=== PATIENT | female | born 1975 | race African-American/Black ===

== ENCOUNTER 2020-11-04 18:43 | Emergency (ER) | payer OTHER, MEDICAID, SELFPAY ==
--- NOTE | 2020-11-04 | XR_ITS ---
EXAMINATION: XR CHEST CLINICAL INFORMATION: Cough. Asthma. COMPARISON: Chest CT 12/15/2016 and chest x-ray 12/14/2016 TECHNIQUE: Frontal view of the chest was obtained. FINDINGS: Cardiac silhouette is normal in size. The lungs are well aerated. There is no lobar consolidation. No pleural effusion or pneumothorax. XR/XR chest 1V IMPRESSION: No acute pulmonary pathology.
[2020-11-04 18:48] VITALS: BP 173/102; PULSE 84; RESP 18; TEMP 36.6; O2SAT 100; BMI 35.3
[2020-11-04 19:17] VITALS: BP 168/89; PULSE 85; RESP 18; TEMP 36.9; O2SAT 100; BMI 40.2
--- NOTE | 2020-11-04 19:24 | ED.GENADULT ---
HPI - General Adult General Chief complaint: General Medical Stated complaint: Asthma Source: patient Mode of arrival: ambulatory Limitations: no limitations History of Present Illness HPI narrative: 45-year-old female with past medical history of asthma presents with wheezing, cough, and malaise. She was seen by her primary care physician via telemedicine yesterday and given azithromycin and prednisone. She presents because her symptoms have not improved with 1 dose of azithromycin and 1 dose of prednisone. She does report a cough, wheezing, but does not describe any chest pain, palpitations, abdominal pain, abdominal distention, dysuria, hematuria, nausea, vomiting, diarrhea, and fevers or chills. Onset (ago): week(s) Related Data Previous Rx's Medication Instructions Recorded fluoxetine 20 mg capsule 20 mg PO QAM #30 cap 08/25/20 topiramate 25 mg tablet 25 mg PO BEDTIME #120 tab 09/20/20 azithromycin 250 mg tablet See Rx Instructions PO .COMPLEX #6 10/08/20 tab prednisone 10 mg tablets in a dose See Rx Instructions PO PER PKG DIR 10/08/20 pack 8 Days #20 tab benzonatate [Tessalon Perles] 100 mg PO TID PRN #30 cap 11/05/20 Allergies Allergy/AdvReac Type Severity Reaction Status Date / Time No Known Allergies Allergy Unverified 07/08/20 15:42 [No Known Allergies*] Review of Systems Review of Systems: Constitutional: No Fever, No Chills ENT/Mouth: No Hoarseness, No sore throat, No Rhinorrhea Eyes: No Redness, No Discharge, No Vision Changes Cardiovascular: No Chest Pain, no SOB, no Dyspnea on Exertion, No Edema Respiratory: positive Cough, No Sputum, positive Wheezing, Gastrointestinal: No Nausea, No Vomiting, No Diarrhea, No abdominal Pain Genitourinary: No Dysuria, No Hematuria Musculoskeletal: No joint pain, No Myalgias Skin: No rash Neuro: No Weakness, No Numbness, No Headache Psych: No anxiety, depression Heme/Lymph: No Bruising, No Bleeding Endocrine: No Polyuria, No Polydipsia Yes all other systems are reviewed and are negative [facility] Past Medical History Attestation statement: The following information was validated with the patient. Medical History Asthma Social History Social History Advance Directives: No Advance Directives Information Provided: Yes Physical Exam Vital Signs: Vital Signs: Last Vital Signs Temp 98.5 F 11/04/20 19:17 Pulse 85 11/04/20 19:17 Resp 18 11/04/20 19:17 BP 168/89 H 11/04/20 19:17 Pulse Ox 100 11/04/20 19:17 Body Mass Index 40.2 Appearance: Alert. Oriented X3. Mild distress. Eyes: Pupils equal, round and reactive to light. ENT: Pharynx normal. Neck: Normal inspection. Neck supple. CVS: Normal heart rate and rhythm. Pulses normal. Respiratory: No respiratory distress. Breath sounds expiratory wheezing to right upper lobe. Abdomen: Soft and nontender. Skin: Skin warm and dry. Normal skin color. Normal skin turgor. Extremities: No lower extremity edema. Neuro: No motor deficit. No sensory deficit. Course Course Course Narrative: 45-year-old female with past medical history of asthma presents with cough and wheezing that has not improved with 1 dose of azithromycin and prednisone that were prescribed to her by her primary care physician via telemedicine yesterday. Lung sounds have minimal wheezing to the right upper lobe, she has been using her albuterol inhaler and nebulizers at home. Oxygen saturations 100% on room air respiration rate is 18. At this time we will test her for COVID-19 and chest x-ray Chest x-ray is negative. Patient does not want wait, we will call with her results. Patient verbalized understanding of and agrees to plan of care to discharge home. Results at 12:00 a.m.. Patient called and updated that she is COVID positive. Medical Decision Making Differential Diagnosis Differential Diagnosis: Asthma exacerbation, upper respiratory infection, COVID-19, pneumonia Medical Records Medical records reviewed: Yes I reviewed the patient's medical records. Lab Data Lab results reviewed: Yes I reviewed the patient's lab results. Labs: Lab Results 11/04/20 Range/Units 19:51 Coronavirus (PCR) POSITIVE A (Negative) Influenza Type A (PCR) NEGATIVE (Negative) Influenza Type B (PCR) NEGATIVE (Negative) RSV RNA Qual (PCR) NEGATIVE (Negative) Imaging Data Chest x-ray: Attestation: I personally reviewed and interpreted this imaging study as follows: Radiologist's impression: EXAMINATION: XR CHEST CLINICAL INFORMATION: Cough. Asthma. COMPARISON: Chest CT 12/15/2016 and chest x-ray 12/14/2016 TECHNIQUE: Frontal view of the chest was obtained. FINDINGS: Cardiac silhouette is normal in size. The lungs are well aerated. There is no lobar consolidation. No pleural effusion or pneumothorax. XR/XR chest 1V IMPRESSION: No acute pulmonary pathology. Discharge Plan Discharge Clinical Impression: COVID-19, Acute viral syndrome Patient Disposition: Home, Self-Care Instructions: Viral Syndrome (ED), COVID-19 (Coronavirus Disease 2019) (ED) Additional Instructions: You were evaluated for upper respiratory symptoms. Please continue to take medications that were prescribed to you by her pulmonary physician. Complete the azithromycin and prednisone as scheduled. We prescribed Tessalon Perles to help control her cough. Your COVID-19 test is pending. You were evaluated for symptoms consistent with COVID-19 and or COVID-19 positive exposure. Please maintain social isolation per State and Federal guidelines. Is your responsibility to maintain these guidelines. Your test results are pending. We will call you with the results. You must treat yourself as if you are positive until your test results come back. Thank you for choosing this emergency department for evaluation. Please follow-up with primary care physician as needed. Return to the emergency department for any new, concerning, or worsening symptoms. Prescriptions: New benzonatate [Tessalon Perles] 100 mg capsule 100 mg PO TID PRN (Reason: cough) Qty: 30 RF: 0 No Action fluoxetine 20 mg capsule 20 mg PO QAM Qty: 30 RF: 0 topiramate 25 mg tablet 25 mg PO BEDTIME Qty: 120 RF: 0 prednisone 10 mg tablets,dose pack See Rx Instructions PO PER PKG DIR 8 Days Qty: 20 RF: 0 azithromycin 250 mg tablet See Rx Instructions PO .COMPLEX Qty: 6 RF: 0 Interventions: ED Discharge Assessment Last Done: 11/04/20 20:40 Discharge Date/Time: 11/04/20 20:40
[2020-11-04] MEDS: Benzonatate 100 MG CAPSULE 200 MG PO (20:06)
[2020-11-04 20:39] LABS: Influenza A PCR NEGATIVE (Negative); Influenza B PCR NEGATIVE (Negative); Resp Syncy Virus RNA Qual PCR NEGATIVE (Negative); SARS COV2 PCR INHOUSE POSITIVE (Negative)
== END 2020-11-04 20:40 | disposition home or self-care (01) ==
PROVIDERS: Nurse Practitioner Family; Emergency Provider Internal Medicine; PCP Internal Medicine
DX: U07.1 COVID-19 (principal); J45.909 Unspecified asthma, uncomplicated
CPT/HCPCS: 0241U; 36415; 71045; 99283

== ENCOUNTER 2021-01-14 13:00 | Outpatient (REF) | payer OTHER, MEDICAID, SELFPAY ==
[2021-01-14 14:07] LABS: MANUAL DIFF FLAG NO
[2021-01-14 14:20] LABS: Basophils Absolute Auto 0.1 X10*3/uL (0.0-0.2); Basophils Percent Auto 0.7 % (0-2); Eosinophils Absolute Auto 0.6 X10*3/uL (0.0-0.4); Eosinophils Percent Auto 5.3 % (0-4); Hematocrit 45.1 % (37-47); Hemoglobin 14.9 g/dl (12.0-16.0); Imm Gran Abs Auto 0.09 X10*3/uL (0.00-0.03); Imm Gran Pct Auto 0.8 % (0.0-0.4); Lymphocytes Absolute Auto 2.7 X10*3/uL (1.2-4.9); Lymphocytes Percent Auto 23.5 % (20-40); Mean Corpuscular Hemoglobin 29.3 pg (27.0-33.0); Mean Corpuscular Volume 88.8 fL (80-98); Mean Platelet Volume 10.4 fL (9.4-12.3); Monocytes Absolute Auto 0.7 X10*3/uL (0.1-1.2); Monocytes Percent Auto 5.9 % (2-11); Neutrophils Absolute Auto 7.4 X10*3/uL (2.0-8.3); Neutrophils Percent Auto 63.8 % (45-73); Platelet Count 386 X10*3/uL (160-400); Red Blood Count 5.08 X10*6/uL (4.20-5.50); Red Cell Distribution Width 12.8 % (11.0-16.0); White Blood Count 11.6 X10*3/uL (4.8-10.8)
== END 2021-01-14 13:01 | disposition home or self-care (01) ==
LOC: HO.LAB 13:00
PROVIDERS: PCP Internal Medicine; Visit Provider Internal Medicine Pulmonary Disease
DX: J45.50 Severe persistent asthma, uncomplicated (principal); R06.00 Dyspnea, unspecified; R91.8 Other nonspecific abnormal finding of lung field; Z91.09 Other allergy status, other than to drugs and biological substances; Z79.899 Other long term (current) drug therapy
CPT/HCPCS: 36415; 82785; 85025; 86003

== ENCOUNTER 2021-01-14 16:18 | Outpatient (REF) | payer OTHER, MEDICAID, SELFPAY ==
--- NOTE | 2021-01-14 17:43 | PFT_ITS ---
INDICATION: Dyspnea. SPIROMETRY: The FEV1 to FVC 76% with an FEV1 of 1.31 L, which is 47% predicted, and an FVC of 1.72 L, which is 51% predicted. The patient did have a significant response to bronchodilators noted. The [id number] significantly decreased down to 41% and a maximum voluntary ventilation 78% predicted. LUNG VOLUMES: Total lung capacity 65% predicted with an expiratory reserve volume of 22% predicted. DIFFUSION CAPACITY: DLCO 84% predicted. INTERPRETATION: No definitive obstructive ventilatory defect, although her flows are decreased and she has significant airways disease suspicious for significant asthma. In addition to that, she does have a response to bronchodilators. The maximum voluntary ventilation is slightly decreased secondary to likely deconditioning. Lung volumes also demonstrate a mild to moderate restrictive ventilatory defect suggestive of restrictive lung disease, which could be due to underlying parenchymal lung conditions or neuromuscular conditions, although an elevated BMI is also in differential. Her expiratory reserve volume is significantly decreased, which could be seen within her body habitus. The patient has a normal diffusion capacity. If asthma is in the differential, methacholine challenge may be helpful in assessing for hyper-reactive airways, otherwise clinical correlation warranted. Beck Renner MD MR/MODL / [id number]
== END 2021-01-14 16:19 | disposition home or self-care (01) ==
LOC: HO.RESP 16:18
PROVIDERS: PCP Internal Medicine; Visit Provider Internal Medicine Pulmonary Disease
DX: J45.50 Severe persistent asthma, uncomplicated (principal)
CPT/HCPCS: 94060; 94727; 94729

== ENCOUNTER → 2021-01-19 13:12 | Outpatient (BNVA) | payer OTHER, MEDICAID, SELFPAY | PROVIDERS: PCP Internal Medicine; Visit Provider Physician Assistant ==

== ENCOUNTER → 2021-01-20 08:14 | Outpatient (BNVA) | payer OTHER, MEDICAID, SELFPAY | PROVIDERS: PCP Internal Medicine; Visit Provider Surgery ==

== ENCOUNTER 2021-01-24 10:52 | Outpatient (REF) | payer MEDICAID, SELFPAY | END 2021-01-24 10:53 | disposition home or self-care (01) | LOC: HO.RESP 10:52 | PROVIDERS: PCP Internal Medicine; Visit Provider Internal Medicine Pulmonary Disease | DX: Z13.89 Encounter for screening for other disorder (principal) ==

== ENCOUNTER → 2021-01-25 13:07 | Outpatient (BNVA) | payer MEDICAID, SELFPAY | PROVIDERS: PCP Internal Medicine; Visit Provider Internal Medicine Pulmonary Disease | DX: J45.50 Severe persistent asthma, uncomplicated (principal); Z91.09 Other allergy status, other than to drugs and biological substances | CPT/HCPCS: 99212 ==

== ENCOUNTER 2021-01-27 09:48 | Outpatient (REF) | payer OTHER, SELFPAY ==
[2021-01-28 10:06] LABS: BV Int Neg Control Negative (Negative); BV Int Pos Control Positive (Positive)
[2021-01-28 10:19] LABS: CT PCR NOT DETECTED (Not Detect.); NG PCR NOT DETECTED (Not Detect.)
[2021-01-31 18:51] LABS: HPV mRNA E6/E7 rflx Not Detected (Not Detected)
== END 2021-01-27 09:49 | disposition home or self-care (01) ==
LOC: HO.LAB 09:48
PROVIDERS: PCP Internal Medicine; Visit Provider Advanced Practice Midwife
DX: Z01.411 Encounter for gynecological examination (general) (routine) with abnormal findings (principal); Z11.51 Encounter for screening for human papillomavirus (HPV); B37.2 Candidiasis of skin and nail; E66.9 Obesity, unspecified; Z87.42 Personal history of other diseases of the female genital tract
CPT/HCPCS: 87480; 87491; 87510; 87591; 87624; 87660; 88142

== ENCOUNTER 2021-02-15 09:28 | Outpatient (REF) | payer OTHER, SELFPAY ==
--- NOTE | ~2021-02-15 | CT_ITS ---
EXAMINATION: CT CHEST WITHOUT CONTRAST CLINICAL INFORMATION: Other nonspecific abnormal finding of lung weber COMPARISON: Previous chest x-ray October [address] November 2018 TECHNIQUE: Multidetector volumetric CT imaging of the chest was done. Axial MIP volume rendering provided. Sagittal and coronal reformatted images were obtained. This CT examination was performed using dose optimization techniques as appropriate, variously including the following: *Automated exposure control *Adjustment of mA and/or kV according to patient size (this includes techniques or standardized protocols for targeted exams where dose is matched to indication/reason for exam; i.e. extremities or head) *Use of iterative reconstruction technique DLP: 161 mGy-cm FINDINGS: LUNGS: There is subsegmental atelectasis seen in the medial segment of the right middle lobe and inferior segment of the lingula that appears unchanged. There is subsegmental atelectasis left lower lobe adjacent to the diaphragmatic pleural surface that is new. There may be mild left lower lobe bronchial wall thickening. There is a 3 mm calcified left lower lobe nodule axial image 44 series 3 that is stable. No endobronchial or endotracheal lesion is seen. MEDIASTINUM: There may be a small hiatal hernia. The mediastinum is otherwise normal. PLEURA: There is no pleural effusion. No pleural mass or thickening. AXILLA: There is a 0.9 x 1.4 cm lesion in the left medial breast. This does not appear appreciably changed in size from November 2016. This has a new small calcification or clip. No other breast mass is seen. There are no enlarged axillary lymph nodes. UPPER ABDOMEN: Unremarkable. OSSEOUS STRUCTURES: Unremarkable. CT/CT chest wo con IMPRESSION: Stable subsegmental atelectasis in the right middle lobe and lingula. New subsegmental atelectasis at the left lower lobe and mild left lower lobe bronchial wall thickening. Stable small calcified left lower lobe nodule.
== END 2021-02-15 09:29 | disposition home or self-care (01) ==
LOC: HO.CT 09:28
PROVIDERS: PCP Internal Medicine; Visit Provider Internal Medicine Pulmonary Disease
DX: R91.8 Other nonspecific abnormal finding of lung field (principal)
CPT/HCPCS: 71250

== ENCOUNTER 2021-02-16 09:11 | Outpatient (REF) | payer OTHER, SELFPAY | END 2021-02-16 09:12 | disposition home or self-care (01) | LOC: HO.MDS 09:11 | PROVIDERS: PCP Internal Medicine; Visit Provider Internal Medicine Pulmonary Disease | DX: J45.50 Severe persistent asthma, uncomplicated (principal) | CPT/HCPCS: 96372; J0517 ==

== ENCOUNTER 2021-02-24 11:36 | Outpatient (REF) | payer OTHER, SELFPAY ==
--- NOTE | ~2021-02-24 | MM_ITS ---
EXAMINATION: MM SCREENING DIGITAL BREAST TOMOSYNTHESIS, BILATERAL CLINICAL INFORMATION: Screening. Asymptomatic. Benign left ultrasound guided biopsy 12/22/2016 (fibroadenoma). The lifetime risk of breast cancer based on the Tyrer-Cuzick Model is 15%. COMPARISON: Mammography: 10/16/2019, 07/10/2018, 06/18/2017, 12/22/2016, 12/19/2016 TECHNIQUE: Digital breast tomosynthesis is performed in both the craniocaudal and mediolateral oblique views along with computer-aided detection (CAD). Synthesized 2D images are generated from the tomosynthesis. FINDINGS: There are scattered areas of fibroglandular density (ACR BI-RADS breast composition Category b). There are no significant masses, abnormal calcifications, or other abnormalities. There is stable oval mass with central biopsy clip marker posterior 12:00 left breast corresponding to the known fibroadenoma. The axilla and skin contours are unremarkable. No significant changes. MM/MM tomosynthesis screening BI IMPRESSION: No mammographic evidence of malignancy. ASSESSMENT: BI-RADS 2: Benign RECOMMENDATION: Routine annual mammography screening. This patient's information was entered into a reminder system with a target due date for their next mammogram.
== END 2021-02-24 11:37 | disposition home or self-care (01) ==
LOC: HO.MAMMO 11:36
PROVIDERS: PCP Internal Medicine; Visit Provider Internal Medicine
DX: Z12.31 Encounter for screening mammogram for malignant neoplasm of breast (principal)
CPT/HCPCS: 77063; 77067

== ENCOUNTER 2021-03-16 09:05 | Outpatient (REF) | payer OTHER, SELFPAY | END 2021-03-16 09:06 | disposition home or self-care (01) | LOC: HO.MDS 09:05 | PROVIDERS: PCP Internal Medicine; Visit Provider Internal Medicine Pulmonary Disease | DX: J45.50 Severe persistent asthma, uncomplicated (principal) | CPT/HCPCS: 96372; J0517 ==

== ENCOUNTER 2021-04-19 12:33 | Outpatient (REF) | payer OTHER, SELFPAY | END 2021-04-19 12:34 | disposition home or self-care (01) | LOC: HO.MDS 12:33 | PROVIDERS: PCP Internal Medicine; Visit Provider Internal Medicine Pulmonary Disease | DX: J45.50 Severe persistent asthma, uncomplicated (principal) | CPT/HCPCS: 96372; J0517 ==

== ENCOUNTER → 2021-04-28 13:14 | Outpatient (BNVA) | payer OTHER, SELFPAY | PROVIDERS: PCP Internal Medicine; Visit Provider Internal Medicine Pulmonary Disease | DX: J45.50 Severe persistent asthma, uncomplicated (principal); Z91.09 Other allergy status, other than to drugs and biological substances | CPT/HCPCS: 99212 ==

== ENCOUNTER 2021-06-17 11:51 | Outpatient (REF) | payer OTHER, SELFPAY | END 2021-06-17 11:52 | disposition home or self-care (01) | LOC: HO.MDS 11:51 | PROVIDERS: PCP Internal Medicine; Visit Provider Internal Medicine Pulmonary Disease | DX: J45.50 Severe persistent asthma, uncomplicated (principal) | CPT/HCPCS: 96372; J0517 ==

== ENCOUNTER → 2021-08-03 11:35 | Outpatient (BNVA) | payer OTHER, SELFPAY | PROVIDERS: PCP Internal Medicine; Visit Provider Internal Medicine Pulmonary Disease | DX: J45.50 Severe persistent asthma, uncomplicated (principal); G47.33 Obstructive sleep apnea (adult) (pediatric); E78.00 Pure hypercholesterolemia, unspecified; I10 Essential (primary) hypertension; E66.9 Obesity, unspecified; Z68.36 Body mass index [BMI] 36.0-36.9, adult; Z91.09 Other allergy status, other than to drugs and biological substances; Z88.1 Allergy status to other antibiotic agents | CPT/HCPCS: 99212 ==

== ENCOUNTER 2021-08-09 13:51 | Outpatient (REF) | payer OTHER, SELFPAY ==
--- NOTE | ~2021-08-09 | US_ITS ---
EXAMINATION: ULTRASOUND PELVIS COMPLETE CLINICAL INFORMATION: Metrorrhagia. COMPARISON: Ultrasound pelvis 02/20/2018 TECHNIQUE: Transabdominal and transvaginal imaging of the pelvis is performed. FINDINGS: The uterus is anteverted measuring 10.1 cm in length, 5.0 cm in AP and 6.0 cm in transverse dimension. There is a hypoechoic lesion in the upper anterior body of uterus measuring 0.7 x 0.8 x 1.0 cm. There are multiple anechoic cysts seen in the cervix. The right ovary measures 3.5 x 2.3 x 2.3 cm and volume 10.0 mL. The ovary appears unremarkable. Previously right ovary measures 3.9 x 1.9 x 2.1 cm and volume 8.2 mL. The left ovary measures 2.9 x 3.1 x 3.0 cm and volume 14.0 mL. There is a hypoechoic complex cyst with septation measuring 2.4 x 2.0 x 2.1 cm. There is free fluid seen adjacent to the left ovary. There is thickened endometrium with heterogeneous appearance. There are small nabothian cysts seen. There is minimal fluid in the left adnexa adjacent to the left ovary. US/US pelvic complete IMPRESSION: 1. Multiple anechoic nabothian cysts in cervix. 2. Small hypoechoic lesion in the anterior fundus likely a small fibroid measuring 1.0 cm. 3. Complex cyst left ovary. 4. Minimal fluid left adnexa adjacent to the ovary.
--- NOTE | ~2021-08-09 | US_ITS ---
EXAMINATION: ULTRASOUND PELVIS COMPLETE CLINICAL INFORMATION: Metrorrhagia. COMPARISON: Ultrasound pelvis 02/20/2018 TECHNIQUE: Transabdominal and transvaginal imaging of the pelvis is performed. FINDINGS: The uterus is anteverted measuring 10.1 cm in length, 5.0 cm in AP and 6.0 cm in transverse dimension. There is a hypoechoic lesion in the upper anterior body of uterus measuring 0.7 x 0.8 x 1.0 cm. There are multiple anechoic cysts seen in the cervix. The right ovary measures 3.5 x 2.3 x 2.3 cm and volume 10.0 mL. The ovary appears unremarkable. Previously right ovary measures 3.9 x 1.9 x 2.1 cm and volume 8.2 mL. The left ovary measures 2.9 x 3.1 x 3.0 cm and volume 14.0 mL. There is a hypoechoic complex cyst with septation measuring 2.4 x 2.0 x 2.1 cm. There is free fluid seen adjacent to the left ovary. There is thickened endometrium with heterogeneous appearance. There are small nabothian cysts seen. There is minimal fluid in the left adnexa adjacent to the left ovary. US/US transvaginal IMPRESSION: 1. Multiple anechoic nabothian cysts in cervix. 2. Small hypoechoic lesion in the anterior fundus likely a small fibroid measuring 1.0 cm. 3. Complex cyst left ovary. 4. Minimal fluid left adnexa adjacent to the ovary.
== END 2021-08-09 13:52 | disposition home or self-care (01) ==
LOC: HO.US 13:51
PROVIDERS: Visit Provider Advanced Practice Midwife
DX: E66.9 Obesity, unspecified (principal); Z87.42 Personal history of other diseases of the female genital tract
CPT/HCPCS: 76830; 76856

== ENCOUNTER 2021-08-10 10:47 | Outpatient (REF) | payer OTHER, SELFPAY ==
[2021-08-11 05:11] LABS: CT PCR NOT DETECTED (Not Detect.); NG PCR NOT DETECTED (Not Detect.)
[2021-08-11 09:06] LABS: BV Int Neg Control Negative (Negative); BV Int Pos Control Positive (Positive)
[2021-08-13 01:36] LABS: HPV mRNA E6/E7 rflx Not Detected (Not Detected)
== END 2021-08-10 10:48 | disposition home or self-care (01) ==
LOC: HO.LAB 10:47
PROVIDERS: PCP Internal Medicine; Visit Provider Advanced Practice Midwife
DX: Z01.419 Encounter for gynecological examination (general) (routine) without abnormal findings (principal); Z11.3 Encounter for screening for infections with a predominantly sexual mode of transmission; Z11.51 Encounter for screening for human papillomavirus (HPV); Z20.2 Contact with and (suspected) exposure to infections with a predominantly sexual mode of transmission; N90.89 Other specified noninflammatory disorders of vulva and perineum
CPT/HCPCS: 87255; 87480; 87491; 87510; 87591; 87624; 87660; 88142; 99212

== ENCOUNTER 2021-08-22 08:39 | Outpatient (REF) | payer OTHER, SELFPAY | END 2021-08-22 08:40 | disposition home or self-care (01) | LOC: HO.MDS 08:39 | PROVIDERS: PCP Internal Medicine; Visit Provider Internal Medicine Pulmonary Disease | DX: J45.50 Severe persistent asthma, uncomplicated (principal) | CPT/HCPCS: 96372; J2357 ==

== ENCOUNTER → 2021-08-24 09:34 | Outpatient (REF) | payer OTHER, SELFPAY | LOC: HO.SL 09:34 | PROVIDERS: PCP Internal Medicine; Visit Provider Internal Medicine Pulmonary Disease | DX: G47.33 Obstructive sleep apnea (adult) (pediatric) (principal) | CPT/HCPCS: 95806 ==

== ENCOUNTER → 2021-08-31 08:46 | Outpatient (BNVA) | payer OTHER, SELFPAY | PROVIDERS: Visit Provider Advanced Practice Midwife ==

== ENCOUNTER 2021-09-05 08:21 | Outpatient (REF) | payer OTHER, SELFPAY | END 2021-09-05 08:22 | disposition home or self-care (01) | LOC: HO.MDS 08:21 | PROVIDERS: PCP Internal Medicine; Visit Provider Internal Medicine Pulmonary Disease | DX: J45.50 Severe persistent asthma, uncomplicated (principal) | CPT/HCPCS: 96372; J2357 ==

== ENCOUNTER → 2021-09-13 10:13 | Outpatient (BNVA) | payer OTHER, SELFPAY | PROVIDERS: PCP Internal Medicine; Visit Provider Internal Medicine Pulmonary Disease | DX: J45.50 Severe persistent asthma, uncomplicated (principal); Z91.09 Other allergy status, other than to drugs and biological substances | CPT/HCPCS: 99212 ==

== ENCOUNTER 2021-09-26 09:17 | Outpatient (REF) | payer OTHER, SELFPAY | END 2021-09-26 09:18 | disposition home or self-care (01) | LOC: HO.MDS 09:17 | PROVIDERS: Visit Provider Internal Medicine Pulmonary Disease | DX: J45.50 Severe persistent asthma, uncomplicated (principal) | CPT/HCPCS: 96372; J2182 ==

== ENCOUNTER 2021-10-24 09:13 | Outpatient (REF) | payer OTHER, SELFPAY | END 2021-10-24 09:14 | disposition home or self-care (01) | LOC: HO.MDS 09:13 | PROVIDERS: Visit Provider Internal Medicine Pulmonary Disease | DX: J45.50 Severe persistent asthma, uncomplicated (principal) | CPT/HCPCS: 96372; J2182 ==

== ENCOUNTER 2021-11-21 08:54 | Outpatient (REF) | payer OTHER, SELFPAY | END 2021-11-21 08:55 | disposition home or self-care (01) | LOC: HO.MDS 08:54 | PROVIDERS: Visit Provider Internal Medicine Pulmonary Disease | DX: J45.50 Severe persistent asthma, uncomplicated (principal) | CPT/HCPCS: 96372 ==

== ENCOUNTER 2021-11-30 07:51 | Outpatient (REF) | payer OTHER, SELFPAY ==
[2021-11-30 08:16] LABS: MANUAL DIFF FLAG NO
[2021-11-30 09:02] LABS: Basophils Absolute Auto 0.1 X10*3/uL (0.0-0.2); Basophils Percent Auto 0.9 % (0-2); Eosinophils Absolute Auto 0.1 X10*3/uL (0.0-0.4); Eosinophils Percent Auto 0.7 % (0-4); Hematocrit 43.7 % (37.0-47.0); Hemoglobin 14.3 g/dl (12.0-16.0); Imm Gran Abs Auto 0.02 X10*3/uL (0.00-0.03); Imm Gran Pct Auto 0.3 % (0.0-0.4); Lymphocytes Absolute Auto 2.2 X10*3/uL (1.2-4.9); Lymphocytes Percent Auto 31.6 % (20-40); Mean Corpuscular HGB Conc 32.7 g/dl (31.0-35.0); Mean Corpuscular Hemoglobin 28.3 pg (27.0-33.0); Mean Corpuscular Volume 86.5 fL (80.0-98.0); Mean Platelet Volume 11.2 fL (9.4-12.3); Monocytes Absolute Auto 0.5 X10*3/uL (0.1-1.2); Monocytes Percent Auto 6.9 % (2-11); Neutrophils Absolute Auto 4.1 x10*3/uL (2.0-8.3); Neutrophils Percent Auto 59.6 % (45-73); Platelet Count 291 X10*3/uL (160-400); Red Blood Count 5.05 X10*6/uL (4.20-5.50); White Blood Count 6.9 X10*3/uL (4.8-10.8)
[2021-11-30 09:03] LABS: Appearance Urine HAZY; Color Urine YELLOW; Glucose Urine UA NEG (NEG); Leukocyte Esterase Urine NEG (NEG); Nitrite Urine NEG (NEG); Specific Gravity - Urine 1.025 (1.005-1.025); Urine Blood NEG (NEG); Urine Ketones NEG (NEG); Urine Protein NEG (NEG-TRACE)
[2021-11-30 12:57] LABS: TSH reflex Free T4 1.35 uIU/mL (0.32-4.0); Vitamin D 25-OH Total 22.7 ng/mL (>30)
[2021-11-30 13:19] LABS: Alanine Aminotransferase 15 U/L (0-31); Albumin Level 4.2 g/dL (3.5-5.0); Alkaline Phosphatase 68 U/L (39-117); Anion Gap 11 (12-20); Aspartate Amino Transferase 15 U/L (5-31); Bilirubin Total 0.6 mg/dL (0.0-1.0); Carbon Dioxide 24 mmol/L (22-29); Chloride 109 mmol/L (96-108); Cholesterol 178 mg/dL; Estimated Glomerular Filt Rate > 60; Glucose Fasting 100 mg/dL (60-99); HDL Cholesterol 41 mg/dL; LDL Cholesterol Calculated 111 mg/dl; Potassium 4.7 mmol/L (3.3-5.1); Sodium 139 mmol/L (135-145); Total Protein 6.8 g/dL (6.5-8.0); Triglycerides 133 mg/dL
[2021-11-30 15:30] LABS: Blood Urea Nitrogen 10 mg/dL (9-16); Calcium 9.6 mg/dL (8.4-10.2)
== END 2021-11-30 07:52 | disposition home or self-care (01) ==
LOC: HO.LAB 07:51
PROVIDERS: PCP Internal Medicine; Visit Provider Internal Medicine
DX: I10 Essential (primary) hypertension (principal); E78.00 Pure hypercholesterolemia, unspecified; E55.9 Vitamin D deficiency, unspecified
CPT/HCPCS: 36415; 80053; 80061; 81003; 82306; 84443; 85025

== ENCOUNTER 2021-12-19 09:09 | Outpatient (REF) | payer OTHER, SELFPAY | END 2021-12-19 09:10 | disposition home or self-care (01) | LOC: HO.MDS 09:09 | PROVIDERS: Visit Provider Internal Medicine Pulmonary Disease | DX: J45.50 Severe persistent asthma, uncomplicated (principal) | CPT/HCPCS: 96372; J2182 ==

== ENCOUNTER 2021-12-28 10:55 | Outpatient (REF) | payer OTHER, SELFPAY ==
--- NOTE | ~2021-12-28 | US_ITS ---
EXAMINATION: US PELVIS CLINICAL INFORMATION: Follow-up ovarian cyst COMPARISON: Pelvic ultrasound 08/09/2021 TECHNIQUE: Ultrasound of the pelvis is performed using both transabdominal and transvaginal transducers along with Doppler. Transvaginal imaging is performed due to inadequate visualization transabdominally. FINDINGS: Uterus: The uterus is anteverted and measures 10.2 x 5.1 x 5.5 cm. The double wall endometrial thickness is 22 mm. There are nabothian cysts within the cervix. The uterus is smooth in contour and has normal myometrial echogenicity. Again demonstrated is a small hypoechoic lesion in the upper anterior body of the uterus measuring 0.9 x 0.8 x 0.6 cm, likely warehouse representative of a small fibroid Adnexa: Both ovaries are visualized. There is normal color flow to the adnexa. There is no ovarian torsion. There is no pelvic ascites or fluid collection. Right ovary measures 3.4 x 2.4 x 2.6 cm. 11.1 Left ovary measures 3.6 x 3.2 x 3.5 cm. 21.1. Again demonstrated is a complex cyst of the left ovary with internal septations measuring approximately 1.9 x 1.8 x 1.7 cm (previously 2.5 x 2.1 x 2.1 cm). There is also a simple appearing cyst that measures 1.9 x 1.6 x 1.5 cm. US/US pelvic and transvaginal IMPRESSION: Redemonstration of complex cyst of the left ovary, which is slightly decreased in size as compared to the prior study. Additional simple cyst of the left ovary. Small fibroid in the anterior upper body of the uterus measuring up to 0.9 cm. Nabothian cysts are again demonstrated within the cervix.
== END 2021-12-28 10:56 | disposition home or self-care (01) ==
LOC: HO.US 10:55
PROVIDERS: Visit Provider Advanced Practice Midwife
DX: N83.292 Other ovarian cyst, left side (principal)
CPT/HCPCS: 76830; 76856

== ENCOUNTER 2022-01-04 10:00 | Emergency (ER) | payer OTHER, SELFPAY ==
--- NOTE | 2022-01-04 | ECG_ITS ---
Test Reason : hypertension/cp Blood Pressure : / mmHG Vent. Rate : 079 BPM Atrial Rate : 079 BPM P-R Int : 158 ms QRS Dur : 076 ms QT Int : 380 ms P-R-T Axes : 046 014 020 degrees QTc Int : 435 ms Normal sinus rhythm Normal ECG When compared with ECG of 18-APR-2016 09:56, No significant change was found Referred By: Generic ED Physician Electronically Signed By:DELMY CURRY
--- NOTE | ~2022-01-04 | CT_ITS ---
EXAMINATION: CT HEAD WITHOUT CONTRAST CLINICAL INFORMATION: Headaches. COMPARISON: None TECHNIQUE: Contiguous axial imaging was performed from the skull base to vertex without intravenous administration of contrast. This CT examination was performed using dose optimization techniques as appropriate, variously including the following: *Automated exposure control *Adjustment of mA and/or kV according to patient size (this includes techniques or standardized protocols for targeted exams where dose is matched to indication/reason for exam; i.e. extremities or head) *Use of iterative reconstruction technique DLP: 748 mGy-cm FINDINGS: There is no evidence of acute intracranial hemorrhage or territorial infarction. No abnormal mass effect or midline shift is seen. Ruiz to white matter differentiation is well preserved. No extra-axial fluid collections are identified. The ventricles are normal in size. There is no abnormal attenuation within the brain parenchyma. The osseous structures and soft tissues are normal. There is air-fluid level in the right maxillary sinus and mild mucoperiosteal thickening right posterior ethmoid sinus.. Rest of the paranasal sinuses are well-aerated. The mastoid sinuses are clear. CT/CT head/brain wo con IMPRESSION: No acute intracranial process seen. Acute right maxillary and chronic right posterior ethmoids sinus inflammatory changes
--- NOTE | ~2022-01-04 | XR_ITS ---
EXAMINATION: XR CHEST CLINICAL INFORMATION: Chest pain COMPARISON: November 04, 2020 TECHNIQUE: AP portable view of the chest was obtained. FINDINGS: No significant abnormality is noted involving the heart, lungs, mediastinum, bony thorax or soft tissues. XR/XR chest 1V IMPRESSION: No acute disease.
[2022-01-04 10:01] VITALS: BP 162/88; PULSE 86; RESP 18; TEMP 36.4; O2SAT 100; BMI 34.7
[2022-01-04 10:16] VITALS: BP 136/86; PULSE 72; RESP 16; O2SAT 98
--- NOTE | 2022-01-04 10:32 | ED_ITS ---
HPI - Chest Pain General Chief Complaint: Chest Pain Stated Complaint: HBP Time Seen by Provider: 01/04/22 10:25 Source: patient Mode of arrival: ambulatory Limitations: no limitations History of Present Illness HPI narrative: high BP with headaches x 3 days taking meds - BP up to 160s at home. states she is compliant with her BP medications complaint: other (HTN) Onset (ago): day(s) (3) Timing of current episode: constant Prior episodes: Yes Onset: during rest Pain location: other (head ) Pain radiation: none Severity: moderate Quality: aching and dull Relieving factors: nothing Exacerbating factors: nothing Context: other (hx of migraines but this feels different) Treatment prior to arrival: none Related Data Home Medications Medication Instructions Recorded Confirmed fluticasone propionate 50 1 spray INTRANASAL DAILY 11/29/20 11/17/21 mcg/actuation nasal spray,suspension loratadine 10 mg tablet (Allergy 10 mg PO DAILY 11/29/20 11/17/21 Relief (loratadine)) nebulizers #1 ea 11/29/20 11/17/21 pantoprazole 40 mg tablet,delayed 40 mg PO BID 01/19/21 11/17/21 release famotidine 20 mg tablet 20 mg PO BID 01/20/21 11/17/21 Previous Rx's Medication Instructions Recorded tiotropium bromide 2.5 2 puff INHALATION DAILY #4 ml 04/05/21 mcg/actuation mist for inhalation (Spiriva Respimat) lorazepam 0.5 mg tablet See Rx Instructions PO .COMPLEX 07/07/21 PRN #4 tab montelukast 10 mg tablet 10 mg PO BEDTIME 30 Days #30 tab 08/03/21 mepolizumab 100 mg/mL subcutaneous 100 mg SUBCUT Q4W 28 Days #1 ml 09/14/21 syringe clotrimazole 1 % topical cream See Rx Instructions TOPICAL BID 09/29/21 #45 g albuterol sulfate 90 mcg/actuation 2 puff INHALATION Q6H PRN 30 Days 11/17/21 aerosol inhaler (ProAir HFA) #18 g amlodipine 5 mg tablet 5 mg PO DAILY 90 Days #90 tab 11/17/21 azelastine 137 mcg (0.1 %) nasal 2 spray INTRANASAL BID #30 ml 11/22/21 spray aerosol fluticasone furoate 200 1 inh INHALATION DAILY #60 ea 11/22/21 mcg-vilanterol 25 mcg/dose inhalation powder (Breo Ellipta) furosemide 20 mg tablet 20 mg PO QAM PRN 30 Days #30 tab 11/22/21 ibuprofen 800 mg tablet 800 mg PO TID PRN 30 Days #90 tab 11/25/21 pravastatin 20 mg tablet 20 mg PO DAILY 30 Days #30 tab 11/28/21 ipratropium 0.5 mg-albuterol 3 mg 3 ml INHALATION Q6H PRN #180 ml 12/06/21 (2.5 mg base)/3 mL nebulization soln topiramate 25 mg tablet 25 mg PO BEDTIME 30 Days #30 tab 12/26/21 amoxicillin 875 mg-potassium 1 tab PO BID #14 tab 01/04/22 clavulanate 125 mg tablet Allergies Allergy/AdvReac Type Severity Reaction Status Date / Time doxycycline Allergy Severe Anaphylaxis Verified 11/17/21 22:38 Review of Systems Review of Systems: Constitutional : No Fever, No Chills, No Fatigue ENT/Mouth : No sore throat, No Rhinorrhea Eyes: No Eye Pain, No Swelling, No Redness Cardiovascular : No Chest Pain, No SOB, No Dyspnea on Exertion Respiratory : No Cough, No Sputum Gastrointestinal : No Nausea, No Vomiting, No Diarrhea, No abdominal Pain Genitourinary : No Dysuria, No Urinary Frequency, No Hematuria, Musculoskeletal : No joint pain, No Myalgias, No Joint Swelling Skin : No Skin Lesions, No rash Neuro : No Weakness, No Numbness, No Dizziness, positive Headache Psych : No Anxiety/Panic, No Depression Heme/Lymph: No Bruising, No Bleeding,No Lymphadenopathy Endocrine : No Polyuria, No Polydipsia All other systems reviewed and are negative [facility] Past Medical History Attestation statement: The following information was validated with the patient. Medical History Allergic rhinitis Anxiety Asthma Benign essential hypertension Cough variant asthma Depression DJD (degenerative joint disease) GERD (gastroesophageal reflux disease) Hiatal hernia Insomnia Migraines Obesity (BMI 30-39.9) Pure hypercholesterolemia Surgical History History of breast biopsy History of tubal ligation Family History Family History Father Hypertension CVD (cardiovascular disease) Stroke Epilepsia Mother Hypertension Diabetes mellitus CVD (cardiovascular disease) Brother Epilepsia Depressed Anxiety Sister Epilepsia Depressed Anxiety Daughter No problems noted. Son No problems noted. Social History Social History Housing: House Alcohol intake: never Patient Tobacco Use Status: Never used Tobacco Second Hand Smoke Exposure: Yes Use of substances other than those prescribed or required for medical reasons: No Advance Directives: No Advance Directives Information Provided: No Patient : No service: No Current occupational status: employed Physical Exam Vital Signs: Vital Signs: Last Vital Signs Temp 98.2 F 01/04/22 11:43 Pulse 74 01/04/22 11:43 Resp 16 01/04/22 11:43 BP 129/78 01/04/22 11:43 Pulse Ox 100 01/04/22 11:43 BMI result Body Mass Index 34.7 Appearance: Alert. Oriented X3. No acute distress. watching TV not toxic Eyes: Pupils equal, round and reactive to light. ENT: Pharynx normal. R TM clear effusion, L TM no signs of infection but chronic perforation Neck: Normal inspection. Neck supple. no meningeal signs CVS: Normal heart rate and rhythm. Pulses normal. Respiratory: No respiratory distress. Breath sounds normal. Abdomen: Soft and nontender. Skin: Skin warm and dry. Normal skin color. Normal skin turgor. Extremities: No lower extremity edema. No calf ttp Neuro: Oriented X 3. No motor deficit. No sensory deficit. Course Course Course Narrative: trop flat, EKG nonischemic, CT scan sinusitis MDM - Chest Pain MDM Narrative Medical decision making narrative: 46 yo female with hx of HTN, headaches, chronic L ear perforation notes she has had a headache x 3 days and felt tingling in both her hands at one point tingling has resolved and her headache is better, she checked her BP at home and at times it has been 160s. She is compliant with her amlodipine. No new illnesses or injuries. At this time will obtian basic labs, monitor her BP and obtain CT head for mass. Has R sided clear effusion but no erythema noted to suggest infection. Lab Data Result diagrams: 01/04/22 10:40 03/16/22 10:40 Labs: Lab Results 01/04/22 01/04/22 01/04/22 Range/Units 10:40 10:40 10:40 WBC 6.3 (4.8-10.8) X10*3/uL RBC 5.08 (4.20-5.50) X10*6/uL Hgb 14.5 (12.0-16.0) g/dl Hct 44.4 (37.0-47.0) % MCV 87.4 (80.0-98.0) fL MCH 28.5 (27.0-33.0) pg MCHC 32.7 (31.0-35.0) g/dl RDW 12.9 (11.0-16.0) % Plt Count 303 (160-400) X10*3/uL MPV 11.1 (9.4-12.3) fL Immature Gran % (Auto) 0.5 H (0.0-0.4) % Neut % (Auto) 56.0 (45-73) % Lymph % (Auto) 35.1 (20-40) % Ralls % (Auto) 7.1 (2-11) % Eos % (Auto) 0.5 (0-4) % Baso % (Auto) 0.8 (0-2) % Lymph # (Auto) 2.2 (1.2-4.9) X10*3/uL Ralls # (Auto) 0.5 (0.1-1.2) X10*3/uL Eos # (Auto) 0.0 (0.0-0.4) X10*3/uL Baso # (Auto) 0.1 (0.0-0.2) X10*3/uL Abs Immat Gran (auto) 0.03 (0.00-0.03) X10*3/uL Absolute Neuts (auto) 3.5 (2.0-8.3) x10*3/uL Absolute Nucleated RBC 0.000 (0.0-0.012) X10*3/uL Nucleated RBC % (auto) 0.0 (0.0-0.2) /100WBC Sodium 141 (135-145) mmol/L Potassium 4.2 (3.3-5.1) mmol/L Chloride 110 H (96-108) mmol/L Carbon Dioxide 25 (22-29) mmol/L Anion Gap 10 L (12-20) BUN 9 (9-16) mg/dL Creatinine 0.75 (0.5-1.4) mg/dL Estim Creat Clear Calc 97.5 Estimated GFR > 60 Random Glucose 81 (60-115) mg/dL Calcium 9.7 (8.4-10.2) mg/dL Magnesium 2.3 (1.6-2.6) mg/dL Total Bilirubin 0.3 (0.0-1.0) mg/dL Direct Bilirubin < 0.2 (0.0-0.5) mg/dL AST 16 (5-31) U/L ALT 16 (0-31) U/L Alkaline Phosphatase 69 (39-117) U/L Troponin I High Sens < 3.5 (<3.5-17.0) ng/L Total Protein 6.9 (6.5-8.0) g/dL Albumin 4.2 (3.5-5.0) g/dL Discharge Plan Discharge Clinical Impression: Sinusitis Qualifiers: Sinusitis location: ethmoidal Chronicity: acute Recurrence: recurrent Qualified Code(s): J01.21 - Acute recurrent ethmoidal sinusitis Patient Disposition: Home, Self-Care Instructions: Sinusitis (ED) Additional Instructions: return to ED for any worsening symptoms or concerns Prescriptions: New amoxicillin-pot clavulanate 875-125 mg tablet 1 tab PO BID Qty: 14 0RF No Action tiotropium bromide [Spiriva Respimat] 2.5 mcg/actuation mist 2 puff inhalation DAILY Qty: 4 11RF lorazepam 0.5 mg tablet See Rx Instructions PO .COMPLEX PRN (Reason: anxiety) Qty: 4 0RF Rx Instructions: Take 1 tablet 20 to 30 minutes before boarding plane; may take a second dose after 15 minutes IF NEEDED PO PRN mepolizumab 100 mg/mL syringe 100 mg subcut Q4W 28 Days Qty: 1 12RF clotrimazole 1 % cream See Rx Instructions topical BID Qty: 45 2RF Rx Instructions: topical 2 times a day; albuterol sulfate [ProAir HFA] 90 mcg/actuation HFA aerosol inhaler 2 puff inhalation Q6H PRN (Reason: shortness of breath or wheezing) 30 Days Qty: 18 5RF azelastine 137 mcg (0.1 %) aerosol,spray 2 spray intranasal BID Qty: 30 6RF furosemide 20 mg tablet 20 mg PO QAM PRN (Reason: swelling) 30 Days Qty: 30 1RF Breo Ellipta 200-25 mcg/dose blister with device 1 inh inhalation DAILY Qty: 60 1RF ibuprofen 800 mg tablet 800 mg PO TID PRN (Reason: pain) 30 Days Qty: 90 1RF Rx Instructions: Take with food pravastatin 20 mg tablet 20 mg PO DAILY 30 Days Qty: 30 3RF ipratropium-albuterol 0.5 mg-3 mg(2.5 mg base)/3 mL solution for nebulization 3 ml inhalation Q6H PRN (Reason: for wheezing) Qty: 180 0RF topiramate 25 mg tablet 25 mg PO BEDTIME 30 Days Qty: 30 3RF (DME) nebulizers Misc See Rx Instructions .ROUTE .MEDSUPPLY Qty: 1 0RF Rx Instructions: As directed fluticasone propionate 50 mcg/actuation spray,suspension 1 spray intranasal DAILY 0RF Rx Instructions: administer into each nostril loratadine [Allergy Relief (loratadine)] 10 mg tablet 10 mg PO DAILY 0RF amlodipine 5 mg tablet 5 mg PO DAILY 90 Days Qty: 90 3RF famotidine 20 mg tablet 20 mg PO BID 0RF pantoprazole 40 mg tablet,delayed release (DR/EC) 40 mg PO BID 0RF montelukast 10 mg tablet 10 mg PO BEDTIME 30 Days Qty: 30 6RF Referrals: Jeremy Castro MD [Primary Care Provider] - 5 days Stand Alone Forms: Work/School Release
[2022-01-04 10:48] LABS: MANUAL DIFF FLAG NO
[2022-01-04 10:51] LABS: Basophils Absolute Auto 0.1 X10*3/uL (0.0-0.2); Basophils Percent Auto 0.8 % (0-2); Eosinophils Percent Auto 0.5 % (0-4); Hematocrit 44.4 % (37.0-47.0); Hemoglobin 14.5 g/dl (12.0-16.0); Imm Gran Abs Auto 0.03 X10*3/uL (0.00-0.03); Imm Gran Pct Auto 0.5 % (0.0-0.4); Lymphocytes Absolute Auto 2.2 X10*3/uL (1.2-4.9); Lymphocytes Percent Auto 35.1 % (20-40); Mean Corpuscular HGB Conc 32.7 g/dl (31.0-35.0); Mean Corpuscular Hemoglobin 28.5 pg (27.0-33.0); Mean Corpuscular Volume 87.4 fL (80.0-98.0); Mean Platelet Volume 11.1 fL (9.4-12.3); Monocytes Absolute Auto 0.5 X10*3/uL (0.1-1.2); Monocytes Percent Auto 7.1 % (2-11); Neutrophils Absolute Auto 3.5 x10*3/uL (2.0-8.3); Platelet Count 303 X10*3/uL (160-400); Red Blood Count 5.08 X10*6/uL (4.20-5.50); Red Cell Distribution Width 12.9 % (11.0-16.0); White Blood Count 6.3 X10*3/uL (4.8-10.8)
[2022-01-04 11:07] LABS: Alanine Aminotransferase 16 U/L (0-31); Albumin Level 4.2 g/dL (3.5-5.0); Alkaline Phosphatase 69 U/L (39-117); Anion Gap 10 (12-20); Aspartate Amino Transferase 16 U/L (5-31); Bilirubin Direct < 0.2 mg/dL (0.0-0.5); Bilirubin Total 0.3 mg/dL (0.0-1.0); Blood Urea Nitrogen 9 mg/dL (9-16); Calcium 9.7 mg/dL (8.4-10.2); Carbon Dioxide 25 mmol/L (22-29); Chloride 110 mmol/L (96-108); Creatinine Clr Calc Pharmacy 97.5; Estimated Glomerular Filt Rate > 60; Glucose Random 81 mg/dL (60-115); Magnesium 2.3 mg/dL (1.6-2.6); Potassium 4.2 mmol/L (3.3-5.1); Sodium 141 mmol/L (135-145); Total Protein 6.9 g/dL (6.5-8.0)
[2022-01-04 11:14] LABS: Troponin-I High Sensitivity < 3.5 ng/L (<3.5-17.0)
[2022-01-04 11:43] VITALS: BP 129/78; PULSE 74; RESP 16; TEMP 36.8; O2SAT 100
--- NOTE | 2022-01-04 11:48 | PC.NURSE ---
pt a&ox3, vss, pt denies chest pain/sob/dizziness. reports 8/10 headache at the top of her head and twitching/pressure in her right eye when her head hurts. CT results pending, will continue to monitor.
== END 2022-01-04 12:36 | disposition home or self-care (01) ==
PROVIDERS: Emergency Provider Emergency Medicine; PCP Internal Medicine
DX: J01.21 Acute recurrent ethmoidal sinusitis (principal); R07.89 Other chest pain; R51.9 Headache, unspecified; Z79.899 Other long term (current) drug therapy
CPT/HCPCS: 36415; 70450; 71045; 80048; 80076; 83735; 84484; 85025; 93005; 99284; 99285

== ENCOUNTER 2022-01-16 08:52 | Outpatient (REF) | payer OTHER, SELFPAY | END 2022-01-16 08:53 | disposition home or self-care (01) | LOC: HO.MDS 08:52 | PROVIDERS: Visit Provider Internal Medicine Pulmonary Disease | DX: J45.50 Severe persistent asthma, uncomplicated (principal) | CPT/HCPCS: 96372; J2182 ==

== ENCOUNTER → 2022-01-18 09:52 | Outpatient (BNVA) | payer OTHER, SELFPAY | PROVIDERS: PCP Internal Medicine; Visit Provider Internal Medicine Pulmonary Disease | DX: J45.50 Severe persistent asthma, uncomplicated (principal); K21.9 Gastro-esophageal reflux disease without esophagitis; Z91.09 Other allergy status, other than to drugs and biological substances | CPT/HCPCS: 99212 ==

== ENCOUNTER → 2022-01-23 09:38 | Outpatient (BNVA) | payer OTHER, SELFPAY | PROVIDERS: Visit Provider Advanced Practice Midwife | DX: N83.299 Other ovarian cyst, unspecified side (principal); Z79.899 Other long term (current) drug therapy | CPT/HCPCS: Q3014 ==

== ENCOUNTER 2022-02-13 08:24 | Outpatient (REF) | payer OTHER, SELFPAY | END 2022-02-13 08:25 | disposition home or self-care (01) | LOC: HO.MDS 08:24 | PROVIDERS: Visit Provider Internal Medicine Pulmonary Disease | DX: J45.50 Severe persistent asthma, uncomplicated (principal) | CPT/HCPCS: 96372; J2182 ==

== ENCOUNTER 2022-03-01 08:32 | Outpatient (REF) | payer OTHER, SELFPAY ==
[2022-03-01 09:34] LABS: MANUAL DIFF FLAG NO
[2022-03-01 10:35] LABS: Basophils Absolute Auto 0.1 X10*3/uL (0.0-0.2); Basophils Percent Auto 0.8 % (0-2); Eosinophils Percent Auto 0.4 % (0-4); Hematocrit 43.6 % (37.0-47.0); Hemoglobin 14.4 g/dl (12.0-16.0); Imm Gran Abs Auto 0.03 X10*3/uL (0.00-0.03); Imm Gran Pct Auto 0.4 % (0.0-0.4); Lymphocytes Absolute Auto 2.3 X10*3/uL (1.2-4.9); Lymphocytes Percent Auto 30.1 % (20-40); Mean Corpuscular Hemoglobin 28.2 pg (27.0-33.0); Mean Corpuscular Volume 85.3 fL (80.0-98.0); Mean Platelet Volume 11.2 fL (9.4-12.3); Monocytes Absolute Auto 0.5 X10*3/uL (0.1-1.2); Monocytes Percent Auto 6.6 % (2-11); Neutrophils Absolute Auto 4.7 x10*3/uL (2.0-8.3); Neutrophils Percent Auto 61.7 % (45-73); Platelet Count 317 X10*3/uL (160-400); Red Blood Count 5.11 X10*6/uL (4.20-5.50); Red Cell Distribution Width 12.8 % (11.0-16.0); White Blood Count 7.7 X10*3/uL (4.8-10.8)
[2022-03-01 11:13] LABS: Alanine Aminotransferase 12 U/L (0-31); Albumin Level 4.2 g/dL (3.5-5.0); Alkaline Phosphatase 72 U/L (39-117); Anion Gap 13 (12-20); Aspartate Amino Transferase 15 U/L (5-31); Bilirubin Total 0.2 mg/dL (0.0-1.0); Blood Urea Nitrogen 11 mg/dL (9-16); C Reactive Protein 0.82 mg/dL (< or = 0.50); Calcium 9.7 mg/dL (8.4-10.2); Carbon Dioxide 25 mmol/L (22-29); Chloride 106 mmol/L (96-108); Estimated Glomerular Filt Rate > 60; Glucose Random 104 mg/dL (60-115); Sodium 140 mmol/L (135-145); Total Protein 6.9 g/dL (6.5-8.0)
[2022-03-01 11:16] LABS: Erythrocyte Sedimentation Rate 6 MM/HR (0-20)
[2022-03-01 11:23] LABS: Rheumatoid Factor < 15.0 IU/mL (<15.0)
[2022-03-01 11:33] LABS: HCG Quantitative < 2 mIU/mL; TSH reflex Free T4 1.12 uIU/mL (0.32-4.0)
[2022-03-01 14:03] LABS: CT PCR NOT DETECTED (Not Detect.); NG PCR NOT DETECTED (Not Detect.)
[2022-03-03 06:36] LABS: CA 125 New Method 22 U/mL (<35); CA-125 22 U/mL (<35)
[2022-03-03 15:01] LABS: Anti Nuclear Antibody Screen NEGATIVE (NEGATIVE)
== END 2022-03-01 08:33 | disposition home or self-care (01) ==
LOC: HO.LAB 08:32
PROVIDERS: PCP Internal Medicine; Visit Provider Obstetrics & Gynecology
DX: Z11.3 Encounter for screening for infections with a predominantly sexual mode of transmission (principal); M25.50 Pain in unspecified joint; R07.89 Other chest pain; I10 Essential (primary) hypertension; M79.7 Fibromyalgia; N83.299 Other ovarian cyst, unspecified side; D21.9 Benign neoplasm of connective and other soft tissue, unspecified; N93.9 Abnormal uterine and vaginal bleeding, unspecified
CPT/HCPCS: 36415; 80053; 81025; 84443; 84702; 85025; 85652; 86038; 86039; 86140; 86304; 86431; 87491; 87591; 99212

== ENCOUNTER 2022-03-07 08:43 | Outpatient (REF) | payer OTHER, SELFPAY ==
--- NOTE | ~2022-03-07 | XR_ITS ---
EXAMINATION: BILATERAL KNEE X-RAY CLINICAL INFORMATION: Pain COMPARISON: Previous right knee x-ray August 2017 TECHNIQUE: 3 views of each knee FINDINGS: Bone alignment is normal. No fracture or dislocation is seen. Joint spaces are normal. There is no joint effusion. XR/XR knee LT 3V IMPRESSION: Unremarkable exam.
--- NOTE | ~2022-03-07 | XR_ITS ---
EXAMINATION: BILATERAL KNEE X-RAY CLINICAL INFORMATION: Pain COMPARISON: Previous right knee x-ray August 2017 TECHNIQUE: 3 views of each knee FINDINGS: Bone alignment is normal. No fracture or dislocation is seen. Joint spaces are normal. There is no joint effusion. XR/XR knee RT 3V IMPRESSION: Unremarkable exam.
--- NOTE | ~2022-03-07 | XR_ITS ---
EXAMINATION: BILATERAL HAND X-RAY CLINICAL INFORMATION: Pain COMPARISON: None TECHNIQUE: 3 views each hand FINDINGS: Bone alignment is normal. No fracture or dislocation is seen. There is ulnar minus variance on the left. Joint spaces are normal. Soft tissues are normal. XR/XR hand RT min 3V IMPRESSION: Ulnar minus variance on the left. Otherwise unremarkable exam.
--- NOTE | ~2022-03-07 | MM_ITS ---
EXAMINATION: MM SCREENING DIGITAL BREAST TOMOSYNTHESIS, BILATERAL CLINICAL INFORMATION: Screening. Asymptomatic. 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 The lifetime risk of breast cancer based on the Tyrer-Cuzick Model is 17%. COMPARISON: Mammography: 02/24/2021, 10/16/2019, 07/10/2018 TECHNIQUE: Digital breast tomosynthesis is performed in both the craniocaudal and mediolateral oblique views along with computer-aided detection (CAD). Synthesized 2D images are generated from the tomosynthesis. FINDINGS: There are scattered areas of fibroglandular density (ACR BI-RADS breast composition Category b). Breast tissue composition borders on heterogeneously dense. Parenchymal pattern is similar to prior studies and there is no interval mass or architectural abnormality or abnormal calcifications. There is a stable nodule with overlying biopsy clip marker again noted central mid 12:00 left breast corresponding to the known fibroadenoma. The axilla and skin contours are unremarkable. No significant changes. MM/MM tomosynthesis screening BI IMPRESSION: No mammographic evidence of malignancy. ASSESSMENT: BI-RADS 2: Benign RECOMMENDATION: Routine annual mammography screening. This patient's information was entered into a reminder system with a target due date for their next mammogram.
--- NOTE | ~2022-03-07 | XR_ITS ---
EXAMINATION: BILATERAL HAND X-RAY CLINICAL INFORMATION: Pain COMPARISON: None TECHNIQUE: 3 views each hand FINDINGS: Bone alignment is normal. No fracture or dislocation is seen. There is ulnar minus variance on the left. Joint spaces are normal. Soft tissues are normal. XR/XR hand LT min 3V IMPRESSION: Ulnar minus variance on the left. Otherwise unremarkable exam.
[2022-03-07 11:20] LABS: Alanine Aminotransferase 20 U/L (0-31); Albumin Level 4.2 g/dL (3.5-5.0); Alkaline Phosphatase 71 U/L (39-117); Anion Gap 9 (12-20); Aspartate Amino Transferase 18 U/L (5-31); Bilirubin Total 0.4 mg/dL (0.0-1.0); Blood Urea Nitrogen 9 mg/dL (9-16); Calcium 9.4 mg/dL (8.4-10.2); Carbon Dioxide 25 mmol/L (22-29); Chloride 110 mmol/L (96-108); Cholesterol 180 mg/dL; Estimated Glomerular Filt Rate > 60; Glucose Fasting 104 mg/dL (60-99); HDL Cholesterol 52 mg/dL; LDL Cholesterol Calculated 112 mg/dl; Potassium 4.8 mmol/L (3.3-5.1); Sodium 139 mmol/L (135-145); Total Protein 6.9 g/dL (6.5-8.0); Triglycerides 80 mg/dL
[2022-03-07 11:34] LABS: TSH reflex Free T4 0.94 uIU/mL (0.32-4.0)
== END 2022-03-07 08:44 | disposition home or self-care (01) ==
LOC: HO.LAB 08:43
PROVIDERS: PCP Internal Medicine; Visit Provider Internal Medicine
DX: Z12.31 Encounter for screening mammogram for malignant neoplasm of breast (principal); E78.00 Pure hypercholesterolemia, unspecified; R07.89 Other chest pain; M25.561 Pain in right knee; M25.562 Pain in left knee; M79.641 Pain in right hand; M79.642 Pain in left hand
CPT/HCPCS: 36415; 73130; 73562; 77063; 77067; 80053; 80061; 84443

== ENCOUNTER 2022-03-13 08:06 | Outpatient (REF) | payer OTHER, SELFPAY ==
--- NOTE | ~2022-03-13 | MR_ITS ---
EXAMINATION: MRI PELVIS WITH AND WITHOUT CONTRAST CLINICAL INFORMATION: N83.299 - Other ovarian cyst, unspecified side. The patient reports pelvic pain for 2 years and history of prior tubal ligation COMPARISON: Ultrasound 12/28/2021 TECHNIQUE: Multiple routine MRI sequences through the pelvis were obtained on a high-field 1.5 Myriam MRI before and after the uneventful administration of 8.5 mL of Gadavist gadolinium-based IV contrast. FINDINGS: UTERUS: Anteverted, retroflexed uterus has a normal configuration and measures 8.4 x 4.7 x 5.7 cm ([id number] x anterior-posterior x transverse). Normal endometrial thickness, 0.6 cm. Junctional zone is normal in signal and thickness. 1 cm T2 dark structure in the anterior uterine body may represent a small intramural leiomyoma. CERVIX: Incidentally noted nabothian cysts are present. The cervical stroma is otherwise normal in appearance. VAGINA: Normal; no mass seen. RIGHT OVARY: Normal-appearing right ovary measures 2.9 x 1.7 x 3.6 cm with several small physiologic follicular cysts, a benign physiologic finding in a reproductive age female patient for which no imaging follow-up is recommended. No suspicious or concerning right adnexal mass. LEFT OVARY: Normal-appearing left ovary measures 2.3 x 2.5 x 2.5 cm also with physiologic follicular cysts, benign physiologic findings in a reproductive age female patient for which no imaging follow-up is recommended. No suspicious or concerning adnexal mass. KIDNEYS: Two normally positioned kidneys are seen. No hydronephrosis. BLADDER: Urinary bladder normal. PELVIC FREE FLUID: No free fluid or ascites. LYMPH NODES: No pathologically enlarged lymph nodes. OSSEOUS STRUCTURES: No acute or suspicious osseous abnormalities. MR/MR pelvis wo/w con IMPRESSION: There are normal appearing physiologic follicular cysts within the ovaries bilaterally, normal benign expected physiologic findings in a reproductive age female patient for which no further imaging follow-up is recommended.
== END 2022-03-13 08:07 | disposition home or self-care (01) ==
LOC: HO.MRI 08:06
PROVIDERS: Visit Provider Obstetrics & Gynecology
DX: N83.299 Other ovarian cyst, unspecified side (principal)
CPT/HCPCS: 72197; A9585

== ENCOUNTER 2022-03-13 09:06 | Outpatient (REF) | payer OTHER, SELFPAY | END 2022-03-13 09:07 | disposition home or self-care (01) | LOC: HO.MDS 09:06 | PROVIDERS: Visit Provider Internal Medicine Pulmonary Disease | DX: J45.50 Severe persistent asthma, uncomplicated (principal) | CPT/HCPCS: 96372; J2182 ==

== ENCOUNTER → 2022-03-29 10:27 | Outpatient (BNVA) | payer OTHER, SELFPAY | PROVIDERS: PCP Internal Medicine; Visit Provider Obstetrics & Gynecology | DX: N83.299 Other ovarian cyst, unspecified side (principal) | CPT/HCPCS: 99212 ==

== ENCOUNTER 2022-04-10 09:15 | Outpatient (REF) | payer OTHER, SELFPAY ==
[2022-04-10 10:39] LABS: Hematocrit 44.8 % (37.0-47.0); Hemoglobin 14.8 g/dl (12.0-16.0); Mean Corpuscular Hemoglobin 28.6 pg (27.0-33.0); Mean Corpuscular Volume 86.5 fL (80.0-98.0); Mean Platelet Volume 11.5 fL (9.4-12.3); Platelet Count 329 X10*3/uL (160-400); Red Blood Count 5.18 X10*6/uL (4.20-5.50); Red Cell Distribution Width 13.2 % (11.0-16.0); White Blood Count 8.9 X10*3/uL (4.8-10.8)
[2022-04-10 11:09] LABS: Lipase 27 U/L (8-78)
[2022-04-10 11:43] LABS: Folate 14.4 ng/mL (> or = 4.0); Vitamin B12 553 pg/mL (200-900)
[2022-04-16 15:52] LABS: Vitamin D 25-OH, D2 <4 ng/mL; Vitamin D 25-OH, D3 35 ng/mL; Vitamin D 25-OH, Total 35 ng/mL (30-100)
== END 2022-04-10 09:16 | disposition home or self-care (01) ==
LOC: HO.LAB 09:15
PROVIDERS: Obstetrics & Gynecology; PCP Internal Medicine; Visit Provider Nurse Practitioner Family
DX: R10.9 Unspecified abdominal pain (principal); R19.7 Diarrhea, unspecified; E55.9 Vitamin D deficiency, unspecified; N93.9 Abnormal uterine and vaginal bleeding, unspecified; K21.9 Gastro-esophageal reflux disease without esophagitis
CPT/HCPCS: 36415; 82306; 82607; 82746; 83690; 85027; 99202

== ENCOUNTER 2022-04-25 | Outpatient (REF) | payer OTHER, SELFPAY ==
[2022-04-26 10:57] LABS: H Pylori Breath Test Positive (Negative)
== END 2022-04-25 00:01 | disposition home or self-care (01) ==
LOC: HO.LNP
PROVIDERS: Visit Provider Nurse Practitioner Family
DX: Z11.2 Encounter for screening for other bacterial diseases (principal)
CPT/HCPCS: 36415; 83013

== ENCOUNTER 2022-05-12 08:50 | Outpatient (REF) | payer OTHER, SELFPAY | END 2022-05-12 08:51 | disposition home or self-care (01) | LOC: HO.MDS 08:50 | PROVIDERS: Visit Provider Internal Medicine Pulmonary Disease | DX: J45.50 Severe persistent asthma, uncomplicated (principal) | CPT/HCPCS: 96372 ==

== ENCOUNTER → 2022-05-22 08:48 | Outpatient (BNVA) | payer OTHER, SELFPAY | PROVIDERS: PCP Internal Medicine; Visit Provider Nurse Practitioner Family | DX: K21.9 Gastro-esophageal reflux disease without esophagitis (principal); K58.2 Mixed irritable bowel syndrome | CPT/HCPCS: 99212 ==

== ENCOUNTER 2022-05-22 09:45 | Outpatient (REF) | payer OTHER, SELFPAY | END 2022-05-22 09:46 | disposition home or self-care (01) | LOC: HO.LAB 09:45 | PROVIDERS: PCP Internal Medicine; Visit Provider Nurse Practitioner Family | DX: Z13.89 Encounter for screening for other disorder (principal) ==

== ENCOUNTER 2022-05-30 08:56 | Outpatient (REF) | payer OTHER, SELFPAY ==
[2022-06-05 18:32] LABS: Pancreatic Elastase-1 >500 mcg/g
== END 2022-05-30 08:57 | disposition home or self-care (01) ==
LOC: HO.LAB 08:56
PROVIDERS: Nurse Practitioner Family; PCP Internal Medicine; Visit Provider Obstetrics & Gynecology
DX: N93.9 Abnormal uterine and vaginal bleeding, unspecified (principal); R10.9 Unspecified abdominal pain; K21.9 Gastro-esophageal reflux disease without esophagitis
CPT/HCPCS: 58100; 82656; 87338; 88305

== ENCOUNTER 2022-06-09 08:33 | Outpatient (REF) | payer OTHER, SELFPAY | END 2022-06-09 08:34 | disposition home or self-care (01) | LOC: HO.MDS 08:33 | PROVIDERS: Visit Provider Internal Medicine Pulmonary Disease | DX: J45.50 Severe persistent asthma, uncomplicated (principal) | CPT/HCPCS: 96372; J2182 ==

== ENCOUNTER → 2022-06-21 11:42 | Outpatient (BNVA) | payer OTHER, SELFPAY | PROVIDERS: PCP Internal Medicine; Visit Provider Obstetrics & Gynecology | DX: N93.9 Abnormal uterine and vaginal bleeding, unspecified (principal); N83.292 Other ovarian cyst, left side; Z98.51 Tubal ligation status; Z77.22 Contact with and (suspected) exposure to environmental tobacco smoke (acute) (chronic) | CPT/HCPCS: 99212 ==

== ENCOUNTER 2022-07-05 09:13 | Outpatient (REF) | payer OTHER, SELFPAY ==
[2022-07-05 16:49] LABS: CT PCR NOT DETECTED (Not Detect.); NG PCR NOT DETECTED (Not Detect.)
== END 2022-07-05 09:14 | disposition home or self-care (01) ==
LOC: HO.LNP 09:13
PROVIDERS: PCP Internal Medicine; Visit Provider Obstetrics & Gynecology
DX: N93.9 Abnormal uterine and vaginal bleeding, unspecified (principal); Z30.430 Encounter for insertion of intrauterine contraceptive device; Z11.3 Encounter for screening for infections with a predominantly sexual mode of transmission
CPT/HCPCS: 58300; 81025; 87480; 87491; 87510; 87591; 87660; J7298

== ENCOUNTER 2022-07-07 08:28 | Outpatient (REF) | payer OTHER, SELFPAY | END 2022-07-07 08:29 | disposition home or self-care (01) | LOC: HO.MDS 08:28 | PROVIDERS: Visit Provider Internal Medicine Pulmonary Disease | DX: J45.50 Severe persistent asthma, uncomplicated (principal) | CPT/HCPCS: 96372; J2182 ==

== ENCOUNTER 2022-07-17 15:44 | Outpatient (REF) | payer OTHER, SELFPAY ==
[2022-07-18 06:05] LABS: CT PCR NOT DETECTED (Not Detect.); NG PCR NOT DETECTED (Not Detect.)
== END 2022-07-17 15:45 | disposition home or self-care (01) ==
LOC: HO.LNP 15:44
PROVIDERS: Visit Provider Obstetrics & Gynecology
DX: Z11.3 Encounter for screening for infections with a predominantly sexual mode of transmission (principal); R10.2 Pelvic and perineal pain; M71.9 Bursopathy, unspecified
CPT/HCPCS: 87491; 87591; 99212

== ENCOUNTER 2022-07-24 10:32 | Outpatient (REF) | payer OTHER, SELFPAY ==
--- NOTE | ~2022-07-24 | US_ITS ---
EXAMINATION: US PELVIS CLINICAL INFORMATION: Inflammatory disease of uterus. COMPARISON: None TECHNIQUE: Ultrasound of the pelvis is performed using both transabdominal and transvaginal transducers along with Doppler. FINDINGS: Uterus: The uterus is anteverted, anteflexed and measures 10.2 x 4.7 x 6.4 cm. The double wall endometrial thickness is 5 mm. The uterus is smooth in contour and has normal myometrial echogenicity. No visible fibroid seen at this time. Fibroids were seen on the previous study. There is an IUD in correct position within the endometrial canal skin to the right side and appears upside down with on the lower uterine segment. The exam is slightly limited as patient transvaginal ultrasound. Adnexa: Both ovaries are visualized. There is normal color flow to the adnexa. There is no ovarian torsion. There is no pelvic ascites or fluid collection. Right ovary measures 2.6 x 2.1 x 2.6 cm. There is a small anechoic corpus luteal cyst measuring 1.7 x 1.6 x 1.5 cm. Previously it measured 2.1 x 1.7 x 3.6 cm Left ovary measures 3.3 x 2.4 x 2.7 cm. There is anechoic dominant follicle measuring 1.8 x 1.9 x 2.0 cm. US/US pelvic and transvaginal IMPRESSION: Corpus luteal cyst right ovary measuring 1.7 cm. Simple dominant follicle cyst left ovary measuring 2.0 cm. There is no free fluid in the cul-de-sac.
== END 2022-07-24 10:33 | disposition home or self-care (01) ==
LOC: HO.US 10:32
PROVIDERS: Visit Provider Obstetrics & Gynecology
DX: N71.9 Inflammatory disease of uterus, unspecified (principal); K21.9 Gastro-esophageal reflux disease without esophagitis; K58.1 Irritable bowel syndrome with constipation; A04.8 Other specified bacterial intestinal infections; Z12.11 Encounter for screening for malignant neoplasm of colon
CPT/HCPCS: 76830; 76856; 99212

== ENCOUNTER → 2022-07-25 09:54 | Outpatient (BNVA) | payer OTHER, SELFPAY | PROVIDERS: PCP Internal Medicine; Visit Provider Internal Medicine Pulmonary Disease | DX: J45.50 Severe persistent asthma, uncomplicated (principal); Z91.09 Other allergy status, other than to drugs and biological substances; Z79.899 Other long term (current) drug therapy | CPT/HCPCS: 99212 ==

== ENCOUNTER → 2022-07-27 11:32 | Outpatient (BNVA) | payer OTHER, SELFPAY | PROVIDERS: PCP Internal Medicine; Visit Provider Obstetrics & Gynecology | DX: Z30.432 Encounter for removal of intrauterine contraceptive device (principal); N93.9 Abnormal uterine and vaginal bleeding, unspecified; Z32.02 Encounter for pregnancy test, result negative | CPT/HCPCS: 58301; 81025; 99212 ==

== ENCOUNTER 2022-09-11 09:22 | Outpatient (REF) | payer OTHER, SELFPAY | END 2022-09-11 09:23 | disposition home or self-care (01) | LOC: HO.MDS 09:22 | PROVIDERS: Visit Provider Internal Medicine Pulmonary Disease | DX: J45.50 Severe persistent asthma, uncomplicated (principal) | CPT/HCPCS: 96372; J2182 ==

== ENCOUNTER 2022-09-26 07:40 | Day surgery (SDC) | payer OTHER, SELFPAY ==
[2022-09-21 11:03] VITALS: BMI 34.9
--- NOTE | 2022-09-25 12:53 | HO.ANESPROP2 ---
Documented by User: Kelsy German NP 09/25/22 12:55 HPI - Anesthesia Eval Consult details Narrative: 46yo F for Upper Endoscopy and Colonoscopy PMFSH Active Problems Active Problems: All Active Problems (Updated 09/21/22 @ 11:04 by Luciana White RN) COVID-19 (Acute) Asthma (Acute) Severe persistent allergic asthma (Acute) Environmental allergies (Acute) Dyspnea on exertion (Acute) Pulmonary nodules (Acute) Obesity (Acute) BMI 36.0-36.9,adult (Acute) History of irregular menstrual bleeding (Acute) Well woman exam with routine gynecological exam (Acute) Yeast infection of the skin (Acute) Cervical cancer screening (Acute) DAWSON (obstructive sleep apnea) (Acute) Vulvar lesion (Acute) Ovarian cyst, complex (Acute) Eyelid twitch (Acute) Chest discomfort (Acute) Arthralgia (Acute) Myoma (Acute) Abnormal uterine bleeding (AUB) (Acute) Encounter for IUD insertion (Acute) Pelvic cramping (Acute) Endometritis (Acute) Encounter for IUD removal (Acute) Obesity (BMI 30-39.9) (Acute) Depression (Acute) Anxiety (Acute) Insomnia (Acute) Allergic rhinitis (Acute) Pure hypercholesterolemia (Acute) Benign essential hypertension (Acute) DJD (degenerative joint disease) (Acute) Migraines (Acute) Hiatal hernia (Acute) GERD (gastroesophageal reflux disease) (Acute) Cough variant asthma (Acute) Past Medical History Medical History Allergic rhinitis Anxiety Asthma Benign essential hypertension Cough variant asthma Depression DJD (degenerative joint disease) GERD (gastroesophageal reflux disease) H/O sleep study Hiatal hernia History of COVID-19 Insomnia Migraines Obesity (BMI 30-39.9) Pure hypercholesterolemia Family History Family History Father Hypertension CVD (cardiovascular disease) Stroke Epilepsia Mother Hypertension Diabetes mellitus CVD (cardiovascular disease) Brother Epilepsia Depressed Anxiety Sister Epilepsia Depressed Anxiety Daughter No problems noted. Son No problems noted. Surgical History Surgical History History of breast biopsy History of tubal ligation Social History Social History Housing: House Alcohol intake: never Patient Tobacco Use Status: Never used Tobacco Second Hand Smoke Exposure: Yes Advance Directives Date on File: 12/19/16 service: No Current occupational status: employed Cognitive needs: No Hearing needs: No Vision needs: No Meds Allergies Allergy/AdvReac Type Severity Reaction Status Date / Time doxycycline Allergy Severe Anaphylaxis Verified 09/26/22 08:14 Home Medications Medication Instructions Recorded Confirmed Last Taken Type fluticasone propionate 50 1 spray intranasal DAILY 11/29/20 09/21/22 Unknown History mcg/actuation nasal spray,suspension loratadine 10 mg tablet (Allergy 10 mg PO DAILY 11/29/20 02/24/22 Unknown History Relief (loratadine)) nebulizers #1 ea 11/29/20 02/24/22 Unknown History amlodipine 5 mg tablet 5 mg PO BEDTIME 02/24/22 09/21/22 Unknown History tiotropium bromide 2.5 2 puff inhalation QAM 09/26/22 09/26/22 09/26/22 07:15 History mcg/actuation mist for inhalation (Spiriva Respimat) Exam Exam Date and Time: September 25, 2022 1253 Height,Weight and Vital Signs: Height 5 ft 2 in Weight 86.636 kg Assessment and Plan Assessment Anesthesia Assessment: Chart Reviewed Documented by User: Rayomn Mahoney MD 09/26/22 19:47 [facility] Past Medical History Medical History Allergic rhinitis Anxiety Asthma Benign essential hypertension Cough variant asthma Depression DJD (degenerative joint disease) GERD (gastroesophageal reflux disease) H/O sleep study Hiatal hernia History of COVID-19 Insomnia Migraines Obesity (BMI 30-39.9) Pure hypercholesterolemia Functional capacity: independent ambulation Family History Family History Father Hypertension CVD (cardiovascular disease) Stroke Epilepsia Mother Hypertension Diabetes mellitus CVD (cardiovascular disease) Brother Epilepsia Depressed Anxiety Sister Epilepsia Depressed Anxiety Daughter No problems noted. Son No problems noted. Family history of problems with anesthesia: Yes (Ponv in mother ) Surgical History Surgical History History of breast biopsy History of tubal ligation History of Problems with Anesthesia: No Social History Social History Housing: House Alcohol intake: never Patient Tobacco Use Status: Never used Tobacco Second Hand Smoke Exposure: Yes Advance Directives Date on File: 12/19/16 service: No Current occupational status: employed Cognitive needs: No Hearing needs: No Vision needs: No Meds Allergies Allergy/AdvReac Type Severity Reaction Status Date / Time doxycycline Allergy Severe Anaphylaxis Verified 09/26/22 08:14 Home Medications Medication Instructions Recorded Confirmed Last Taken Type fluticasone propionate 50 1 spray intranasal DAILY 11/29/20 09/21/22 Unknown History mcg/actuation nasal spray,suspension loratadine 10 mg tablet (Allergy 10 mg PO DAILY 11/29/20 02/24/22 Unknown History Relief (loratadine)) nebulizers #1 ea 11/29/20 02/24/22 Unknown History amlodipine 5 mg tablet 5 mg PO BEDTIME 02/24/22 09/21/22 Unknown History tiotropium bromide 2.5 2 puff inhalation QAM 09/26/22 09/26/22 09/26/22 07:15 History mcg/actuation mist for inhalation (Spiriva Respimat) Exam Airway Mallampati Class: III TM Dist: >3cm Neck ROM: Full Loose/Missing/Broken Teeth: Yes Heart: S1,S2 Lungs: b/l breath sounds Assessment and Plan Assessment Anesthesia Assessment: Anesthesia Plan Discussed Final Anesthetic Review Family History of Problems with Anesthesia: Yes (Ponv in mother ) History of Problems with Anesthesia: No NPO: Yes ASA Class: III Final Preanesthetic Review: Meds/Allgs Chart Reviewed, Consent Obtained/Reviewed and Anes Risks/Benef Reviewed Patient Risk: Intermediate Procedure Risk: Intermediate Anesthetic Plan Anesthetic Plan: MAC: Disposition: Standard PACU
[2022-09-26 08:24] VITALS: BP 136/85; PULSE 85; RESP 16; TEMP 36.4; O2SAT 98
[2022-09-26] MEDS: Lactated Ringers 1,000 ML 100 ML IVCONT (08:33)
--- NOTE | 2022-09-26 09:06 | MHC.SHP ---
Pre-Procedural Eval Section A Date of Service: 09/26/22 Section B Chief Complaint: epigastric pain,reflux Details of Present Illness: screening colonoscopy Relevant Family History (Specify if Yes): No Relevant Social History: None Present Medications: see Short Stay Collaborative assessment Medical History: Significant History (Allergic rhinitis Anxiety Asthma Benign essential hypertension Cough variant asthma Depression DJD (degenerative joint disease) GERD (gastroesophageal reflux disease) H/O sleep study Hiatal hernia History of COVID-19 Insomnia Migraines Obesity (BMI 30-39.9) Pure hypercholesterolemia) History of Previous Operations: Relevant previous surgery/procedure and date(s) (History of breast biopsy History of tubal ligation) Allergies: Allergies Allergy/AdvReac Type Severity Reaction Status Date / Time doxycycline Allergy Severe Anaphylaxis Verified 09/26/22 08:14 Review of Systems Sugical H&P ROS: Negative: Constitution, Cardiovascular, Respiratory, Neurological, Psychiatric, Hem-Onc, Allergic/Immunologic, Gastrointestinal, Genitourinary, Musculoskeletal, Integumentary, Endocrine and Eyes/Ears/Nose/Throat Exam Surgical H&P Exam: Normal: HEENT, Normal: Heart, Normal: Lungs, Normal: Extremities, Normal: Abdomen, Normal: Skin and Normal: Neurological Plan Diagnosis/Plan: Unchanged I have reviewed the history and physical and performed a pertinent physical examination on my patient. No changes have occurred unless specified.
--- NOTE | 2022-09-26 09:08 | W.PM.OPN ---
Operative Note Operative Note Date of Service: 09/26/22 Narrative: Operative Information Procedure Description: EGD, Colonoscopy Indication: reflux, epigastric pain, screening colonoscopy Anesthesia: MAC FLEXIBLE TRANSORAL UPPER GASTROINTESTINAL ENDOSCOPY AND COLONOSCOPY PROCEDURE NOTE UPPER ENDOSCOPY Consent: Indications for the procedure and potential complications of bleeding, perforation, reaction to medications and missed diagnosis were discussed with the patient and informed consent was obtained. Instrument: Olympus GIF H 190 J mid size upper endoscope Monitoring: Vital signs and clinical assessment, continuous EKG monitoring, Pulse oximetry, Carbon Dioxide monitoring and blood pressure monitoring were done throughout the procedure. Procedure: The patient was placed in the left lateral decubitis position and pre-procedure medications were administered and a bite block was placed. The endoscope was inserted into the mouth and advanced under direct vision to the third part of duodenum. A careful inspection was made as the upper endoscope was withdrawn including a retroflexed examination of the proximal stomach; Findings and interventions are described below. Findings: Larynx:normal Esophagus: GE junction at 35 cm, diaphragm hiatus at 35 cm, bogginess and erythema at GEJ qwith small erosion seen consistent with LA grade A esophagitis, bx taken from GEJ and distal esophagus Stomach: PAtchy erythematous mucosa. Biopsies were obtained. Grade 2 flap valve on retroflexed examination of the cardia. bx also sent for h pylori C/S Duodenum: Normal bulb and descending duodenum, bx taken Intervention: Biopsies as noted above COLONOSCOPY Instrument: Olympus variable stiffness pediatric scope 190L Colonoscopy Monitoring: Vital signs and clinical assessment, continuous EKG monitoring, Pulse oximetry, Carbon Dioxide monitoring and blood pressure monitoring were done throughout the procedure. Colon withdrawal time was 11 minutes. Procedure: The patient was placed in the left lateral decubitis position and pre-procedure medications were administered. After a digital rectal examination of the ano-rectum, the video colonoscope was inserted into the rectum and advanced through the colon to the cecum/TI. The colonoscope was slowly withdrawn in a retrograde panoramic fashion and the colon mucosa was carefully examined including a retroflexed view of the rectum. Findings and interventions are described below. Procedure Difficulty:easy Findings: Terminal Ileum- unable to intubate due to food debris Cecum:normal Ascending Colon: normal Transverse Colon -normal Descending Colon:normal Sigmoid Colon: normal Rectum: Retroflexion with small internal hemorrhoids, grade I, 6-8 mm sessile polyp, adenomatous appearing, removed with cold forceps Anorectum - normal Colon preparation: [place] Bowel Preparation Scale Right colon; 1-2 Transverse colon: 2 Left colon; 1-2 (0 = Unprepared colon segment with mucosa not seen due to solid stool that cannot be cleared. 1 = Portion of mucosa of the colon segment seen, but other areas of the colon segment not well seen due to staining, residual stool and/or opaque liquid. 2 = Minor amount of residual staining, small fragments of stool and/or opaque liquid, but mucosa of colon segment seen well. 3 = Entire mucosa of colon segment seen well with no residual staining, small fragments of stool or opaque liquid) Impression and Post Procedure Diagnosis: Endoscopy Findings: gastritis esophagitis Colonoscopy Findings: polyp internal hemorrhoids Plan: Await Pathology results including h pylori culture Repeat Colonoscopy in 1-2 years or earlier if clinically indicated with attention to prep next year High fiber diet leaflet avoid straining at stool, epsom salts and sitz bath, anusol supps or cream Above findings were reviewed with the patient and relevant handouts were provided if indicated.
[2022-09-26 10:10] VITALS: BP 107/64; PULSE 101; RESP 16; TEMP 37.6
[2022-09-26 10:25] VITALS: BP 116/78; PULSE 90; RESP 16; O2SAT 98
[2022-09-26 10:40] VITALS: BP 122/74; PULSE 88; RESP 18; TEMP 36.7; O2SAT 99
== END 2022-09-26 11:35 | disposition home or self-care (01) ==
PROVIDERS: PCP Internal Medicine; Visit Provider Internal Medicine Gastroenterology
PROC: (CPT 45380; principal; 2022-09-26 09:20)
DX: Z12.11 Encounter for screening for malignant neoplasm of colon (principal); D12.8 Benign neoplasm of rectum; K64.0 First degree hemorrhoids; K21.00 Gastro-esophageal reflux disease with esophagitis, without bleeding; K29.70 Gastritis, unspecified, without bleeding; B96.81 Helicobacter pylori [H. pylori] as the cause of diseases classified elsewhere; K58.1 Irritable bowel syndrome with constipation; I10 Essential (primary) hypertension; J45.50 Severe persistent asthma, uncomplicated; Z79.899 Other long term (current) drug therapy; Z88.1 Allergy status to other antibiotic agents
CPT/HCPCS: 45380; 43239; 36415; 87081; 88305; 88342

== ENCOUNTER 2022-10-24 07:38 | Outpatient (REF) | payer OTHER, SELFPAY | END 2022-10-24 07:39 | disposition home or self-care (01) | LOC: HO.MDS 07:38 | PROVIDERS: Visit Provider Internal Medicine Pulmonary Disease | DX: J45.50 Severe persistent asthma, uncomplicated (principal) | CPT/HCPCS: 96372; J2182 ==

== ENCOUNTER → 2022-10-26 09:32 | Outpatient (BNVA) | payer OTHER, SELFPAY | PROVIDERS: PCP Internal Medicine; Visit Provider Internal Medicine Pulmonary Disease | DX: J45.50 Severe persistent asthma, uncomplicated (principal); Z91.09 Other allergy status, other than to drugs and biological substances; Z79.899 Other long term (current) drug therapy | CPT/HCPCS: 99212 ==

== ENCOUNTER → 2022-11-06 08:53 | Outpatient (BNVA) | payer OTHER, SELFPAY | PROVIDERS: PCP Internal Medicine; Visit Provider Internal Medicine Pulmonary Disease | DX: J45.50 Severe persistent asthma, uncomplicated (principal) | CPT/HCPCS: 99211 ==

== ENCOUNTER → 2022-11-28 10:00 | Outpatient (BNVA) | payer OTHER, SELFPAY | PROVIDERS: PCP Internal Medicine; Visit Provider Obstetrics & Gynecology | DX: N93.9 Abnormal uterine and vaginal bleeding, unspecified (principal) | CPT/HCPCS: 99212 ==

== ENCOUNTER → 2022-11-29 08:36 | Outpatient (BNVA) | payer OTHER, SELFPAY | PROVIDERS: PCP Internal Medicine; Visit Provider Nurse Practitioner Family | DX: K21.9 Gastro-esophageal reflux disease without esophagitis (principal); K58.9 Irritable bowel syndrome, unspecified; A04.8 Other specified bacterial intestinal infections | CPT/HCPCS: 99212 ==

== ENCOUNTER → 2023-01-03 08:33 | Outpatient (BNVA) | payer OTHER, SELFPAY | PROVIDERS: PCP Internal Medicine; Visit Provider Nurse Practitioner Family | DX: K21.9 Gastro-esophageal reflux disease without esophagitis (principal); A04.8 Other specified bacterial intestinal infections; L30.9 Dermatitis, unspecified | CPT/HCPCS: 99212 ==

== ENCOUNTER 2023-01-17 08:28 | Outpatient (REF) | payer OTHER, SELFPAY ==
[2023-01-18 15:00] LABS: H Pylori Breath Test Positive (Negative)
== END 2023-01-17 08:29 | disposition home or self-care (01) ==
LOC: HO.LNP 08:28
PROVIDERS: PCP Internal Medicine; Visit Provider Nurse Practitioner Family
DX: Z11.2 Encounter for screening for other bacterial diseases (principal)
CPT/HCPCS: 83013; 99211

== ENCOUNTER → 2023-02-07 08:09 | Outpatient (BNVA) | payer OTHER, SELFPAY | PROVIDERS: PCP Internal Medicine; Visit Provider Nurse Practitioner Family | DX: A04.8 Other specified bacterial intestinal infections (principal); K21.9 Gastro-esophageal reflux disease without esophagitis | CPT/HCPCS: 99212 ==

== ENCOUNTER → 2023-03-08 12:55 | Outpatient (BNVA) | payer OTHER, SELFPAY | PROVIDERS: PCP Internal Medicine; Visit Provider Obstetrics & Gynecology ==

== ENCOUNTER 2023-03-10 09:33 | Outpatient (REF) | payer OTHER, SELFPAY ==
--- NOTE | ~2023-03-10 | MM_ITS ---
EXAMINATION: MM SCREENING DIGITAL BREAST TOMOSYNTHESIS, BILATERAL CLINICAL INFORMATION: Screening. Asymptomatic. Benign left breast biopsy 2017, fibroadenoma. The lifetime risk of breast cancer based on the Tyrer-Cuzick Model is 15%. COMPARISON: Mammography: 03/07/2022, 02/24/2021, 10/16/2019 TECHNIQUE: Digital breast tomosynthesis is performed in both the craniocaudal and mediolateral oblique views along with computer-aided detection (CAD). Synthesized 2D images are generated from the tomosynthesis. FINDINGS: There are scattered areas of fibroglandular density (ACR BI-RADS breast composition Category b). Breast tissue composition borders on heterogeneously dense. Oval mass with overlying biopsy clip marker is again noted, consistent with biopsy proven fibroadenoma. No developing density. No architectural abnormality. There are no significant masses, abnormal calcifications, or other abnormalities. The axilla and skin contours are unremarkable. MM/MM tomosynthesis screening BI IMPRESSION: No mammographic evidence of malignancy. ASSESSMENT: BI-RADS 2: Benign RECOMMENDATION: Routine annual mammography screening. This patient's information was entered into a reminder system with a target due date for their next mammogram.
== END 2023-03-10 09:34 | disposition home or self-care (01) ==
LOC: HO.MAMMO 09:33
PROVIDERS: Visit Provider Internal Medicine
DX: Z12.31 Encounter for screening mammogram for malignant neoplasm of breast (principal)
CPT/HCPCS: 77063; 77067

== ENCOUNTER 2023-03-13 12:49 | Outpatient (REF) | payer OTHER, SELFPAY | END 2023-03-13 12:50 | disposition home or self-care (01) | LOC: HO.LNP 12:49 | PROVIDERS: PCP Internal Medicine; Visit Provider Obstetrics & Gynecology | DX: N93.9 Abnormal uterine and vaginal bleeding, unspecified (principal); N89.8 Other specified noninflammatory disorders of vagina | CPT/HCPCS: 58100; 81025; 88300; 88305; 99212 ==

== ENCOUNTER → 2023-03-30 11:46 | Outpatient (BNVA) | payer OTHER, SELFPAY | PROVIDERS: PCP Internal Medicine; Visit Provider Nurse Practitioner Family | DX: N93.9 Abnormal uterine and vaginal bleeding, unspecified (principal) | CPT/HCPCS: 51798; 99202 ==

== ENCOUNTER → 2023-04-03 08:43 | Outpatient (BNVA) | payer OTHER, SELFPAY | PROVIDERS: PCP Internal Medicine; Visit Provider Nurse Practitioner Family | DX: K21.9 Gastro-esophageal reflux disease without esophagitis (principal); K61.1 Rectal abscess | CPT/HCPCS: 99212 ==

== ENCOUNTER 2023-04-06 | Outpatient (REF) | payer OTHER, SELFPAY ==
[2023-04-07 12:38] LABS: H Pylori Breath Test Positive (Negative)
== END 2023-04-06 00:01 ==
LOC: CF
PROVIDERS: PCP Internal Medicine; Visit Provider Nurse Practitioner Family
DX: Z11.2 Encounter for screening for other bacterial diseases (principal); N39.3 Stress incontinence (female) (male)
CPT/HCPCS: 36415; 83013; 99211

== ENCOUNTER → 2023-04-11 09:11 | Outpatient (BNVA) | payer OTHER, SELFPAY | PROVIDERS: PCP Internal Medicine; Visit Provider Surgery | DX: K62.89 Other specified diseases of anus and rectum (principal) | CPT/HCPCS: 99202 ==

== ENCOUNTER → 2023-04-17 11:11 | Outpatient (BNVA) | payer OTHER, SELFPAY | PROVIDERS: PCP Internal Medicine; Visit Provider Obstetrics & Gynecology ==

== ENCOUNTER 2023-04-20 10:08 | Outpatient (REF) | payer OTHER, SELFPAY ==
--- NOTE | ~2023-04-20 | US_ITS ---
EXAMINATION: US RETROPERITONEAL COMPLETE (RENAL) CLINICAL INFORMATION: Stress incontinence in female. COMPARISON: MRI pelvis 03/13/2022. Ultrasound abdomen 12/19/2011 and 04/30/2009. CT abdomen and pelvis 06/29/2008. TECHNIQUE: Real-time imaging of the kidneys and bladder. Limited visualization due to bowel gas and body habitus. FINDINGS: RIGHT KIDNEY: 10.7 x 5.3 x 4.2 cm (SAG x AP x TRV). No hydronephrosis. No renal calculi. Renal cortical thickness is normal. LEFT KIDNEY: 11.8 x 6.4 x 4.6 cm (SAG x AP x TRV). No hydronephrosis. No renal calculi. Renal cortical thickness is normal. BLADDER: Partially distended. Borderline thickening of the bladder wall could be related to underdistention. Bilateral ureteral jets are demonstrated. Prevoid bladder volume is 217 mL. Postvoid bladder volume is 9.2 mL. US/US retroperitoneal comp IMPRESSION: 1. No hydronephrosis. No renal calculus. 2. Borderline thickening of the bladder wall could be related to underdistention.
== END 2023-04-20 10:09 | disposition home or self-care (01) ==
LOC: HO.US 10:08
PROVIDERS: PCP Internal Medicine; Visit Provider Nurse Practitioner Family
DX: N39.3 Stress incontinence (female) (male) (principal)
CPT/HCPCS: 76770

== ENCOUNTER → 2023-04-25 14:54 | Outpatient (BNVA) | payer OTHER, SELFPAY | PROVIDERS: PCP Internal Medicine; Visit Provider Obstetrics & Gynecology | DX: Z01.818 Encounter for other preprocedural examination (principal); N93.9 Abnormal uterine and vaginal bleeding, unspecified; T83.32XA Displacement of intrauterine contraceptive device, initial encounter; Z98.51 Tubal ligation status | CPT/HCPCS: 99212 ==

== ENCOUNTER 2023-05-04 08:56 | Outpatient (AMB) | payer OTHER, SELFPAY ==
--- NOTE | 2023-05-04 08:57 | A.OFFVIS_ITS ---
Intake Vital Signs 05/04/23 08:59 Height 5 ft 2 in Weight 197 lb 5.019 oz BMI 36.1 BP 118/64 Blood Pressure Location Rt brachial Position Sitting Pulse 87 Pulse Source Pulse Oximeter Pulse Oximetry (%) 98 Oxygen Delivery Method Room Air Intake Visit Reasons: asthma Intake Note: Pt last seen on 11/06/22 for Dupixent Teaching. Pt reports doing well with using the dupixent. Allergies doxycycline Allergy (Severe, Verified 05/04/23 09:03) Anaphylaxis HPI asthma HPI Details 47-year-old lady, nonsmoker, with underlying history of asthma since childhood, followed for moderate to severe persistent allergic asthma. At the last office visit she was switched to Dupixent with significant improvement in his symptom control. She has rarely using her albuterol MDI. She continues on her Breo and Spiriva. She denies recent exacerbations. [facility] Medical History Allergic rhinitis Anxiety Asthma Benign essential hypertension Cough variant asthma Depression DJD (degenerative joint disease) GERD (gastroesophageal reflux disease) H/O sleep study Helicobacter pylori (H. pylori) Hiatal hernia History of COVID-19 Insomnia Migraines Obesity (BMI 30-39.9) Perianal cyst Pure hypercholesterolemia Surgical History History of breast biopsy History of esophagogastroduodenoscopy (EGD) History of tubal ligation Hx of colonoscopy Family History Father Hypertension CVD (cardiovascular disease) Stroke Epilepsia Mother Hypertension Diabetes mellitus CVD (cardiovascular disease) Brother Epilepsia Depressed Anxiety Sister Epilepsia Depressed Anxiety Daughter No problems noted. Son No problems noted. Social History Housing: House Alcohol intake: never Patient Tobacco Use Status: Never used Tobacco e-Cigarette/Vaping Use: Never Used Second Hand Smoke Exposure: Yes Advance Directives Date on File: 12/19/16 service: No Current occupational status: employed Cognitive needs: No Hearing needs: No Vision needs: No Female Reproductive History Menstrual Age of Menarche: 11 Review of Systems Const Denies daytime sleepiness, Denies excessive sweating, Denies fatigue, Denies fev er(s), Denies lethargy, Denies malaise, Denies night sweats, Denies snoring and Denies weight loss Eyes Denies blurry vision and Denies itchy eyes ENT Denies nasal congestion, Denies post nasal drip, Denies sinus pain, Denies sinus pressure and Denies other ( Thrush) Card Denies chest pain, Denies pedal edema, Denies dyspnea, Denies orthopnea and Denies paroxysmal nocturnal dyspnea Resp Denies cough, Denies hemoptysis, Denies excessive phlegm production, Denies dyspnea, Denies snoring and Denies wheezing GI Denies abdominal pain and Denies heartburn Musc Denies myalgias, Denies arthralgias and Denies joint swelling Skin/Breast Denies rash Neuro Denies memory loss and Denies seizure-like activity Psych Denies abnormal sleep pattern, Denies anxiety and Denies memory loss Endo Denies excessive sweating, Denies fatigue and Denies heat intolerance Drew/Lymph Denies easy bruising Aller/Immun Denies itchy eyes, Denies seasonal rhinorrhea and Denies wheezing Physical Exam Vital Signs: Last Vital Signs Pulse 87 05/04/23 08:59 BP 118/64 05/04/23 08:59 Pulse Ox 98 05/04/23 08:59 Oxygen Delivery Method Room Air 05/04/23 08:59 BMI result Body Mass Index 36.1 Const General: no acute distress and alert Nutritional Appearance: obese Orientation/consciousness: Other orientation findings ( oriented) HEENT Head: Yes atraumatic Eyes General: appearance normal, both eyes and all related structures Sclerae: sclerae normal EOM: EOMs intact bilaterally Neck Neck: Yes supple Lymphatic: no lymphadenopathy noted Resp Effort & Inspection: normal respiratory effort and no use of accessory muscles Auscultation: clear to auscultation bilaterally Cardio Rate: regular rate Rhythm: regular rhythm Heart sounds: no gallops, no murmurs and no rubs Skin General skin exam: other ( warm) Extrem General: No clubbing, No cyanosis and No edema Assessment & Plan Assessment & Plan (1) Severe persistent allergic asthma: Code(s): J45.50 - Severe persistent asthma, uncomplicated Plan: Well controlled on Dupixent, Breo, Spiriva, and albuterol MDI. Continue current regimen. (2) Environmental allergies: Code(s): Z91.09 - Other allergy status, other than to drugs and biological substances Plan: Excellent control on Dupixent. Continue current regimen. Coding Level of Care Code Est Pt Level 4 (88309) Diagnoses Severe persistent allergic asthma J45.50 Environmental allergies Z91.09
[2023-05-04 08:59] VITALS: BP 118/64; PULSE 87; O2SAT 98; BMI 36.1
== END 2023-05-04 09:15 | disposition home or self-care (01) ==
PROVIDERS: PCP Internal Medicine; Visit Provider Internal Medicine Pulmonary Disease
DX: J45.50 Severe persistent asthma, uncomplicated (principal); Z91.09 Other allergy status, other than to drugs and biological substances
CPT/HCPCS: 99214

== ENCOUNTER → 2023-05-04 08:56 | Outpatient (BNVA) | payer OTHER, SELFPAY | PROVIDERS: PCP Internal Medicine; Visit Provider Internal Medicine Pulmonary Disease | DX: J45.50 Severe persistent asthma, uncomplicated (principal); Z91.09 Other allergy status, other than to drugs and biological substances | CPT/HCPCS: 99212 ==

== ENCOUNTER 2023-05-08 07:06 | Emergency (ER) | payer OTHER, SELFPAY ==
--- NOTE | ~2023-05-08 | XR_ITS ---
EXAMINATION: XR HIP, LEFT CLINICAL INFORMATION: Left hip pain COMPARISON: 09/03/2017 TECHNIQUE: Two views of the left hip. Frontal view of the pelvis. FINDINGS: No fracture or dislocation. The hips are well aligned. Joint spaces are maintained. The sacroiliac joints and pubic symphysis are well aligned. Normal bowel gas pattern. XR/XR hip LT w PEL1V IMPRESSION: Normal appearance of the pelvis and left hip.
[2023-05-08 07:42] VITALS: BP 131/75; PULSE 85; RESP 18; TEMP 36.7; O2SAT 98; BMI 36.0
[2023-05-08] MEDS: Ketorolac Tromethamine 30 MG/ML VIAL IM (09:55)
[2023-05-08] MEDS: predniSONE 20 MG TABLET 60 MG PO (09:55)
[2023-05-08 10:06] LABS: Appearance Urine Clear; Color Urine Yellow; Glucose Urine UA Negative (Negative); Leukocyte Esterase Urine Negative (Negative); Nitrite Urine Negative (Negative); PH 5.5 (5.0-9.0); Urine Blood Negative (Negative); Urine Ketones Negative (Negative); Urine Protein Negative (Neg-Trace)
[2023-05-08 10:37] LABS: UPreg QC Valid YES; Urine Pregnancy NEGATIVE (NEGATIVE)
--- NOTE | 2023-05-08 10:59 | ED_ITS ---
HPI - General Adult General Chief complaint: Extremity Problem Stated complaint: hip fracture? Time Seen by Provider: 05/08/23 09:26 Source: patient Mode of arrival: ambulatory Limitations: no limitations History of Present Illness HPI narrative: 47 yold female presents to the ED HTN, DJD, Cholesterol, asthma presents to the ED for left hip pain for the past three days that is worse on movement. patient states hipr pain radiating down left leg. patient denies any fever, chills, nausea, vomitting, leg swelling, thigh pain, calf pain, redness, fever, chills, rash, recent trauma, chest pain, shortness of breath, coldness/hotness of extremity, recent long travel, recent surgery, or history of DVT . patient arnie es any urinary/bowel incontinence. Patient states no recent trauma. Related Data Home Medications Medication Instructions Recorded Confirmed fluticasone propionate 50 1 spray intranasal DAILY 11/29/20 04/11/23 mcg/actuation nasal spray,suspension nebulizers #1 ea 11/29/20 04/11/23 dupilumab 300 mg/2 mL subcutaneous mg subcut 04/11/23 04/11/23 pen injector ([employer]) Previous Rx's Medication Instructions Recorded docusate sodium 100 mg capsule 100 mg PO BEDTIME #90 caps 04/10/22 clotrimazole 1 % topical cream 1 appl topical BID #45 grams 04/27/22 albuterol sulfate 90 mcg/actuation 2 puff inhalation Q6H PRN 07/11/22 aerosol inhaler (ProAir HFA) shortness of breath or wheezing 30 days #18 grams cetirizine 10 mg tablet 10 mg PO DAILY 30 days #30 tabs 07/25/22 azelastine 137 mcg (0.1 %) nasal 2 spray intranasal BID #30 mL 09/05/22 spray aerosol amlodipine 5 mg tablet 5 mg PO BEDTIME #90 tabs 10/07/22 dupilumab 300 mg/2 mL subcutaneous 300 mg (2 mL) subcut Q2W 28 days 10/31/22 syringe ([employer]) #4 mL Breo Ellipta 200 mcg-25 mcg/dose 1 inh inhalation DAILY #60 ea 11/02/22 powder for inhalation (fluticasone furoate-vilanterol) montelukast 10 mg tablet 10 mg PO BEDTIME #30 tabs 11/02/22 pantoprazole 40 mg tablet,delayed 40 mg PO DAILY 90 days #90 tabs 11/29/22 release famotidine 20 mg tablet (Pepcid) 20 mg PO BID #60 tabs 01/03/23 pravastatin 20 mg tablet 20 mg PO DAILY #90 tabs 02/05/23 ipratropium 0.5 mg-albuterol 3 mg 3 ml inhalation Q6H PRN for 02/06/23 (2.5 mg base)/3 mL nebulization wheezing #180 mL soln ibuprofen 800 mg tablet 800 mg PO TID PRN pain 30 days #90 02/25/23 tabs Spiriva Respimat 2.5 mcg/actuation 2 puff inhalation QAM #4 grams 02/26/23 solution for inhalation (tiotropium bromide) clotrimazole-betamethasone 1 1 appl topical BID 5 days #45 grams 03/13/23 %-0.05 % topical cream oxybutynin chloride 10 mg 10 mg PO DAILY 30 days #30 tabs 03/30/23 tablet,extended release 24 hr ketorolac 10 mg tablet 10 mg PO QID PRN pain 5 days #20 05/08/23 tabs prednisone 20 mg tablet 40 mg PO DAILY 5 days #10 tabs 05/08/23 Allergies Allergy/AdvReac Type Severity Reaction Status Date / Time doxycycline Allergy Severe Anaphylaxis Verified 05/04/23 09:03 Review of Systems Review of Systems: left hip pain Yes all other systems are reviewed and are negative PMFSH Past Medical History Medical History Allergic rhinitis Anxiety Asthma Benign essential hypertension Cough variant asthma Depression DJD (degenerative joint disease) GERD (gastroesophageal reflux disease) H/O sleep study Helicobacter pylori (H. pylori) Hiatal hernia History of COVID-19 Insomnia Migraines Obesity (BMI 30-39.9) Perianal cyst Pure hypercholesterolemia Surgical History History of breast biopsy History of esophagogastroduodenoscopy (EGD) History of tubal ligation Hx of colonoscopy Family History Family History Father Hypertension CVD (cardiovascular disease) Stroke Epilepsia Mother Hypertension Diabetes mellitus CVD (cardiovascular disease) Brother Epilepsia Depressed Anxiety Sister Epilepsia Depressed Anxiety Daughter No problems noted. Son No problems noted. Social History Social History Housing: House Alcohol intake: never Patient Tobacco Use Status: Never used Tobacco e-Cigarette/Vaping Use: Never Used Second Hand Smoke Exposure: Yes Advance Directives Date on File: 12/19/16 service: No Current occupational status: employed Cognitive needs: No Hearing needs: No Vision needs: No Physical Exam ED Vital Signs: Vital Signs - 24 hr 05/08/23 07:42 Temperature 98.1 F Pulse Rate 85 Respiratory Rate 18 Blood Pressure 131/75 Pulse Oximetry 98 Oxygen Delivery Method Room Air BMI result Body Mass Index 36.0 Const General: cooperative, healthy appearing, comfortable, no acute distress, well developed, alert, awake and Physically active Orientation/consciousness: oriented to person, oriented to place, oriented to time and patient oriented x3 HENMT Head: Yes normal to inspection, Yes No palpable skull fracture present, Yes normocephalic, Yes atraumatic and No abrasion Ears: hearing grossly normal bilaterally, external ears normal, TM's normal bilaterally, TM normal on the right, TM normal on the left, EAC's normal, mastoids normal and no periauricular adenopathy Eyes General: appearance normal, both eyes and all related structures Neck Neck: Yes normal visual inspection, Yes full ROM, Yes no lymphadenopathy, Yes no meningeal signs, Yes trachea midline, Yes supple, No anterior neck swelling and No tender Chest Chest palpation & inspection: normal inspection of the chest and normal palpation of entire chest wall Resp Effort & Inspection: normal respiratory effort and able to speak in complete sentences Auscultation: clear to auscultation bilaterally Cardio Jugular venous distension: no JVD Heart sounds: S1 normal heart sound present and S2 normal heart sound present GI Inspection: Yes normal to inspection and No abdominal wall ecchymosis Palpation (GI): Soft to palpation, not firm, nontender, no guarding and not rigid General: No CVA tenderness and Yes no CVA tenderness Back/Spine/Pelvis Back: no CVA tenderness, No CVA tenderness and No back tenderness Skin General skin exam: no rashes or lesions noted and elasticity normal Neuro General: oriented to person, oriented to place, oriented to time, patient oriented x3, gait normal, tone normal, moves all extremities, Normal light touch and pain sensation, no meningeal signs, no focal motor deficits, CN's II-XI intact bilaterally and normal sensation to monofilament Extrem General: Yes normal to inspection and Yes full ROM Upper/lower leg/hip images: 1. Positive for tenderness on palpation. Negative for crepitus, ecchymosis, deformity, erythema, or palpable cord. Femoral pulse intact. Rest of lower extremity normal. Negative for any erythema, crepitus, swelling, calf pain, bluish black discoloration, redness, hotness, coolness, calf pain, or deformity. Motor/ neuro/vascular exam intact. Psych Appearance: grossly normal, well kempt and not disheveled Medications Administered Discontinued Medications Generic Name Dose Route Start Last Admin Trade Name Freq PRN Reason Stop Dose Admin Ketorolac Tromethamine 30 mg 05/08/23 09:42 05/08/23 09:55 Ketorolac Tromethamine 30 Mg/Ml Vial IM 05/08/23 09:43 30 mg ONCE ONE Administration Prednisone 60 mg 05/08/23 09:43 05/08/23 09:55 Prednisone 20 Mg Tablet PO 05/08/23 09:44 60 mg ONCE ONE Administration Medical Decision Making Medical Decision Making [facility] Narrative: 47-year-old female presents to the ED for left hip pain radiating down left leg without any swelling, redness, bluish black discoloration, crepitus, recent trauma, fever, chills, leg swelling, calf pain, thigh pain, palpable cord, chest pain, shortness of breath. Patient denies any recent long travel recent surgery. Patient denies any history of DVT or pulmonary embolus. Physical exam negative for signs of DVT, cellulitis, compartment syndrome, septic joint, fracture, or paralysis. Differential Diagnosis Differential Diagnoses: The differential diagnosis associated with the presentation includes ( DVT, cellulitis, compartment syndrome, septic joint, fracture, gangrene,necrotic fascitits) Admission/Observation Consideration of admission/observation: Escalation of care including admission/observation considered Lab Data [facility] Lab Attestation statement: I reviewed the patient's lab results. Labs: Lab Results 05/08/23 05/08/23 Range/Units 09:58 09:58 Urine Color Yellow Urine Appearance Clear Urine pH 5.5 (5.0-9.0) Ur Specific [place] 1.010 (1.005-1.025) Urine Protein Negative (Neg-Trace) mg/dL Urine Glucose (UA) Negative (Negative) mg/dL Urine Ketones Negative (Negative) mg/dL Urine Blood Negative (Negative) Urine Nitrite Negative (Negative) Ur Leukocyte Esterase Negative (Negative) Urine Test NEGATIVE (NEGATIVE) Independent Interpretation I performed an independent interpretation of an: Plain X-Ray Radiology Impression Discussion of test interpretation with radiology: I have reviewed the radiologist's reading. Radiologist Impression: [address] [address] XRay Report Signed Patient: Makayla Juarez MR#: [id number] : 1975 Acct:[id number] Age/Sex: 47 / F ADM Date: 05/08/23 Loc: HO.ED Attending Dr: Ordering Physician: Edilberto Camp Date of Service: 05/08/23 Procedure(s): XR hip LT w PEL1V Accession Number(s): [id number] cc: Edilberto Camp~ EXAMINATION: XR HIP, LEFT CLINICAL INFORMATION: Left hip pain COMPARISON: 09/03/2017 TECHNIQUE: Two views of the left hip. Frontal view of the pelvis. FINDINGS: No fracture or dislocation. The hips are well aligned. Joint spaces are maintained. The sacroiliac joints and pubic symphysis are well aligned. Normal bowel gas pattern. XR/XR hip LT w PEL1V IMPRESSION: Normal appearance of the pelvis and left hip. ? Dictated By: Richie Ohara MD Signed By: <Electronically signed by Richie Ohara MD in OV> 05/08/23 1031 Independent Historian Clinical information obtained from an independent historian. History obtained from or confirmed by: Other (Mother) External Record Review External record reviewed: Other (ED notes) Tests considered The following testing was considered but not selected: US Prescription Management I considered prescription management with: Pain Medication Discharge Plan Discharge Clinical Impression: Hip pain Patient Disposition: Home, Self-Care Instructions: Hip Pain (ED) Additional Instructions: please follow-up with your primary care provider. Urine came back normal negative for infection or . Hip x-ray came back negative for any fracture or dislocations. Return to ED immediately for worsening hip pain, thigh pain, leg swelling, calf pain, redness, blue/discoloration, chest pain, shortness of breath, fever, chills, or any other concerning symptoms. Do not take any other NSAIDs with ketorolac. Patient received 30gm IM the ED. Prescriptions: New prednisone 20 mg tablet 40 mg PO DAILY 5 Days Qty: 10 0RF ketorolac 10 mg tablet 10 mg PO QID PRN (Reason: pain) 5 Days Qty: 20 0RF No Action clotrimazole 1 % cream 1 appl topical BID Qty: 45 2RF albuterol sulfate [ProAir HFA] 90 mcg/actuation HFA aerosol inhaler 2 puff inhalation Q6H PRN (Reason: shortness of breath or wheezing) 30 Days Qty: 18 5RF azelastine 137 mcg (0.1 %) aerosol,spray 2 spray intranasal BID Qty: 30 6RF amlodipine 5 mg tablet 5 mg PO BEDTIME Qty: 90 2RF Dupixent Syringe 300 mg/2 mL syringe 300 mg subcut Q2W 28 Days Qty: 4 12RF Rx Instructions: Initial does 600mg once, then 300 mg subcutaneously every 2 weeks montelukast 10 mg tablet 10 mg PO BEDTIME Qty: 30 6RF Breo Ellipta 200-25 mcg/dose blister with device 1 inh inhalation DAILY Qty: 60 6RF pravastatin 20 mg tablet 20 mg PO DAILY Qty: 90 1RF ipratropium-albuterol 0.5 mg-3 mg(2.5 mg base)/3 mL solution for nebulization 3 ml inhalation Q6H PRN (Reason: for wheezing) Qty: 180 6RF ibuprofen 800 mg tablet 800 mg PO TID PRN (Reason: pain) 30 Days Qty: 90 1RF Rx Instructions: Take with food Spiriva Respimat 2.5 mcg/actuation mist 2 puff inhalation QAM Qty: 4 6RF (DME) nebulizers [facility] [place] Rx Instructions .ROUTE .MEDSUPPLY Qty: 1 Rx Instructions: As directed fluticasone propionate 50 mcg/actuation spray,suspension 1 spray intranasal DAILY Rx Instructions: administer into each nostril cetirizine 10 mg tablet 10 mg PO DAILY 30 Days Qty: 30 6RF Mirena 20 mcg/24 hours (7 yrs) 52 mg intrauterine device 1 device intrauterine ONCE Qty: 1 0RF pantoprazole 40 mg tablet,delayed release (DR/EC) 40 mg PO DAILY 90 Days Qty: 90 1RF famotidine [Pepcid] 20 mg tablet 20 mg PO BID Qty: 60 0RF docusate sodium 100 mg capsule 100 mg PO BEDTIME Qty: 90 3RF clotrimazole-betamethasone 1-0.05 % cream 1 appl topical BID 5 Days Qty: 45 0RF Dupixent Pen 300 mg/2 mL pen injector subcut oxybutynin chloride 10 mg tablet extended release 24hr 10 mg PO DAILY 30 Days Qty: 30 1RF Stand Alone Forms: Work/School Release Interventions: ED Discharge Assessment Last Done: 05/08/23 11:21 Discharge Date/Time: 05/08/23 11:23 Print Language: Setswana
== END 2023-05-08 11:23 | disposition home or self-care (01) ==
PROVIDERS: Physician Assistant; Emergency Provider Emergency Medicine; PCP Internal Medicine
DX: M25.552 Pain in left hip (principal); E78.00 Pure hypercholesterolemia, unspecified; Z79.899 Other long term (current) drug therapy
CPT/HCPCS: 73502; 81003; 81025; 96372; 99283; 99284; J1885

== ENCOUNTER 2023-05-15 09:54 | Outpatient (REF) | payer OTHER, SELFPAY ==
--- NOTE | ~2023-05-15 | XR_ITS ---
EXAMINATION: XR LUMBOSACRAL SPINE CLINICAL INFORMATION: Lower back pain. COMPARISON: 09/03/2017 TECHNIQUE: Three views of the lumbosacral spine. FINDINGS: No fracture or subluxation. Vertebral body height and alignment maintained. Disc spaces are maintained. The posterior elements are intact. The sacroiliac joints are symmetric. The visualized sacrum is intact. Normal bowel gas pattern. XR/XR lumbar spine 2-3V IMPRESSION: Unremarkable appearance of the lumbar spine.
== END 2023-05-15 09:55 | disposition home or self-care (01) ==
LOC: HO.XRAY 09:54
PROVIDERS: PCP Internal Medicine; Visit Provider Internal Medicine
DX: M54.50 Low back pain, unspecified (principal)
CPT/HCPCS: 72100

== ENCOUNTER 2023-05-31 14:49 | Outpatient (RCR) | payer OTHER, SELFPAY ==
--- NOTE | 2023-05-31 15:59 | MHC.PT.EP ---
[facility] [place] [facility] [place] [facility] [place] [facility] [address] [place] [address] [phone] F: [phone] F: [phone] F: [phone] F: [phone] Physical Therapy Plan of Care Date of Evaluation: Date of Surgery: Diagnosis: L low back pain, L hip pain Assessment: 47 y/o female referred to PT with left LBP and L hip pain. S/s consistent with lumbar dysfunction resulting in pain and difficulty with standing, walking, stairs, and sleeping secondary to decreased lumbar AROM, decreased hip AROM, decreased piriformis/hip flexor length, TTP, and impaired postural awareness. Recommend PT 2x/week for 4 weeks to address impairments, implement HEP, and optimize functional mobility. Frequency and Duration: The patient will be seen 2x/week for 4 weeks Short Term Goals: 2 weeks compliance with HEP Improve lumbar flexion to 100% with pain < 3/10 Snf Goals: 4 weeks I with HEP and self management Pt will be able to walk > 30 min with pain < 3/10 Pt will be able to descend stairs with pain < 3/10 Treatment Plan: Modalities to reduce pain, spasms and effusion. Manual therapy to restore motion and function. Therapeutic exercise to improve strength and flexibility. Neuromuscular re-education for posture and balance. Therapeutic activities to return to functional activities of daily living. Electronically signed by: Lyssa Newberry PT Please sign and return to therapist. Thank you for your referral.
--- NOTE | 2023-07-19 14:43 | MHC.PT.DC ---
[facility] [place] Office [place] Office [place] Office [address] Martinez Maurice [address] [phone] F: [phone] F: [phone] F: [phone] F: [phone] Physical Therapy Discharge Report Diagnosis: L low back pain, L hip pain Date of Surgery: Date of Evaluation: 05/31/23 Date of Discharge: 07/19/23 Treatments to Date: 1 Cancellations to Date: 5 No Shows to Date: 1 Discharge Status: Visit Non-compliance Discharge Summary: Pt called to cancel all appointments after initial evaluation d/t illness and has not f/u with further visits. Electronically signed by: Lyssa Newberry PT Please sign and return to therapist. Thank you for your referral.
== END 2023-07-19 14:43 | disposition home or self-care (01) ==
LOC: HO.PT 14:49
PROVIDERS: PCP Internal Medicine; Visit Provider Internal Medicine
DX: M25.552 Pain in left hip (principal); M54.50 Low back pain, unspecified
CPT/HCPCS: 97110; 97161

== ENCOUNTER 2023-07-04 07:48 | Outpatient (AMB) | payer OTHER, SELFPAY ==
--- NOTE | 2023-07-04 07:49 | MHC.OFFVIS ---
Intake Vital Signs 07/04/23 07:52 Height 5 ft 2 in Weight 198 lb 6.656 oz BMI 36.3 BP 122/76 Intake Visit Reasons: follow up Principal Ios Developer Required: No Information Interpreted: non-clinical & clinical Auricular Acupuncturist: Auricular Acupuncturist Present Accompanied by: Self / Same As Patient Allergies doxycycline Allergy (Severe, Verified 07/04/23 07:52) Anaphylaxis Is last menstrual period known: Yes Last menstrual period: 06/19/23 Post menopausal: No Patient : No Do you need a note to return to daycare/school/sports/work: Yes (for surgery on sunday) HPI HPI Comments History of Present Illness Details The patient is presenting for follow-up and to discuss Novasure Endometrial Ablation. The work up done for abnormal uterine bleeding over the last few included the followin/22 H&H= F 14.8/44.8 04/12 TSH, hCG, GC and chlamydia were negative. 04/13 Endometrial biopsy pathology showed no evidence of hyperplasia and/or malignancy. 08/11 Co testing was done was negative. 03/13 Mammogram was BI-RADS 2. 08/12 Pelvic ultrasound within normal except incorrect IUD position, since then IUD was taken out. The patient has had sterilization, she is not interested in future conception and understands that while Endometrial Ablation is not a method of contraception it will lower her chance of conception. [facility] Medical History Allergic rhinitis Anxiety Asthma Benign essential hypertension Cough variant asthma Depression DJD (degenerative joint disease) GERD (gastroesophageal reflux disease) H/O sleep study Helicobacter pylori (H. pylori) Hiatal hernia History of COVID-19 Insomnia Migraines Obesity (BMI 30-39.9) Perianal cyst Pure hypercholesterolemia Surgical History History of breast biopsy History of esophagogastroduodenoscopy (EGD) History of tubal ligation Hx of colonoscopy Family History Father Hypertension CVD (cardiovascular disease) Stroke Epilepsia Mother Hypertension Diabetes mellitus CVD (cardiovascular disease) Brother Epilepsia Depressed Anxiety Sister Epilepsia Depressed Anxiety Daughter No problems noted. Son No problems noted. Social History Housing: House Alcohol intake: never Patient Tobacco Use Status: Never used Tobacco e-Cigarette/Vaping Use: Never Used Second Hand Smoke Exposure: Yes Advance Directives Date on File: 12/19/16 service: No Current occupational status: employed Cognitive needs: No Hearing needs: No Vision needs: No Female Reproductive History Menstrual Age of Menarche: 11 Date of last menstrual period: 06/19/23 Total pregnancies: 2 Full term: 2 Review of Systems Card Reports as per HPI and Reports no additional complaints Resp Reports as per HPI and Reports no additional complaints GI Reports as per HPI and Reports no additional complaints Reports as per HPI Physical Exam Const General: cooperative, healthy appearing and comfortable Chest Chest palpation & inspection: normal inspection of the chest and normal palpation of entire chest wall Breast/axilla inspection: normal inspection of the breasts and normal inspection of the axillae Breast/axilla palpation: normal palpation of the breasts, normal palpation of the axillae and no axillary lymphadenopathy Resp Effort & Inspection: normal respiratory effort Auscultation: clear to auscultation bilaterally Percussion: percussion normal Cardio Palpation: normal PMI Rate: regular rate Rhythm: regular rhythm Heart sounds: no murmurs and no rubs Peripheral pulses: Peripheral pulses 2+ throughout GI Inspection: Yes normal to inspection Palpation (GI): Soft to palpation, nontender, no guarding, not rigid and No hepatosplenomegaly present Percussion: Yes normal to percussion Auscultation: normal bowel sounds Rectal Exam - Female: deferred Assessment & Plan Assessment & Plan (1) Abnormal uterine bleeding (AUB): Code(s): N93.9 - Abnormal uterine and vaginal bleeding, unspecified Plan: Discussed with the patient the results of the work up done and options of treatment including Lysteda, BCP's, Mirena IUD, endometrial ablation and hysterectomy. All pros, cons, risks and benefits if each option was discussed with the patient and the patient decided to go ahead with endometrial ablation. so a more detailed discussion about the procedure was conducted including mechanism of action, effectiveness control abnormal uterine bleeding and its potential failure rate in the coming 3-5 years, its risks (uterine perforation, infection, injury to bladder, bowel, displacement, inability to access the uterine cavity in the future for endometrial sampling to rule out endometrial pathology including dysplasia or malignancy and others) benefits ( hypomenorrhea, amenorrhea, ...) . The patient verbalized understanding and signed the consent. The patient was instructed to call day 1 of next cycle for scheduling Novasure endometrial ablation on day 1-10 of next cycle. In addition, the patient understands that although the endometrial ablation is not a method of control it will decrease markedly her chance of getting . The patient verbalized understanding and agreed with the plan. Coding Level of Care Code Est Pt Level 3 (88930) Diagnoses Abnormal uterine bleeding (AUB) N93.9
[2023-07-04 07:52] VITALS: BP 122/76; BMI 36.3
== END 2023-07-04 08:06 | disposition home or self-care (01) ==
PROVIDERS: PCP Internal Medicine; Visit Provider Obstetrics & Gynecology
DX: N93.9 Abnormal uterine and vaginal bleeding, unspecified (principal)
CPT/HCPCS: 99213

== ENCOUNTER → 2023-07-04 07:48 | Outpatient (BNVA) | payer OTHER, SELFPAY | PROVIDERS: PCP Internal Medicine; Visit Provider Obstetrics & Gynecology | DX: N93.9 Abnormal uterine and vaginal bleeding, unspecified (principal) | CPT/HCPCS: 99212 ==

== ENCOUNTER 2023-07-09 11:33 | Outpatient (AMB) | payer OTHER, SELFPAY ==
--- NOTE | 2023-07-09 11:52 | A.OFFVIS_ITS ---
Intake Intake Visit Reasons: follow up/US(set) Intake Note: Patient is present for follow up stress incontinence/ultrasound (imaging 04/20) Urology Medications: Oxybutynin Blood Thinner: none PVR: Commissioning Specialist Required: No Accompanied by: Self / Same As Patient Allergies doxycycline Allergy (Severe, Verified 07/09/23 12:46) Anaphylaxis Medication List - Last Reconciled 07/09/23 by KAVITA George- albuterol sulfate 90 mcg/actuation (ProAir HFA) 2 puffs inhalation Q6H PRN 30 days amlodipine 5 mg PO BEDTIME azelastine 2 sprays intranasal BID baclofen 20 mg PO TID PRN 30 days Breo Ellipta 200-25 mcg/dose (fluticasone furoate-vilanterol) 1 inh inhalation DAILY NS cetirizine 10 mg PO DAILY 30 days clotrimazole-betamethasone 1-0.05 % 1 appl topical BID 5 days docusate sodium 100 mg PO BEDTIME dupilumab (Dupixent) 300 mg subcut Q2W famotidine (Pepcid) 20 mg PO BID fluticasone propionate 50 mcg/actuation 1 spray intranasal DAILY ibuprofen 800 mg PO TID PRN 30 days ipratropium-albuterol 0.5 mg-3 mg(2.5 mg base)/3 mL 3 mL inhalation Q6H PRN ketorolac 10 mg PO QID PRN 5 days mirabegron ER (Myrbetriq) 25 mg PO DAILY 30 days montelukast 10 mg PO BEDTIME nebulizers As directed pantoprazole 40 mg PO DAILY 90 days pravastatin 20 mg PO DAILY Spiriva Respimat 2.5 mcg/actuation (tiotropium bromide) 2 puffs inhalation QAM NS tramadol 50 mg PO TID PRN 10 days HPI HPI Comments History of Present Illness Details Makayla is a pleasant 47-year-old female patient of Dr. Castro. She has a past medical history of DAWSON, asthma, endometriosis, obesity, depression, anxiety, hypercholesteremia, hypertension, migraines, degenerative joint disease, GERD, and insomnia. She presents to the office today for follow-up. Of note, patient was seen approximately 2 months ago as a new patient for stress incontinence at which time she was started on oxybutynin 10 mg daily and a retroperitoneal ultrasound was ordered for further assessment evaluation. These results were reviewed with the patient today. Bilateral kidneys with no calculi, lesions, and or hydronephrosis noted. The bladder is partially distended. Borderline thickening of bladder wall could be related to underdistention. Bilateral ureteral jets are demonstrated. Pre void bladder volume is approximately 215 mL. Postvoid bladder volume is approximately 10 mL. When asked she reports no significant improvement in urinary leakage with sneezing, laughing, coughing, and or exercising. She discusses having asthma and feeling when her asthma is not well controlled and she is coughing she experiences significant stress incontinence. In discussion with the patient today she reports to be doing and feeling well. She reports stress incontinence to have been present since approximately 2006. She reports previously following up with a urologist however is unsure the name and had underwent pelvic floor therapy that she feels was not helpful and reports this was many years ago when symptoms of stress incontinence had first started. She reports she continues with stress incontinence and feels symptoms are the same if not worsening. She has had two vaginal births with average size babies approximately 7 lb. each. She reports first labor was a long labor. She otherwise denies urinary urgency, urinary frequency, nocturia, hematuria, dysuria, foul smelling urine, changes to urinary stream, flank pain, fever, and or chills. In office urinalysis results reviewed with the patient today. PVR 74mL. She otherwise offers no issues or concerns at this time. [facility] Medical History Perianal cyst Helicobacter pylori (H. pylori) H/O sleep study History of COVID-19 Obesity (BMI 30-39.9) Depression Anxiety Insomnia Allergic rhinitis Pure hypercholesterolemia Benign essential hypertension DJD (degenerative joint disease) Migraines Hiatal hernia GERD (gastroesophageal reflux disease) Cough variant asthma Asthma Surgical History Hx of colonoscopy History of esophagogastroduodenoscopy (EGD) History of tubal ligation History of breast biopsy Family History Father Hypertension CVD (cardiovascular disease) Stroke Epilepsia Mother Hypertension Diabetes mellitus CVD (cardiovascular disease) Brother Epilepsia Depressed Anxiety Sister Epilepsia Depressed Anxiety Daughter No problems noted. Son No problems noted. Social History Housing: House Alcohol intake: never Patient Tobacco Use Status: Never used Tobacco e-Cigarette/Vaping Use: Never Used Second Hand Smoke Exposure: Yes Advance Directives Date on File: 12/19/16 service: No Current occupational status: employed Cognitive needs: No Hearing needs: No Vision needs: No Female Reproductive History Menstrual Age of Menarche: 11 Review of Systems Const All systems reviewed & are unremarkable except as noted in HPI and below Reports no additional complaints Eyes Reports no additional complaints ENT Reports no additional complaints Card Reports as per HPI Resp Reports as per HPI GI Reports as per HPI Reports as per HPI Musc Reports as per HPI Neuro Reports no additional complaints Psych Reports as per HPI Endo Reports no additional complaints Physical Exam Const General: cooperative, healthy appearing, comfortable, no acute distress, well developed, alert and awake Orientation/consciousness: patient oriented x3 Limitations: no limitations HEENT Head: Yes normal to inspection, Yes normocephalic and Yes atraumatic Ears: hearing grossly normal bilaterally Eyes General: appearance normal, both eyes and all related structures Neck Neck: Yes normal visual inspection and Yes trachea midline Chest Chest palpation & inspection: normal inspection of the chest Resp Effort & Inspection: normal respiratory effort and able to speak in complete sentences Cardio Rate: regular rate GI Inspection: Yes normal to inspection General: Yes no CVA tenderness Back/Spine/Pelvis Back: no CVA tenderness Skin General skin exam: no rashes or lesions noted Neuro General: patient oriented x3 Extrem General: Yes normal to inspection Psych Appearance: grossly normal and well kempt Mental Status: mental status grossly normal Speech and movement: Normal speech and movement present and Clear speech present Affect: normal affect Attitude: cooperative Thought process: Normal thought process present Thought content: Normal thought content present Insight: Good insight present (Psych) Judgement: Good judgement present (Psych) Office Procedures Post Void Residual Post Residual Void Post Void Residual (PVR): 74 [id number] Void Residual by ultrasound Results AMB Urinalysis, Automated UA Leukoctes 0 Nixon/uL Last Edit by Dawson Figueroa on 07/09/23 12:09 UA Nitrite Last Edit by Dawson Figueroa on 07/09/23 12:09 UA Urobilinogen 0.2 mg/dL Last Edit by Dawson Figueroa on 07/09/23 12:09 UA Protein 15 mg/dL Last Edit by Dawson Figueroa on 07/09/23 12:09 UA pH 5.5 Last Edit by Dawson Figueroa on 07/09/23 12:09 UA Blood 0 Sergo/uL Last Edit by Dawson Figueroa on 07/09/23 12:09 UA Specific [place] 1.025 Last Edit by Dawson Figueroa on 07/09/23 12:09 UA Ketone Last Edit by Dawson Figueroa on 07/09/23 12:09 UA Bilirubin 1 mg/dL Last Edit by Dawson Figueroa on 07/09/23 12:09 UA Glucose 0 mg/dL Last Edit by Dawson Figueroa on 07/09/23 12:09 Results Reviewed Results Reviewed: Laboratory Last Values Urine pH (Auto) 5.5 07/09/23 12:08 Specific [place] (Auto) 1.025 07/09/23 12:08 Urine Protein (Auto) 15 mg/dL 07/09/23 12:08 Glucose (UA)(Auto) 0 mg/dL 07/09/23 12:08 Urine Blood (Auto) 0 Sergo/uL 07/09/23 12:08 Urine Bilirubin (Auto) 1 mg/dL 07/09/23 12:08 Urine Urobilinogen (Auto) 0.2 mg/dL 07/09/23 12:08 Leukocyte Esterase (Auto) 0 Nixon/uL 07/09/23 12:08 Date of Service: 04/20/23 EXAMINATION: US RETROPERITONEAL COMPLETE (RENAL) CLINICAL INFORMATION: Stress incontinence in female. COMPARISON: MRI pelvis 03/13/2022. Ultrasound abdomen 12/19/2011 and 04/30/2009. CT abdomen and pelvis 06/29/2008. TECHNIQUE: Real-time imaging of the kidneys and bladder. Limited visualization due to bowel gas and body habitus. FINDINGS: RIGHT KIDNEY: 10.7 x 5.3 x 4.2 cm (SAG x AP x TRV). No hydronephrosis. No renal calculi. Renal cortical thickness is normal. LEFT KIDNEY: 11.8 x 6.4 x 4.6 cm (SAG x AP x TRV). No hydronephrosis. No renal calculi. Renal cortical thickness is normal. BLADDER: Partially distended. Borderline thickening of the bladder wall could be related to underdistention. Bilateral ureteral jets are demonstrated. Prevoid bladder volume is 217 mL. Postvoid bladder volume is 9.2 mL. IMPRESSION: 1. No hydronephrosis. No renal calculus. 2. Borderline thickening of the bladder wall could be related to underdistention. Assessment & Plan Assessment & Plan (1) Stress incontinence of urine: Code(s): N39.3 - Stress incontinence (female) (male) Plan In office urinalysis results reviewed with the patient today; as noted above. PVR 74 mL. Recent retroperitoneal ultrasound results reviewed with the patient today; as noted above. Discussed at length stress incontinence and pelvic floor therapy; however, patient has previously trialed pelvic floor therapy with no benefit and does not wish to retry. Stop oxybutynin Start Myrbetriq 25 mg daily as discussed and prescribed. Discussed possible near future in office cystoscopy verses urodynamics for further assessment evaluation Discussed at length potential causes for stress incontinence Discussed avoiding lifting, losing excess weight, limiting caffeine and or alcohol. Follow-up in 6 weeks with PVR; or sooner with any issues, concerns, and or questions. Orders: Orders AMB Urinalysis Automated Today Z13.9 - Encounter for screening, unspecified AMB Post Void Residual by ultrasound Today N39.3 - Stress incontinence (female) (male) Medications: New mirabegron ER (Myrbetriq) 25 mg PO DAILY 30 days 30 tabs 1RF N30.10 - Interstitial cystitis (chronic) without hematuria, N32.81 - Overactive bladder, R35.1 - Nocturia, R39.15 - Urgency of urination Discontinued oxybutynin chloride ER Discontinued Reason: Doctor's Order 10 mg PO DAILY 30 days 30 tabs 1RF N32.81 - Overactive bladder Patient Instructions: The patient had an opportunity to ask questions regarding the treatment plan. All questions were answered. Physical exam, labs, and imaging were discussed and reviewed in detail. As well as risks, benefits, and discussion of treatment choices. No major barriers to understanding were identified. The patient expressed understanding and agreement with the above treatment plan. The patient was made aware they should contact our office by phone for worsening of their current condition, the appearance of new symptoms, or with any questions or concerns. Compliance is encouraged with any medications and follow up testing that is ordered. It is a privilege to be allowed the opportunity to participate in? your urological care.? Again, if you have any questions or concerns If you have any questions or concerns please do not hesitate to contact me. The office is [phone]. This note is constructed using voice recognition software. While every effort has been made to ensure accuracy creative assistant errors may have been included. Yours sincerely, KAVITA George-JETT Coding Level of Care Code Est Pt Level 4 (90205) Diagnoses Stress incontinence of urine N39.3 CPT Codes Post Residual Void - PVR CPT Code: 05184-Xpbq Void Residual by ultrasound ([id number])
== END 2023-07-09 12:40 | disposition home or self-care (01) ==
PROVIDERS: PCP Internal Medicine; Visit Provider Nurse Practitioner Family
DX: Z13.9 Encounter for screening, unspecified (principal); N39.3 Stress incontinence (female) (male)
CPT/HCPCS: 99214

== ENCOUNTER → 2023-07-09 11:33 | Outpatient (BNVA) | payer OTHER, SELFPAY | PROVIDERS: PCP Internal Medicine; Visit Provider Nurse Practitioner Family | DX: N39.3 Stress incontinence (female) (male) (principal) | CPT/HCPCS: 51798; 81003; 99212 ==

== ENCOUNTER 2023-07-13 10:33 | Day surgery (SDC) | payer OTHER, SELFPAY ==
[2023-07-11 08:11] VITALS: BMI 36.0
--- NOTE | 2023-07-12 08:57 | P.CONAN_ITS ---
Documented by User: Kelsy German NP 07/12/23 08:57 HPI - Anesthesia Eval Consult details Narrative: 47yo F for Uterine Ablation w/Prieto PMFSH Active Problems Active Problems: All Active Problems (Updated 05/14/23 @ 11:51 by Jeremy Castro MD) Left low back pain (Acute) Left hip pain (Acute) Perianal cyst (Acute) Stress incontinence of urine (Acute) Tinnitus (Acute) Ear congestion (Acute) Helicobacter pylori (H. pylori) (Acute) COVID-19 (Acute) Asthma (Acute) Severe persistent allergic asthma (Acute) Environmental allergies (Acute) Dyspnea on exertion (Acute) Pulmonary nodules (Acute) Obesity (Acute) BMI 36.0-36.9,adult (Acute) History of irregular menstrual bleeding (Acute) Well woman exam with routine gynecological exam (Acute) Yeast infection of the skin (Acute) Cervical cancer screening (Acute) DAWSON (obstructive sleep apnea) (Acute) Vulvar lesion (Acute) Ovarian cyst, complex (Acute) Eyelid twitch (Acute) Chest discomfort (Acute) Arthralgia (Acute) Myoma (Acute) Abnormal uterine bleeding (AUB) (Acute) Encounter for IUD insertion (Acute) Pelvic cramping (Acute) Endometritis (Acute) Encounter for IUD removal (Acute) Obesity (BMI 30-39.9) (Acute) Depression (Acute) Anxiety (Acute) Insomnia (Acute) Allergic rhinitis (Acute) Pure hypercholesterolemia (Acute) Benign essential hypertension (Acute) DJD (degenerative joint disease) (Acute) Migraines (Acute) Hiatal hernia (Acute) GERD (gastroesophageal reflux disease) (Acute) Cough variant asthma (Acute) Past Medical History Medical History Perianal cyst Helicobacter pylori (H. pylori) H/O sleep study History of COVID-19 Obesity (BMI 30-39.9) Depression Anxiety Insomnia Allergic rhinitis Pure hypercholesterolemia Benign essential hypertension DJD (degenerative joint disease) Migraines Hiatal hernia GERD (gastroesophageal reflux disease) Cough variant asthma Asthma Family History Family History Father Hypertension CVD (cardiovascular disease) Stroke Epilepsia Mother Hypertension Diabetes mellitus CVD (cardiovascular disease) Brother Epilepsia Depressed Anxiety Sister Epilepsia Depressed Anxiety Daughter No problems noted. Son No problems noted. Family history of problems with anesthesia: Yes Surgical History Surgical History Hx of colonoscopy History of esophagogastroduodenoscopy (EGD) History of tubal ligation History of breast biopsy History of Problems with Anesthesia: No Social History Social History Housing: House Alcohol intake: never Patient Tobacco Use Status: Never used Tobacco e-Cigarette/Vaping Use: Never Used Second Hand Smoke Exposure: Yes Use of substances other than those prescribed or required for medical reasons: No Are you DNR?: No Advance Directives: No Advance Directives Information Provided: Yes Advance Directives Date on File: 12/19/16 service: No Current occupational status: employed Cognitive needs: No Hearing needs: No Vision needs: No Meds Allergies Allergy/AdvReac Type Severity Reaction Status Date / Time doxycycline Allergy Severe Anaphylaxis Verified 07/13/23 10:56 Home Medications Medication Instructions Recorded Confirmed Last Taken Type fluticasone propionate 50 1 spray intranasal DAILY 11/29/20 07/13/23 Unknown History mcg/actuation nasal spray,suspension nebulizers #1 ea 11/29/20 04/11/23 Unknown History dupilumab 300 mg/2 mL subcutaneous 300 mg subcut Q2W 04/11/23 07/13/23 Unknown History pen injector (Dupixent) Exam Exam Date and Time: July 12, 2023 0857 Height,Weight and Vital Signs: Height 5 ft 2 in Weight 89.358 kg Assessment and Plan Assessment Anesthesia Assessment: Chart Reviewed Final Anesthetic Review Family History of Problems with Anesthesia: Yes History of Problems with Anesthesia: No Documented by User: Linda De Oliveira MD 07/13/23 12:18 PMFSH Past Medical History Medical History Perianal cyst Helicobacter pylori (H. pylori) H/O sleep study History of COVID-19 Obesity (BMI 30-39.9) Depression Anxiety Insomnia Allergic rhinitis Pure hypercholesterolemia Benign essential hypertension DJD (degenerative joint disease) Migraines Hiatal hernia GERD (gastroesophageal reflux disease) Cough variant asthma Asthma Family History Family History Father Hypertension CVD (cardiovascular disease) Stroke Epilepsia Mother Hypertension Diabetes mellitus CVD (cardiovascular disease) Brother Epilepsia Depressed Anxiety Sister Epilepsia Depressed Anxiety Daughter No problems noted. Son No problems noted. Surgical History Surgical History Hx of colonoscopy History of esophagogastroduodenoscopy (EGD) History of tubal ligation History of breast biopsy Social History Social History Housing: House Alcohol intake: never Patient Tobacco Use Status: Never used Tobacco e-Cigarette/Vaping Use: Never Used Second Hand Smoke Exposure: Yes Use of substances other than those prescribed or required for medical reasons: No Are you DNR?: No Advance Directives: No Advance Directives Information Provided: Yes Advance Directives Date on File: 12/19/16 service: No Current occupational status: employed Cognitive needs: No Hearing needs: No Vision needs: No Meds Allergies Allergy/AdvReac Type Severity Reaction Status Date / Time doxycycline Allergy Severe Anaphylaxis Verified 07/13/23 10:56 Home Medications Medication Instructions Recorded Confirmed Last Taken Type fluticasone propionate 50 1 spray intranasal DAILY 11/29/20 07/13/23 Unknown History mcg/actuation nasal spray,suspension nebulizers #1 ea 11/29/20 04/11/23 Unknown History dupilumab 300 mg/2 mL subcutaneous 300 mg subcut Q2W 04/11/23 07/13/23 Unknown History pen injector (Dupixent) Exam Airway Mallampati Class: II TM Dist: >3cm Neck ROM: Full Heart: rrr Lungs: cta Assessment and Plan Assessment Anesthesia Assessment: Anesthesia Plan Discussed Final Anesthetic Review NPO: Yes ASA Class: III Final Preanesthetic Review: No Changes in Pt Med Stat, Meds/Allgs Chart Re viewed, Consent Obtained/Reviewed and Anes Risks/Benef Reviewed Patient Risk: Intermediate Procedure Risk: Low Anesthetic Plan Anesthetic Plan: GA Disposition: Standard PACU
[2023-07-13] VITALS (7 sets, daily range): BP systolic 121–149; BP diastolic 87–95; PULSE 75–95; RESP 16–17; TEMP 36.7–36.8; O2SAT 98–100; BMI 35.3
[2023-07-13 11:03] LABS: UPreg QC Valid YES; Urine Pregnancy NEGATIVE (NEGATIVE)
[2023-07-13] MEDS: Lactated Ringers 1,000 ML 100 ML IVCONT (11:09)
--- NOTE | 2023-07-13 11:31 | MHC.SHP ---
Pre-Procedural Eval Section A Date of Service: 07/13/23 The patient is an INPATIENT: No Changes since office visit: No Cold of Flu in the past 2 weeks, No New Medical Problems, No Changes in Medication and No Patient answered all questions The History & Physical has been completed within 30 days and I have reviewed it.: Yes Section B Chief Complaint: Abnormal uterine and vaginal bleeding, unspecified Allergies: Allergies Allergy/AdvReac Type Severity Reaction Status Date / Time doxycycline Allergy Severe Anaphylaxis Verified 07/13/23 10:56 Plan Diagnosis/Plan: Unchanged I have reviewed the history and physical and performed a pertinent physical examination on my patient. No changes have occurred unless specified. Time Spent With Patient Time: Total time managing care of this patient today ____ minutes.
--- NOTE | 2023-07-13 13:34 | P.BOP_ITS ---
Brief Operative Note Date of Service: 07/13/23 Pre-op diagnosis: Abnormal uterine bleeding Post-op diagnosis: same Procedure: NovaSure Endometrial Ablation Surgeon: Waqar Saravia MD Anesthesia: GLMA Was an Clinical Rehabilitation Coordinator used for this Procedure?: No Estimated blood loss (mL): 0 Pathology: none sent Condition: stable Disposition: PACU
--- NOTE | 2023-07-13 13:34 | P.OP_ITS ---
Operative Note Operative Note Date of Service: 07/13/23 Narrative: Preop diagnosis: Abnormal uterine bleeding Post Op Diagnosis: Same Op: Novasure Endometrial Ablation Anesthesia: GLMA Electric Engine Mechanic: None QBL: Minimal Pathology: None Complications: None Procedure: The patient was put in the dorsal lithotomy position. She was prepped and draped in the usual sterile manner. Bimanual exam prior to prepping revealed a mobile, anteverted uterus. A speculum was placed in the vagina and the anterior lip of the cervix was grasped with a single toothed tenaculum and brought forward. Taking care not to enter deep into the uterus, a sound was passed inside to measure the length of the uterus and cervix. This length was found to be 8 cm. Next, Hegar dilator was inserted into the cervical os to measure the cervical length which was 3 cm. This yielded an endometrial cavity length of 6.5 cm. A series of Hegar dilators were then inserted sequentially into the cervical os up to a size of 5 mm. The Novasure device was then opened and tested; the fan deployed easily. The instrument was set to the correct cavity length and introduced into the uterine cavity. The fan was slowly deployed with gentle movements to ensure a snug fit within the cavity. The cavity width read 4.5 cm. The measurements were imported and a cavity check was done. The trumpet was then slid down to the cervix and the device was activated. The total burn time was 91 seconds. The fan was retracted and device removed. The fan was examined and revealed charred tissue. The tenaculum was removed and the cervix examined for hemostasis which was achieved using pressure. Finally the speculum was removed. The patient tolerated the procedure well and was brought to the recovery room in a stable condition. At the end of the procedure all sponges and instruments were counted and correct. The blood loss was minimal and there were no complications.
[2023-07-13] MEDS: oxyCODONE HCl Immed Release 5 MG TABLET PO (14:02)
== END 2023-07-13 14:45 | disposition home or self-care (01) ==
PROVIDERS: PCP Internal Medicine; Visit Provider Obstetrics & Gynecology
PROC: (CPT 58353; principal; 2023-07-13 12:30)
DX: N93.9 Abnormal uterine and vaginal bleeding, unspecified (principal); Z98.51 Tubal ligation status; I10 Essential (primary) hypertension; J45.909 Unspecified asthma, uncomplicated; J45.991 Cough variant asthma; G43.909 Migraine, unspecified, not intractable, without status migrainosus; L05.91 Pilonidal cyst without abscess; F32.A Depression, unspecified; E66.9 Obesity, unspecified; Z68.36 Body mass index [BMI] 36.0-36.9, adult; F41.1 Generalized anxiety disorder; Z79.51 Long term (current) use of inhaled steroids; Z79.899 Other long term (current) drug therapy; Z88.1 Allergy status to other antibiotic agents; Z86.16 Personal history of COVID-19
CPT/HCPCS: 58353; 81025; J1100; J1885; J2250; J2405; J3010

== ENCOUNTER → 2023-07-13 10:33 | Outpatient (BNV) | payer OTHER, SELFPAY | PROVIDERS: PCP Internal Medicine; Visit Provider Obstetrics & Gynecology | DX: N93.9 Abnormal uterine and vaginal bleeding, unspecified (principal) | CPT/HCPCS: 58563 ==

== ENCOUNTER 2023-07-26 08:59 | Outpatient (AMB) | payer OTHER, SELFPAY ==
[2023-07-26 09:12] VITALS: BP 124/86
--- NOTE | 2023-07-26 09:12 | MHC.OFFVIS ---
Intake Vital Signs 07/26/23 09:12 BP 124/86 Intake Visit Reasons: post op Allergies doxycycline Allergy (Severe, Verified 07/13/23 10:56) Anaphylaxis HPI HPI Comments History of Present Illness Details The patient is presenting post Novasure Endometrial Ablation. No complaints minimal vaginal bleeding no feverishness chills or abdominal pain. [facility] Medical History Perianal cyst Helicobacter pylori (H. pylori) H/O sleep study History of COVID-19 Obesity (BMI 30-39.9) Depression Anxiety Insomnia Allergic rhinitis Pure hypercholesterolemia Benign essential hypertension DJD (degenerative joint disease) Migraines Hiatal hernia GERD (gastroesophageal reflux disease) Cough variant asthma Asthma Surgical History Hx of colonoscopy History of esophagogastroduodenoscopy (EGD) History of tubal ligation History of breast biopsy Family History Father Hypertension CVD (cardiovascular disease) Stroke Epilepsia Mother Hypertension Diabetes mellitus CVD (cardiovascular disease) Brother Epilepsia Depressed Anxiety Sister Epilepsia Depressed Anxiety Daughter No problems noted. Son No problems noted. Social History Housing: House Alcohol intake: never Patient Tobacco Use Status: Never used Tobacco e-Cigarette/Vaping Use: Never Used Second Hand Smoke Exposure: Yes Advance Directives Date on File: 12/19/16 service: No Current occupational status: employed Cognitive needs: No Hearing needs: No Vision needs: No Female Reproductive History Menstrual Age of Menarche: 11 Review of Systems Const All systems reviewed & are unremarkable except as noted in HPI and below Reports as per HPI and Reports no additional complaints GI Reports no additional complaints Reports no additional complaints Physical Exam Vital Signs: Last Vital Signs BP 124/86 07/26/23 09:12 Assessment & Plan Assessment & Plan (1) Abnormal uterine bleeding (AUB): Comment: Status post NovaSure ablation Code(s): N93.9 - Abnormal uterine and vaginal bleeding, unspecified Plan: Discussed with the patient Novasure endometrial ablation intraoperative findings. In addition, discussed with the patient the expectations in the post operative period. Instruction given to patient to wait 2- 3 months and call if her menses are not satisfactory. Also discussed with the patient that although NovaSure endometrial ablation decreases the risk of , it is certainly not a method of control, patient had tubal ligation. All questions answered, the patient verbalized understanding and all questions answered . Coding Level of Care Code Est Pt Level 3 (57454) Diagnoses Abnormal uterine bleeding (AUB) N93.9
== END 2023-07-26 09:15 | disposition home or self-care (01) ==
PROVIDERS: PCP Internal Medicine; Visit Provider Obstetrics & Gynecology
DX: N93.9 Abnormal uterine and vaginal bleeding, unspecified (principal)
CPT/HCPCS: 99213

== ENCOUNTER → 2023-07-26 08:59 | Outpatient (BNVA) | payer OTHER, SELFPAY | PROVIDERS: PCP Internal Medicine; Visit Provider Obstetrics & Gynecology | DX: N93.9 Abnormal uterine and vaginal bleeding, unspecified (principal); Z98.890 Other specified postprocedural states | CPT/HCPCS: 99212 ==

== ENCOUNTER 2023-08-31 08:43 | Outpatient (REF) | payer OTHER, SELFPAY ==
--- NOTE | 2023-08-31 09:19 | PFT_ITS ---
Forced vital capacity 91%. FEV1 79%, FEV1/FVC ratio 71. UVQ30-62 44% and MVV 66%. Post bronchodilator therapy, there is a significant improvement in CLE37-80. Total lung capacity 81%. Residual volume 74%. Diffusion capacity 99%. CONCLUSION: There is evidence of a mild, small airway obstructive disorder which improves after bronchodilator therapy. This finding is suggestive of mild bronchial asthma. Clinical correlation is recommended. MD BOBY Veronica/MODL / [phone]
== END 2023-08-31 08:44 | disposition home or self-care (01) ==
LOC: HO.RESP 08:43
PROVIDERS: PCP Internal Medicine; Visit Provider Internal Medicine Pulmonary Disease
DX: J45.40 Moderate persistent asthma, uncomplicated (principal)
CPT/HCPCS: 94010; 94727; 94729

== ENCOUNTER → 2023-08-31 09:19 | Outpatient (BNV) | payer OTHER, SELFPAY | PROVIDERS: PCP Internal Medicine; Visit Provider Internal Medicine | DX: J45.40 Moderate persistent asthma, uncomplicated (principal) | CPT/HCPCS: 94060; 94727; 94729 ==

== ENCOUNTER 2023-09-20 08:58 | Outpatient (AMB) | payer OTHER, SELFPAY ==
[2023-09-20 09:02] VITALS: BP 118/76; PULSE 78; O2SAT 99; BMI 35.9
--- NOTE | 2023-09-20 09:02 | MHC.OFFVIS ---
Intake Vital Signs 09/20/23 09:02 Height 5 ft 2 in Weight 196 lb 3.382 oz BMI 35.9 BP 118/76 Blood Pressure Location Lt brachial Pulse 78 Pulse Source Doppler Pulse Oximetry (%) 99 Oxygen Delivery Method Room Air Intake Visit Reasons: Asthma Allergies doxycycline Allergy (Severe, Verified 09/20/23 09:05) Anaphylaxis HPI Asthma HPI Details 47-year-old lady, nonsmoker, with underlying history of asthma since childhood, followed for moderate to severe persistent allergic asthma. Patient continues on Breo, Spiriva, Dupixent, and albuterol MDI with excellent control of her symptoms. She denies any recent exacerbations. [facility] Medical History Perianal cyst Helicobacter pylori (H. pylori) H/O sleep study History of COVID-19 Obesity (BMI 30-39.9) Depression Anxiety Insomnia Allergic rhinitis Pure hypercholesterolemia Benign essential hypertension DJD (degenerative joint disease) Migraines Hiatal hernia GERD (gastroesophageal reflux disease) Cough variant asthma Asthma Surgical History Hx of colonoscopy History of esophagogastroduodenoscopy (EGD) History of tubal ligation History of breast biopsy Family History Father Hypertension CVD (cardiovascular disease) Stroke Epilepsia Mother Hypertension Diabetes mellitus CVD (cardiovascular disease) Brother Epilepsia Depressed Anxiety Sister Epilepsia Depressed Anxiety Daughter No problems noted. Son No problems noted. Social History Housing: House Alcohol intake: never Patient Tobacco Use Status: Never used Tobacco e-Cigarette/Vaping Use: Never Used Second Hand Smoke Exposure: Yes Advance Directives Date on File: 12/19/16 service: No Current occupational status: employed Cognitive needs: No Hearing needs: No Vision needs: No Female Reproductive History Menstrual Age of Menarche: 11 Review of Systems Const Denies daytime sleepiness, Denies excessive sweating, Denies fatigue, Denies fever(s), Denies lethargy, Denies malaise, Denies night sweats, Denies snoring and Denies weight loss Eyes Denies blurry vision and Denies itchy eyes ENT Denies nasal congestion, Denies post nasal drip, Denies sinus pain, Denies sinus pressure and Denies other ( Thrush) Card Denies chest pain, Denies pedal edema, Denies dyspnea, Denies orthopnea and Denies paroxysmal nocturnal dyspnea Resp Denies cough, Denies hemoptysis, Denies excessive phlegm production, Denies dyspnea, Denies snoring and Denies wheezing GI Denies abdominal pain and Denies heartburn Musc Denies myalgias, Denies arthralgias and Denies joint swelling Skin/Breast Denies rash Neuro Denies memory loss and Denies seizure-like activity Psych Denies abnormal sleep pattern, Denies anxiety and Denies memory loss Endo Denies excessive sweating, Denies fatigue and Denies heat intolerance Drew/Lymph Denies easy bruising Aller/Immun Denies itchy eyes, Denies seasonal rhinorrhea and Denies wheezing Physical Exam Vital Signs: Last Vital Signs Pulse 78 09/20/23 09:02 BP 118/76 09/20/23 09:02 Pulse Ox 99 09/20/23 09:02 Oxygen Delivery Method Room Air 09/20/23 09:02 BMI result Body Mass Index 35.9 Const General: no acute distress and alert Nutritional Appearance: not obese Orientation/consciousness: Other orientation findings ( oriented) HEENT Head: Yes atraumatic Eyes General: appearance normal, both eyes and all related structures Sclerae: sclerae normal EOM: EOMs intact bilaterally Neck Neck: Yes supple Lymphatic: no lymphadenopathy noted Resp Effort & Inspection: normal respiratory effort and no use of accessory muscles Auscultation: clear to auscultation bilaterally Cardio Rate: regular rate Rhythm: regular rhythm Heart sounds: no gallops, no murmurs and no rubs Skin General skin exam: other ( warm) Extrem General: No clubbing, No cyanosis and No edema Assessment & Plan Assessment & Plan (1) Asthma: Code(s): J45.909 - Unspecified asthma, uncomplicated Qualifiers: Asthma severity: moderate Asthma persistence: persistent Asthma complication type: uncomplicated Qualified Code(s): J45.40 - Moderate persistent asthma, uncomplicated Plan: Well controlled on Dupixent, Spiriva, Breo, duo nebs, and albuterol MDI. Continue current regimen. (2) Environmental allergies: Code(s): Z91.09 - Other allergy status, other than to drugs and biological substances Plan: Excellent control on Dupixent and as needed Flonase. Continue current regimen. Coding Level of Care Code Est Pt Level 4 (68282) Diagnoses Moderate persistent asthma without complication J45.40 Asthma severity: moderate Asthma persistence: persistent Asthma complication type: uncomplicated Environmental allergies Z91.09
== END 2023-09-20 09:25 | disposition home or self-care (01) ==
PROVIDERS: PCP Internal Medicine; Visit Provider Internal Medicine Pulmonary Disease
DX: J45.40 Moderate persistent asthma, uncomplicated (principal); Z91.09 Other allergy status, other than to drugs and biological substances
CPT/HCPCS: 99214

== ENCOUNTER → 2023-09-20 08:58 | Outpatient (BNVA) | payer OTHER, SELFPAY | PROVIDERS: PCP Internal Medicine; Visit Provider Internal Medicine Pulmonary Disease | DX: J45.40 Moderate persistent asthma, uncomplicated (principal); Z91.09 Other allergy status, other than to drugs and biological substances | CPT/HCPCS: 99212 ==

== ENCOUNTER 2023-12-28 13:27 | Outpatient (AMB) | payer OTHER, SELFPAY ==
--- NOTE | 2023-12-28 13:33 | MHC.PC.OV ---
Vital Signs 12/28/23 13:34 Height 5 ft 2 in Weight 198 lb 4 oz BMI 36.3 BP 120/62 Blood Pressure Location Lt brachial Position Sitting Pulse 84 Pulse Source Pulse Oximeter Pulse Oximetry (%) 99 Oxygen Delivery Method Room Air Intake Visit Reasons: PE (rescheduled) Intake Note: Patient is here today for a physical. Transition Program Manager Required: No Drum Tender: Not Required per policy Accompanied by: Self / Same As Patient Allergies doxycycline Allergy (Severe, Verified 12/28/23 13:54) Anaphylaxis Medication List - Last Reconciled 12/28/23 by Jeremy Castro MD albuterol sulfate 90 mcg/actuation (ProAir HFA) 2 puffs inhalation Q6H PRN 30 days amlodipine 5 mg PO BEDTIME azelastine 2 sprays intranasal BID baclofen 20 mg PO TID PRN 30 days Breo Ellipta 200-25 mcg/dose (fluticasone furoate-vilanterol) 1 inh inhalation DAILY NS cetirizine 10 mg PO DAILY clotrimazole-betamethasone 1-0.05 % 1 appl topical BID 5 days docusate sodium 100 mg PO BEDTIME dupilumab (Dupixent) 300 mg (2 mL) subcut Q2W famotidine (Pepcid) 20 mg PO BID fluticasone propionate 50 mcg/actuation 1 spray intranasal DAILY ibuprofen 800 mg PO TID PRN 30 days ipratropium-albuterol 0.5 mg-3 mg(2.5 mg base)/3 mL 3 mL inhalation Q6H PRN ketorolac 10 mg PO QID PRN 5 days montelukast 10 mg PO BEDTIME nebulizers As directed pantoprazole 40 mg PO DAILY 90 days pravastatin 20 mg PO DAILY Spiriva Respimat 2.5 mcg/actuation (tiotropium bromide) 2 puffs inhalation QAM NS tramadol 50 mg PO TID PRN 10 days Tobacco use date assessed: 12/28/23 Dental Screening Dental Screen Date: 12/28/23 Did you have a dental visit in the last 12 months?: No Did you have a dental problem in the last 6 months where you did not have access to dental care?: No Was dental information given to patient?: Patient has dentist HPI PE (rescheduled) HPI Details Patient comes in today for her annual physical examination States that she feels okay except for a cyst over her left upper back that she's had for a few weeks now States that the cyst is starting to bother her as she feels some pain when the cyst is pressed again her when she lies down Denies any headaches or dizziness Denies any chest pains, no SOB - states that her asthma has been well-controlled on Dupixent injections every 2 weeks No nausea/vomiting, no abdominal pain No change in bowel habits noted Denies any acute urinary symptoms Her last mammogram was done in February 2023 and she will be due for repeat in a couple of months Had her last pap smear done in 07/2021; it looks like she had another one done in 04/2023 but it was unsatisfactory and she was recommended to get a repeat pap in 3 months but she has not had it repeated yet She's since had endometrial Bx done a couple of times with Dr. Saravia She had her colonoscopy done (together with EGD) by Dr. Whipple back in 09/2022 and she was recommended to get a repeat colonoscopy in 1 to 2 years due to inadequate prep She has no follow up labs done recently [facility] Medical History Perianal cyst Helicobacter pylori (H. pylori) H/O sleep study History of COVID-19 Obesity (BMI 30-39.9) Depression Anxiety Insomnia Allergic rhinitis Pure hypercholesterolemia Benign essential hypertension DJD (degenerative joint disease) Migraines Hiatal hernia GERD (gastroesophageal reflux disease) Cough variant asthma Asthma Surgical History Hx of colonoscopy History of esophagogastroduodenoscopy (EGD) History of tubal ligation History of breast biopsy Family History Father Hypertension CVD (cardiovascular disease) Stroke Epilepsia Mother Hypertension Diabetes mellitus CVD (cardiovascular disease) Brother Epilepsia Depressed Anxiety Sister Epilepsia Depressed Anxiety Daughter No problems noted. Son No problems noted. Social History Housing: House Alcohol intake: never Patient Tobacco Use Status: Never used Tobacco e-Cigarette/Vaping Use: Never Used Second Hand Smoke Exposure: Yes Advance Directives Date on File: 12/19/16 service: No Current occupational status: employed Cognitive needs: No Hearing needs: No Vision needs: Yes (glasses) Female Reproductive History Menstrual Age of Menarche: 11 Questionnaire PHQ-9 Over the last 2 weeks, how often have you been bothered by any of the following problems? 1. Little interest or pleasure in doing things: not at all 2. Feeling down, depressed, or hopeless: not at all 3. Trouble falling or staying asleep, or sleeping too much: not at all 4. Feeling tired or having little energy: not at all 5. Poor appetite or overeating: not at all 6. Feeling bad about yourself - or that you are a failure or have let yourself or your family down: not at all 7. Trouble concentrating on things, such as reading the newspaper or watching television: not at all 8. Moving or speaking so slowly that other people could have noticed. Or the opposite - being so fidgety or restless that you have been moving around a lot more than usual: not at all 9. Thoughts that you would be better off or of hurting yourself in some way: not at all Total score: 0 Depression Screening Interpretation: Negative Depression Screening Done: Yes [id number] - PHQ-9 Billing: Yes Source: Developed by Drs. Carlos Redd, Em Loyola, Leonardo Phoenix and colleagues, with an educational vikash from [employer]. Thrive Questionnaire Date Thrive assessed: 12/28/23 I am a: Patient What is your living situation today?: I have a steady place to live Within the past 12 months, did the food you bought not last and you didn't have the money to get more?: Never true Within the past 12 months, did you worry whether your food would run out before you got money to buy more?: Never true Do you have trouble paying for medicines?: No Do you have trouble getting transportation to medical appointments?: No Do you have trouble paying your heating and electricity bill?: No Do you have trouble taking care of your child, family member or friend?: No Do you have trouble with day-to-day activities such as bathing, preparing meals, shopping, managing finances, etc.?: No Are you currently unemployed and looking for a job?: No Are you interested in more education?: No Currently or been in a relationship where the following occur: no concerns reported THRIVE Score: 0 AUDIT C Alcohol Use Questionnaire (AUDIT-C) 1. How often do you have a drink containing alcohol?: Never Total Score: 0 Score Reviewed/Action Taken: Yes QUOC-7 AMB Questionnaire QUOC-7 Date QUOC - 7 assessed: 12/28/23 Feeling nervous, anxious, or on edge: 3 = Nearly every day Not being able to stop or control worryin = More than half the days Worrying too much about different things: 2 = More than half the days Trouble relaxin = Nearly every day Being so restless that it is hard to sit still: 0 = Not at all Becoming easily annoyed or irritable: 3 = Nearly every day Feeling afraid as if something awful might happen: 1 = Several days Total QUOC-7 score (0-4 normal; 5-9 mild; 10-14 moderate; 15-21 severe): 14 Source: Developed by Drs. Carlos Redd, Em Loyola, Leonardo Phoenix and colleagues, with an educational vikash from [employer]. Review of Systems Const Denies chills, Denies fatigue, Denies fever(s), Denies headache(s) and Denies malaise Eyes Denies blurry vision, Denies change in vision, Denies irritation and Denies itchy eyes ENT Denies dysphagia, Denies dizziness, Denies otalgia, Denies headache(s), Denies nasal congestion, Denies neck pain, Denies odynophagia, Denies sinus pain and Denies sore throat Card Denies chest pain, Denies rapid heart rate, Denies irregular heart rhythm, Denies palpitations and Denies dyspnea Resp Denies chest congestion, Denies cough, Denies dyspnea and Denies wheezing GI Denies abdominal pain, Denies bloating, Denies constipation, Denies dysphagia, Denies heartburn, Denies diarrhea, Denies nausea, Denies odynophagia and Denies vomiting Denies hematuria, Denies urinary frequency, Denies dysuria, Denies urinary incontinence and Denies urinary urgency Musc Details: (+) pain over cyst on the left upper back when pressed against hard surface Denies back pain, Denies arthralgias, Denies joint swelling, Denies muscle weakness and Denies neck pain Skin/Breast Denies breast pain, Denies breast mass, Denies change in pigmentation, Denies lesions, Denies rash and Denies unusual bruising Neuro Denies dizziness, Denies headache(s) and Denies paresthesias Psych Denies anxiety and Denies depression Endo Denies fatigue and Denies palpitations Drew/Lymph Denies easy bruising Aller/Immun Denies itchy eyes and Denies wheezing Physical exam (Primary Care) Vital Signs: Last Vital Signs Pulse 84 12/28/23 13:34 BP 120/62 12/28/23 13:34 Pulse Ox 99 12/28/23 13:34 Oxygen Delivery Method Room Air 12/28/23 13:34 BMI result Body Mass Index 36.3 Tobacco/Smoking Status: Tobacco use Status Tobacco use date assessed 12/28/23 12/28/23 13:41 Patient Tobacco Use Status Never used Tobacco 12/28/23 13:41 e-Cigarette/Vaping Use Never Used 12/28/23 13:41 PHQ-9: PHQ-9 Score PHQ-9: Total score 0 12/28/23 13:55 Depression Screening Interpretation: Negative Thrive Assessment: Date of Thrive Assessment Date Thrive assessed 12/28/23 12/28/23 13:41 Currently or been in a relationship where the following occur: no concerns reported Const General: no acute distress, alert and awake Orientation/consciousness: patient oriented x3 HENMT Head: Yes normocephalic and Yes atraumatic Ears: external ears normal, TM's normal bilaterally and EAC's normal General nose exam: No nasal discharge present Face and sinus: Yes normal facial exam and Yes sinuses nontender Teeth and gingiva: dentition normal Throat: Yes posterior oropharynx normal and Yes tonsils normal (no TP congestion) Eyes Eyelids: Yes eyelids normal Conjunctivae: conjunctivae normal Pupils: Equal, round and reactive pupils present EOM: EOMs intact bilaterally Neck Neck: Yes no lymphadenopathy and Yes supple Thyroid: Thyroid normal Resp Auscultation: clear to auscultation bilaterally, no rales and no wheezes Cardio Rate: regular rate Rhythm: regular rhythm Heart sounds: no murmurs GI Palpation (GI): Soft to palpation, nontender and No hepatosplenomegaly present Auscultation: normal bowel sounds General: Yes no CVA tenderness Back/Spine/Pelvis Other: (+) small nodular lesion on the left upper back above the scapula - nodule is slightly tender on deep palpation Back: no CVA tenderness Thoracic/Lumbar Spine: thoracic and lumbar spine normal to inspection Skin Rashes: no rashes Neuro General: patient oriented x3, moves all extremities, no focal motor deficits and CN's II-XI intact bilaterally Cranial nerves: Yes Equal, round and reactive pupils present Cognition (Neuro): normal cognition Gait exam (Neuro): Normal gait present Extrem General: Yes no clubbing, cyanosis or edema Assessment and Plan Assessment & Plan (1) Annual physical exam: Code(s): Z00.00 - Encounter for general adult medical examination without abnormal findings Plan: Check labs She is up-to-date with her annual mammogram - due for repeat in a couple of months She is due for repeat pap smear - is advised to contact gynecology office to schedule a follow up appt HANSA She is also due for a repeat colonoscopy - was last done in 09/2022 and recommend repeat in 1 to 2 years (2) Nodule of skin of back: Code(s): R22.2 - Localized swelling, mass and lump, trunk Plan: Is likely a lipoma Will refer her to surgery for further evaluation and possible excision, if appropriate (3) Benign essential hypertension: Code(s): I10 - Essential (primary) hypertension Plan: Reinforced low-sodium diet - goal is systolic BP of 120 mm or less Continue Amlodipine 5 mg QD (4) Pure hypercholesterolemia: Code(s): E78.00 - Pure hypercholesterolemia, unspecified Plan: Will have her recheck her fasting lipids [facility] as it has been a while since she's had her lipids rechecked Reinforced low-cholesterol diet Continue Pravastatin 20 mg QD Will recheck her labs and fasting lipids in 4 months for follow up (5) Asthma: Code(s): J45.909 - Unspecified asthma, uncomplicated Qualifiers: Asthma severity: moderate Asthma persistence: persistent Asthma complication type: uncomplicated Qualified Code(s): J45.40 - Moderate persistent asthma, uncomplicated Plan: States that her asthma has been better controlled again since she was started on Dupixent injection 300 mg SQ every 2 weeks Did not do too well on Nucala injections last year Continue Breo Ellipta 200-25 mcg 1 inhalation QD, Spiriva Respimat 2.5 mcg 2 inhalations QD, Montelukast 10 mg QPM, Albuterol HFA 2 inhalations every 6 hours PRN; also uses Duoneb solution via her nebulizer every 6 hours as needed when she has access to her updraft device Follow up with pulmonary as scheduled (6) GERD (gastroesophageal reflux disease): Code(s): K21.9 - Gastro-esophageal reflux disease without esophagitis Qualifiers: Esophagitis presence: esophagitis presence not specified Qualified Code(s): K21.9 - Gastro-esophageal reflux disease without esophagitis Plan: Dietary restrictions reinforced Continue Pantoprazole 40 mg QD and Famotidine 20 mg BID PRN Follow up with GI as scheduled (7) Migraines: Code(s): G43.909 - Migraine, unspecified, not intractable, without status migrainosus Qualifiers: Migraine type: unspecified Status migrainosus presence: without status migrainosus Intractability: not intractable Qualified Code(s): G43.909 - Migraine, unspecified, not intractable, without status migrainosus Plan: States that her headaches have been better controlled lately Was on prophylactic Tx with Topiramate 25 mg Q HS before but it looks like she has stopped taking this a while ago (8) Allergic rhinitis: Code(s): J30.9 - Allergic rhinitis, unspecified Qualifiers: Allergic rhinitis trigger: unspecified Allergic rhinitis seasonality: unspecified Qualified Code(s): J30.9 - Allergic rhinitis, unspecified Plan: Continue Loratadine 10 mg QD PRN, Fluticasone 50 mcg nasal spray QD PRN and Montelukast 10 mg Q PM Is also on Dupixent injections, which helps a lot with both her allergies and asthma (9) Insomnia: Code(s): G47.00 - Insomnia, unspecified Qualifiers: Insomnia type: unspecified Qualified Code(s): G47.00 - Insomnia, unspecified Plan: Sleep hygiene reinforced States that her main problem is staying asleep; has no problem falling asleep Have offered to provide some Rx for patient in the past but she declined; still does not wish to take anything else to help her sleep at this time (10) Anxiety: Code(s): F41.9 - Anxiety disorder, unspecified Plan: Takes Lorazepam 0.5 mg PRN only (11) Depression: Code(s): F32.A - Depression, unspecified Qualifiers: Depression Type: major depressive disorder Major depression recurrence: recurrent Active/Remission status: currently active Major depression episode severity: unspecified Qualified Code(s): F33.9 - Major depressive disorder, recurrent, unspecified Plan: She was on Fluoxetine 20 mg Q AM in the past but seems to have aslo stopped taking this some time ago Follow up with psychiatry as scheduled (12) Obesity (BMI 30-39.9): Code(s): E66.9 - Obesity, unspecified Plan: Reinforced diet/exercise as tolerated/lose weight Plan Follow up in 4 months Orders: Orders Lipid Panel Today E78.00 - Pure hypercholesterolemia, unspecified, Z00.00 - Encounter for general adult medical examination without abnormal findings TSH reflex Free T4 Today E78.00 - Pure hypercholesterolemia, unspecified, Z00.00 - Encounter for general adult medical examination without abnormal findings UA CC w/rflx Micro + Cult Today R30.0 - Dysuria, Z00.00 - Encounter for general adult medical examination without abnormal findings Complete Blood Count Auto Diff Today D64.9 - Anemia, unspecified, Z00.00 - Encounter for general adult medical examination without abnormal findings Comprehensive Violet. Panel Fast Today E78.00 - Pure hypercholesterolemia, unspecified, Z00.00 - Encounter for general adult medical examination without abnormal findings Vitamin D 25-OH Total Today E55.9 - Vitamin D deficiency, unspecified, Z00.00 - Encounter for general adult medical examination without abnormal findings Comprehensive Violet. Panel Fast 4 Months E78.00 - Pure hypercholesterolemia, unspecified Lipid Panel 4 Months E78.00 - Pure hypercholesterolemia, unspecified Referrals General Surgery Referral R22.2 - Localized swelling, mass and lump, trunk Gastroenterology Referral Z12.11 - Encounter for screening for malignant neoplasm of colon Coding Level of Care Code Est Pt Prev Care 40-64y(27530) Diagnoses Annual physical exam Z00.00 Nodule of skin of back R22.2 Benign essential hypertension I10 Pure hypercholesterolemia E78.00 Moderate persistent asthma without complication J45.40 Asthma severity: moderate Asthma persistence: persistent Asthma complication type: uncomplicated Gastroesophageal reflux disease, unspecified whether esophagitis present K21.9 Esophagitis presence: esophagitis presence not specified Migraine without status migrainosus, not intractable, unspecified migraine type G43.909 Migraine type: unspecified Status migrainosus presence: without status migrainosus Intractability: not intractable Allergic rhinitis, unspecified seasonality, unspecified trigger J30.9 Allergic rhinitis trigger: unspecified Allergic rhinitis seasonality: unspecified Insomnia, unspecified type G47.00 Insomnia type: unspecified Anxiety F41.9 Episode of recurrent major depressive disorder, unspecified depression episode severity F33.9 Depression Type: major depressive disorder Major depression recurrence: recurrent Active/Remission status: currently active Major depression episode severity: unspecified Obesity (BMI 30-39.9) E66.9
[2023-12-28 13:34] VITALS: BP 120/62; PULSE 84; O2SAT 99; BMI 36.3
== END 2023-12-28 14:15 | disposition home or self-care (01) ==
PROVIDERS: PCP Internal Medicine; Visit Provider Internal Medicine
DX: Z00.00 Encounter for general adult medical examination without abnormal findings (principal); F33.9 Major depressive disorder, recurrent, unspecified; R22.2 Localized swelling, mass and lump, trunk; I10 Essential (primary) hypertension; E78.00 Pure hypercholesterolemia, unspecified; J45.40 Moderate persistent asthma, uncomplicated; K21.9 Gastro-esophageal reflux disease without esophagitis; G43.909 Migraine, unspecified, not intractable, without status migrainosus; E66.9 Obesity, unspecified; Z68.36 Body mass index [BMI] 36.0-36.9, adult; J30.9 Allergic rhinitis, unspecified; G47.00 Insomnia, unspecified
CPT/HCPCS: 99396

== ENCOUNTER 2023-12-31 13:55 | Outpatient (AMB) | payer OTHER, SELFPAY ==
[2023-12-31 14:00] VITALS: BP 134/82; PULSE 78; BMI 35.8
--- NOTE | 2023-12-31 14:00 | MHC.OFFVIS ---
Intake Vital Signs 12/31/23 14:00 Height 5 ft 2 in Weight 196 lb BMI 35.8 BP 134/82 Blood Pressure Location Rt brachial Position Sitting Pulse 78 Intake Visit Reasons: EIC~ Lt upper back Intake Note: Patient referred for cyst on Mid upper back. Became bothersome 1m ago. Patient c/o nerve pain that spreads to upper post neck. Surgical Dental Assistant Required: No Accompanied by: Self / Same As Patient Allergies doxycycline Allergy (Severe, Verified 12/31/23 14:02) Anaphylaxis HPI HPI Comments History of Present Illness Details Patient presents with left upper back deep soft tissue mass. It is increasing in size, becoming more symptomatic. She wishes to have it removed. She has no such lesions elsewhere. Chart was reviewed and patient evaluated. [facility] Medical History Perianal cyst Helicobacter pylori (H. pylori) H/O sleep study History of COVID-19 Obesity (BMI 30-39.9) Depression Anxiety Insomnia Allergic rhinitis Pure hypercholesterolemia Benign essential hypertension DJD (degenerative joint disease) Migraines Hiatal hernia GERD (gastroesophageal reflux disease) Cough variant asthma Asthma Surgical History Hx of colonoscopy History of esophagogastroduodenoscopy (EGD) History of tubal ligation History of breast biopsy Family History Father Hypertension CVD (cardiovascular disease) Stroke Epilepsia Mother Hypertension Diabetes mellitus CVD (cardiovascular disease) Brother Epilepsia Depressed Anxiety Sister Epilepsia Depressed Anxiety Daughter No problems noted. Son No problems noted. Social History Housing: House Alcohol intake: never Patient Tobacco Use Status: Never used Tobacco e-Cigarette/Vaping Use: Never Used Second Hand Smoke Exposure: Yes Advance Directives Date on File: 12/19/16 service: No Current occupational status: employed Cognitive needs: No Hearing needs: No Vision needs: Yes (glasses) Female Reproductive History Menstrual Age of Menarche: 11 Physical Exam Vital Signs: Last Vital Signs Pulse 78 12/31/23 14:00 BP 134/82 12/31/23 14:00 BMI result Body Mass Index 35.8 Chest Other: Chest breath sounds bilaterally, HS 1 in 2 GI Other: Abdomen soft, corpulent, benign Back/Spine/Pelvis Other: Left upper back demonstrates a proximally 4 x 3 cm soft tissue mass consistent with a deeply situated large lipoma or sebaceous cyst. Assessment & Plan Assessment & Plan (1) Mass of subcutaneous tissue of back: Code(s): R22.2 - Localized swelling, mass and lump, trunk Plan Risks, benefits, alternatives of excision of left upper back mass were reviewed with the patient and included but not limited to bleeding, infection, recurrence, numbness, pain, scarring, dehiscence, and seroma formation and the patient wishes to proceed. All questions answered. Arrangements were made for this. Coding Level of Care Code New Pt Level 5 (60802) Diagnoses Mass of subcutaneous tissue of back R22.2
== END 2023-12-31 14:09 | disposition home or self-care (01) ==
PROVIDERS: PCP Internal Medicine; Referring Provider Internal Medicine; Visit Provider Surgery
DX: R22.2 Localized swelling, mass and lump, trunk (principal)
CPT/HCPCS: 99204

== ENCOUNTER → 2023-12-31 13:55 | Outpatient (BNVA) | payer OTHER, SELFPAY | PROVIDERS: PCP Internal Medicine; Referring Provider Internal Medicine; Visit Provider Surgery | DX: R22.2 Localized swelling, mass and lump, trunk (principal) | CPT/HCPCS: 99202 ==

== ENCOUNTER 2024-02-01 07:56 | Day surgery (SDC) | payer OTHER, SELFPAY ==
[2024-01-29 14:35] VITALS: BMI 35.8
--- NOTE | 2024-01-31 11:49 | MHC.SHP ---
Pre-Procedural Eval Section A - 24 Hr Update-Section A only Date of Service: 01/31/24 The patient is an INPATIENT: No Changes since office visit: No Cold of Flu in the past 2 weeks, No New Medical Problems, No Changes in Medication and No Patient answered all questions Section B - Complete if H&P > 30 days Chief Complaint: Localized swelling, mass and lump, trunk Allergies: Allergies Allergy/AdvReac Type Severity Reaction Status Date / Time doxycycline Allergy Severe Anaphylaxis Verified 12/31/23 14:02 Plan I have reviewed the history and physical and performed a pertinent physical examination on my patient. No changes have occurred unless specified. Time Spent With Patient Time: Total time managing care of this patient today ____ minutes.
--- NOTE | 2024-01-31 11:53 | HO.ANESPROP2 ---
Documented by User: Kelsy German NP 01/31/24 11:54 HPI - Anesthesia Eval Consult details Narrative: 48yo F for Left Wide Local Excision Upper Back Mass PMFSH Active Problems Active Problems: All Active Problems Mass of subcutaneous tissue of back (Acute) Annual physical exam (Acute) Nodule of skin of back (Acute) Left low back pain (Acute) Left hip pain (Acute) Stress incontinence of urine (Acute) Tinnitus (Acute) Ear congestion (Acute) Encounter for IUD removal (Acute) Endometritis (Acute) Pelvic cramping (Acute) Encounter for IUD insertion (Acute) Abnormal uterine bleeding (AUB) (Acute) Myoma (Acute) Arthralgia (Acute) Chest discomfort (Acute) Eyelid twitch (Acute) Ovarian cyst, complex (Acute) Vulvar lesion (Acute) DAWSON (obstructive sleep apnea) (Acute) Cervical cancer screening (Acute) Yeast infection of the skin (Acute) Well woman exam with routine gynecological exam (Acute) History of irregular menstrual bleeding (Acute) BMI 36.0-36.9,adult (Acute) Obesity (Acute) Pulmonary nodules (Acute) Dyspnea on exertion (Acute) Environmental allergies (Acute) Severe persistent allergic asthma (Acute) Asthma (Acute) COVID-19 (Acute) Perianal cyst (Acute) Helicobacter pylori (H. pylori) (Acute) Obesity (BMI 30-39.9) (Acute) Depression (Acute) Anxiety (Acute) Insomnia (Acute) Allergic rhinitis (Acute) Pure hypercholesterolemia (Acute) Benign essential hypertension (Acute) DJD (degenerative joint disease) (Acute) Migraines (Acute) Hiatal hernia (Acute) GERD (gastroesophageal reflux disease) (Acute) Cough variant asthma (Acute) Past Medical History Medical History Arthritis Perianal cyst Helicobacter pylori (H. pylori) H/O sleep study History of COVID-19 Obesity (BMI 30-39.9) Depression Anxiety Insomnia Allergic rhinitis Pure hypercholesterolemia Benign essential hypertension DJD (degenerative joint disease) Migraines Hiatal hernia GERD (gastroesophageal reflux disease) Cough variant asthma Asthma Family History Family History Father Hypertension CVD (cardiovascular disease) Stroke Epilepsia Mother Hypertension Diabetes mellitus CVD (cardiovascular disease) Brother Epilepsia Depressed Anxiety Sister Epilepsia Depressed Anxiety Daughter No problems noted. Son No problems noted. Family history of problems with anesthesia: Yes Surgical History Surgical History History of endometrial ablation Hx of colonoscopy History of esophagogastroduodenoscopy (EGD) History of tubal ligation History of breast biopsy History of Problems with Anesthesia: No Social History Social History Housing: House Alcohol intake: never Patient Tobacco Use Status: Never used Tobacco e-Cigarette/Vaping Use: Never Used Second Hand Smoke Exposure: Yes Use of substances other than those prescribed or required for medical reasons: No Are you DNR?: No Advance Directives: No Advance Directives Information Provided: Yes Advance Directives Date on File: 12/19/16 service: No Current occupational status: employed Cognitive needs: No Hearing needs: No Vision needs: Yes (glasses) Meds Allergies Allergy/AdvReac Type Severity Reaction Status Date / Time doxycycline Allergy Severe Anaphylaxis Verified 02/01/24 08:30 Active Medications: Current Medications Cefazolin Sodium/Dextrose (Ancef) 2 gm in 50 mls @ 100 mls/hr IV PREOP ONE Stop: 01/31/24 12:16 Home Medications ?Medication ?Instructions ?Recorded ?Confirmed ?Last Taken ?Type nebulizers #1 ea 11/29/20 02/01/24 Unknown History pantoprazole 40 mg tablet,delayed 40 mg PO BEDTIME 02/01/24 02/01/24 Unknown History release pravastatin 20 mg tablet 20 mg PO BEDTIME 02/01/24 02/01/24 Unknown History Exam Height,Weight and Vital Signs: Height 5 ft 2 in Weight 88.904 kg Assessment and Plan Assessment Anesthesia Assessment: Chart Reviewed Final Anesthetic Review Family History of Problems with Anesthesia: Yes History of Problems with Anesthesia: No Documented by User: Karli Crockett MD 02/01/24 10:27 [facility] Past Medical History Medical History Arthritis Perianal cyst Helicobacter pylori (H. pylori) H/O sleep study History of COVID-19 Obesity (BMI 30-39.9) Depression Anxiety Insomnia Allergic rhinitis Pure hypercholesterolemia Benign essential hypertension DJD (degenerative joint disease) Migraines Hiatal hernia GERD (gastroesophageal reflux disease) Cough variant asthma Asthma Family History Family History Father Hypertension CVD (cardiovascular disease) Stroke Epilepsia Mother Hypertension Diabetes mellitus CVD (cardiovascular disease) Brother Epilepsia Depressed Anxiety Sister Epilepsia Depressed Anxiety Daughter No problems noted. Son No problems noted. Surgical History Surgical History History of endometrial ablation Hx of colonoscopy History of esophagogastroduodenoscopy (EGD) History of tubal ligation History of breast biopsy Social History Social History Housing: House Alcohol intake: never Patient Tobacco Use Status: Never used Tobacco e-Cigarette/Vaping Use: Never Used Second Hand Smoke Exposure: Yes Use of substances other than those prescribed or required for medical reasons: No Are you DNR?: No Advance Directives: No Advance Directives Information Provided: Yes Advance Directives Date on File: 12/19/16 service: No Current occupational status: employed Cognitive needs: No Hearing needs: No Vision needs: Yes (glasses) Meds Allergies Allergy/AdvReac Type Severity Reaction Status Date / Time doxycycline Allergy Severe Anaphylaxis Verified 02/01/24 08:30 Home Medications ?Medication ?Instructions ?Recorded ?Confirmed ?Last Taken ?Type nebulizers #1 ea 11/29/20 02/01/24 Unknown History pantoprazole 40 mg tablet,delayed 40 mg PO BEDTIME 02/01/24 02/01/24 Unknown History release pravastatin 20 mg tablet 20 mg PO BEDTIME 02/01/24 02/01/24 Unknown History Exam Airway Mallampati Class: II TM Dist: >3cm Neck ROM: Full Loose/Missing/Broken Teeth: No Heart: RRR Lungs: CTA Assessment and Plan Assessment Anesthesia Assessment: Anesthesia Plan Discussed Final Anesthetic Review NPO: Yes ASA Class: II Final Preanesthetic Review: Meds/Allgs Chart Reviewed, Consent Obtained/Reviewed and Anes Risks/Benef Reviewed Patient Risk: Low Procedure Risk: Low Anesthetic Plan Anesthetic Plan: MAC: Disposition: Standard PACU
[2024-02-01 08:26] VITALS: BMI 36.2
[2024-02-01 08:59] VITALS: BP 109/73; PULSE 88; RESP 16; TEMP 36.6; O2SAT 96
[2024-02-01] MEDS: Lactated Ringers 1,000 ML 100 ML IVCONT (09:20)
--- NOTE | 2024-02-01 11:08 | PC.NURSE ---
interviewed pt in doctor's room of waiting room. pt states has a vaginal piercing that can;t come out. has had a long time. aware of risk and may need to cut it off. anesthesia made aware and ok'd to leave it in. depends on other staff in room.
--- NOTE | 2024-02-01 11:46 | W.PM.OPN ---
Operative Note Operative Note Date of Service: 02/01/24 Narrative: Preoperative diagnosis: [] Symptomatic left upper back large sebaceous cyst Postop diagnosis: [] The same Procedure [] wide local excision left upper back sebaceous cyst Surgeon: [] Vinod Forging Dies Final Finisher: [] Pearl WILDER Type of Anesthesia: [] Indication for surgery: [] Final specimen measured approximately 5 x 3 cm consistent with a large sebaceous cyst. Findings: [] Patient brought to the operating room, placed on operative table supine position, after adequate level of MAC anesthesia was induced, patient was placed in the right lateral decubitus position. Left upper back area was prepped and draped in usual sterile fashion. Using a transverse by elliptical incision encompassing the mass in question with a viral dimensions as described above, this carried down through skin, subcutaneous tissue, and undermined using Bovie. Specimen sent to pathology. Wound was irrigated, secured hemostasis, and closed using interrupted inverted dermal 3-0 Vicryl sutures followed by Steri-Strips and sterile dressings. Wound was infiltrated 0.5% Marcaine/1% lidocaine at the beginning at the end of the case. Sponge, needle, and instrument counts were reported to be correct. Patient tolerated procedure well and emerged from anesthesia stable condition. EBL minimal
[2024-02-01 11:55] VITALS: BP 104/64; PULSE 80; RESP 16; TEMP 36.6; O2SAT 100
[2024-02-01 12:15] VITALS: BP 119/79; PULSE 87; RESP 18; TEMP 36.1; O2SAT 99
== END 2024-02-01 12:45 | disposition home or self-care (01) ==
PROVIDERS: PCP Internal Medicine; Visit Provider Surgery
PROC: (CPT 11406; principal; 2024-02-01 11:20)
DX: L72.3 Sebaceous cyst (principal); J45.991 Cough variant asthma; I10 Essential (primary) hypertension; E78.00 Pure hypercholesterolemia, unspecified; G43.909 Migraine, unspecified, not intractable, without status migrainosus; E66.9 Obesity, unspecified; Z68.35 Body mass index [BMI] 35.0-35.9, adult; Z79.899 Other long term (current) drug therapy; Z88.1 Allergy status to other antibiotic agents
CPT/HCPCS: 11406; 88304; J0690; J2250; J2704; J2795; J3010

== ENCOUNTER → 2024-02-01 07:56 | Outpatient (BNV) | payer OTHER, SELFPAY | PROVIDERS: PCP Internal Medicine; Visit Provider Surgery | DX: L72.3 Sebaceous cyst (principal) | CPT/HCPCS: 11406 ==

== ENCOUNTER 2024-02-12 09:15 | Outpatient (AMB) | payer OTHER, SELFPAY ==
--- NOTE | 2024-02-12 09:48 | A.OFFVIS_ITS ---
Vital Signs 02/12/24 09:49 Height 5 ft 2 in Weight 197 lb 15.602 oz BMI 36.2 BP 146/85 H Blood Pressure Location Lt brachial Position Sitting Pulse 90 Intake Visit Reasons: Recall colonoscopy Intake Note: Patient in office today in follow up for recall colonoscopy. CC: Patient states that she tested positive to H pylori in March last year and was never treated. She states she came into the office to ask and was told the message will be given to provider but never heard back. She c/o epigastric pain and states the pain horrible , she also c/o acid reflux and occasional nausea. Accompanied by: Self / Same As Patient Allergies doxycycline Allergy (Severe, Verified 02/12/24 11:12) Anaphylaxis HPI HPI Recall colonoscopy: Details: LAST VISIT: GERD (gastroesophageal reflux disease) Discussed with patient avoiding dietary triggers. Patient states that she is feeling better now. Will retest her for H pylori. Patient will return on Sunday for testing and will treat empirically if positive. She will continue to hold pantoprazole until tested. Rectal abscess Plan Perirectal abscess at 12:00 o'clock. Mild tenderness. Abscess feel deep, no fluctuation. Patient was encouraged to soak in warm water with Epsom salts. Referral to General surgery. I will see her in 3 months, sooner on as needed basis. Patient is agreeable to this plan and verbalizes understanding of instructions. She was given the opportunity to ask questions and all questions answered. ? Thank you for allowing me to participate in her care Orders Orders H Pylori Breath Test Today Referrals General Surgery Referral K61.1 - Rectal abscess TODAY'S VISIT Patient is here today for follow-up and to discuss going for colonoscopy. Patient should be sent also for upper endoscopy to further evaluate as well as send sample to see which antibiotics patient is resistant to. Treatment for H pylori failed on multiple times. This has been going on for last couple years. Patient reports to me that her tested negative. Patient states that also her daughter tested negative as well. Patient states that she is taking pantoprazole at night time and reports that throughout the day she has postprandial epigastric pain and dyspepsia. Patient denies any nausea or vomiting. Denies any dysphagia or odynophagia. Reports that she is moving her bowels well. States that she is not needing to use any thing to help her move her bowels. Denies melena, hematochezia, unintentional weight loss or ribbon like stools. Patient had suboptimal prep last visit. [facility] Medical History Arthritis Perianal cyst Helicobacter pylori (H. pylori) H/O sleep study History of COVID-19 Obesity (BMI 30-39.9) Depression Anxiety Insomnia Allergic rhinitis Pure hypercholesterolemia Benign essential hypertension DJD (degenerative joint disease) Migraines Hiatal hernia GERD (gastroesophageal reflux disease) Cough variant asthma Asthma Surgical History Hx of surgical procedure (02/01/24) History of endometrial ablation Hx of colonoscopy History of esophagogastroduodenoscopy (EGD) History of tubal ligation History of breast biopsy Family History Father Hypertension CVD (cardiovascular disease) Stroke Epilepsia Mother Hypertension Diabetes mellitus CVD (cardiovascular disease) Brother Epilepsia Depressed Anxiety Sister Epilepsia Depressed Anxiety Daughter No problems noted. Son No problems noted. Social History Housing: House Alcohol intake: never Comment: counts correct Patient Tobacco Use Status: Never used Tobacco e-Cigarette/Vaping Use: Never Used Second Hand Smoke Exposure: Yes Advance Directives Date on File: 12/19/16 service: No Current occupational status: employed Cognitive needs: No Hearing needs: No Vision needs: Yes (glasses) Female Reproductive History Menstrual Age of Menarche: 11 Review of Systems Const Denies weight gain and Denies weight loss ENT Reports no additional complaints, Denies dysphagia and Denies odynophagia Card Reports no additional complaints Resp Reports no additional complaints GI Denies abdominal pain, Denies belching, Denies melena, Reports bloating, Denies change in bowel habits, Denies dysphagia, Denies excessive flatus, Reports dyspepsia, Reports heartburn, Denies diarrhea, Denies loose stools, Denies nausea, Denies odynophagia and Denies vomiting Reports no additional complaints Musc Reports no additional complaints Neuro Reports no additional complaints Psych Reports no additional complaints Endo Reports no additional complaints Physical Exam Vital Signs: Last Vital Signs Pulse 90 02/12/24 09:49 BP 146/85 H 02/12/24 09:49 BMI result Body Mass Index 36.2 Const General: healthy appearing and no acute distress Nutritional Appearance: obese Orientation/consciousness: patient oriented x3 Resp Effort & Inspection: normal respiratory effort, able to speak in complete sentences, no tracheal deviation and symmetric chest movement Auscultation: clear to auscultation bilaterally Cardio Rate: regular rate Heart sounds: S1 normal heart sound present and S2 normal heart sound present GI Inspection: Yes normal to inspection, No distended and Yes obesity Palpation (GI): Soft to palpation, not firm, nontender and No hepatosplenomegaly present Auscultation: normal bowel sounds Rectal Exam - Female: other (Rectal abscess at 12:00 o'clock) General: Yes no CVA tenderness Back/Spine/Pelvis Back: no CVA tenderness Skin General skin exam: elasticity normal, turgor normal and dry skin Neuro General: patient oriented x3 Psych Appearance: grossly normal Mental Status: mental status grossly normal Assessment & Plan Assessment & Plan (1) GERD (gastroesophageal reflux disease): Code(s): K21.9 - Gastro-esophageal reflux disease without esophagitis Category: Medical Qualifiers: Esophagitis presence: esophagitis presence not specified Qualified Code(s): K21.9 - Gastro-esophageal reflux disease without esophagitis (2) Helicobacter pylori (H. pylori): Code(s): A04.8 - Other specified bacterial intestinal infections Category: Medical (3) Screen for colon cancer: Code(s): Z12.11 - Encounter for screening for malignant neoplasm of colon (4) Postprandial epigastric pain: Code(s): R10.13 - Epigastric pain (5) Postprandial abdominal bloating: Code(s): R14.0 - Abdominal distension (gaseous) Plan History of H pylori, failed treatment few times. Patient's tested negative. Sent specimen for microbiology to see which antibiotics are susceptible. Last colonoscopies suboptimal prep. Patient reports that she is moving her bowels better now. Dulcolax and split MiraLax prep sent, however please check with patient if she is having trouble moving her bowels currently should be taking Colace daily, we can order her Dulcolax for 1 week before procedure to be taken every evening if she will be constipated. Patient can take pantoprazole in the morning instead of bedtime to help her throughout the day. Patient complaining of symptoms postprandial epigastric pain and acid reflux and currently is taking pantoprazole at bedtime. Patient will take famotidine at bedtime. I will see patient after procedure. What to expect before during and after procedure discussed with patient. The importance of clear liquid diet and good bowel prep day before procedure discussed with patient. Patient will also be sent for upper endoscopy for micro sampling as well as to rule out H pylori, Russo's, gastritis, duodenitis, esophagitis, gastric or peptic ulcers. Patient is agreeable to this plan of care and verbalizes understanding of instructions. She was given the opportunity to ask questions and all questions answered. Thank you for allowing me to participate in her care Medications: New bisacodyl (Dulcolax (bisacodyl)) take 4 tabs at noon the day before your colonoscopy 20 mg (4 x 5 mg) PO ONCE 1 day 4 tabs 0RF Z12.11 - Encounter for screening for malignant neoplasm of colon polyethylene glycol 3350 (Miralax) As directed by gastroenterology department at [facility] 238 grams PO ONCE 238 grams 0RF Z12.11 - Encounter for screening for malignant neoplasm of colon Changed From pantoprazole 40 mg PO BEDTIME To pantoprazole 40 mg PO DAILY 30 tabs 4RF From famotidine (Pepcid) 20 mg PO BID 60 tabs 0RF K21.9 - Gastro-esophageal reflux disease without esophagitis To famotidine (Pepcid) 20 mg PO BEDTIME 30 tabs 4RF K21.9 - Gastro-esophageal reflux disease without esophagitis Coding Level of Care Code Est Pt Level 4 (91140) Diagnoses Gastroesophageal reflux disease, unspecified whether esophagitis present K21.9 Esophagitis presence: esophagitis presence not specified Helicobacter pylori (H. pylori) A04.8 Screen for colon cancer Z12.11 Postprandial epigastric pain R10.13 Postprandial abdominal bloating R14.0 Time Spent (min) 35 Comment 20 minutes spent with patient and additional 15 minutes spent reviewing her records
[2024-02-12 09:49] VITALS: BP 146/85; PULSE 90; BMI 36.2
== END 2024-02-12 12:18 | disposition home or self-care (01) ==
PROVIDERS: PCP Internal Medicine; Visit Provider Nurse Practitioner Family
DX: K21.9 Gastro-esophageal reflux disease without esophagitis (principal); A04.8 Other specified bacterial intestinal infections; Z12.11 Encounter for screening for malignant neoplasm of colon; R10.13 Epigastric pain; R14.0 Abdominal distension (gaseous)
CPT/HCPCS: 99214

== ENCOUNTER → 2024-02-12 09:15 | Outpatient (BNVA) | payer OTHER, SELFPAY | PROVIDERS: PCP Internal Medicine; Visit Provider Surgery | DX: K21.9 Gastro-esophageal reflux disease without esophagitis (principal); R10.13 Epigastric pain; A04.8 Other specified bacterial intestinal infections; R14.0 Abdominal distension (gaseous); Z09 Encounter for follow-up examination after completed treatment for conditions other than malignant neoplasm; Z87.2 Personal history of diseases of the skin and subcutaneous tissue | CPT/HCPCS: 99212 ==

== ENCOUNTER 2024-02-12 09:25 | Outpatient (AMB) | payer OTHER, SELFPAY ==
--- NOTE | 2024-02-12 09:43 | A.OFFVIS_ITS ---
Intake Visit Reasons: S/P WLE Lt upper back mass Allergies doxycycline Allergy (Severe, Verified 02/12/24 09:40) Anaphylaxis HPI Comments Details: Patient presents 1. For follow-up status post upper back lipoma excision 2. Left axillary lipoma [facility] Medical History Arthritis Perianal cyst Helicobacter pylori (H. pylori) H/O sleep study History of COVID-19 Obesity (BMI 30-39.9) Depression Anxiety Insomnia Allergic rhinitis Pure hypercholesterolemia Benign essential hypertension DJD (degenerative joint disease) Migraines Hiatal hernia GERD (gastroesophageal reflux disease) Cough variant asthma Asthma Surgical History Hx of surgical procedure (02/01/24) History of endometrial ablation Hx of colonoscopy History of esophagogastroduodenoscopy (EGD) History of tubal ligation History of breast biopsy Family History Father Hypertension CVD (cardiovascular disease) Stroke Epilepsia Mother Hypertension Diabetes mellitus CVD (cardiovascular disease) Brother Epilepsia Depressed Anxiety Sister Epilepsia Depressed Anxiety Daughter No problems noted. Son No problems noted. Social History Housing: House Alcohol intake: never Comment: counts correct Patient Tobacco Use Status: Never used Tobacco e-Cigarette/Vaping Use: Never Used Second Hand Smoke Exposure: Yes Advance Directives Date on File: 12/19/16 service: No Current occupational status: employed Cognitive needs: No Hearing needs: No Vision needs: Yes (glasses) Female Reproductive History Menstrual Age of Menarche: 11 Physical Exam Back/Spine/Pelvis Other: Of back wounds clean dry and intact healing very well. Patient is a very small 2 x 1 cm left axillary lipoma. Assessment & Plan Assessment & Plan (1) Lipoma: Code(s): D17.9 - Benign lipomatous neoplasm, unspecified Category: Surgical (2) Postop check: Code(s): Z09 - Encounter for follow-up examination after completed treatment for conditions other than malignant neoplasm Category: Surgical Plan 1. Patient has been given local instructions regarding upper back incision including avoiding strenuous activities for next few weeks time. 2. We will adjust the isolated lipoma once she is convalesced fully from the back incision. She will call me for follow-up tissue wished to have this excised. All questions answered.
== END 2024-02-12 09:38 | disposition home or self-care (01) ==
PROVIDERS: PCP Internal Medicine; Visit Provider Surgery
DX: D17.9 Benign lipomatous neoplasm, unspecified (principal); Z09 Encounter for follow-up examination after completed treatment for conditions other than malignant neoplasm
CPT/HCPCS: 99024; 99214

== ENCOUNTER 2024-03-25 09:01 | Outpatient (AMB) | payer OTHER, SELFPAY ==
[2024-03-25 09:04] VITALS: BP 122/76; PULSE 93; O2SAT 99; BMI 35.8
--- NOTE | 2024-03-25 09:04 | A.OFFVIS_ITS ---
Vital Signs 03/25/24 09:04 Height 5 ft 2 in Weight 196 lb BMI 35.8 BP 122/76 Blood Pressure Location Lt brachial Position Sitting Pulse 93 Pulse Source Doppler Pulse Oximetry (%) 99 Oxygen Delivery Method Room Air Intake Visit Reasons: asthma : 6 month f/u Allergies doxycycline Allergy (Severe, Verified 03/25/24 09:07) Anaphylaxis HPI HPI asthma : 6 month f/u: Details: 48-year-old lady, nonsmoker, with underlying history of asthma since childhood, followed for moderate to severe persistent allergic asthma. Patient continues on Breo, Spiriva, Dupixent, and albuterol MDI with excellent baseline control of her symptoms. She does get worsening symptoms around endo may begin nodule secondary to high pollen counts. [facility] Medical History Arthritis Perianal cyst Helicobacter pylori (H. pylori) H/O sleep study History of COVID-19 Obesity (BMI 30-39.9) Depression Anxiety Insomnia Allergic rhinitis Pure hypercholesterolemia Benign essential hypertension DJD (degenerative joint disease) Migraines Hiatal hernia GERD (gastroesophageal reflux disease) Cough variant asthma Asthma Surgical History Hx of surgical procedure (02/01/24) History of endometrial ablation Hx of colonoscopy History of esophagogastroduodenoscopy (EGD) History of tubal ligation History of breast biopsy Family History Father Hypertension CVD (cardiovascular disease) Stroke Epilepsia Mother Hypertension Diabetes mellitus CVD (cardiovascular disease) Brother Epilepsia Depressed Anxiety Sister Epilepsia Depressed Anxiety Daughter No problems noted. Son No problems noted. Social History Housing: House Alcohol intake: never Comment: counts correct Patient Tobacco Use Status: Never used Tobacco e-Cigarette/Vaping Use: Never Used Second Hand Smoke Exposure: Yes Advance Directives Date on File: 12/19/16 service: No Current occupational status: employed Cognitive needs: No Hearing needs: No Vision needs: Yes (glasses) Female Reproductive History Menstrual Age of Menarche: 11 Review of Systems Const Denies daytime sleepiness, Denies excessive sweating, Denies fatigue, Denies fever(s), Denies lethargy, Denies malaise, Denies night sweats, Denies snoring and Denies weight loss Eyes Denies blurry vision and Denies itchy eyes ENT Denies nasal congestion, Denies post nasal drip, Denies sinus pain, Denies sinus pressure and Denies other ( Thrush) Card Denies chest pain, Denies pedal edema, Denies dyspnea, Denies orthopnea and Denies paroxysmal nocturnal dyspnea Resp Denies cough, Denies hemoptysis, Denies excessive phlegm production, Denies dyspnea, Denies snoring and Reports wheezing GI Denies abdominal pain and Denies heartburn Musc Denies myalgias, Denies arthralgias and Denies joint swelling Skin/Breast Denies rash Neuro Denies memory loss and Denies seizure-like activity Psych Denies abnormal sleep pattern, Denies anxiety and Denies memory loss Endo Denies excessive sweating, Denies fatigue and Denies heat intolerance Drew/Lymph Denies easy bruising Aller/Immun Denies itchy eyes, Denies seasonal rhinorrhea and Reports wheezing Physical Exam Vital Signs: Last Vital Signs Pulse 93 03/25/24 09:04 BP 122/76 03/25/24 09:04 Pulse Ox 99 03/25/24 09:04 Oxygen Delivery Method Room Air 03/25/24 09:04 BMI result Body Mass Index 35.8 Const General: no acute distress and alert Nutritional Appearance: not obese Orientation/consciousness: Other orientation findings ( oriented) HEENT Head: Yes atraumatic Eyes General: appearance normal, both eyes and all related structures Sclerae: sclerae normal EOM: EOMs intact bilaterally Neck Neck: Yes supple Lymphatic: no lymphadenopathy noted Resp Effort & Inspection: normal respiratory effort and no use of accessory muscles Auscultation: clear to auscultation bilaterally Cardio Rate: regular rate Rhythm: regular rhythm Heart sounds: no gallops, no murmurs and no rubs Skin General skin exam: other ( warm) Extrem General: No clubbing, No cyanosis and No edema Assessment & Plan Assessment & Plan (1) Severe persistent allergic asthma: Code(s): J45.50 - Severe persistent asthma, uncomplicated Category: Medical Plan: Baseline excellent control on Dupixent, Breo, duo nebs, and albuterol MDI. Continue current regimen. Now with labs control because of high blood count, will treat with medium dose course of prednisone for the next 2 weeks. (2) Environmental allergies: Code(s): Z91.09 - Other allergy status, other than to drugs and biological substances Category: Medical Plan: Well controlled on Dupixent and Singulair. Continue current regimen. Medications: New prednisone Take 2 tabs daily for 7 days, then take 1 tab daily for 7 days 10 mg PO DIRECTED 21 tabs 0RF Coding Level of Care Code Est Pt Level 4 (86911) Diagnoses Severe persistent allergic asthma J45.50 Environmental allergies Z91.09
== END 2024-03-25 09:26 | disposition home or self-care (01) ==
PROVIDERS: PCP Internal Medicine; Visit Provider Internal Medicine Pulmonary Disease
DX: J45.50 Severe persistent asthma, uncomplicated (principal); Z91.09 Other allergy status, other than to drugs and biological substances
CPT/HCPCS: 99214

== ENCOUNTER → 2024-03-25 09:01 | Outpatient (BNVA) | payer OTHER, SELFPAY | PROVIDERS: PCP Internal Medicine; Visit Provider Internal Medicine Pulmonary Disease | DX: J45.50 Severe persistent asthma, uncomplicated (principal); Z91.09 Other allergy status, other than to drugs and biological substances; Z79.899 Other long term (current) drug therapy | CPT/HCPCS: 99212 ==

== ENCOUNTER 2024-04-21 08:40 | Outpatient (REF) | payer OTHER, SELFPAY ==
--- NOTE | ~2024-04-21 | MM_ITS ---
EXAMINATION: MM SCREENING DIGITAL BREAST TOMOSYNTHESIS, BILATERAL CLINICAL INFORMATION: Screening. Asymptomatic. COMPARISON: Mammography: This study is compared with prior exams dating back to 2019. TECHNIQUE: Digital breast tomosynthesis is performed in both the craniocaudal and mediolateral oblique views along with computer-aided detection (CAD). Synthesized 2D images are generated from the tomosynthesis. FINDINGS: The breasts are heterogeneously dense, which may obscure small masses (ACR BI-RADS breast composition Category c). There are no significant masses, abnormal calcifications, or other abnormalities. There is tissue marker in a previously biopsied, well-circumscribed benign mass in the superior aspect of the left breast. MM/MM tomosynthesis screening BI IMPRESSION: No mammographic evidence of malignancy. ASSESSMENT: BI-RADS BI-RADS 2 - Benign Findings RECOMMENDATION: Routine annual mammography screening. 1 year F/U This examination should not preclude the clinical evaluation of a suspicious palpable abnormality. This patient's information was entered into a reminder system with a target due date for their next mammogram.
[2024-04-21 08:57] LABS: MANUAL DIFF FLAG NO
[2024-04-21 09:34] LABS: Appearance Urine Clear; Basophils Absolute Auto 0.1 X10*3/uL (0.0-0.2); Basophils Percent Auto 1.3 % (0-2); Color Urine Yellow; Eosinophils Absolute Auto 0.8 X10*3/uL (0.0-0.4); Eosinophils Percent Auto 11.5 % (0-4); Glucose Urine UA Negative (Negative); Hematocrit 42.7 % (37.0-47.0); Hemoglobin 14.3 g/dl (12.0-16.0); Imm Gran Abs Auto 0.03 X10*3/uL (0.00-0.03); Imm Gran Pct Auto 0.4 % (0.0-0.4); Leukocyte Esterase Urine Negative (Negative); Lymphocytes Percent Auto 29.4 % (20-40); Mean Corpuscular HGB Conc 33.5 g/dl (31.0-35.0); Mean Corpuscular Hemoglobin 29.2 pg (27.0-33.0); Mean Corpuscular Volume 87.3 fL (80.0-98.0); Mean Platelet Volume 10.8 fL (9.4-12.3); Monocytes Absolute Auto 0.4 X10*3/uL (0.1-1.2); Monocytes Percent Auto 6.2 % (2-11); Neutrophils Absolute Auto 3.6 x10*3/uL (2.0-8.3); Neutrophils Percent Auto 51.2 % (45-73); Nitrite Urine Negative (Negative); Platelet Count 323 X10*3/uL (160-400); Red Blood Count 4.89 X10*6/uL (4.20-5.50); Red Cell Distribution Width 13.2 % (11.0-16.0); Specific Gravity - Urine 1.025 (1.005-1.025); UMIC TRIGGER UACC YES; Urine Blood Moderate (2+) (Negative); Urine Ketones Negative (Negative); Urine Protein Negative (Neg-Trace); White Blood Count 6.9 X10*3/uL (4.8-10.8)
[2024-04-21 09:41] LABS: Bacteria Urine None Seen (None Seen); Hyaline Casts Urine 0-2 /LPF (0-2); WBC Urine 0-5 /HPF (0-5)
[2024-04-21 10:16] LABS: Alanine Aminotransferase 18 U/L (0-31); Albumin Level 4.1 g/dL (3.5-5.0); Alkaline Phosphatase 68 U/L (39-117); Anion Gap 13 (12-20); Aspartate Amino Transferase 20 U/L (5-31); Bilirubin Total 0.6 mg/dL (0.0-1.0); Blood Urea Nitrogen 7 mg/dL (9-16); Calcium 9.3 mg/dL (8.4-10.2); Carbon Dioxide 24 mmol/L (22-29); Chloride 109 mmol/L (96-108); Cholesterol 181 mg/dL (<200); Estimated Glomerular Filt Rate > 60; Glucose Fasting 124 mg/dL (60-99); HDL Cholesterol 44 mg/dL (>40); LDL Cholesterol Calculated 117 mg/dL (<100); Potassium 3.6 mmol/L (3.3-5.1); Sodium 142 mmol/L (135-145); Triglycerides 101 mg/dL (<150)
[2024-04-21 10:38] LABS: TSH reflex Free T4 1.12 uIU/mL (0.32-4.0); Vitamin D 25-OH Total 28.1 ng/mL (>30)
== END 2024-04-21 08:41 | disposition home or self-care (01) ==
LOC: HO.MAMMO 08:40
PROVIDERS: PCP Internal Medicine; Visit Provider Internal Medicine
DX: Z00.00 Encounter for general adult medical examination without abnormal findings (principal); E78.00 Pure hypercholesterolemia, unspecified; D64.9 Anemia, unspecified; E55.9 Vitamin D deficiency, unspecified; Z12.31 Encounter for screening mammogram for malignant neoplasm of breast
CPT/HCPCS: 36415; 77063; 77067; 80053; 80061; 81001; 82306; 84443; 85025

== ENCOUNTER → 2024-04-21 09:45 | Outpatient (BNV) | payer OTHER, SELFPAY | PROVIDERS: PCP Internal Medicine; Visit Provider Radiology Diagnostic Radiology | DX: Z12.31 Encounter for screening mammogram for malignant neoplasm of breast (principal) | CPT/HCPCS: 77063; 77067 ==

== ENCOUNTER 2024-04-29 09:27 | Outpatient (AMB) | payer OTHER, SELFPAY ==
--- NOTE | 2024-04-29 09:32 | A.OFFPC_ITS ---
Vital Signs 04/29/24 09:34 Height 5 ft 2 in Weight 195 lb BMI 35.7 BP 130/72 Blood Pressure Location Lt brachial Position Sitting Pulse 78 Pulse Source Pulse Oximeter Pulse Oximetry (%) 98 Oxygen Delivery Method Room Air Intake Visit Reasons: asthma, hyperlipidemia, HTN, GERD Intake Note: Patient is here to follow up Interlibrary Loan Specialist Required: No Allergies doxycycline Allergy (Severe, Verified 04/29/24 09:47) Anaphylaxis Medication List - Last Reconciled 04/29/24 by Jeremy Castro MD albuterol sulfate 90 mcg/actuation (ProAir HFA) 2 puffs inhalation Q6H PRN 30 days amlodipine 5 mg PO DAILY azelastine 2 sprays intranasal BID baclofen 20 mg PO TID PRN 30 days bisacodyl (Dulcolax (bisacodyl)) 20 mg (4 x 5 mg) PO ONCE 1 day Breo Ellipta 200-25 mcg/dose (fluticasone furoate-vilanterol) 1 inh inhalation DAILY NS cetirizine 10 mg PO DAILY docusate sodium 100 mg PO BEDTIME dupilumab (Dupixent) 300 mg (2 mL) subcut Q2W famotidine (Pepcid) 20 mg PO BEDTIME ibuprofen 800 mg PO TID PRN 30 days ipratropium-albuterol 0.5 mg-3 mg(2.5 mg base)/3 mL 3 mL inhalation Q6H PRN montelukast 10 mg PO BEDTIME nebulizers As directed pantoprazole 40 mg PO DAILY polyethylene glycol 3350 (Miralax) 238 grams PO ONCE pravastatin 20 mg PO BEDTIME Spiriva Respimat 2.5 mcg/actuation (tiotropium bromide) 2 puffs inhalation QAM NS tramadol 50 mg PO TID PRN 10 days Tobacco use date assessed: 12/28/23 Dental Screening Dental Screen Date: 12/28/23 HPI asthma, hyperlipidemia, HTN, GERD HPI Details Patient comes in today for her follow up visit States that she feels okay She denies any headaches or dizziness Denies any chest pains, no SOB - states that her asthma has been doing well on Dupixent injections No nausea/vomiting, no abdominal pain No change in bowel habits noted Adds that she recently noticed several dark skin lesions around her neck, over her shoulder areas and on her torso - states that these lesions do not itch or hurt but is wondering what they are and why they seem to be multiplying She had her follow up labs done last week - to discuss her results States that she is also now scheduled for her colonoscopy next month [facility] Medical History Impaired fasting glucose Vitamin D deficiency Arthritis Perianal cyst Helicobacter pylori (H. pylori) H/O sleep study History of COVID-19 Obesity (BMI 30-39.9) Depression Anxiety Insomnia Allergic rhinitis Pure hypercholesterolemia Benign essential hypertension DJD (degenerative joint disease) Migraines Hiatal hernia GERD (gastroesophageal reflux disease) Cough variant asthma Asthma Surgical History Hx of surgical procedure (02/01/24) History of endometrial ablation Hx of colonoscopy History of esophagogastroduodenoscopy (EGD) History of tubal ligation History of breast biopsy Family History Father Hypertension CVD (cardiovascular disease) Stroke Epilepsia Mother Hypertension Diabetes mellitus CVD (cardiovascular disease) Brother Epilepsia Depressed Anxiety Sister Epilepsia Depressed Anxiety Daughter No problems noted. Son No problems noted. Social History Housing: House Alcohol intake: never Comment: counts correct Patient Tobacco Use Status: Never used Tobacco e-Cigarette/Vaping Use: Never Used Second Hand Smoke Exposure: Yes Advance Directives Date on File: 12/19/16 service: No Current occupational status: employed Cognitive needs: No Hearing needs: No Vision needs: Yes (glasses) Female Reproductive History Menstrual Age of Menarche: 11 Questionnaire Thrive Questionnaire Date Thrive assessed: 12/28/23 AUDIT C Alcohol Use Questionnaire (AUDIT-C) 1. How often do you have a drink containing alcohol?: Never Total Score: 0 Score Reviewed/Action Taken: Yes QUOC-7 AMB Questionnaire QUOC-7 Date QUOC - 7 assessed: 12/28/23 Source: Developed by Drs. Carlos Redd, Em Loyola, Leonardo Phoenix and colleagues, with an educational vikash from [employer]. Review of Systems Const Denies chills, Denies fatigue, Denies fever(s) and Denies headache(s) ENT Denies dysphagia, Denies dizziness, Denies otalgia, Denies headache(s), Denies neck pain, Denies odynophagia and Denies sore throat Card Denies chest pain, Denies irregular heart rhythm, Denies palpitations and Denies dyspnea Resp Denies chest congestion, Denies cough, Denies dyspnea and Denies wheezing GI Denies abdominal pain, Denies constipation, Denies dysphagia, Denies heartburn, Denies diarrhea, Denies nausea, Denies odynophagia and Denies vomiting Denies urinary frequency, Denies dysuria and Denies urinary incontinence Musc Denies back pain, Denies arthralgias and Denies neck pain Skin/Breast Details: (+) multiple hyperpigemented skin lesions around the neck and on her torso Neuro Denies dizziness, Denies headache(s) and Denies paresthesias Psych Denies anxiety and Denies depression Endo Denies fatigue and Denies palpitations Drew/Lymph Denies easy bruising Aller/Immun Denies wheezing Physical exam (Primary Care) Vital Signs: Last Vital Signs Pulse 78 04/29/24 09:34 BP 130/72 04/29/24 09:34 Pulse Ox 98 04/29/24 09:34 Oxygen Delivery Method Room Air 04/29/24 09:34 BMI result Body Mass Index 35.7 Tobacco/Smoking Status: Tobacco use Status Tobacco use date assessed 12/28/23 04/29/24 09:32 Patient Tobacco Use Status Never used Tobacco 04/29/24 09:32 e-Cigarette/Vaping Use Never Used 04/29/24 09:32 Thrive Assessment: Date of Thrive Assessment Date Thrive assessed 12/28/23 04/29/24 09:32 Const General: no acute distress and alert HENMT Ears: TM's normal bilaterally and EAC's normal Throat: Yes posterior oropharynx normal and Yes tonsils normal (no TP congestion) Neck Neck: Yes no lymphadenopathy and Yes supple Thyroid: Thyroid normal Resp Auscultation: clear to auscultation bilaterally, no rales and no wheezes Cardio Rate: regular rate Rhythm: regular rhythm Heart sounds: no murmurs GI Palpation (GI): Soft to palpation and nontender Auscultation: normal bowel sounds General: Yes no CVA tenderness Back/Spine/Pelvis Back: no CVA tenderness Thoracic/Lumbar Spine: thoracic and lumbar spine normal to inspection Skin Other: (+) multiple flat, faintly hyperpigmented skin lesions scattered around her neck and around her shoulder areas and over her torso Extrem General: Yes no clubbing, cyanosis or edema Results Reviewed Results Reviewed: Laboratory Tests 04/21/24 08:55 WBC 6.9 Hgb 14.3 Hct 42.7 Plt Count 323 Sodium 142 Potassium 3.6 Creatinine 0.80 Estimated GFR > 60 Fasting Glucose 124 H Calcium 9.3 AST 20 ALT 18 Triglycerides 101 Cholesterol 181 LDL Cholesterol, Calc 117 H HDL Cholesterol 44 25-OH Vitamin D Total 28.1 L TSH 1.12 Ur Specific [place] 1.025 Urine Protein Negative Urine Glucose (UA) Negative Urine Blood Moderate (2+) H Urine Nitrite Negative Ur Leukocyte Esterase Negative Assessment and Plan Assessment & Plan (1) Pure hypercholesterolemia: Code(s): E78.00 - Pure hypercholesterolemia, unspecified Plan: Results of her labs done last week reviewed and discussed with patient Reinforced low-cholesterol diet Continue Pravastatin 20 mg QD Will recheck her labs and fasting lipids in 4 months for follow up (2) Benign essential hypertension: Code(s): I10 - Essential (primary) hypertension Plan: Reinforced low-sodium diet - goal is systolic BP of 120 mm or less Continue Amlodipine 5 mg QD (3) Asthma: Code(s): J45.909 - Unspecified asthma, uncomplicated Qualifiers: Asthma severity: moderate Asthma persistence: persistent Asthma complication type: uncomplicated Qualified Code(s): J45.40 - Moderate persistent asthma, uncomplicated Plan: States that her asthma has been better controlled since she was started back on Dupixent injection 300 mg SQ every 2 weeks She apparently did not do too well while she was on Nucala injections last year Continue Breo Ellipta 200-25 mcg 1 inhalation QD, Spiriva Respimat 2.5 mcg 2 inh alations QD, Montelukast 10 mg QPM, Albuterol HFA 2 inhalations every 6 hours PRN; she also uses Duoneb solution via her nebulizer every 6 hours as needed when she has access to her updraft device Follow up with pulmonary (Dr. Helton) as scheduled (4) Impaired fasting glucose: Code(s): R73.01 - Impaired fasting glucose Plan: Her FBS is again elevated at 124 mg/dl on her recent labs Patient states that she has had her blood sugar checked once or twice lately and was told that it was high; she does have a strong family Hx of diabetes so she is concerned about her own risk Have advised her that at this time, she likely has impaired fasting glucose or borderline DM and should start watching her diet better (diabetic diet) Will have her recheck her FBS and also check a HgbA1c level in 4 months for further evaluation (5) GERD (gastroesophageal reflux disease): Code(s): K21.9 - Gastro-esophageal reflux disease without esophagitis Qualifiers: Esophagitis presence: esophagitis presence not specified Qualified Code(s): K21.9 - Gastro-esophageal reflux disease without esophagitis Plan: Dietary restrictions reinforced Continue Pantoprazole 40 mg QD and Famotidine 20 mg BID PRN Follow up with GI as scheduled (6) Migraines: Comment: in past Code(s): G43.909 - Migraine, unspecified, not intractable, without status migrainosus Qualifiers: Migraine type: unspecified Status migrainosus presence: without status migrainosus Intractability: not intractable Qualified Code(s): G43.909 - Migraine, unspecified, not intractable, without status migrainosus Plan: Patient reports that her headaches have been well-controlled lately She was on prophylactic Tx with Topiramate 25 mg Q HS before but it she stopped taking this a while ago as she felt that it was not really helping Is now only taking Ibuprofen as needed, which she states works well for her (7) Allergic rhinitis: Code(s): J30.9 - Allergic rhinitis, unspecified Qualifiers: Allergic rhinitis trigger: unspecified Allergic rhinitis seasonality: unspecified Qualified Code(s): J30.9 - Allergic rhinitis, unspecified Plan: Continue Loratadine 10 mg QD PRN, Fluticasone 50 mcg nasal spray QD PRN and Montelukast 10 mg Q PM She is also on Dupixent injections, which helps with both her allergies and asthma (8) Vitamin D deficiency: Code(s): E55.9 - Vitamin D deficiency, unspecified Plan: Patient is advised that her Vitamin D level is low on her recent labs Will start her on Vitamin D3 2000 units QD (9) Hyperpigmented skin lesion: Code(s): L81.9 - Disorder of pigmentation, unspecified Plan: Suspect that these lesions are tinea (versicolor) Will refer her to dermatology for further evaluation and management (10) Insomnia: Code(s): G47.00 - Insomnia, unspecified Qualifiers: Insomnia type: unspecified Qualified Code(s): G47.00 - Insomnia, unspecified Plan: Sleep hygiene reinforced States that her main problem is staying asleep; has no problem falling asleep Have offered to provide some Rx for patient in the past but she declined; still does not wish to take anything else to help her sleep at this time (11) Anxiety: Code(s): F41.9 - Anxiety disorder, unspecified Plan: She used to take Lorazepam 0.5 mg PRN but states that she has not needed this in a while now States that she currently feels good and does not think that she still has anxiety and depression issues as she has not taken any Rx for mood disorder in a year or two (12) Depression: Comment: in past, no meds currently Code(s): F32.A - Depression, unspecified Qualifiers: Depression Type: major depressive disorder Major depression recurrence: recurrent Active/Remission status: currently active Major depression episode severity: unspecified Qualified Code(s): F33.9 - Major depressive disorder, recurrent, unspecified Plan: She was on Fluoxetine 20 mg Q AM in the past but stopped taking this some time ago States that she feels okay and does not think that she currently still has anxiety and depression (13) Obesity (BMI 30-39.9): Code(s): E66.9 - Obesity, unspecified Plan: Reinforced diet/exercise as tolerated/lose weight Plan Follow up in 4 months Orders: Orders Hemoglobin A1c 4 Months R73.01 - Impaired fasting glucose Comprehensive [place]. Panel Fast 4 Months E78.00 - Pure hypercholesterolemia, unspecified Lipid Panel 4 Months E78.00 - Pure hypercholesterolemia, unspecified TSH reflex Free T4 4 Months E78.00 - Pure hypercholesterolemia, unspecified Complete Blood Count Auto Diff 4 Months D64.9 - Anemia, unspecified UA CC w/rflx Micro + Cult 4 Months R30.0 - Dysuria Vitamin D 25-OH Total 4 Months E55.9 - Vitamin D deficiency, unspecified Referrals Dermatology Referral L81.9 - Disorder of pigmentation, unspecified Medications: New cholecalciferol (vitamin D3) 50 mcg PO DAILY 90 days 90 caps 3RF E55.9 - Vitamin D deficiency, unspecified Coding Level of Care Code Est Pt Level 4 (21261) Complex EM visit Add On G2211 Diagnoses Pure hypercholesterolemia E78.00 Benign essential hypertension I10 Moderate persistent asthma without complication J45.40 Asthma severity: moderate Asthma persistence: persistent Asthma complication type: uncomplicated Impaired fasting glucose R73.01 Gastroesophageal reflux disease, unspecified whether esophagitis present K21.9 Esophagitis presence: esophagitis presence not specified Migraine without status migrainosus, not intractable, unspecified migraine type G43.909 Migraine type: unspecified Status migrainosus presence: without status migrainosus Intractability: not intractable Allergic rhinitis, unspecified seasonality, unspecified trigger J30.9 Allergic rhinitis trigger: unspecified Allergic rhinitis seasonality: unspecified Vitamin D deficiency E55.9 Hyperpigmented skin lesion L81.9 Insomnia, unspecified type G47.00 Insomnia type: unspecified Anxiety F41.9 Episode of recurrent major depressive disorder, unspecified depression episode severity F33.9 Depression Type: major depressive disorder Major depression recurrence: recurrent Active/Remission status: currently active Major depression episode severity: unspecified Obesity (BMI 30-39.9) E66.9
[2024-04-29 09:34] VITALS: BP 130/72; PULSE 78; O2SAT 98; BMI 35.7
== END 2024-04-29 10:07 | disposition home or self-care (01) ==
PROVIDERS: PCP Internal Medicine; Visit Provider Internal Medicine
DX: E78.00 Pure hypercholesterolemia, unspecified (principal); I10 Essential (primary) hypertension; R73.01 Impaired fasting glucose; G43.909 Migraine, unspecified, not intractable, without status migrainosus; J30.9 Allergic rhinitis, unspecified; E55.9 Vitamin D deficiency, unspecified; L81.9 Disorder of pigmentation, unspecified; G47.00 Insomnia, unspecified; F41.9 Anxiety disorder, unspecified
CPT/HCPCS: 99214; G2211

== ENCOUNTER 2024-06-19 06:16 | Day surgery (SDC) | payer OTHER, SELFPAY ==
[2024-06-17 14:21] VITALS: BMI 35.7
[2024-06-19 07:06] VITALS: BP 137/89; PULSE 79; RESP 16; TEMP 36.3; O2SAT 95
[2024-06-19] MEDS: Lactated Ringers 1,000 ML 100 ML IVCONT (07:17)
--- NOTE | 2024-06-19 07:20 | P.CONAN_ITS ---
Documented by User: Kelsy German NP 06/18/24 08:55 HPI - Anesthesia Eval Consult details Narrative: 48yo F for Upper Endoscopy and Colonoscopy H Pylori PMFSH Active Problems Active Problems: All Active Problems Hyperpigmented skin lesion (Acute) Postop check (Acute) Lipoma (Acute) Mass of subcutaneous tissue of back (Acute) Annual physical exam (Acute) Nodule of skin of back (Acute) Left low back pain (Acute) Left hip pain (Acute) Stress incontinence of urine (Acute) Tinnitus (Acute) Ear congestion (Acute) Encounter for IUD removal (Acute) Endometritis (Acute) Pelvic cramping (Acute) Encounter for IUD insertion (Acute) Abnormal uterine bleeding (AUB) (Acute) Myoma (Acute) Arthralgia (Acute) Chest discomfort (Acute) Eyelid twitch (Acute) Ovarian cyst, complex (Acute) Vulvar lesion (Acute) DAWSON (obstructive sleep apnea) (Acute) Cervical cancer screening (Acute) Yeast infection of the skin (Acute) Well woman exam with routine gynecological exam (Acute) History of irregular menstrual bleeding (Acute) BMI 36.0-36.9,adult (Acute) Obesity (Acute) Pulmonary nodules (Acute) Dyspnea on exertion (Acute) Environmental allergies (Acute) Severe persistent allergic asthma (Acute) Asthma (Acute) COVID-19 (Acute) Vitamin D deficiency (Acute) Impaired fasting glucose (Acute) Perianal cyst (Acute) Helicobacter pylori (H. pylori) (Acute) Obesity (BMI 30-39.9) (Acute) Depression (Acute) Anxiety (Acute) Insomnia (Acute) Allergic rhinitis (Acute) Pure hypercholesterolemia (Acute) Benign essential hypertension (Acute) DJD (degenerative joint disease) (Acute) Migraines (Acute) Hiatal hernia (Acute) GERD (gastroesophageal reflux disease) (Acute) Cough variant asthma (Acute) Past Medical History Medical History Vitamin D deficiency Impaired fasting glucose Arthritis Perianal cyst Helicobacter pylori (H. pylori) H/O sleep study History of COVID-19 Obesity (BMI 30-39.9) Depression Anxiety Insomnia Allergic rhinitis Pure hypercholesterolemia Benign essential hypertension DJD (degenerative joint disease) Migraines Hiatal hernia GERD (gastroesophageal reflux disease) Cough variant asthma Asthma Family History Family History Father Hypertension CVD (cardiovascular disease) Stroke Epilepsia Mother Hypertension Diabetes mellitus CVD (cardiovascular disease) Brother Epilepsia Depressed Anxiety Sister Epilepsia Depressed Anxiety Daughter No problems noted. Son No problems noted. Family history of problems with anesthesia: Yes Surgical History Surgical History (Updated 06/17/24 @ 14:18 by Luciana White RN) Hx of surgical procedure (02/01/24) History of endometrial ablation Hx of colonoscopy History of esophagogastroduodenoscopy (EGD) History of tubal ligation History of breast biopsy History of Problems with Anesthesia: No Social History Social History Housing: House Alcohol intake: never Comment: counts correct Patient Tobacco Use Status: Never used Tobacco e-Cigarette/Vaping Use: Never Used Second Hand Smoke Exposure: Yes Use of substances other than those prescribed or required for medical reasons: No Are you DNR?: No Advance Directives: No Advance Directives Information Provided: Yes Advance Directives on File: No Advance Directives Date on File: 12/19/16 Recently lost weight without trying: No Nutrition Risks: No Nutritional Risk Patient : No : No Poor oral hygiene: No service: No Current occupational status: employed Cognitive needs: No Hearing needs: No Vision needs: Yes (glasses) Meds Allergies Allergy/AdvReac Type Severity Reaction Status Date / Time doxycycline Allergy Severe Anaphylaxis Verified 04/29/24 09:47 Home Medications ?Medication ?Instructions ?Recorded ?Confirmed ?Last Taken ?Type nebulizers #1 ea 11/29/20 04/29/24 Unknown History pravastatin 20 mg tablet 20 mg PO BEDTIME 02/01/24 06/17/24 Unknown History Exam Height,Weight and Vital Signs: Height 5 ft 2 in Weight 88.451 kg Pertinent Lab Results Pertinent Lab Results: Laboratory Tests 04/21/24 08:55 WBC 6.9 Hgb 14.3 Hct 42.7 Plt Count 323 Sodium 142 Potassium 3.6 Chloride 109 H Carbon Dioxide 24 BUN 7 L Creatinine 0.80 Assessment and Plan Assessment Anesthesia Assessment: Chart Reviewed Final Anesthetic Review Family History of Problems with Anesthesia: Yes History of Problems with Anesthesia: No Documented by User: Delmi Fletcher DO 06/19/24 07:22 [facility] Past Medical History Medical History Vitamin D deficiency Impaired fasting glucose Arthritis Perianal cyst Helicobacter pylori (H. pylori) H/O sleep study History of COVID-19 Obesity (BMI 30-39.9) Depression Anxiety Insomnia Allergic rhinitis Pure hypercholesterolemia Benign essential hypertension DJD (degenerative joint disease) Migraines Hiatal hernia GERD (gastroesophageal reflux disease) Cough variant asthma Asthma Family History Family History Father Hypertension CVD (cardiovascular disease) Stroke Epilepsia Mother Hypertension Diabetes mellitus CVD (cardiovascular disease) Brother Epilepsia Depressed Anxiety Sister Epilepsia Depressed Anxiety Daughter No problems noted. Son No problems noted. Family history of problems with anesthesia: No Surgical History Surgical History (Updated 06/17/24 @ 14:18 by Luciana White RN) Hx of surgical procedure (02/01/24) History of endometrial ablation Hx of colonoscopy History of esophagogastroduodenoscopy (EGD) History of tubal ligation History of breast biopsy History of Problems with Anesthesia: No Social History Social History Housing: House Alcohol intake: never Comment: counts correct Patient Tobacco Use Status: Never used Tobacco e-Cigarette/Vaping Use: Never Used Second Hand Smoke Exposure: Yes Use of substances other than those prescribed or required for medical reasons: No Are you DNR?: No Advance Directives: No Advance Directives Information Provided: Yes Advance Directives on File: No Advance Directives Date on File: 12/19/16 Recently lost weight without trying: No Nutrition Risks: No Nutritional Risk Patient : No : No Poor oral hygiene: No service: No Current occupational status: employed Cognitive needs: No Hearing needs: No Vision needs: Yes (glasses) Meds Allergies Allergy/AdvReac Type Severity Reaction Status Date / Time doxycycline Allergy Severe Anaphylaxis Verified 04/29/24 09:47 Home Medications ?Medication ?Instructions ?Recorded ?Confirmed ?Last Taken ?Type nebulizers #1 ea 11/29/20 04/29/24 Unknown History pravastatin 20 mg tablet 20 mg PO BEDTIME 02/01/24 06/17/24 Unknown History Exam Exam Date and Time: 06/19/24 0715 Height,Weight and Vital Signs: Height 5 ft 2 in Weight 88.451 kg Height 5 ft 2 in Weight 88.451 kg Vital Signs Temperature 97.4 F 06/19/24 07:06 Pulse Rate 79 06/19/24 07:06 Respiratory Rate 16 06/19/24 07:06 Blood Pressure 137/89 06/19/24 07:06 Pulse Oximetry 95 06/19/24 07:06 Oxygen Delivery Method Room Air 06/19/24 07:06 Temperature 97.4 F 06/19/24 07:06 Pulse Rate 79 06/19/24 07:06 Respiratory Rate 16 06/19/24 07:06 Blood Pressure 137/89 06/19/24 07:06 Pulse Oximetry 95 06/19/24 07:06 Oxygen Delivery Method Room Air 06/19/24 07:06 Airway Mallampati Class: I TM Dist: >3cm Neck ROM: Full Loose/Missing/Broken Teeth: Yes (a few missing teeth but patient denies any loose or broken teeth) Heart: S1S2 Lungs: CTAB Assessment and Plan Assessment Anesthesia Assessment: Anesthesia Plan Discussed and Chart Reviewed Final Anesthetic Review Family History of Problems with Anesthesia: No History of Problems with Anesthesia: No NPO: Yes ASA Class: II Final Preanesthetic Review: No Changes in Pt Med Stat, Meds/Allgs Chart Reviewed, Consent Obtained/Reviewed and Anes Risks/Benef Reviewed Patient Risk: Low Procedure Risk: Low Anesthetic Plan Anesthetic Plan: MAC: and Agree w/ Assess. and Plan Disposition: Standard PACU
--- NOTE | 2024-06-19 07:43 | P.HPSUR_ITS ---
Pre-Procedural Eval Section A - 24 Hr Update-Section A only Date of Service: 06/19/24 Section B - Complete if H&P > 30 days Chief Complaint: Encounter for screening for malignant neoplasm of Relevant Family History (Specify if Yes): No Relevant Social History: None Present Medications: see Short Stay Collaborative assessment Medical History: Significant History (Vitamin D deficiency Impaired fasting gl ucose Arthritis Perianal cyst Helicobacter pylori (H. pylori) H/O sleep study History of COVID-19 Obesity (BMI 30-39.9) Depression Anxiety Insomnia Allergic rhinitis Pure hypercholesterolemia Benign essential hypertension DJD (degenerative joint disease) Migra) History of Previous Operations: Relevant previous surgery/procedure and date(s) (Hx of surgical procedure (02/01/24) History of endometrial ablation Hx of colonoscopy History of esophagogastroduodenoscopy (EGD) History of tubal ligation History of breast biopsy) Allergies: Allergies Allergy/AdvReac Type Severity Reaction Status Date / Time doxycycline Allergy Severe Anaphylaxis Verified 04/29/24 09:47 Review of Systems Sugical H&P ROS: Negative: Constitution, Cardiovascular, Respiratory, Neurological, Psychiatric, Hem-Onc, Allergic/Immunologic, Gastrointestinal, Genitourinary, Musculoskeletal, Integumentary, Endocrine and Eyes/Ears/Nose/Throat Exam Surgical H&P Exam: Normal: HEENT, Normal: Heart, Normal: Lungs, Normal: Extremities, Normal: Abdomen, Normal: Skin and Normal: Neurological Plan Diagnosis/Plan: Unchanged I have reviewed the history and physical and performed a pertinent physical examination on my patient. No changes have occurred unless specified. egd for h pylori culture Time Spent With Patient Time: Total time managing care of this patient today ____ minutes.
--- NOTE | 2024-06-19 07:44 | HO.OPN-COLON ---
Colonoscopy Operative Note Operative Note Date of Service: 06/19/24 Narrative: Operative Information Procedure Description: EGD, Colonoscopy Indication: H pylori and colon screening Anesthesia: MAC FLEXIBLE TRANSORAL UPPER GASTROINTESTINAL ENDOSCOPY AND COLONOSCOPY PROCEDURE NOTE UPPER ENDOSCOPY Consent: Indications for the procedure and potential complications of bleeding, perforation, reaction to medications and missed diagnosis were discussed with the patient and informed consent was obtained. Instrument: Olympus GIF H 190 J mid size upper endoscope Monitoring: Vital signs and clinical assessment, continuous EKG monitoring, Pulse oximetry, Carbon Dioxide monitoring and blood pressure monitoring were done throughout the procedure. Procedure: The patient was placed in the left lateral decubitis position and pre-procedure medications were administered and a bite block was placed. The endoscope was inserted into the mouth and advanced under direct vision to the third part of duodenum. A careful inspection was made as the upper endoscope was withdrawn including a retroflexed examination of the proximal stomach; Findings and interventions are described below. Findings: Larynx:normal Esophagus: GE junction at 35 cm, diaphragm hiatus at 37 cm, consistent with 2 cm sliding hiatal hernia Stomach: patchy erythema and atrophic scarring. Biopsies were obtained for h pylori culture. Grade 2 flap valve on retroflexed examination of the cardia. Duodenum: Normal bulb and descending duodenum, Intervention: Biopsies as noted above, COLONOSCOPY Instrument: Olympus variable stiffness pediatric scope 190L Colonoscopy Monitoring: Vital signs and clinical assessment, continuous EKG monitoring, Pulse oximetry, Carbon Dioxide monitoring and blood pressure monitoring were done throughout the procedure. Colon withdrawal time was 8 minutes. Procedure: The patient was placed in the left lateral decubitis position and pre-procedure medications were administered. After a digital rectal examination of the ano-rectum, the video colonoscope was inserted into the rectum and advanced through the colon to the cecum/TI. The colonoscope was slowly withdrawn in a retrograde panoramic fashion and the colon mucosa was carefully examined including a retroflexed view of the rectum. Findings and interventions are described below. Procedure Difficulty:moderate Findings: Terminal Ileum-normal, bx taken Cecum: granular mucosa, bx taken Ascending Colon: few scatted diverticula Transverse Colon -normal Descending Colon:normal Sigmoid Colon: mild diverticulosis Rectum: Retroflexion with small internal hemorrhoids, grade I Anorectum - normal Colon preparation: Herman Bowel Preparation Scale Right colon; 2 Transverse colon: 2 Left colon; 2 (0 = Unprepared colon segment with mucosa not seen due to solid stool that cannot be cleared. 1 = Portion of mucosa of the colon segment seen, but other areas of the colon segment not well seen due to staining, residual stool and/or opaque liquid. 2 = Minor amount of residual staining, small fragments of stool and/or opaque liquid, but mucosa of colon segment seen well. 3 = Entire mucosa of colon segment seen well with no residual staining, small fragments of stool or opaque liquid) Impression and Post Procedure Diagnosis: Endoscopy Findings: gastritis hiatal hernia Colonoscopy Findings: granular mucosa diverticulosis internal hemorrhoids Plan: Await Pathology results Repeat Colonoscopy in 10 years or earlier if clinically indicated High fiber diet leaflet avoid straining at stool, epsom salts and sitz bath, anusol supps or cream await h pylori culture/sen Above findings were reviewed with the patient and relevant handouts were provided if indicated.
[2024-06-19 08:23] VITALS: BP 141/89; PULSE 109; RESP 16; TEMP 36.3; O2SAT 92
[2024-06-19 08:40] VITALS: BP 134/85; PULSE 94; RESP 18; TEMP 36.6
== END 2024-06-19 09:12 | disposition home or self-care (01) ==
PROVIDERS: PCP Internal Medicine; Visit Provider Internal Medicine Gastroenterology
PROC: (CPT 45380; principal; 2024-06-19 07:30)
DX: Z12.11 Encounter for screening for malignant neoplasm of colon (principal); K57.30 Diverticulosis of large intestine without perforation or abscess without bleeding; K64.0 First degree hemorrhoids; R14.0 Abdominal distension (gaseous); K21.9 Gastro-esophageal reflux disease without esophagitis; K29.70 Gastritis, unspecified, without bleeding; B96.81 Helicobacter pylori [H. pylori] as the cause of diseases classified elsewhere; K44.9 Diaphragmatic hernia without obstruction or gangrene; J45.909 Unspecified asthma, uncomplicated; I10 Essential (primary) hypertension; Z79.899 Other long term (current) drug therapy; Z88.1 Allergy status to other antibiotic agents
CPT/HCPCS: 45380; 43239; 87081; 87205; 88305; J1596; J2704

== ENCOUNTER → 2024-06-19 06:16 | Outpatient (BNV) | payer OTHER, SELFPAY | PROVIDERS: PCP Internal Medicine; Visit Provider Internal Medicine Gastroenterology | DX: Z12.11 Encounter for screening for malignant neoplasm of colon (principal); K57.90 Diverticulosis of intestine, part unspecified, without perforation or abscess without bleeding; K64.8 Other hemorrhoids; K44.9 Diaphragmatic hernia without obstruction or gangrene; K29.70 Gastritis, unspecified, without bleeding | CPT/HCPCS: 43239; 45380 ==

== ENCOUNTER 2024-07-07 10:36 | Outpatient (AMB) | payer OTHER, SELFPAY ==
--- NOTE | 2024-07-07 10:42 | MHC.OFFVIS ---
Vital Signs 07/07/24 10:43 Height 5 ft 2 in Weight 191 lb 12.835 oz BMI 35.1 BP 120/72 Blood Pressure Location Rt brachial Position Sitting Pulse 84 Pulse Source Pulse Oximeter Pulse Oximetry (%) 100 Oxygen Delivery Method Room Air Intake Visit Reasons: S/P Double, H pylori Intake Note: Makayla presents in office today for a scheduled s/p FUV. CC; Pt reports new onset of epigastric pain as well as abdominal distention and bloating. Pt reports that they only noticed this after the procedure. Pt reports that, pre op, they were still having pain, however; it was intermittent and it was located in the RUQ. Pt reports that their pain has become much more frequent and prevalent. [employer] Supervisor Required: No Allergies doxycycline Allergy (Severe, Verified 07/07/24 10:42) Anaphylaxis HPI HPI S/P Double, H pylori: Details: LAST VISIT: GERD (gastroesophageal reflux disease) Helicobacter pylori (H. pylori) Screen for colon cancer Postprandial epigastric pain Postprandial abdominal bloating Plan History of H pylori, failed treatment few times. Patient's tested negative. Sent specimen for microbiology to see which antibiotics are susceptible. Last colonoscopies suboptimal prep. Patient reports that she is moving her bowels better now. Dulcolax and split MiraLax prep sent, however please check with patient if she is having trouble moving her bowels currently should be taking Colace daily, we can order her Dulcolax for 1 week before procedure to be taken every evening if she will be constipated. Patient can take pantoprazole in the morning instead of bedtime to help her throughout the day. Patient complaining of symptoms postprandial epigastric pain and acid reflux and currently is taking pantoprazole at bedtime. Patient will take famotidine at bedtime. I will see patient after procedure. What to expect before during and after procedure discussed with patient. The importance of clear liquid diet and good bowel prep day before procedure discussed with patient. Patient will also be sent for upper endoscopy for micro sampling as well as to rule out H pylori, Russo's, gastritis, duodenitis, esophagitis, gastric or peptic ulcers. Patient is agreeable to this plan of care and verbalizes understanding of instructions. She was given the opportunity to ask questions and all questions answered. ? Thank you for allowing me to participate in her care Medications New bisacodyl (Dulcolax (bisacodyl)) take 4 tabs at noon the day before your colonoscopy 20 mg (4 x 5 mg) PO ONCE 1 day 4 tabs 0RF Z12.11 polyethylene glycol 3350 (Miralax) As directed by gastroenterology department at [facility] 238 grams PO ONCE 238 grams 0RF Z12.11 Changed Changed From pantoprazole 40 mg PO BEDTIME Changed To pantoprazole 40 mg PO DAILY 30 tabs 4RF Changed From famotidine (Pepcid) 20 mg PO BID 60 tabs 0RF K21.9 Changed To famotidine (Pepcid) 20 mg PO BEDTIME 30 tabs 4RF K21.9 UPPER ENDOSCOPY AND COLONOSCOPY Findings: Larynx:normal Esophagus: GE junction at 35 cm, diaphragm hiatus at 37 cm, consistent with 2 cm sliding hiatal hernia Stomach: patchy erythema and atrophic scarring. Biopsies were obtained for h pylori culture. Grade 2 flap valve on retroflexed examination of the cardia. Duodenum: Normal bulb and descending duodenum, Intervention: Biopsies as noted above, Findings: Terminal Ileum-normal, bx taken Cecum: granular mucosa, bx taken Ascending Colon: few scatted diverticula Transverse Colon -normal Descending Colon:normal Sigmoid Colon: mild diverticulosis Rectum: Retroflexion with small internal hemorrhoids, grade I Anorectum - normal Colon preparation: Brokaw Bowel Preparation Scale Right colon; 2 Transverse colon: 2 Left colon; 2 (0 = Unprepared colon segment with mucosa not seen due to solid stool that cannot be cleared. 1 = Portion of mucosa of the colon segment seen, but other areas of the colon segment not well seen due to staining, residual stool and/or opaque liquid. 2 = Minor amount of residual staining, small fragments of stool and/or opaque liquid, but mucosa of colon segment seen well. 3 = Entire mucosa of colon segment seen well with no residual staining, small fragments of stool or opaque liquid) Impression and Post Procedure Diagnosis: Endoscopy Findings: gastritis hiatal hernia Colonoscopy Findings: granular mucosa diverticulosis internal hemorrhoids Plan: Await Pathology results Repeat Colonoscopy in 10 years or earlier if clinically indicated High fiber diet leaflet avoid straining at stool, epsom salts and sitz bath, anusol supps or cream await h pylori culture/sen TODAY'S VISIT Patient is here today for follow-up and to discuss upper endoscopy and colonoscopy. Patient reports that after endoscopy she had sore throat and epigastric pain. Patient denies any trouble swallowing. As mentioned in endoscopy report patient had normal esophagus, mild gastritis and sliding 2 cm hiatal hernia. Colonoscopy showed no polyps. Diverticulosis in sigmoid colon. Patient reports that she continues to have epigastric pain despite taking pantoprazole. Her epigastric pain is mostly after eating and sometimes at night time. She also reports right upper quadrant pain not necessarily related to meals. Patient reports that the pain is there worse when she is laying on her right side at night time. Patient denies any nausea or vomiting. Denies any melena, hematochezia. [facility] Medical History (Updated 07/07/24 @ 11:24 by Svetlana Amin [facility]) RUQ abdominal pain Vitamin D deficiency Impaired fasting glucose Arthritis Perianal cyst Helicobacter pylori (H. pylori) H/O sleep study History of COVID-19 Obesity (BMI 30-39.9) Depression Anxiety Insomnia Allergic rhinitis Pure hypercholesterolemia Benign essential hypertension DJD (degenerative joint disease) Migraines Hiatal hernia GERD (gastroesophageal reflux disease) Cough variant asthma Asthma Surgical History Hx of surgical procedure (02/01/24) History of endometrial ablation Hx of colonoscopy History of esophagogastroduodenoscopy (EGD) History of tubal ligation History of breast biopsy Family History Father Hypertension CVD (cardiovascular disease) Stroke Epilepsia Mother Hypertension Diabetes mellitus CVD (cardiovascular disease) Brother Epilepsia Depressed Anxiety Sister Epilepsia Depressed Anxiety Daughter No problems noted. Son No problems noted. Social History Housing: House Alcohol intake: never Comment: counts correct Patient Tobacco Use Status: Never used Tobacco e-Cigarette/Vaping Use: Never Used Second Hand Smoke Exposure: Yes Advance Directives Date on File: 12/19/16 service: No Current occupational status: employed Cognitive needs: No Hearing needs: No Vision needs: Yes (glasses) Female Reproductive History Menstrual Age of Menarche: 11 Physical Exam Vital Signs: Last Vital Signs Pulse 84 07/07/24 10:43 BP 120/72 07/07/24 10:43 Pulse Ox 100 07/07/24 10:43 Oxygen Delivery Method Room Air 07/07/24 10:43 BMI result Body Mass Index 35.1 Const General: healthy appearing and no acute distress Nutritional Appearance: obese Orientation/consciousness: patient oriented x3 Resp Effort & Inspection: normal respiratory effort, able to speak in complete sentences, no tracheal deviation and symmetric chest movement Auscultation: clear to auscultation bilaterally Cardio Rate: regular rate Heart sounds: S1 normal heart sound present and S2 normal heart sound present GI Inspection: Yes normal to inspection, No distended and Yes obesity Palpation (GI): Soft to palpation, not firm, nontender and No hepatosplenomegaly present Auscultation: normal bowel sounds Rectal Exam - Female: other (Rectal abscess at 12:00 o'clock) General: Yes no CVA tenderness Back/Spine/Pelvis Back: no CVA tenderness Skin General skin exam: elasticity normal, turgor normal and dry skin Neuro General: patient oriented x3 Psych Appearance: grossly normal Mental Status: mental status grossly normal Assessment & Plan Assessment & Plan (1) RUQ abdominal pain: Code(s): R10.11 - Right upper quadrant pain Category: Medical Plan Patient continues to have right upper quadrant pain. Not always necessarily related to meals, however mild tenderness in right upper quadrant with negative Grant sign. Tenderness is more towards the middle of her abdomen. Will send patient for abdominal ultrasound. Will change her therapy to Nexium in the morning and sucralfate at bedtime. Patient most likely does not empty her bowels completely. We will send script for Dulcolax. Patient will increase fluid intake and activity to promote better bowel motility. Patient will follow-up in 3 months, sooner on as needed basis. She is agreeable to this plan and verbalizes understanding of instructions. She was given the opportunity to ask questions and all questions answered. Thank you for allowing me to participate in her care Orders: Orders US abdomen complete Today R10.11 - Right upper quadrant pain, R10.9 - Unspecified abdominal pain Medications: New esomeprazole magnesium (Nexium) 40 mg PO DAILY 30 caps 5RF K21.9 - Gastro-esophageal reflux disease without esophagitis sucralfate 1 g PO BEDTIME 30 tabs 4RF R19.7 - Diarrhea, unspecified bisacodyl (Dulcolax (bisacodyl)) 10 mg (2 x 5 mg) PO BEDTIME 60 tabs 4RF Discontinued bisacodyl (Dulcolax (bisacodyl)) take at noon the day before colonoscopy Discontinued Reason: Patient Completed Course 20 mg (4 x 5 mg) PO ONCE 1 day 4 tabs 0RF polyethylene glycol 3350 (Miralax) Take as directed by mouth the day before your procedure. Discontinued Reason: Patient Completed Course 238 grams PO ONCE 1 day 238 grams 0RF famotidine (Pepcid) Discontinued Reason: Doctor's Order 20 mg PO BEDTIME 30 tabs 4RF K21.9 - Gastro-esophageal reflux disease without esophagitis pantoprazole Discontinued Reason: Doctor's Order 40 mg PO DAILY 30 tabs 4RF Coding Level of Care Code Est Pt Level 4 (55109) Diagnoses RUQ abdominal pain R10.11 Time Spent (min) 35 Comment 20 minutes spent with patient and additional 15 minutes spent reviewing her records
[2024-07-07 10:43] VITALS: BP 120/72; PULSE 84; O2SAT 100; BMI 35.1
== END 2024-07-07 11:27 | disposition home or self-care (01) ==
PROVIDERS: PCP Internal Medicine; Visit Provider Nurse Practitioner Family
DX: R10.11 Right upper quadrant pain (principal)
CPT/HCPCS: 99214

== ENCOUNTER → 2024-07-07 10:36 | Outpatient (BNVA) | payer OTHER, SELFPAY | PROVIDERS: PCP Internal Medicine; Visit Provider Nurse Practitioner Family | DX: K21.9 Gastro-esophageal reflux disease without esophagitis (principal); R10.11 Right upper quadrant pain; R19.7 Diarrhea, unspecified | CPT/HCPCS: 99212 ==

== ENCOUNTER 2024-07-18 08:51 | Outpatient (REF) | payer OTHER, SELFPAY ==
--- NOTE | ~2024-07-18 | US_ITS ---
EXAMINATION: US ABDOMEN COMPLETE CLINICAL INFORMATION: Unspecified abdominal pain. COMPARISON: Ultrasound kidneys and bladder 04/20/2023. TECHNIQUE: Real-time imaging of the abdominal viscera. FINDINGS: PANCREAS: The pancreas appears unremarkable, without masses or ductal dilatation, with the exception of the tail which is obscured by bowel gas. ABDOMINAL AORTA: The mid abdominal aorta was not visualized however no aneurysm is seen in the visualized portions of the aorta. INFERIOR VENA CAVA: Visualized portions are normal. LIVER: The liver is normal in size. The liver contour is normal. There is diffuse increased liver parenchymal echogenicity, consistent with hepatic steatosis. There is focal fatty sparing seen adjacent to the gallbladder. No focal hepatic lesion. There is no intrahepatic biliary duct dilatation seen. GALLBLADDER: The gallbladder is physiologically distended without evidence of stones, sludge, polyps, wall thickening or pericholecystic fluid. There is some comet tail shadowing seen suggestive of adenomyomatosis. COMMON BILE DUCT: Normal in caliber measuring 0.3 cm in diameter. RIGHT KIDNEY: Normal. No hydronephrosis. No renal calculi or focal parenchymal lesions. The kidney measures 10.2 cm in maximum dimension. LEFT KIDNEY: Normal. No hydronephrosis. No renal calculi or focal parenchymal lesions. The kidney measures 10.5 cm in maximum dimension. SPLEEN: Normal. The spleen measures 10.3 cm in maximum dimension. FREE FLUID: None. US/US abdomen complete IMPRESSION: 1. Hepatic steatosis. 2. 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 Electronically signed by: Yvon Santamaria MD 09/04/2024 01:11 PM [facility] [place]
== END 2024-07-18 08:52 | disposition home or self-care (01) ==
LOC: HO.US 08:51
PROVIDERS: PCP Internal Medicine; Visit Provider Nurse Practitioner Family
DX: R10.11 Right upper quadrant pain (principal)
CPT/HCPCS: 76700

== ENCOUNTER 2024-09-05 09:55 | Outpatient (AMB) | payer OTHER, SELFPAY ==
[2024-09-05 10:04] VITALS: BP 110/76; PULSE 85; O2SAT 98; BMI 34.8
--- NOTE | 2024-09-05 10:04 | A.OFFPC_ITS ---
Vital Signs 09/05/24 10:04 Height 5 ft 2 in Weight 190 lb 2 oz BMI 34.8 BP 110/76 Blood Pressure Location Lt brachial Position Sitting Pulse 85 Pulse Source Pulse Oximeter Pulse Oximetry (%) 98 Oxygen Delivery Method Room Air Intake Visit Reasons: hyperlipidemia, HTN, asthma, IFG [employer] Required: No Accompanied by: Self / Same As Patient Allergies doxycycline Allergy (Severe, Verified 09/05/24 10:29) Anaphylaxis Medication List - Last Reconciled 09/05/24 by Jeremy Castro MD albuterol sulfate 90 mcg/actuation (ProAir HFA) 2 puffs inhalation Q6H PRN 30 days amlodipine 5 mg PO DAILY azelastine 2 sprays intranasal BID baclofen 20 mg PO TID PRN 30 days bisacodyl (Dulcolax (bisacodyl)) 10 mg (2 x 5 mg) PO BEDTIME Breo Ellipta 200-25 mcg/dose (fluticasone furoate-vilanterol) 1 inh inhalation DAILY NS cetirizine 10 mg PO DAILY cholecalciferol (vitamin D3) 50 mcg PO DAILY 90 days docusate sodium 100 mg PO BEDTIME dupilumab (Dupixent) 300 mg (2 mL) subcut Q2W esomeprazole magnesium (Nexium) 40 mg PO DAILY ibuprofen 800 mg PO TID PRN 30 days ipratropium-albuterol 0.5 mg-3 mg(2.5 mg base)/3 mL 3 mL inhalation Q6H PRN montelukast 10 mg PO BEDTIME nebulizers As directed pravastatin 20 mg PO BEDTIME Spiriva Respimat 2.5 mcg/actuation (tiotropium bromide) 2 puffs inhalation QAM NS sucralfate 1 g PO BEDTIME tramadol 50 mg PO TID PRN 10 days Tobacco use date assessed: 09/05/24 Dental Screening Dental Screen Date: 09/05/24 Did you have a dental visit in the last 12 months?: Yes Did you have a dental problem in the last 6 months where you did not have access to dental care?: No Was dental information given to patient?: Patient has dentist HPI hyperlipidemia, HTN, asthma, IFG HPI Details Patient comes in today for her follow up visit She reports experiencing increased headaches lately States that she currently has headaches everyday for the past couple of months now Describes her headaches as generalized but occurs more often over the top of her head States that she has no Hx of issues with recurrent headaches in the past and thinks that these started after she was given something via IV to sedate her for her recent colonoscopy - recalls that she felt somewhat funny prior to passing out from the medication and has been experiencing recurrent headaches since She denies any associated photophobia or nausea/vomiting with her headaches but states that she has to shut off her phone or Ipad when she gets them to keep her headaches from escalating She does not feel that they are related to eye strain from looking at monitors and screens as she claims that she does not spend a lot if time on her phone or computer, and that Ibuprofen and Tylenol do not really help much when she takes them for her headaches She denies any dizziness Denies any chest pains, no increased SOB No abdominal pain and no change in bowel habits noted States that she has not yet been able to get her follow up labs done and will t ry to get these done as soon as possible Additionally, her recent colonoscopy done on 06/19/2024 came out with no significant findings and she was recommended for repeat colonoscopy in 10 years [facility] Medical History RUQ abdominal pain Vitamin D deficiency Impaired fasting glucose Arthritis Perianal cyst Helicobacter pylori (H. pylori) H/O sleep study History of COVID-19 Obesity (BMI 30-39.9) Depression Anxiety Insomnia Allergic rhinitis Pure hypercholesterolemia Benign essential hypertension DJD (degenerative joint disease) Migraines Hiatal hernia GERD (gastroesophageal reflux disease) Cough variant asthma Asthma Surgical History Hx of surgical procedure (02/01/24) History of endometrial ablation Hx of colonoscopy History of esophagogastroduodenoscopy (EGD) History of tubal ligation History of breast biopsy Family History Father Hypertension CVD (cardiovascular disease) Stroke Epilepsia Mother Hypertension Diabetes mellitus CVD (cardiovascular disease) Brother Epilepsia Depressed Anxiety Sister Epilepsia Depressed Anxiety Daughter No problems noted. Son No problems noted. Social History Housing: House Alcohol intake: never Comment: counts correct Patient Tobacco Use Status: Never used Tobacco e-Cigarette/Vaping Use: Never Used Second Hand Smoke Exposure: Yes Advance Directives Date on File: 12/19/16 service: No Current occupational status: employed Cognitive needs: No Hearing needs: No Vision needs: Yes (glasses) Female Reproductive History Menstrual Age of Menarche: 11 Questionnaire PHQ-9 Over the last 2 weeks, how often have you been bothered by any of the following problems? 1. Little interest or pleasure in doing things: not at all 2. Feeling down, depressed, or hopeless: not at all 3. Trouble falling or staying asleep, or sleeping too much: not at all 4. Feeling tired or having little energy: not at all 5. Poor appetite or overeating: not at all 6. Feeling bad about yourself - or that you are a failure or have let yourself or your family down: not at all 7. Trouble concentrating on things, such as reading the newspaper or watching television: not at all 8. Moving or speaking so slowly that other people could have noticed. Or the opposite - being so fidgety or restless that you have been moving around a lot more than usual: not at all 9. Thoughts that you would be better off or of hurting yourself in some way: not at all Total score: 0 Depression Screening Interpretation: Negative Depression Screening Done: Yes 93016 - PHQ-9 Billing: Yes Source: Developed by Drs. Carlos Redd, Em Loyola, Leonardo Phoenix and colleagues, with an educational vikash from [employer]. Thrive Questionnaire Date Thrive assessed: 09/05/24 I am a: Patient What is your living situation today?: I have a steady place to live Within the past 12 months, did the food you bought not last and you didn't have the money to get more?: Never true Within the past 12 months, did you worry whether your food would run out before you got money to buy more?: Never true Do you have trouble paying for medicines?: No Do you have trouble getting transportation to medical appointments?: No Do you have trouble paying your heating and electricity bill?: No Do you have trouble taking care of your child, family member or friend?: No Do you have trouble with day-to-day activities such as bathing, preparing meals, shopping, managing finances, etc.?: No Are you currently unemployed and looking for a job?: No Are you interested in more education?: No Please select the resources that you would like help with: None Currently or been in a relationship where the following occur: No concerns reported THRIVE Score: 0 AUDIT C Alcohol Use Questionnaire (AUDIT-C) 1. How often do you have a drink containing alcohol?: Never 3. How often do you have six or more drinks on one occasion?: Never Total Score: 0 Score Reviewed/Action Taken: Yes QUOC-7 AMB Questionnaire QUOC-7 Date QUOC - 7 assessed: 09/05/24 Feeling nervous, anxious, or on edge: 0 = Not at all Not being able to stop or control worryin = Not at all Worrying too much about different things: 0 = Not at all Trouble relaxin = Not at all Being so restless that it is hard to sit still: 0 = Not at all Becoming easily annoyed or irritable: 0 = Not at all Feeling afraid as if something awful might happen: 0 = Not at all Total QUOC-7 score (0-4 normal; 5-9 mild; 10-14 moderate; 15-21 severe): 0 Source: Developed by Drs. Carlos Redd, Em Loyola, Leonardo Phoenix and colleagues, with an educational vikash from [employer]. Review of Systems Const Denies chills, Denies fatigue, Denies fever(s) and Reports headache(s) (recurrent lately - see HPI) Eyes Denies photophobia ENT Denies dysphagia, Denies dizziness, Denies otalgia, Reports headache(s) (recurrent lately - see HPI), Denies neck pain, Denies odynophagia and Denies sore throat Card Denies chest pain, Denies irregular heart rhythm, Denies palpitations and Denies dyspnea Resp Denies chest congestion, Denies cough and Denies dyspnea GI Denies abdominal pain, Denies constipation, Denies dysphagia, Denies heartburn, Denies diarrhea, Denies nausea, Denies odynophagia and Denies vomiting Denies urinary frequency, Denies nocturia, Denies dysuria and Denies urinary incontinence Musc Denies back pain, Denies arthralgias and Denies neck pain Skin/Breast Denies rash Neuro Denies dizziness, Reports headache(s) (recurrent lately - see HPI) and Denies paresthesias Psych Denies anxiety and Denies depression Endo Denies fatigue and Denies palpitations Drew/Lymph Denies easy bruising Physical exam (Primary Care) Vital Signs: Last Vital Signs Pulse 85 09/05/24 10:04 BP 110/76 09/05/24 10:04 Pulse Ox 98 09/05/24 10:04 Oxygen Delivery Method Room Air 09/05/24 10:04 BMI result Body Mass Index 34.8 Tobacco/Smoking Status: Tobacco use Status Tobacco use date assessed 09/05/24 09/05/24 10:11 Patient Tobacco Use Status Never used Tobacco 09/05/24 10:11 e-Cigarette/Vaping Use Never Used 09/05/24 10:11 PHQ-9: PHQ-9 Score PHQ-9: Total score 0 09/05/24 10:12 Depression Screening Interpretation: Negative Thrive Assessment: Date of Thrive Assessment Date Thrive assessed 09/05/24 09/05/24 10:11 Currently or been in a relationship where the following occur: No concerns reported Const General: no acute distress and alert HENMT Ears: TM's normal bilaterally and EAC's normal Throat: Yes posterior oropharynx normal and Yes tonsils normal (no TP congestion) Eyes Direct Ophthalmoscopy: No photophobia Neck Neck: Yes no lymphadenopathy and Yes supple Thyroid: Thyroid normal Resp Auscultation: clear to auscultation bilaterally, no rales and no wheezes Cardio Rate: regular rate Rhythm: regular rhythm Heart sounds: no murmurs GI Palpation (GI): Soft to palpation and nontender Auscultation: normal bowel sounds General: Yes no CVA tenderness Back/Spine/Pelvis Back: no CVA tenderness Thoracic/Lumbar Spine: thoracic and lumbar spine normal to inspection Skin Rashes: no rashes Extrem General: Yes no clubbing, cyanosis or edema Office Procedures Flu Questionnaire Does the patient have a severe egg allergy?: No Immunizations Fluarix Triv [id number] (PF) 45 mcg (15 mcg x 3)/0.5 mL IM syringe Performing Provider: Jeremy Castro MD [facility] [place] [facility] Documented (not given) by: LENA Francis on 09/05/24 10:12 Reason Not Given: Received Previously Coding Level of Care Code Est Pt Level 4 (06805) Diagnoses Recurrent headache R51.9 Migraine without status migrainosus, not intractable, unspecified migraine type G43.909 Migraine type: unspecified Status migrainosus presence: without status migrainosus Intractability: not intractable Pure hypercholesterolemia E78.00 Benign essential hypertension I10 Moderate persistent asthma without complication J45.40 Asthma severity: moderate Asthma persistence: persistent Asthma complication type: uncomplicated Impaired fasting glucose R73.01 Gastroesophageal reflux disease, unspecified whether esophagitis present K21.9 Esophagitis presence: esophagitis presence not specified Allergic rhinitis, unspecified seasonality, unspecified trigger J30.9 Allergic rhinitis trigger: unspecified Allergic rhinitis seasonality: unspecified Vitamin D deficiency E55.9 Insomnia, unspecified type G47.00 Insomnia type: unspecified Anxiety F41.9 Episode of recurrent major depressive disorder, unspecified depression episode severity F33.9 Depression Type: major depressive disorder Major depression recurrence: recurrent Active/Remission status: currently active Major depression episode severity: unspecified Obesity (BMI 30-39.9) E66.9 Additional Codes PHQ-9 - 13161 - PHQ-9 Billing: Yes ([id number]) Assessment & Plan Assessment & Plan (1) Recurrent headache: Code(s): R51.9 - Headache, unspecified Category: Medical Plan: Unclear etiology - discussed that these could be migraine or variant or tension- type headaches Will start her for now on a trial of Fioricet PRN Will refer her to neurology for further evaluation and management (2) Migraines: Comment: in past Code(s): G43.909 - Migraine, unspecified, not intractable, without status migrainosus Category: Medical Qualifiers: Migraine type: unspecified Status migrainosus presence: without status migrainosus Intractability: not intractable Qualified Code(s): G43.909 - Mi graine, unspecified, not intractable, without status migrainosus Plan: Patient reports that her headaches have been occurring more often again lately She was on prophylactic Tx with Topiramate 25 mg Q HS before but she stopped taking this a while ago as she felt that it was not really helping - advised that this may actually be the more pertinent reason for her recent increased headaches She is being referred again to neurology for further evaluation and management (3) Pure hypercholesterolemia: Code(s): E78.00 - Pure hypercholesterolemia, unspecified Category: Medical Plan: She was not able to get her follow up labs done yet prior to her appt today - states that she will try to get these done HANSA Reinforced low cholesterol diet Continue Pravastatin 20 mg QD Will recheck her labs and fasting lipids in 4 months for follow up (4) Benign essential hypertension: Code(s): I10 - Essential (primary) hypertension Category: Medical Plan: Reinforced low-sodium diet - goal is systolic BP of 120 mm or less Continue Amlodipine 5 mg QD (5) Asthma: Code(s): J45.909 - Unspecified asthma, uncomplicated Category: Medical Qualifiers: Asthma severity: moderate Asthma persistence: persistent Asthma complication type: uncomplicated Qualified Code(s): J45.40 - Moderate persistent asthma, uncomplicated Plan: Patient states that her asthma is well-controlled on Dupixent injection 300 mg SQ every 2 weeks She did not do well while she was on Nucala injections last year Continue Breo Ellipta 200-25 mcg 1 inhalation QD, Spiriva Respimat 2.5 mcg 2 inhalations QD, Montelukast 10 mg QPM, Albuterol HFA 2 inhalations every 6 hours PRN; she also uses Duoneb solution via her nebulizer every 6 hours as needed when she has access to her updraft device Follow up with pulmonary (Dr. Helton) as scheduled (6) Impaired fasting glucose: Code(s): R73.01 - Impaired fasting glucose Category: Medical Plan: Her FBS was previously elevated at 124 mg/dl a few months ago She does have a strong family Hx of diabetes so she is concerned about her own risk Have advised her at the time that she likely has impaired fasting glucose or borderline DM and should start watching her diet better (diabetic diet) Will have her recheck her FBS and also check a HgbA1c level in 4 months for further evaluation (7) GERD (gastroesophageal reflux disease): Code(s): K21.9 - Gastro-esophageal reflux disease without esophagitis Category: Medical Qualifiers: Esophagitis presence: esophagitis presence not specified Qualified Code(s): K21.9 - Gastro-esophageal reflux disease without esophagitis Plan: Dietary restrictions reinforced Continue Pantoprazole 40 mg QD and Famotidine 20 mg BID PRN Follow up with GI as scheduled (8) Allergic rhinitis: Code(s): J30.9 - Allergic rhinitis, unspecified Category: Medical Qualifiers: Allergic rhinitis trigger: unspecified Allergic rhinitis seasonality: unspecified Qualified Code(s): J30.9 - Allergic rhinitis, unspecified Plan: Continue Loratadine 10 mg QD PRN, Fluticasone 50 mcg nasal spray QD PRN and Montelukast 10 mg Q PM She is also on Dupixent injections, which helps with both her allergies and asthma (9) Vitamin D deficiency: Code(s): E55.9 - Vitamin D deficiency, unspecified Category: Medical Plan: Continue Vitamin D3 2000 units QD (10) Insomnia: Code(s): G47.00 - Insomnia, unspecified Category: Medical Qualifiers: Insomnia type: unspecified Qualified Code(s): G47.00 - Insomnia, unspecified Plan: Sleep hygiene reinforced States that her main problem is staying asleep; has no problem falling asleep Have offered to provide some Rx for patient in the past but she declined; still does not wish to take anything else to help her sleep at this time (11) Anxiety: Code(s): F41.9 - Anxiety disorder, unspecified Category: Medical Plan: She used to take Lorazepam 0.5 mg PRN but states that she has not needed this in a while now States that she currently feels good and does not think that she still has anxiety and depression issues as she has not taken any Rx for mood disorder in a year or two (12) Depression: Comment: in past, no meds currently Code(s): F32.A - Depression, unspecified Category: Medical Qualifiers: Depression Type: major depressive disorder Major depression recurrence: recurrent Active/Remission status: currently active Major depression episode severity: unspecified Qualified Code(s): F33.9 - Major depressive disorder, recurrent, unspecified Plan: She was on Fluoxetine 20 mg Q AM in the past but stopped taking this some time ago States that she feels okay and does not think that she currently still has anxiety and depression (13) Obesity (BMI 30-39.9): Code(s): E66.9 - Obesity, unspecified Category: Medical Plan: Reinforced diet/exercise as tolerated/lose weight Plan To return as scheduled in December 2024 for her annual physical examination Orders: Orders Complete Blood Count Auto Diff 12/20/24 D64.9 - Anemia, unspecified, Z00.00 - Encounter for general adult medical examination without abnormal findings Influenza [id number] Immunization Today Z23 - Encounter for immunization Comprehensive [place]. Panel Fast 12/20/24 E78.00 - Pure hypercholesterolemia, unspecified, Z00.00 - Encounter for general adult medical examination without abnormal findings UA CC w/rflx Micro + Cult 12/20/24 R30.0 - Dysuria, Z00. - Encounter for general adult medical examination without abnormal findings TSH reflex Free T4 12/20/24 E78.00 - Pure hypercholesterolemia, unspecified, Z00. - Encounter for general adult medical examination without abnormal findings Lipid Panel 12/20/24 E78.00 - Pure hypercholesterolemia, unspecified, Z00. - Encounter for general adult medical examination without abnormal findings Hemoglobin A1c 12/20/24 R73.01 - Impaired fasting glucose, Z00.00 - Encounter for general adult medical examination without abnormal findings Vitamin D 25-OH Total 12/20/24 E55.9 - Vitamin D deficiency, unspecified, Z00.00 - Encounter for general adult medical examination without abnormal findings Referrals Neurology Referral R51.9 - Headache, unspecified Medications: New Fioricet 50-300-40 mg (txnmsegsuf-[id number]-ftup) 1 cap PO Q8H PRN 30 caps 0RF headaches NS
== END 2024-09-05 10:36 | disposition home or self-care (01) ==
PROVIDERS: PCP Internal Medicine; Visit Provider Internal Medicine
DX: R51.9 Headache, unspecified (principal); F33.9 Major depressive disorder, recurrent, unspecified; G43.909 Migraine, unspecified, not intractable, without status migrainosus; E78.00 Pure hypercholesterolemia, unspecified; I10 Essential (primary) hypertension; J45.40 Moderate persistent asthma, uncomplicated; R73.01 Impaired fasting glucose; K21.9 Gastro-esophageal reflux disease without esophagitis; J30.9 Allergic rhinitis, unspecified; E55.9 Vitamin D deficiency, unspecified; G47.00 Insomnia, unspecified; F41.9 Anxiety disorder, unspecified

== ENCOUNTER → 2024-09-05 09:55 | Outpatient (BNVA) | payer OTHER, SELFPAY | PROVIDERS: PCP Internal Medicine; Visit Provider Internal Medicine | DX: G43.909 Migraine, unspecified, not intractable, without status migrainosus (principal); E78.00 Pure hypercholesterolemia, unspecified; I10 Essential (primary) hypertension; J45.40 Moderate persistent asthma, uncomplicated; R73.01 Impaired fasting glucose; K21.9 Gastro-esophageal reflux disease without esophagitis; E55.9 Vitamin D deficiency, unspecified; G47.00 Insomnia, unspecified; F41.9 Anxiety disorder, unspecified; F33.9 Major depressive disorder, recurrent, unspecified; E66.9 Obesity, unspecified; Z68.34 Body mass index [BMI] 34.0-34.9, adult; Z71.3 Dietary counseling and surveillance | CPT/HCPCS: 96127; 99212 ==

== ENCOUNTER 2024-09-30 08:52 | Outpatient (AMB) | payer OTHER, SELFPAY ==
[2024-09-30 08:59] VITALS: BP 120/66; PULSE 91; O2SAT 99; BMI 34.5
--- NOTE | 2024-09-30 08:59 | MHC.OFFVIS ---
Vital Signs 09/30/24 08:59 Height 5 ft 2 in Weight 188 lb 11.198 oz BMI 34.5 BP 120/66 Blood Pressure Location Rt brachial Position Sitting Pulse 91 Pulse Source Doppler Pulse Oximetry (%) 99 Oxygen Delivery Method Room Air Intake Visit Reasons: Asthma Allergies doxycycline Allergy (Severe, Verified 09/05/24 10:29) Anaphylaxis HPI HPI Asthma: Details: 48-year-old lady, nonsmoker, with underlying history of asthma since childhood, followed for moderate to severe persistent allergic asthma. Patient continues on Breo, Spiriva, Dupixent, and albuterol MDI with excellent baseline control of her symptoms. Over the week prior to this evaluation patient started to experience intermittent nocturnal wheezing, but no cough or dyspnea. PFSH Medical History RUQ abdominal pain Vitamin D deficiency Impaired fasting glucose Arthritis Perianal cyst Helicobacter pylori (H. pylori) H/O sleep study History of COVID-19 Obesity (BMI 30-39.9) Depression Anxiety Insomnia Allergic rhinitis Pure hypercholesterolemia Benign essential hypertension DJD (degenerative joint disease) Migraines Hiatal hernia GERD (gastroesophageal reflux disease) Cough variant asthma Asthma Surgical History Hx of surgical procedure (02/01/24) History of endometrial ablation Hx of colonoscopy History of esophagogastroduodenoscopy (EGD) History of tubal ligation History of breast biopsy Family History Father Hypertension CVD (cardiovascular disease) Stroke Epilepsia Mother Hypertension Diabetes mellitus CVD (cardiovascular disease) Brother Epilepsia Depressed Anxiety Sister Epilepsia Depressed Anxiety Daughter No problems noted. Son No problems noted. Social History Housing: House Alcohol intake: never Comment: counts correct Patient Tobacco Use Status: Never used Tobacco e-Cigarette/Vaping Use: Never Used Second Hand Smoke Exposure: Yes Advance Directives Date on File: 12/19/16 service: No Current occupational status: employed Cognitive needs: No Hearing needs: No Vision needs: Yes (glasses) Female Reproductive History Menstrual Age of Menarche: 11 Review of Systems Const Denies fever(s) and Denies weight loss Card Denies chest pain, Denies pedal edema, Denies dyspnea, Denies orthopnea and Denies paroxysmal nocturnal dyspnea Resp Denies cough, Denies hemoptysis, Denies excessive phlegm production, Denies dyspnea and Reports wheezing (Nocturnal) Aller/Immun Reports wheezing (Nocturnal) Physical Exam Vital Signs: Last Vital Signs Pulse 91 09/30/24 08:59 BP 120/66 09/30/24 08:59 Pulse Ox 99 09/30/24 08:59 Oxygen Delivery Method Room Air 09/30/24 08:59 BMI result Body Mass Index 34.5 Const General: no acute distress and alert Orientation/consciousness: Other orientation findings ( oriented) HEENT Head: Yes atraumatic Eyes General: appearance normal, both eyes and all related structures Sclerae: sclerae normal EOM: EOMs intact bilaterally Neck Neck: Yes supple Lymphatic: no lymphadenopathy noted Resp Effort & Inspection: normal respiratory effort and no use of accessory muscles Auscultation: clear to auscultation bilaterally Cardio Rate: regular rate Rhythm: regular rhythm Heart sounds: no gallops, no murmurs and no rubs Skin General skin exam: other ( warm) Extrem General: No clubbing, No cyanosis and No edema Assessment & Plan Assessment & Plan (1) Severe persistent allergic asthma: Code(s): J45.50 - Severe persistent asthma, uncomplicated Category: Medical Plan: Baseline well controlled on Dupixent, Breo, and albuterol MDI. Over the last week with nocturnal symptoms. Patient advised to change her Breo to nighttime, if not improving, will consider prednisone pulse. (2) Environmental allergies: Code(s): Z91.09 - Other allergy status, other than to drugs and biological substances Category: Medical Plan: Well controlled on Dupixent. Continue current regimen. Coding Level of Care Code Est Pt Level 4 (88356) Diagnoses Severe persistent allergic asthma J45.50 Environmental allergies Z91.09
== END 2024-09-30 09:16 | disposition home or self-care (01) ==
PROVIDERS: PCP Internal Medicine; Visit Provider Internal Medicine Pulmonary Disease
DX: J45.50 Severe persistent asthma, uncomplicated (principal); Z91.09 Other allergy status, other than to drugs and biological substances
CPT/HCPCS: 99214

== ENCOUNTER → 2024-09-30 08:52 | Outpatient (BNVA) | payer OTHER, SELFPAY | PROVIDERS: PCP Internal Medicine; Visit Provider Internal Medicine Pulmonary Disease | DX: J45.50 Severe persistent asthma, uncomplicated (principal); Z91.09 Other allergy status, other than to drugs and biological substances | CPT/HCPCS: 99212 ==

== ENCOUNTER 2025-02-02 08:53 | Outpatient (AMB) | payer OTHER, SELFPAY ==
[2025-02-02 09:06] VITALS: BP 120/70; PULSE 82; O2SAT 98; BMI 35.8
--- NOTE | 2025-02-02 09:06 | MHC.OFFVIS ---
Vital Signs 02/02/25 09:06 Height 5 ft 2 in Weight 196 lb BMI 35.8 BP 120/70 Blood Pressure Location Rt brachial Position Sitting Pulse 82 Pulse Source Pulse Oximeter Pulse Oximetry (%) 98 Oxygen Delivery Method Room Air Intake Visit Reasons: abd pain Intake Note: ESTABLISHED PATIENT for mgmt of chronic abd pain + reflux. Imaging done. Chief Complaint; C/O GERD persistence and epigastric pain despite taking medication as instructed. Pt also reports generalized abd pain which seems to be located in the colon per pt. Pt denies any difficulties with BM at this time. No additional concerns reported. Service Observer Chief Required: No Accompanied by: Self / Same As Patient Allergies doxycycline Allergy (Severe, Verified 02/02/25 09:06) Anaphylaxis HPI HPI abd pain: Details: LAST VISIT: RUQ abdominal pain Plan Patient continues to have right upper quadrant pain. Not always necessarily related to meals, however mild tenderness in right upper quadrant with negative Grant sign. Tenderness is more towards the middle of her abdomen. Will send patient for abdominal ultrasound. Will change her therapy to Nexium in the morning and sucralfate at bedtime. Patient most likely does not empty her bowels completely. We will send script for Dulcolax. Patient will increase fluid intake and activity to promote better bowel motility. Patient will follow-up in 3 months, sooner on as needed basis. She is agreeable to this plan and verbalizes understanding of instructions. She was given the opportunity to ask questions and all questions answered. ? Thank you for allowing me to participate in her care Orders Orders US abdomen complete Today R10.11, R10.9 Medications New esomeprazole magnesium (Nexium) 40 mg PO DAILY 30 caps 5RF K21.9 sucralfate 1 g PO BEDTIME 30 tabs 4RF R19.7 bisacodyl (Dulcolax (bisacodyl)) 10 mg (2 x 5 mg) PO BEDTIME 60 tabs 4RF Discontinued bisacodyl (Dulcolax (bisacodyl)) take at noon the day before colonoscopy Discontinued Reason: Patient Completed Course 20 mg (4 x 5 mg) PO ONCE 1 day 4 tabs 0RF polyethylene glycol 3350 (Miralax) Take as directed by mouth the day before your procedure. Discontinued Reason: Patient Completed Course 238 grams PO ONCE 1 day 238 grams 0RF famotidine (Pepcid) Discontinued Reason: Doctor's Order 20 mg PO BEDTIME 30 tabs 4RF K21.9 pantoprazole Discontinued Reason: Doctor's Order 40 mg PO DAILY 30 tabs 4RF TODAY'S VISIT Patient is here today for follow-up. Patient reports that she continues to have epigastric pain no matter what she eats. Currently is taking Nexium in the morning and sucralfate at bedtime occasionally. Patient reports that she only eats 1-2 meals a day. Drinks coffee in the morning and then her main meal is usually around 02:00 o'clock in the afternoon. Patient reports eating small amount of rice with beans and chicken. Patient reports that she is moving her bowels, however has not have a bowel movement every day. Patient was taking Dulcolax, however this cause her abdominal cramping and she only takes it when she needs it. Patient reports dyspepsia without dysphagia or odynophagia. Feels like the acid reflux is coming up all the way to her throat. History of H pylori the 2021. Patient was treated and had upper endoscopy done in May of 2024. Cultures were done and no H pylori found. Patient denies any nausea or vomiting. Denies any melena, hematochezia. PFSH Medical History RUQ abdominal pain Vitamin D deficiency Impaired fasting glucose Arthritis Perianal cyst Helicobacter pylori (H. pylori) H/O sleep study History of COVID-19 Obesity (BMI 30-39.9) Depression Anxiety Insomnia Allergic rhinitis Pure hypercholesterolemia Benign essential hypertension DJD (degenerative joint disease) Migraines Hiatal hernia GERD (gastroesophageal reflux disease) Cough variant asthma Asthma Surgical History Hx of surgical procedure (02/01/24) History of endometrial ablation Hx of colonoscopy History of esophagogastroduodenoscopy (EGD) History of tubal ligation History of breast biopsy Family History Father Hypertension CVD (cardiovascular disease) Stroke Epilepsia Mother Hypertension Diabetes mellitus CVD (cardiovascular disease) Brother Epilepsia Depressed Anxiety Sister Epilepsia Depressed Anxiety Daughter No problems noted. Son No problems noted. Social History Housing: House Alcohol intake: never Comment: counts correct Patient Tobacco Use Status: Never used Tobacco e-Cigarette/Vaping Use: Never Used Second Hand Smoke Exposure: Yes Advance Directives Date on File: 12/19/16 service: No Current occupational status: employed Cognitive needs: No Hearing needs: No Vision needs: Yes (glasses) Female Reproductive History Menstrual Age of Menarche: 11 Review of Systems Const Denies weight gain and Denies weight loss ENT Reports no additional complaints, Denies dysphagia and Denies odynophagia Card Reports no additional complaints Resp Reports no additional complaints GI Denies abdominal pain, Denies belching, Denies melena, Reports bloating, Denies change in bowel habits, Denies dysphagia, Denies excessive flatus, Reports dyspepsia, Reports heartburn, Denies diarrhea, Denies loose stools, Denies nausea, Denies odynophagia and Denies vomiting Reports no additional complaints Musc Reports no additional complaints Neuro Reports no additional complaints Psych Reports no additional complaints Endo Reports no additional complaints Physical Exam Vital Signs: Last Vital Signs Pulse 82 02/02/25 09:06 BP 120/70 02/02/25 09:06 Pulse Ox 98 02/02/25 09:06 Oxygen Delivery Method Room Air 02/02/25 09:06 BMI result Body Mass Index 35.8 Const General: healthy appearing and no acute distress Nutritional Appearance: obese Orientation/consciousness: patient oriented x3 Resp Effort & Inspection: normal respiratory effort, able to speak in complete sentences, no tracheal deviation and symmetric chest movement Auscultation: clear to auscultation bilaterally Cardio Rate: regular rate Heart sounds: S1 normal heart sound present and S2 normal heart sound present GI Inspection: Yes normal to inspection, No distended and Yes obesity Palpation (GI): Soft to palpation, not firm, nontender and No hepatosplenomegaly present Auscultation: normal bowel sounds Rectal Exam - Female: other (Rectal abscess at 12:00 o'clock) General: Yes no CVA tenderness Back/Spine/Pelvis Back: no CVA tenderness Skin General skin exam: elasticity normal, turgor normal and dry skin Neuro General: patient oriented x3 Psych Appearance: grossly normal Mental Status: mental status grossly normal Results Reviewed Results Reviewed: ULTRASOUND OF ABDOMEN AND PELVIS FINDINGS: PANCREAS: The pancreas appears unremarkable, without masses or ductal dilatation, with the exception of the tail which is obscured by bowel gas. ABDOMINAL AORTA: The mid abdominal aorta was not visualized however no aneurysm is seen in the visualized portions of the aorta. INFERIOR VENA CAVA: Visualized portions are normal. LIVER: The liver is normal in size. The liver contour is normal. There is diffuse increased liver parenchymal echogenicity, consistent with hepatic steatosis. There is focal fatty sparing seen adjacent to the gallbladder. No focal hepatic lesion. There is no intrahepatic biliary duct dilatation seen. GALLBLADDER: The gallbladder is physiologically distended without evidence of stones, sludge, polyps, wall thickening or pericholecystic fluid. There is some comet tail shadowing seen suggestive of adenomyomatosis. COMMON BILE DUCT: Normal in caliber measuring 0.3 cm in diameter. RIGHT KIDNEY: Normal. No hydronephrosis. No renal calculi or focal parenchymal lesions. The kidney measures 10.2 cm in maximum dimension. LEFT KIDNEY: Normal. No hydronephrosis. No renal calculi or focal parenchymal lesions. The kidney measures 10.5 cm in maximum dimension. SPLEEN: Normal. The spleen measures 10.3 cm in maximum dimension. FREE FLUID: None. US/US abdomen complete IMPRESSION: 1. Hepatic steatosis. 2. 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 Assessment & Plan Assessment & Plan (1) GERD (gastroesophageal reflux disease): Code(s): K21.9 - Gastro-esophageal reflux disease without esophagitis Category: Medical Qualifiers: Esophagitis presence: esophagitis presence not specified Qualified Code(s): K21.9 - Gastro-esophageal reflux disease without esophagitis (2) Helicobacter pylori (H. pylori): Code(s): A04.8 - Other specified bacterial intestinal infections Category: Medical (3) Postprandial epigastric pain: Code(s): R10.13 - Epigastric pain (4) Postprandial abdominal bloating: Code(s): R14.0 - Abdominal distension (gaseous) (5) Constipation: Code(s): K59.00 - Constipation, unspecified Qualifiers: Constipation type: slow transit constipation Qualified Code(s): K59.01 - Slow transit constipation Plan Patient will hold Nexium and start famotidine twice a day. She will return in 2 weeks for H pylori testing. Will treat empirically if positive. Patient will also go for upper GI with barium swallow to evaluate for reflux. Patient will start taking senna b.i.d.. Increase fluid intake in the to promote better bowel motility. Long discussion with patient of about avoiding dietary triggers in late night snacking. Staying upright for minimum 3 hours after meals discussed with patient. Patient will return in 4 months, sooner on as needed basis. She is agreeable to this plan and verbalizes understanding of instructions. She was given the opportunity to ask questions and all questions answered. Thank you for allowing me to participate in her care Orders: Orders H Pylori Breath Test Today K21.9 - Gastro-esophageal reflux disease without esophagitis FL upper GI w Ba Swallow Today K21.9 - Gastro-esophageal reflux disease without esophagitis Medications: New sennosides (Natural Senna Laxative) 17.2 mg (2 x 8.6 mg) PO BEDTIME 60 tabs 3RF constipation K59.00 - Constipation, unspecified famotidine (Pepcid) 20 mg PO BID 30 tabs 3RF K29.70 - Gastritis, unspecified, without bleeding Discontinued bisacodyl (Dulcolax (bisacodyl)) Discontinued Reason: Doctor's Order 10 mg (2 x 5 mg) PO BEDTIME 60 tabs 4RF Coding Level of Care Code Est Pt Level 4 (20243) Complex EM visit Add On G2211 Diagnoses Gastroesophageal reflux disease, unspecified whether esophagitis present K21.9 Esophagitis presence: esophagitis presence not specified Helicobacter pylori (H. pylori) A04.8 Postprandial epigastric pain R10.13 Postprandial abdominal bloating R14.0 Slow transit constipation K59.01 Constipation type: slow transit constipation Time Spent (min) 40 Comment 25 minutes spent with patient and additional 15 minutes spent reviewing her records
--- OUTSIDE RECORDS SUMMARY | 2025-02-02 09:41 | XMS_ITS | Referral Summary ---
Author Organization [facility] Address [address] [id number] Care Team Providers Care Cranberry Sorter Name Role Phone Jeremy Castro Primary Care Provider [phone] Allergies Active Allergy Reactions Criticality Noted Date Comments Doxycycline Monohydrate Dysphagia 07/31/2023 Medications Ventolin HFA 90 mcg/actuation inhaler Inhale 2 puffs by mouth every 6 hours as needed for shortness of breath or wheezing. 3 Active amLODIPine (NORVASC) 5 mg tablet Take 5 mg by mouth once a day. 3 Active cetirizine (ZyrTEC) 10 mg capsule capsule Take 1 capsule by mouth 2 (two) times a day. Active docusate sodium (COLACE) 100 mg capsule Take 100 mg by mouth 2 times a day. 3 Active Breo Ellipta 200-25 mcg/dose blister with device Inhale 1 puff by mouth once a day. 3 Active Myrbetriq 25 mg tablet Take 25 mg by mouth once a day. 3 Active montelukast (SINGULAIR) 10 mg tablet Take 10 mg by mouth nightly. Active clotrimazole (LOTRIMIN) 1% cream Apply topically to the affected area 2 times a day. 28 g 11 3 Active Social History Tobacco Use Types Packs/Day Years Used Date Smoking Tobacco: Never Assessed Comments Unknown Sex and Gender Information Value Date Recorded Sex Assigned at Female 07/30/2023 11:04 AM EDT Legal Sex Female 1:02 PM EDT Gender Identity Female 07/30/2023 11:04 AM EDT Sexual Orientation Straight 07/30/2023 11 :04 AM EDT Plan of Treatment Not on file Insurance [facility] MEDICAID Care Teams Cranberry Sorter Relationship Specialty Start Date End Date Jeremy Castro [address] [place] [address] [place] [address] PCP - General Internal Medicine 05/14/23
--- OUTSIDE RECORDS SUMMARY | 2025-02-02 09:41 | XMS_ITS | Clinical Summary ---
Author Organization [facility] Address [address] [id number] Care Team Providers Care Jig Bore Tool Maker Name Role Phone Jeremy Castro Primary Care Provider [phone] Allergies Active Allergy Reactions Criticality Noted Date [...] 11 :04 AM EDT Plan of Treatment Health Maintenance Due Date Last Done Comments Cervical Cancer Screening 1977 Cologuard 1977 Colon Cancer Screening 1977 Colonoscopy 1977 FOBT / Fit Test 1977 HIV Screening 1977 HPV and Pap Smear 1977 Hepatitis C Screening 1977 Pap Smear 1977 Sigmoidoscopy 1977 Hepatitis B Vaccines (1 of 3 - 19+ 3-dose series) 1996 Mammogram 2017 Pneumococcal Vaccine: Pediat monica (0-5 Years) and At-Risk Patients (6-50 Years) (2 of 2 - PCV) 06/18/2019 06/18/2018 COVID-19 Vaccine ( - 2023-2 5 season) 2024 12/02/2021, 03/30/2021, 03/09/2021 Alcohol/Substance Use Screening 10/22/2024 Depression Screening and Follow-Up 10/22/2024 Social Drivers of Health Qiana ual Screening 10/22/2024 Influenza Vaccine (Season Ended) 2025 09/21/2022, 07/18/2021, 06/11/2020, Additional history exists DTaP,Tdap,and Td Vaccines (4 - Td or Tdap) 09/21/2032 09/21/2022, 02/14/2019, 10/31/2011 RSV Vaccine (60+ years old a nd patients) (1 - 1-dose 75+ series) 2052 Insurance [facility] MEDICAID Care Teams Jig Bore Tool Maker Relationship Specialty Start Date End Date Jeremy Castro [address] [place] [address] dr James Ramirez, MICHAEL [address] PCP - General Internal Medicine 05/14/23
--- OUTSIDE RECORDS SUMMARY | 2025-02-02 09:42 | XMS_ITS | Clinical Summary ---
Author Organization [facility] Address [address] [place] [address] Care Team Providers Care Infection Control Specialist Name Role Phone Jeremy Castro MD Primary Care Provider [phone] Surgical History Surgery Date Site/Laterality Comments TUBAL LIGATION PROCEDURE: HISTORICAL TUBAL LIGATION ESOPHAGOGASTRODUODENOSCOPY 05/26/2019 PROCEDURE: [place] ESOPHAGOGASTRODUODENOSCOPY TRANSORAL DIAGNOSTIC; COMMENT: Dr. Hemphill - normal Medical History Medical History Date Comments Asthma 09/03/2017 DX:Asthma Migraines 09/03/2017 DX:Migraines Mitral valve prolapse 09/03/2017 DX:Mitral valve prolapse Gastroesophageal reflux disease 07/20/2017 DX:Gastroesophageal reflux disease Allergic rhinitis 03/12/2018 DX:Allergic rh initis H. pylori infection 06/03/2018 DX:H. pylori infection Family History Medical History Relation Name Comments Colon cancer Aunt two paternal au nts Coronary artery disease Father Hypertension Father Seizures Father Stomach cancer Maternal Grandfather Coronary artery disease Mother Hypertension Mother Relation Name Status Comments Aunt Alive Father Alive Maternal Grandfather Mother Alive Social History Tobacco Use Types Packs/Day Years Used Date Smoking Tobacco: Never Smokeless Tobacco: Never Alcohol Use Standard Drinks/Week Comments No 0 (1 standard drink = 0.6 oz pur e alcohol) Comments Unknown Sex and Gender Information Value Date Recorded Sex Assigned at Not on file Legal Sex Female 4:53 PM EST Gender Identity Not on file Sexual Orientation Not on file Obstetrics History Plan of Treatment Health Maintenance Due Date Last Done Comments Breast Cancer Screening 1977 DTaP,Tdap,and Td Vaccines (1 - Tdap) 1996 Hepatitis B Vaccines (1 of 3 - 19+ 3-dose series) 1996 Pneumococcal Vaccine: Pediat rics (0 to 5 Years) and At-Risk Patients (6 to 64 Years) (1 of 2 - PCV) 1996 Cervical Cancer Screening: P ap Smear 1998 Colorectal Cancer Screening: Colonoscopy 09/20/2022 Depression Screening 09/20/2022 HIV Screening 09/20/2022 Hepatitis C Screening 09/20/2022 Social Influencers of Health Screening 09/20/2022 COVID-19 Vaccine (2023-2 5 season) 2024 Influenza Vaccine (Season Ended) 2025 HIB Vaccines Aged Out No longer eligi ble based on patient's age to complete this topic HPV Vaccines Aged Out No longer eligi ble based on patient's age to complete this topic Hepatitis A Vaccines Aged Out No long er eligible based on patient's age to complete this topic IPV Vaccines Aged Out No longer eligi ble based on patient's age to complete this topic MMR Vaccines Aged Out No longer eligi ble based on patient's age to complete this topic Meningococcal ACWY Vaccine Aged Out N o longer eligible based on patient's age to complete this topic Meningococcal B Vaccine Aged Out No l onger eligible based on patient's age to complete this topic RSV Immunization Patients Un trish 20 months Aged Out No longer eligible b ased on patient's age to complete this topic Varicella Vaccines Aged Out No longer eligible based on patient's age to complete this topic Care Teams Infection Control Specialist Relationship Specialty Start Date End Date Jeremy Castro MD [address] [place] [address] [address] MICHAEL Ramirez PCP - General Internal Medicine 10/02/17
== END 2025-02-02 09:36 | disposition home or self-care (01) ==
LOC: HO.HGI 08:54
PROVIDERS: PCP Internal Medicine; Visit Provider Nurse Practitioner Family
DX: K21.9 Gastro-esophageal reflux disease without esophagitis (principal); A04.8 Other specified bacterial intestinal infections; R10.13 Epigastric pain; R14.0 Abdominal distension (gaseous); K59.01 Slow transit constipation
CPT/HCPCS: 99214; G2211

== ENCOUNTER → 2025-02-02 08:53 | Outpatient (BNVA) | payer OTHER, SELFPAY | PROVIDERS: PCP Internal Medicine; Visit Provider Nurse Practitioner Family | DX: K21.9 Gastro-esophageal reflux disease without esophagitis (principal); K59.01 Slow transit constipation; K29.70 Gastritis, unspecified, without bleeding; A04.8 Other specified bacterial intestinal infections; R10.13 Epigastric pain; R14.0 Abdominal distension (gaseous); G89.29 Other chronic pain | CPT/HCPCS: 99212 ==

== ENCOUNTER 2025-02-18 08:29 | Outpatient (REF) | payer OTHER, SELFPAY ==
--- OUTSIDE RECORDS SUMMARY | 2025-02-19 16:41 | XMS_ITS | Referral Summary ---
Author Organization [facility] Address [address] [id number] Care Team Providers Care Building Construction Professor Name Role Phone Jeremy Castro Primary Care Provider [phone] Allergies Active Allergy Reactions Criticality Noted Date [...] Plan of Treatment Not on file Insurance [facility] MEDICAID Care Teams Building Construction Professor Relationship Specialty Start Date End Date Jeremy Castro [address] [place] [address] [place] [address] PCP - General Internal Medicine 05/14/23
--- OUTSIDE RECORDS SUMMARY | 2025-02-19 16:41 | XMS_ITS | Clinical Summary ---
Author Organization [facility] Address [address] [id number] Care Team Providers Care Rn Or Lvn Name Role Phone Jeremy Castro Primary Care Provider [phone] Allergies Active Allergy Reactions Criticality Noted Date [...] (1 - 1-dose 75+ series) [address] [facility] MEDICAID Care Teams Rn Or Lvn Relationship Specialty Start Date End Date Jeremy Castro [address] [place] [address] dr James Ramirez, MICHAEL [address] PCP - General Internal Medicine 05/14/23
--- OUTSIDE RECORDS SUMMARY | 2025-02-19 16:41 | XMS_ITS | Clinical Summary ---
Author Organization [facility] Address [address] [place] [address] Care Team Providers Care Regional Retail Sales Manager Name Role Phone Jeremy Castro MD Primary Care Provider Surgical History Surgery Date Site/Laterality Comments TUBAL LIGATION PROCEDURE: HISTORICAL TUBAL LIGATION ESOPHAGOGASTRODUODENOSCOPY 05/26/2019 PROCEDURE: [place] ESOPHAGOGASTRODUODENOSCOPY TRANSORAL DIAGNOSTIC; COMMENT: Dr. Hemphill - [...] complete this topic RSV Immunization Patients Un trsih 20 months Aged Out No longer eligible b ased on patient's age to complete this topic Varicella Vaccines Aged Out No longer eligible based on patient's age to complete this topic Care Teams Regional Retail Sales Manager Relationship Specialty Start Date End Date Jeremy Castro MD [address] [place] [address] [address] MICHAEL Ramirez PCP - General Internal Medicine 10/02/17
[2025-02-20 09:15] LABS: H Pylori Breath Test Positive (Negative)
== END 2025-02-18 08:30 | disposition home or self-care (01) ==
LOC: HO.LNP 08:29
PROVIDERS: PCP Internal Medicine; Visit Provider Nurse Practitioner Family
DX: K21.9 Gastro-esophageal reflux disease without esophagitis (principal); Z11.2 Encounter for screening for other bacterial diseases
CPT/HCPCS: 83013; 99211

== ENCOUNTER 2025-02-18 08:29 | Outpatient (AMB) | payer OTHER, SELFPAY ==
--- OUTSIDE RECORDS SUMMARY | 2025-02-18 08:44 | XMS_ITS | Clinical Summary ---
Author Organization [facility] Address [address] [id number] Care Team Providers Care Building Code Inspector Name Role Phone Jeremy Castro Primary Care Provider [phone] Allergies Active Allergy Reactions Criticality Noted Date [...] (1 - 1-dose 75+ series) [address] [facility] [place] [address] Care Teams Building Code Inspector Relationship Specialty Start Date End Date Jeremy Castro [address] [place] [address] dr James Ramirez, MICHAEL [id number] PCP - General Internal Medicine 05/14/23
--- OUTSIDE RECORDS SUMMARY | 2025-02-18 08:44 | XMS_ITS | Clinical Summary ---
Author Organization [facility] Address [address] [place] [address] Care Team Providers Care Tub Wash Operator Name Role Phone Jeremy Castro MD Primary Care Provider Surgical History Surgery Date Site/Laterality Comments TUBAL LIGATION PROCEDURE: HISTORICAL TUBAL LIGATION ESOPHAGOGASTRODUODENOSCOPY 05/26/2019 PROCEDURE: [place] ESOPHAGOGASTRODUODENOSCOPY TRANSORAL DIAGNOSTIC; COMMENT: Dr. Hemphill - [...] age to complete this topic Care Teams Tub Wash Operator Relationship Specialty Start Date End Date Jeremy Castro MD [address] [place] [address] [address] MICHAEL Ramirez PCP - General Internal Medicine 10/02/17
--- OUTSIDE RECORDS SUMMARY | 2025-02-18 08:44 | XMS_ITS | Referral Summary ---
Author Organization [facility] Address [address] [id number] Care Team Providers Care Network Security Architect Name Role Phone Jeremy Castro Primary Care Provider [phone] Allergies Active Allergy Reactions Criticality Noted Date [...] Plan of Treatment Not on file Insurance [facility] MEDICAID Care Teams Network Security Architect Relationship Specialty Start Date End Date Jeremy Castro [address] [place] [address] [place] [address] PCP - General Internal Medicine 05/14/23
--- NOTE | 2025-02-18 08:46 | AM.OFFVISNUR ---
Intake Visit Reasons: h pylori Allergies doxycycline Allergy (Severe, Verified 02/02/25 09:06) Anaphylaxis Nursing Note Patient presents for collection of H Pylori breath test. Patient has been fasting for 1 hour (nothing to eat, drink, no chewing gum or smoking) has not taken any antacid medication for at least 2 weeks and has no allergies to artificial sweeteners.?? Assessment & Plan Assessment & Plan (1) RUQ abdominal pain: Code(s): R10.11 - Right upper quadrant pain Category: Medical Plan Patient presents for collection of H Pylori breath test. Patient has been fasting for 1 hour (nothing to eat, drink, no chewing gum or smoking) has not taken any antacid medication for at least 2 weeks and has no allergies to artificial sweeteners.???This test checks for an overgrowth of bacteria in your stomach. We all have bacteria but some may have more than others. It is treatable. if the test comes back negative there is nothing else to do. If the test result is positive we will treat you with 2 antibiotics and a medication to decrease the acid in your stomach (PPI) for 2 weeks. Two weeks after you have completed the treatment we will retest you to make sure the overgrowth has resolved. Patient Instructions: Process for specimen collection and reason for testing was explained to the patient. Specimen collection. Patient instructed to take a deep breath and then exhale into the blue bag, filling it up as much as possible. Patient instructed to drink a mixture of water and the artificial sweetener with a straw. A 15 minute wait period was observed. Patient instructed to take a deep breath and then exhale into the pink bag, filling it up as much as possible.?? Coding Level of Care Code Established Pt Est Pt Level 1 (67884) Patient Type Established Medical Decision Making Straight Forward Diagnoses RUQ abdominal pain R10.11
== END 2025-02-18 08:47 | disposition home or self-care (01) ==
LOC: HO.HGI 08:30
PROVIDERS: PCP Internal Medicine; Visit Provider Nurse Practitioner Family
DX: R10.11 Right upper quadrant pain (principal)

== ENCOUNTER 2025-02-26 07:55 | Outpatient (AMB) | payer OTHER, SELFPAY ==
--- OUTSIDE RECORDS SUMMARY | 2025-02-26 07:59 | XMS_ITS | Clinical Summary ---
Author Organization [facility] Address [address] [phone] Care Team Providers Care Bereavement Program Coordinator Name Role Phone Jeremy Castro Primary Care Provider [phone] Allergies Active Allergy Reactions Criticality Noted Date [...] (1 - 1-dose 75+ series) 2052 Insurance [facility] MEDICAID Care Teams Bereavement Program Coordinator Relationship Specialty Start Date End Date Jeremy Castro [address] [place] [address] dr James Ramirez, MICHAEL [address] PCP - General Internal Medicine 05/14/23
--- OUTSIDE RECORDS SUMMARY | 2025-02-26 07:59 | XMS_ITS | Referral Summary ---
Author Organization [facility] Address [address] [id number] Care Team Providers Care Adult Basic Studies Teacher Name Role Phone Jeremy Castro Primary Care Provider [phone] Allergies Active Allergy Reactions Criticality Noted Date [...] Plan of Treatment Not on file Insurance [facility] MEDICAID Care Teams Adult Basic Studies Teacher Relationship Specialty Start Date End Date Jeremy Castro [address] [place] [address] [place] [address] PCP - General Internal Medicine 05/14/23
[2025-02-26 08:04] VITALS: BMI 35.8
--- NOTE | 2025-02-26 08:04 | A.OFFVIS_ITS ---
Vital Signs 02/26/25 08:04 Height 5 ft 2 in Weight 196 lb BMI 35.8 Intake Visit Reasons: Pelvic pain Stone Gang Sawyer Required: Yes Stone Gang Sawyer Language: Administrative Office Manager Services: Stone Gang Sawyer Present (in person) Stone Gang Sawyer Name: Seema PAREDES Information Interpreted: non-clinical & clinical Specialty Development Consultant: Specialty Development Consultant Present (Seema PAREDES) Accompanied by: Self / Same As Patient Allergies doxycycline Allergy (Severe, Verified 02/26/25 08:14) Anaphylaxis HPI Comments Details: The patient is presenting with bilateral lower pain started 1-2 week ago. It's intermittent in nature lasting few seconds and occurs 3x/day. it is not associated with constipation, no dysuria, or frequency /incontinence, no n/v, no feverishness, no vaginal discharge PFSH Medical History RUQ abdominal pain Vitamin D deficiency Impaired fasting glucose Arthritis Perianal cyst Helicobacter pylori (H. pylori) H/O sleep study History of COVID-19 Obesity (BMI 30-39.9) Depression Anxiety Insomnia Allergic rhinitis Pure hypercholesterolemia Benign essential hypertension DJD (degenerative joint disease) Migraines Hiatal hernia GERD (gastroesophageal reflux disease) Cough variant asthma Asthma Surgical History Hx of surgical procedure (02/01/24) History of endometrial ablation Hx of colonoscopy History of esophagogastroduodenoscopy (EGD) History of tubal ligation History of breast biopsy Family History Father Hypertension CVD (cardiovascular disease) Stroke Epilepsia Mother Hypertension Diabetes mellitus CVD (cardiovascular disease) Brother Epilepsia Depressed Anxiety Sister Epilepsia Depressed Anxiety Daughter No problems noted. Son No problems noted. Social History Housing: House Alcohol intake: never Comment: counts correct Patient Tobacco Use Status: Never used Tobacco e-Cigarette/Vaping Use: Never Used Second Hand Smoke Exposure: Yes Advance Directives Date on File: 12/19/16 service: No Current occupational status: employed Cognitive needs: No Hearing needs: No Vision needs: Yes (glasses) Female Reproductive History Menstrual Age of Menarche: 11 Review of Systems Const All systems reviewed & are unremarkable except as noted in HPI and below Physical Exam Vital Signs: BMI result Body Mass Index 35.8 General: Yes no CVA tenderness External Female Exam: normal external appearance and normal appearance of the urethra Speculum Exam - Vagina: normal appearance of the vagina, normal palpation, no lesions and no masses Speculum Exam - Cervix: normal appearance of the cervix, normal palpation, no lesions, no masses and nontender Bimanual exam- vagina & uterus: normal bimanual exam, normal palpation, uterine size normal, normal palpation, uterine shape normal, No Cervical tenderness present and non-tender Bimanual Exam- Adnexa, other: normal adnexae Back/Spine/Pelvis Back: no CVA tenderness Assessment & Plan Assessment & Plan (1) Pelvic pain: Code(s): R10.2 - Pelvic and perineal pain Category: Medical Plan: Urine dip and test done in the office were both negative. GC and chlamydia taken and pelvic ultrasound ordered. Discussed with the patient the differential diagnosis of pelvic pain including but not limited to adnexal, uterine masses, pelvic infections (PID), GI the (Irritable bowel syndrome, diverticulitis, others), musculoskeletal, myofascial pain abdominal wall , adhesions, endometriosis, psychological and others causes. Will check results and treat accordingly. All questions answered, the patient verbalized understanding. Instructed the patient to schedule an ultrasound and a follow-up appointment in 2 weeks. All questions answered, the patient verbalized understanding and agreed with the plan. Orders: Orders US pelvic and transvaginal Today R10.2 - Pelvic and perineal pain AMB HCG Urine Test Today Z32.02 - Encounter for test, result negative AMB Urinalysis Dipstick Today R10.2 - Pelvic and perineal pain Coding Level of Care Code Est Pt Level 3 (79361) Diagnoses Pelvic pain R10.2
== END 2025-02-26 08:21 | disposition home or self-care (01) ==
LOC: HO.HWS 07:55
PROVIDERS: PCP Internal Medicine; Visit Provider Obstetrics & Gynecology
DX: R10.2 Pelvic and perineal pain (principal); Z32.02 Encounter for pregnancy test, result negative
CPT/HCPCS: 99213

== ENCOUNTER 2025-02-26 07:55 | Outpatient (REF) | payer OTHER, SELFPAY ==
--- OUTSIDE RECORDS SUMMARY | 2025-02-26 08:36 | XMS_ITS | Clinical Summary ---
Author Organization [facility] Address [address] [id number] Care Team Providers Care Financial Center Manager Name Role Phone Jeremy Castro Primary Care Provider [phone] Allergies Active Allergy Reactions Criticality Noted Date [...] (1 - 1-dose 75+ series) 2052 Insurance [facility] MEDICAID Care Teams Financial Center Manager Relationship Specialty Start Date End Date Jeremy Castro [address] [place] [address] dr James Ramirez, [place]HAEL [address] PCP - General Internal Medicine 05/14/23
--- OUTSIDE RECORDS SUMMARY | 2025-02-26 08:36 | XMS_ITS | Referral Summary ---
Author Organization [facility] Address [address] [id number] Care Team Providers Care Youth Advocate Name Role Phone Jeremy Castro Primary Care Provider [phone] Allergies Active Allergy Reactions Criticality Noted Date [...] Plan of Treatment Not on file Insurance [facility] MEDICAID Care Teams Youth Advocate Relationship Specialty Start Date End Date Jeremy Castro [address] [place] [address] [place] [address] PCP - General Internal Medicine 05/14/23
--- OUTSIDE RECORDS SUMMARY | 2025-02-26 08:36 | XMS_ITS | Clinical Summary ---
Author Organization [facility] Address [address] [place] [address] Care Team Providers Care Sr Risk Management Consultant Name Role Phone Jeremy Castro MD Primary Care Provider Surgical History Surgery Date Site/Laterality Comments TUBAL LIGATION PROCEDURE: HISTORICAL TUBAL LIGATION ESOPHAGOGASTRODUODENOSCOPY 05/26/2019 PROCEDURE: [place] ESOPHAGOGASTRODUODENOSCOPY TRANSORAL DIAGNOSTIC; COMMENT: Dr. Hemphill - [...] age to complete this topic Care Teams Sr Risk Management Consultant Relationship Specialty Start Date End Date Jeremy Castro MD [address] [place] [address] [address] MICHAEL Ramirez PCP - General Internal Medicine 10/02/17
[2025-02-27 13:25] LABS: CT PCR NOT DETECTED (Not Detect.); NG PCR NOT DETECTED (Not Detect.)
== END 2025-02-26 07:56 | disposition home or self-care (01) ==
LOC: HO.LNP 07:55
PROVIDERS: PCP Internal Medicine; Visit Provider Obstetrics & Gynecology
DX: R10.2 Pelvic and perineal pain (principal); Z32.02 Encounter for pregnancy test, result negative; Z98.51 Tubal ligation status
CPT/HCPCS: 81002; 81025; 87491; 87591; 99212

== ENCOUNTER 2025-04-22 10:10 | Outpatient (AMB) | payer OTHER, SELFPAY ==
--- NOTE | 2025-04-22 10:13 | MHC.OFFVIS ---
Intake Visit Reasons: 2 month Allergies doxycycline Allergy (Severe, Verified 02/26/25 08:14) Anaphylaxis HPI Comments Details: 49 yo RH woman with asthma was here for migraine headaches. Sumatriptan caused a lot of side effects and she could not take it. Headache was happening about 1-2 times a week. She also wanted me to prescribe something for anxiety. She was feeling better and medicine was working but sometime while she was cooking it felt like her brain was shaking. She denied being confused with that. PFSH Medical History RUQ abdominal pain Vitamin D deficiency Impaired fasting glucose Arthritis Perianal cyst Helicobacter pylori (H. pylori) H/O sleep study History of COVID-19 Obesity (BMI 30-39.9) Depression Anxiety Insomnia Allergic rhinitis Pure hypercholesterolemia Benign essential hypertension DJD (degenerative joint disease) Migraines Hiatal hernia GERD (gastroesophageal reflux disease) Cough variant asthma Asthma Surgical History Hx of surgical procedure (02/01/24) History of endometrial ablation Hx of colonoscopy History of esophagogastroduodenoscopy (EGD) History of tubal ligation History of breast biopsy Family History Father Hypertension CVD (cardiovascular disease) Stroke Epilepsia Mother Hypertension Diabetes mellitus CVD (cardiovascular disease) Brother Epilepsia Depressed Anxiety Sister Epilepsia Depressed Anxiety Daughter No problems noted. Son No problems noted. Social History Housing: House Alcohol intake: never Comment: counts correct Patient Tobacco Use Status: Never used Tobacco e-Cigarette/Vaping Use: Never Used Second Hand Smoke Exposure: Yes Advance Directives Date on File: 12/19/16 service: No Current occupational status: employed Cognitive needs: No Hearing needs: No Vision needs: Yes (glasses) Female Reproductive History Menstrual Age of Menarche: 11 Physical Exam Neuro Other: Mental Status: Alert with normal orientation and attention. Normal spontaneous speech, fluency, and comprehension. No obvious issues with mood and memory. Affect is appropriate. Cranial Nerves: CN II: Visual weber full to confrontation, visual acuity intact. CN III, IV, : Pupils equal, round, reactive to light and accommodation. Extraocular movements are normal. CN V: Facial sensation is normal. CN VII: Facial movements symmetrical. CN VIII: Hearing intact to bedside conversation is normal. Motor: Bulk and tone normal in all extremities. No significant muscle weakness in arms and legs. No drift. Gait and Station: No obvious gait abnormality. No ataxia or instability. Sensory: Intact to light touch, pinprick, and vibration. Romberg is negative. Extrapyramidal: Full facial expressions and blinking. No rigidity. Movements are appropriate with no tremor or abnormality. Speech: Normal; no dysarthria or tremor. Assessment & Plan Assessment & Plan (1) Migraine without aura: Code(s): G43.009 - Migraine without aura, not intractable, without status migrainosus Category: Medical Qualifiers: Status migrainosus presence: without status migrainosus Intractability: intractable Qualified Code(s): G43.019 - Migraine without aura, intractable, without status migrainosus (2) Migraine with aura: Code(s): G43.109 - Migraine with aura, not intractable, without status migrainosus Category: Medical Qualifiers: Status migrainosus presence: without status migrainosus Intractability: intractable Qualified Code(s): G43.119 - Migraine with aura, intractable, without status migrainosus (3) Anxiety disorder: Code(s): F41.9 - Anxiety disorder, unspecified Category: Medical Qualifiers: Anxiety disorder type: generalized anxiety disorder Qualified Code(s): F41.1 - Generalized anxiety disorder Plan 1. Migraine with and without aura: At this time there were relatively control with topiramate 25 mg a day, which would continue 2. Anxiety disorder, symptoms were control with escitalopram 5 mg daily in the morning Medications: New topiramate 25 mg PO DAILY 90 tabs 1RF 90 days escitalopram oxalate 5 mg PO DAILY 90 tabs 1RF 90 days Coding Level of Care Code Est Pt Level 4 (48512) Diagnoses Intractable migraine without aura and without status migrainosus G43.019 Status migrainosus presence: without status migrainosus Intractability: intractable Intractable migraine with aura without status migrainosus G43.119 Status migrainosus presence: without status migrainosus Intractability: intractable Generalized anxiety disorder F41.1 Anxiety disorder type: generalized anxiety disorder
--- OUTSIDE RECORDS SUMMARY | 2025-04-22 10:40 | XMS_ITS | Clinical Summary ---
Author Organization [employer] [facility] Address [address] [place] [address] Care Team Providers Care Diet Counselor Name Role Phone Jeremy Castro MD Primary Care Provider Surgical History Surgery Date Site/Laterality Comments TUBAL LIGATION PROCEDURE: HISTORICAL TUBAL LIGATION ESOPHAGOGASTRODUODENOSCOPY 05/26/2019 PROCEDURE: CT ESOPHAGOGASTRODUODENOSCOPY TRANSORAL DIAGNOSTIC; COMMENT: Dr. Hemphill - [...] age to complete this topic Care Teams Diet Counselor Relationship Specialty Start Date End Date Jeremy Castro MD [address] [place] [address] [address] MICHAEL Ramirez PCP - General Internal Medicine 10/02/17
--- OUTSIDE RECORDS SUMMARY | 2025-04-22 10:40 | XMS_ITS | Referral Summary ---
Author Organization [facility] Address [address] [phone] Care Team Providers Care Radio Presenter Name Role Phone Jeremy Castro Primary Care Provider [phone] Allergies Active Allergy Reactions Criticality Noted Date [...] Plan of Treatment Not on file Insurance [facility] MEDICAID Care Teams Radio Presenter Relationship Specialty Start Date End Date Jeremy Castro [address] [place] [address] [place] [address] PCP - General Internal Medicine 05/14/23
== END 2025-04-22 10:22 | disposition home or self-care (01) ==
LOC: HO.HSM 10:10
PROVIDERS: PCP Internal Medicine; Visit Provider Psychiatry & Neurology Neurology
DX: G43.019 Migraine without aura, intractable, without status migrainosus (principal); G43.119 Migraine with aura, intractable, without status migrainosus; F41.1 Generalized anxiety disorder
CPT/HCPCS: 99214

== ENCOUNTER → 2025-04-22 10:10 | Outpatient (BNVA) | payer OTHER, SELFPAY | PROVIDERS: PCP Internal Medicine; Visit Provider Psychiatry & Neurology Neurology | DX: G43.019 Migraine without aura, intractable, without status migrainosus (principal); G43.119 Migraine with aura, intractable, without status migrainosus; F41.1 Generalized anxiety disorder | CPT/HCPCS: 99212 ==

== ENCOUNTER 2025-05-15 12:59 | Outpatient (AMB) | payer OTHER, SELFPAY ==
[2025-05-15 13:01] VITALS: BP 126/78; PULSE 92; O2SAT 98; BMI 36.4
--- NOTE | 2025-05-15 13:01 | A.OFFVIS_ITS ---
Vital Signs 05/15/25 13:01 Height 5 ft 2 in Weight 199 lb BMI 36.4 BP 126/78 Blood Pressure Location Rt brachial Position Sitting Pulse 92 Pulse Source Pulse Oximeter Pulse Oximetry (%) 98 Oxygen Delivery Method Room Air Intake Visit Reasons: asthma Allergies doxycycline Allergy (Severe, Verified 05/15/25 13:05) Anaphylaxis HPI HPI asthma: Details: 49-year-old lady, nonsmoker, with underlying history of asthma since childhood, followed for moderate to severe persistent allergic asthma. Patient continues on Breo, Spiriva, Dupixent, and albuterol MDI with reasonable control of her symptoms, though she feels like Breo does not work for 24 hours for her. She denies recent acute exacerbations. [facility] Medical History RUQ abdominal pain Vitamin D deficiency Impaired fasting glucose Arthritis Perianal cyst Helicobacter pylori (H. pylori) H/O sleep study History of COVID-19 Obesity (BMI 30-39.9) Depression Anxiety Insomnia Allergic rhinitis Pure hypercholesterolemia Benign essential hypertension DJD (degenerative joint disease) Migraines Hiatal hernia GERD (gastroesophageal reflux disease) Cough variant asthma Asthma Surgical History Hx of surgical procedure (02/01/24) History of endometrial ablation Hx of colonoscopy History of esophagogastroduodenoscopy (EGD) History of tubal ligation History of breast biopsy Family History Father Hypertension CVD (cardiovascular disease) Stroke Epilepsia Mother Hypertension Diabetes mellitus CVD (cardiovascular disease) Brother Epilepsia Depressed Anxiety Sister Epilepsia Depressed Anxiety Daughter No problems noted. Son No problems noted. Social History Housing: House Alcohol intake: never Comment: counts correct Patient Tobacco Use Status: Never used Tobacco e-Cigarette/Vaping Use: Never Used Second Hand Smoke Exposure: Yes Advance Directives Date on File: 12/19/16 service: No Current occupational status: employed Cognitive needs: No Hearing needs: No Vision needs: Yes (glasses) Female Reproductive History Menstrual Age of Menarche: 11 Review of Systems Const Denies daytime sleepiness, Denies excessive sweating, Denies fatigue, Denies fever(s), Denies lethargy, Denies malaise, Denies night sweats, Denies snoring and Denies weight loss Eyes Denies blurry vision and Denies itchy eyes ENT Denies nasal congestion, Denies post nasal drip, Denies sinus pain, Denies sinus pressure and Denies other ( Thrush) Card Denies chest pain, Denies pedal edema, Denies dyspnea, Denies orthopnea and Denies paroxysmal nocturnal dyspnea Resp Denies cough, Denies hemoptysis, Denies excessive phlegm production, Denies dyspnea, Denies snoring and Denies wheezing GI Denies abdominal pain and Denies heartburn Musc Denies myalgias, Denies arthralgias and Denies joint swelling Skin/Breast Denies rash Neuro Denies memory loss and Denies seizure-like activity Psych Denies abnormal sleep pattern, Denies anxiety and Denies memory loss Endo Denies excessive sweating, Denies fatigue and Denies heat intolerance Drew/Lymph Denies easy bruising Aller/Immun Denies itchy eyes, Denies seasonal rhinorrhea and Denies wheezing Physical Exam Vital Signs: Last Vital Signs Pulse 92 05/15/25 13:01 BP 126/78 05/15/25 13:01 Pulse Ox 98 05/15/25 13:01 Oxygen Delivery Method Room Air 05/15/25 13:01 BMI result Body Mass Index 36.4 Const General: no acute distress and alert Nutritional Appearance: not obese Orientation/consciousness: Other orientation findings ( oriented) HEENT Head: Yes atraumatic Eyes General: appearance normal, both eyes and all related structures Sclerae: sclerae normal EOM: EOMs intact bilaterally Neck Neck: Yes supple Lymphatic: no lymphadenopathy noted Resp Effort & Inspection: normal respiratory effort and no use of accessory muscles Auscultation: clear to auscultation bilaterally Cardio Rate: regular rate Rhythm: regular rhythm Heart sounds: no gallops, no murmurs and no rubs Skin General skin exam: other ( warm) Extrem General: No clubbing, No cyanosis and No edema Assessment & Plan Assessment & Plan (1) Severe persistent allergic asthma: Code(s): J45.50 - Severe persistent asthma, uncomplicated Category: Medical Plan: Patient only gets full 24 hour control on Breo, will switch to Advair. Continue Dupixent, duo nebs, and albuterol MDI. (2) Environmental allergies: Code(s): Z91.09 - Other allergy status, other than to drugs and biological substances Category: Medical Plan: Well controlled on Dupixent. Continue current regimen. Coding Level of Care Code Est Pt Level 4 (06914) Diagnoses Severe persistent allergic asthma J45.50 Environmental allergies Z91.09
--- OUTSIDE RECORDS SUMMARY | 2025-05-15 13:01 | XMS_ITS | Referral Summary ---
Author Organization [facility] Address [address] [phone] Care Team Providers Care Surveyor Helper Name Role Phone Jeremy Castro Primary Care Provider [phone] Allergies Active Allergy Reactions Criticality Noted Date [...] Plan of Treatment Not on file Insurance [facility] MEDICAID Care Teams Surveyor Helper Relationship Specialty Start Date End Date Jeremy Castro [address] [place] [address] [place] [address] PCP - General Internal Medicine 05/14/23
--- OUTSIDE RECORDS SUMMARY | 2025-05-15 13:01 | XMS_ITS | Clinical Summary ---
Author Organization [employer] [facility] Address [address] [place] [address] Care Team Providers Care Medicaid Biller Name Role Phone Jeremy Castro MD Primary [...] 5 Years) and At-Risk Patients (6 to 49 Years) (1 of 2 - PCV) 1996 Cervical Cancer Screening: P ap Smear 1998 Colorectal Cancer Screening: Colonoscopy 09/20/2022 HIV Screening 09/20/2022 Hepatitis C Screening 09/20/2022 Social Influencers of Health Screening 09/20/2022 COVID-19 Vaccine (1 - 2023-2 5 season) 2024 Depression Screening 10/22/2024 Influenza Vaccine (#1) 2025 HIB Vaccines Aged Out No longer [...] age to complete this topic Care Teams Medicaid Biller Relationship Specialty Start Date End Date Jeremy Castro MD [address] [place] [address] [address] MICHAEL Ramirez PCP - General Internal Medicine 10/02/17
== END 2025-05-15 13:13 | disposition home or self-care (01) ==
LOC: HO.HPS 12:59
PROVIDERS: PCP Internal Medicine; Visit Provider Internal Medicine Pulmonary Disease
DX: J45.50 Severe persistent asthma, uncomplicated (principal); Z91.09 Other allergy status, other than to drugs and biological substances
CPT/HCPCS: 99214

== ENCOUNTER → 2025-05-15 12:59 | Outpatient (BNVA) | payer OTHER, SELFPAY | PROVIDERS: PCP Internal Medicine; Visit Provider Internal Medicine Pulmonary Disease | DX: J45.50 Severe persistent asthma, uncomplicated (principal); Z91.09 Other allergy status, other than to drugs and biological substances | CPT/HCPCS: 99212 ==

== ENCOUNTER 2025-05-22 08:43 | Outpatient (REF) | payer OTHER, SELFPAY ==
--- OUTSIDE RECORDS SUMMARY | 2025-05-22 08:55 | XMS_ITS | Encounter Summary ---
Author Organization [facility] Address [address] [place] [address] Phone Care Team Providers Care Weather Forecaster Name Role Phone Jeremy Castro MD Primary Care Provider [phone] Reason for Referral * MRI/CAT Scan - Closed Specialty Diagnoses / Procedures Referred By Contac t Referred To Contact Procedures CT Chest Outside (No Interpretation) Baljinder Stubbs MD Phone: tel: fax: [email or web address]:[email or web address] Referral ID Status Reason Start Date Expiration Date Visits Re quested Visits Authorized [id number] Closed 12/23/2018 12/23/2019 1 1 Encounter Details Date Type Department Care Team (Late st Contact Info) Description 12/23/2018 Transcribe Orders [facility] [address] [place] [id number] [address] [place] [id number] [email or web address] Social History Tobacco Use Types Packs/Day Years Used Date Smoking Tobacco: Never Smokeless Tobacco: Never Comments Unknown Sex and Gender Information Value Date Recorded Sex Assigned at Not on file Legal Sex Female 9:26 PM EDT Gender Identity Not on file Sexual Orientation Not on file documented as of this encounter Plan of Treatment Not on file documented as of this encounter Results * XR Chest Outside (No Interpretation) (12/23/2018 10:12 AM EST) Narrative [facility] - 12/23/2018 10:12 AM EST This study is for PACS storage only and not for interpretation. Baljinder Stubbs MD IMG OUTSIDE IMAGING W/OUT INTERPRETATION Final Result Performing Organization Address City/[facility] Co de Phone Number [email or web address] * XR Chest Outside (No Interpretation) (12/23/2018 10:12 AM EST) Narrative [facility] - 12/23/2018 10:12 AM EST This study is for PACS storage only and not for interpretation. Baljinder Stubbs MD IMG OUTSIDE IMAGING W/OUT INTERPRETATION Final Result Performing Organization Address [facility] de Phone Number [email or web address] * CT Chest Outside (No Interpretation) (12/23/2018 10:12 AM EST) Narrative [facility] - 12/23/2018 10:12 AM EST This study is for PACS storage only and not for interpretation. us Baljinder Stubbs MD IMG OUTSIDE IMAGING W/OUT INTERPRETATION Final Result Performing Organization Address [facility] de Phone Number [email or web address] documented in this encounter Visit Diagnoses Not on filedocumented in this encounter Additional Health Concerns Assessment Noted Time PHQ-2 Depression Total Score: 0 07/18/20 18 7:57 AM EDT documented as of this encounter Care Teams Weather Forecaster Relationship Specialty Start Date End Date Jeremy Castro MD [address] [place] [address] [place] [address] PCP - General Internal Medicine 06/05/18 documented as of this encounter Additional Source Comments The information contained in this document represents components of the legal health record. It is not the complete legal health record.[facility]
--- OUTSIDE RECORDS SUMMARY | 2025-05-22 08:55 | XMS_ITS | Clinical Summary ---
Author Organization [employer] [facility] Address [address] [place] [address] Care Team Providers Care Supervisor Drapery Hanging Name Role Phone Jeremy Castro MD Primary Care Provider Surgical History Surgery Date Site/Laterality Comments TUBAL LIGATION PROCEDURE: HISTORICAL TUBAL LIGATION ESOPHAGOGASTRODUODENOSCOPY 05/26/2019 PROCEDURE: [place] ESOPHAGOGASTRODUODENOSCOPY TRANSORAL DIAGNOSTIC; COMMENT: Dr. Hemphill - [...] age to complete this topic Care Teams Supervisor Drapery Hanging Relationship Specialty Start Date End Date Jeremy Castro MD [address] [place] [address] [address] MICHAEL Ramirez PCP - General Internal Medicine 10/02/17
--- OUTSIDE RECORDS SUMMARY | 2025-05-22 08:55 | XMS_ITS | Referral Summary ---
Author Organization [facility] Address [address] [id number] Care Team Providers Care Polysom Tech Name Role Phone Jeremy Castro Primary Care Provider [phone] Allergies Active Allergy Reactions Criticality Noted Date [...] Plan of Treatment Not on file Insurance [facility] MEDICAID Care Teams Polysom Tech Relationship Specialty Start Date End Date Jeremy Castro [address] [place] [address] [place] [address] PCP - General Internal Medicine 05/14/23
[2025-05-22 09:30] LABS: Hematocrit 42.7 % (37.0-47.0); Hemoglobin 14.4 g/dl (12.0-16.0); Mean Corpuscular HGB Conc 33.7 g/dl (31.0-35.0); Mean Corpuscular Hemoglobin 28.9 pg (27.0-33.0); Mean Corpuscular Volume 85.6 fL (80.0-98.0); NRBC Abs Auto 0.000 X10*3/uL (0.0-0.012); NRBC Pct Auto 0.0 /100WBC (0.0-0.2); Platelet Count 314 X10*3/uL (160-400); Red Blood Count 4.99 X10*6/uL (4.20-5.50); White Blood Count 8.9 X10*3/uL (4.8-10.8)
== END 2025-05-22 08:44 | disposition home or self-care (01) ==
LOC: HO.LAB 08:43
PROVIDERS: PCP Internal Medicine; Visit Provider Obstetrics & Gynecology
DX: N93.9 Abnormal uterine and vaginal bleeding, unspecified (principal)
CPT/HCPCS: 36415; 85027

== ENCOUNTER 2025-05-28 10:45 | Outpatient (REF) | payer OTHER, SELFPAY ==
[2025-05-28 14:04] LABS: CT PCR NOT DETECTED (Not Detect.); NG PCR NOT DETECTED (Not Detect.)
== END 2025-05-28 10:46 | disposition home or self-care (01) ==
LOC: HO.LNP 10:45
PROVIDERS: PCP Internal Medicine; Visit Provider Obstetrics & Gynecology
DX: Z11.3 Encounter for screening for infections with a predominantly sexual mode of transmission (principal); Z11.8 Encounter for screening for other infectious and parasitic diseases; Z12.31 Encounter for screening mammogram for malignant neoplasm of breast; N93.9 Abnormal uterine and vaginal bleeding, unspecified
CPT/HCPCS: 87491; 87591; 99212

== ENCOUNTER 2025-05-28 10:45 | Outpatient (AMB) | payer OTHER, SELFPAY ==
[2025-05-28 10:51] VITALS: BMI 36.4
--- NOTE | 2025-05-28 10:51 | A.OFFVIS_ITS ---
Vital Signs 05/28/25 10:51 Height 5 ft 2 in Weight 199 lb BMI 36.4 Intake Visit Reasons: AUB Rn Paralegal Required: Yes Rn Paralegal Language: Health And Fitness Instructor Services: Rn Paralegal Present (in person) Rn Paralegal Name: Seema PAREDES Information Interpreted: non-clinical & clinical Personal Development Educator: Personal Development Educator Present (Seema PAREDES) Accompanied by: Self / Same As Patient Allergies doxycycline Allergy (Severe, Verified 05/28/25 10:53) Anaphylaxis HPI Comments Details: Presenting complaining of irregular menstrual cycles associated with passage of blood clots and pelvic cramping. The following workup has been done so far H&H 14.4/42.7 on 05/22 05/15 TSH within normal 03/15 GC/CT negative The patient is schedule for a pelvic ultrasound on 06/19/2025 Last mammogram was in 05/14 BI-RADS 2 Last co testing in 08/11 was negative PFSH Medical History RUQ abdominal pain Vitamin D deficiency Impaired fasting glucose Arthritis Perianal cyst Helicobacter pylori (H. pylori) H/O sleep study History of COVID-19 Obesity (BMI 30-39.9) Depression Anxiety Insomnia Allergic rhinitis Pure hypercholesterolemia Benign essential hypertension DJD (degenerative joint disease) Migraines Hiatal hernia GERD (gastroesophageal reflux disease) Cough variant asthma Asthma Surgical History Hx of surgical procedure (02/01/24) History of endometrial ablation Hx of colonoscopy History of esophagogastroduodenoscopy (EGD) History of tubal ligation History of breast biopsy Family History Father Hypertension CVD (cardiovascular disease) Stroke Epilepsia Mother Hypertension Diabetes mellitus CVD (cardiovascular disease) Brother Epilepsia Depressed Anxiety Sister Epilepsia Depressed Anxiety Daughter No problems noted. Son No problems noted. Social History Housing: House Alcohol intake: never Comment: counts correct Patient Tobacco Use Status: Never used Tobacco e-Cigarette/Vaping Use: Never Used Second Hand Smoke Exposure: Yes Advance Directives Date on File: 12/19/16 service: No Current occupational status: employed Cognitive needs: No Hearing needs: No Vision needs: Yes (glasses) Female Reproductive History Menstrual Age of Menarche: 11 Review of Systems Const All systems reviewed & are unremarkable except as noted in HPI and below Card Reports as per HPI Resp Reports as per HPI GI Reports as per HPI and Reports no additional complaints Reports as per HPI Physical Exam Vital Signs: BMI result Body Mass Index 36.4 Const General: cooperative, healthy appearing and comfortable Chest Chest palpation & inspection: normal inspection of the chest and normal palpation of entire chest wall Breast/axilla inspection: normal inspection of the breasts and normal inspection of the axillae Breast/axilla palpation: normal palpation of the breasts, normal palpation of the axillae and no axillary lymphadenopathy Resp Effort & Inspection: normal respiratory effort Auscultation: clear to auscultation bilaterally Percussion: percussion normal Cardio Palpation: normal PMI Rate: regular rate Rhythm: regular rhythm Heart sounds: no murmurs and no rubs Peripheral pulses: Peripheral pulses 2+ throughout GI Inspection: Yes normal to inspection Palpation (GI): Soft to palpation, nontender, no guarding, not rigid and No hepatosplenomegaly present Percussion: Yes normal to percussion Auscultation: normal bowel sounds Rectal Exam - Female: deferred General: Yes bladder normal to palpation External Female Exam: No lesion Speculum Exam - Vagina: normal appearance of the vagina, normal palpation, normal vaginal discharge and not erythematous Speculum Exam - Cervix: normal appearance of the cervix and normal palpation Bimanual exam- vagina & uterus: normal bimanual exam, normal palpation, uterine size normal, bladder normal to palpation, consistency normal and normal palpation Bimanual Exam- Adnexa, other: normal adnexae, no masses and no tenderness Assessment & Plan Assessment & Plan (1) Abnormal uterine bleeding (AUB): Comment: Status post NovaSure ablation Code(s): N93.9 - Abnormal uterine and vaginal bleeding, unspecified Category: Medical Plan: UPT done in the office was negative. Screening mammogram ordered GC and chlamydia taken and pelvic ultrasound scheduled in 2-3 weeks. Discussed with the patient the different causes of abnormal bleeding including thyroid disorders, uterine and ovarian pathology, endometrial hyperplasia, carcinoma and other potential causes. Discussed with the patient the work up including pelvic Ultrasound, endometrial biopsy to r/o endometrial pathology. All questions answered and the patient verbalized understanding. Instructed the patient to schedule an appointment for an endometrial biopsy in 2 weeks. Orders: Orders MM screening mammo BI Today Z12.31 - Encounter for screening mammogram for malignant neoplasm of breast Coding Level of Care Code Est Pt Level 3 (78055) Diagnoses Abnormal uterine bleeding (AUB) N93.9
--- OUTSIDE RECORDS SUMMARY | 2025-05-28 11:25 | XMS_ITS | Clinical Summary ---
Author Organization [facility] Address [address] [place] [address] Care Team Providers Care Data Architect Manager Name Role Phone Jeremy Castro MD Primary Care Provider Surgical History Surgery Date Site/Laterality Comments TUBAL LIGATION PROCEDURE: HISTORICAL TUBAL LIGATION ESOPHAGOGASTRODUODENOSCOPY 05/26/2019 PROCEDURE: ND ESOPHAGOGASTRODUODENOSCOPY TRANSORAL DIAGNOSTIC; COMMENT: Dr. Hemphill - [...] age to complete this topic Care Teams Data Architect Manager Relationship Specialty Start Date End Date Jeremy Castro MD [address] [place] [address] [address] MICHAEL Ramirez PCP - General Internal Medicine 10/02/17
--- OUTSIDE RECORDS SUMMARY | 2025-05-28 11:25 | XMS_ITS | Encounter Summary ---
Author Organization [facility] Address [address] [place] [address] Phone Care Team Providers Care Bulk Picker Name Role Phone Jeremy Castro MD Primary Care Provider [phone] Reason for Referral * MRI/CAT Scan - Closed Specialty Diagnoses / Procedures Referred By Contac t Referred To Contact Procedures CT Chest Outside (No Interpretation) Baljinder Stubbs MD Phone: tel: fax: mailto:[email or web address] Referral ID Status Reason Start Date Expiration Date Visits Re quested Visits Authorized [id number] Closed 12/23/2018 12/23/2019 1 1 Encounter Details Date Type Department Care Team (Late st Contact Info) Description 12/23/2018 Transcribe Orders [facility] [address] [place] [id number] Forrest More [address] [place] [address] [email or web address] Social History Tobacco Use Types Packs/Day [...] W/OUT INTERPRETATION Final Result Performing Organization Address City/[facility] Co de Phone Number [facility] * XR Chest Outside (No Interpretation) (12/23/2018 10:12 AM EST) Narrative [facility] - 12/23/2018 10:12 AM EST This study is for PACS storage only and not for interpretation. Baljinder Stubbs MD IMG OUTSIDE IMAGING W/OUT INTERPRETATION Final Result Performing Organization Address [facility] de Phone Number [facility] * CT Chest Outside (No Interpretation) (12/23/2018 10:12 AM EST) Narrative [facility] - 12/23/2018 10:12 AM EST This study is for PACS storage only and not for interpretation. us Baljinder Stubbs MD IMG OUTSIDE IMAGING W/OUT INTERPRETATION Final Result Performing Organization Address [facility] de Phone Number [facility] documented in this encounter Visit Diagnoses Not on filedocumented in this encounter Additional Health Concerns Assessment Noted Time PHQ-2 Depression Total Score: 0 07/18/20 18 7:57 AM EDT documented as of this encounter Care Teams Bulk Picker Relationship Specialty Start Date End Date Jeremy Castro MD [address] [place] [address] [place] [address] PCP - General Internal Medicine 06/05/18 documented as of this encounter Additional Source Comments The information contained in this document represents components of the legal health record. It is not the complete legal health record.[facility]
--- OUTSIDE RECORDS SUMMARY | 2025-05-28 11:25 | XMS_ITS | Referral Summary ---
Author Organization [facility] Address [address] [id number] Care Team Providers Care Teacher Education Director Name Role Phone Jeremy Castro Primary Care Provider [phone] Allergies Active Allergy Reactions Criticality Noted Date [...] Plan of Treatment Not on file Insurance [facility] MEDICAID Care Teams Teacher Education Director Relationship Specialty Start Date End Date Jeremy Castro [address] [place] [address] [place] [address] PCP - General Internal Medicine 05/14/23
== END 2025-05-28 11:40 | disposition home or self-care (01) ==
LOC: HO.HWS 10:45
PROVIDERS: PCP Internal Medicine; Visit Provider Obstetrics & Gynecology
DX: N93.9 Abnormal uterine and vaginal bleeding, unspecified (principal)
CPT/HCPCS: 99213

== ENCOUNTER 2025-08-10 15:10 | Outpatient (REF) | payer OTHER, SELFPAY ==
--- NOTE | ~2025-08-10 | US_ITS ---
EXAMINATION: US PELVIS CLINICAL INFORMATION: 49-year-old female, pelvic and perineal pain. LMP = 07/29/2025. COMPARISON: 07/24/2022. MRI pelvis 03/13/2022. TECHNIQUE: Ultrasound of the pelvis is performed using transabdominal technique only. The patient refused transvaginal scanning. FINDINGS: Uterus: The uterus is anteverted, anteflexed, and measures 10.7 x 4.2 x 5.0 cm. The cervix is normal in appearance. The double wall endometrial thickness is 3 mm. It is uniform in appearance. The uterus is smooth in contour and has normal myometrial echogenicity. There is a tiny right mid uterine segment fibroid measuring 1.0 x 0.8 x 1.2 cm. (Previously measuring 0.9 x 0.8 x 0.6 cm.) Adnexa: Both ovaries are visualized. There is normal color flow to the adnexa. There is no ovarian torsion. There is no pelvic ascites or fluid collection. There are no adnexal masses. Right ovary measures 2.7 x 1.8 x 2.5 cm. Volume = 6.4 mL. Normal sonographic appearance. Left ovary measures 3.0 x 2.6 x 2.9 cm. Volume = 11.8 mL. There is a simple follicular cyst measuring 2.0 x 2.4 x 2.2 cm. US/US pelvic and transvaginal IMPRESSION: 1. Transabdominal examination performed. The patient refused transvaginal scanning. 2. Tiny fibroid in the right mid uterine segment measuring 1.0 x 0.8 x 1.2 cm. This has minimally enlarged from the previous of ultrasound of 12/28/2021. 3. The remainder of the examination is normal. Electronically signed by: Frank Marrufo MD 08/10/2025 03:57 PM EDT
--- OUTSIDE RECORDS SUMMARY | 2025-08-10 19:23 | XMS_ITS | Encounter Summary ---
Author Organization [facility] Address [address] [place] [address] Phone Care Team Providers Care Instructor Psychiatric Aide Name Role Phone Jeremy Castro MD Primary Care Provider [phone] Reason for Referral * MRI/CAT Scan - Closed Specialty Diagnoses / Procedures Referred By Contac t Referred To Contact Procedures CT Chest Outside (No Interpretation) Baljinder Stubbs MD Phone: tel: fax: mailto:[email or web address] Referral ID Status Reason Start Date Expiration Date Visits Re quested Visits Authorized [id number] Closed 12/23/2018 12/23/2019 1 1 Encounter Details Date Type Department Care Team (Late st Contact Info) Description 12/23/2018 Transcribe Orders [facility] [address] [place] [phone] Forrest More [address] [place] [address] [email or web address] Social History Tobacco Use Types Packs/Day [...] W/OUT INTERPRETATION Final Result Performing Organization Address City/[facility] Co de Phone Number [facility] * XR Chest Outside (No Interpretation) (12/23/2018 10:12 AM EST) Narrative [facility] - 12/23/2018 10:12 AM EST This study is for PACS storage only and not for interpretation. Baljinder Stubbs MD IMG OUTSIDE IMAGING W/OUT INTERPRETATION Final Result Performing Organization Address [facility] [[email or web address] de Phone Number [facility] * CT Chest Outside (No Interpretation) (12/23/2018 10:12 AM EST) Narrative [facility] - 12/23/2018 10:12 AM EST This study is for PACS storage only and not for interpretation. us Baljinder Stubbs MD IMG OUTSIDE IMAGING W/OUT INTERPRETATION Final Result Performing Organization Address [facility] [[email or web address]] de Phone Number [facility] documented in this encounter Visit Diagnoses Not on filedocumented in this encounter Additional Health Concerns Assessment Noted Time PHQ-2 Depression Total Score: 0 07/18/20 18 7:57 AM EDT documented as of this encounter Care Teams Instructor Psychiatric Aide Relationship Specialty Start Date End Date Jeremy Castro MD [address] [place] [address] [place] [address] PCP - General Internal Medicine 06/05/18 documented as of this encounter Additional Source Comments The information contained in this document represents components of the legal health record. It is not the complete legal health record.[facility]
--- OUTSIDE RECORDS SUMMARY | 2025-08-10 19:23 | XMS_ITS | Clinical Summary ---
Author Organization [facility] Address [address] [place] [address] Phone Care Team Providers Care Computing Tutor Name Role Phone Jeremy Castro MD Primary Care Provider [phone] Allergies No known active allergies Medications raNITIdine (ZANTAC) 150 MG tabletIndication s:Asthma, unspecified asthma severity, unspecified whether complicated, unspecified whether persistent Take 1 tablet (150 mg total) by mouth nightly. 30 tablet 5 8 Active Additional Information Patient taking differently:150 mg Oral2 times daily, Reported on 01/29/2019 albuterol 2.5 mg /3 mL (0.083 %) nebulizer solution Inhale 2.5 mg into the lungs. 8 Active atorvastatin (LIPITOR) 10 MG tablet Take 10 mg by mouth. Active budesonide (PULMICORT) 0.5 mg/2 mL nebulizer solution Inhale 0.5 mg into the lungs. Active cetirizine (ZYRTEC) 10 mg Cap Take 1 capsule by mouth. Active EPINEPHrine 0.3 mg/0.3 mL auto-injector Inject as directed. Active FLUoxetine (PROZAC) 20 MG capsule Take 20 mg by mouth. Active furosemide (LASIX) 20 MG tablet Take 20 mg by mouth. Active ipratropium-albu terol (DUONEB) 0.5-2.5 mg/3 mL nebulizer solution Inhale 3 mL into the lungs. Active ipratropium-albu terol (COMBIVENT RESPIMAT) 20-100 mcg/actuation Mist Inhale into the lungs. Active LORazepam (ATIVAN) 0.5 MG tablet Take 0.5 mg by mouth. Active montelukast (SINGULAIR) 10 mg tablet Take 10 mg by mouth. Active omalizumab (XOLAIR) 150 mg injection Inject under the skin. Active pantoprazole (PROTONIX) 40 MG tablet Take 40 mg by mouth. 8 Active predniSONE (DELTASONE) 20 MG tablet Take 20 mg by mouth. Active topiramate (TOPAMAX) 25 MG tablet Take 25 mg by mouth. Active beclomethasone (QVAR) 80 mcg/actuation inhalerIndicatio ns:Severe persistent asthma, unspecified whether complicated Inhale 2 puffs into the lungs 2 (two) times a day. 1 Inhaler 5 9 Active Social History Tobacco Use Types Packs/Day Years Used Date Smoking Tobacco: Never Smokeless Tobacco: Never Education Answer Date Recorded Are you interested in more education? Not on emely e 02/16/2023 Are you concerned about learning? Not on file 02/16/2023 No 02/16/2023 No 02/16/2023 Digital Access Answer Date Recorded No 03/16/2023 No 03/16/2023 No 03/16/2023 Reliable internet access at home? Not on file 03/16/2023 Device with a working camera? Not on file Comments Unknown Sex and Gender Information Value Date Recorded Sex Assigned at Not on file Legal Sex Female 9:26 PM EDT Gender Identity Not on file Sexual Orientation Not on file Last Filed Vital Signs Vital Sign Reading Time Taken Comments Blood Pressure 145/80 01/29/2019 9:20 AM EDT Pulse 84 01/29/2019 9:20 AM EDT Temperature - - Respiratory Rate - - Oxygen Saturation 97% 01/29/2019 9:20 AM EDT Inhaled Oxygen Concentration - - Weight 87.1 kg (192 lb) 01/29/2019 9:20 AM EDT Height 157.5 cm (5' 2 ) 12/18/2018 9:13 AM EST Body Mass Index 35.12 12/18/2018 9:13 AM EST Plan of Treatment Health Maintenance Due Date Last Done Comments LIPID PANEL 1977 HEPATITIS C SCREENING 1995 HIV ONE-TIME SCREENING (18-65 YEARS) 1995 PAP SMEAR 1998 MAMMOGRAM 2017 DEPRESSION SCREENING 01/30/2020 01/29/2019 COLOGUARD 2022 COLONOSCOPY 2022 COLORECTAL CANCER SCREENING 2022 FIT TEST 2022 FOBT 2022 SIGMOIDOSCOPY 2022 VIRTUAL COLONOSCOPY 2022 INFLUENZA VACCINE (#1) 2025 0, 06/12/2019, 06/18/2018, Additional history exists COVID-19 VACCINE ( - 2024- season) 2025 03/09/2021 Adult Td,Tdap Booster 02/14/2029 02/14/2019, 012 PNEUMOCOCCAL VACCINES (0-49 years) Aged Out 06/18/2018 No longer eligible based on patient's age to complete this topic SMOKING STATUS SCREENING (Once After 26 Yrs) Completed 01/29/2019 HEPATITIS A VACCINES Aged Out No long er eligible based on patient's age to complete this topic HIB VACCINES Aged Out No longer eligi ble based on patient's age to complete this topic MENINGOCOCCAL VACCINES (ACWY) Aged Out No longer eligible based on patient's age to complete this topic MENINGOCOCCAL VACCINES (B) Aged Out N o longer eligible based on patient's age to complete this topic Medical Devices Not on file Insurance [facility] GENERIC COMMERCIAL [facility] [address] [employer] Member Subscriber Plan / Payer (Ef fective 2017-Present) Name:Makayla Arzimendi Relation to Subscriber:Spouse Name:SIDNEY ARIZMENDI Date of :1965 (Home) Address: [address] [place] [address] Payer ID:[id number] (NAIC) Type:Indemnity Address: [place] [id number] GENERIC COMMERCIAL [facility] [address] [address] [employer] INDEMNITY [facility] COMMERCIAL [place] UNITED INDEMNITY GENERIC COMMERCIAL [place] [employer]MNITY Member Subscriber Plan / Payer (Ef fective 2017-Present) Name:Makayla Arizmendi Relation to Subscriber:Spouse Name:SIDNEY ARIZMENDI Date of :1965 (Home) Address: [address] [place] [address] Payer ID:[id number] (NAIC) Type:Indemnity Address: [address] [place] [id number] GENERIC COMMERCIAL [facility] [address] [address] UNITED INDEMNITY Member Subscriber Plan / Payer (Ef fective 2017-Present) Name:Makayla Arizmendi Relation to Subscriber:Spouse Name:SIDNEY ARIZMENDI Date of :1965 (Home) Address: [address] [place] [address] Payer ID:[id number] (NAIC) Type:Indemnity Address: [address] [place] [id number] GENERIC COMMERCIAL [employer] Member Subscriber Plan / Payer ( fective 2017-Present) Name:Makayla Arizmendi Relation to Subscriber:Spouse Name:SIDNEY ARIZMENDI Date of :1965 (Home) Address: [address] [place] [address] Payer ID:[id number] (NAIC) Type:Indemnity Address: [address] [place] [id number] GENERIC COMMERCIAL [place] [employer] Member Subscriber Plan / Payer (Ef fective 2017-Present) Name:Makayla Arizmendi Relation to Subscriber:Spouse Name:SIDNEY ARIZMENDI Date of :1965 (Home) Address: [address] [place] [address] Payer ID:[id number] (NAIC) Type:Indemnity Address: [facility] [id number] [address] COMMERCIAL [place] [employer] IN[employer]ITY [facility] COMMERCIAL Care Teams Computing Tutor Relationship Specialty Start Date End Date Jeremy Castro MD [address] [place] [address] [place] [address] PCP - General Internal Medicine 06/05/18 Additional Source Comments The information contained in this document represents components of the legal health record. It is not the complete legal health record.[facility]
--- OUTSIDE RECORDS SUMMARY | 2025-08-10 19:23 | XMS_ITS | Clinical Summary ---
Author Organization [facility] Address [address] [id number] Care Team Providers Care Metal Hardener Name Role Phone Jeremy Castro Primary Care Provider [phone] Allergies Active Allergy Reactions Criticality Noted Date [...] (2 of 2 - PCV) 06/18/2019 06/18/2018 Alcohol/Substance Use Screening 10/22/2024 Depression Screening and Follow-Up 10/22/2024 Social Drivers of Health Qiana ual Screening 10/22/2024 COVID-19 Vaccine (4 - 2024-2 6 season) 2025 12/02/2021, 03/30/2021, 03/09/2021 Influenza Vaccine (#1) 2025 , 07/18/2021, 06/11/2020, Additional history exists DTaP,Tdap,and Td Vaccines (4 - Td or Tdap) 09/21/2032 09/21/2022, 02/14/2019, 10/31/2011 RSV Vaccine (60+ years old a nd patients) (1 - 1-dose 75+ series) 2052 Insurance [facility] MEDICAID Care Teams Metal Hardener Relationship Specialty Start Date End Date Jeremy Castro [address] [place] [address] dr James Ramirez, MICHAEL [address] PCP - General Internal Medicine 05/14/23
--- OUTSIDE RECORDS SUMMARY | 2025-08-10 19:23 | XMS_ITS | Encounter Summary ---
Author Organization [facility] Address [address] [place] [address] [place] [address] Phone Care Team Providers Care Multi Care Technician Name Role Phone Jeremy Castro MD Primary Care Provider [phone] Encounter Details Date Type Department Care Team (Late st Contact Info) Description 07/18/2018 Procedure Pass [facility] [address] [place] [address] Social History Tobacco Use Types Packs/Day Years Used Date Smoking Tobacco: Never Smokeless Tobacco: Never Comments Unknown Sex and Gender Information Value Date Recorded Sex Assigned at Not on file Legal Sex Female 9:26 PM EDT Gender Identity Not on file Sexual Orientation Not on file documented as of this encounter Plan of Treatment Not on file documented as of this encounter Visit Diagnoses Not on filedocumented in this encounter Additional Health Concerns Assessment Noted Time PHQ-2 Depression Total Score: 0 07/18/20 18 7:57 AM EDT documented as of this encounter Care Teams Multi Care Technician Relationship Specialty Start Date End Date Jeremy Castro MD [address] [place] [address] [place] [address] PCP - General Internal Medicine 06/05/18 documented as of this encounter Additional Source Comments The information contained in this document represents components of the legal health record. It is not the complete legal health record.[facility]
== END 2025-08-10 15:11 | disposition home or self-care (01) ==
LOC: HO.US 15:10
PROVIDERS: PCP Internal Medicine; Visit Provider Obstetrics & Gynecology
DX: R10.20 Pelvic and perineal pain unspecified side (principal)
CPT/HCPCS: 76830; 76856

== ENCOUNTER → 2025-08-10 15:12 | Outpatient (BNV) | payer OTHER, SELFPAY | PROVIDERS: PCP Internal Medicine; Visit Provider Radiology Diagnostic Radiology | DX: R10.20 Pelvic and perineal pain unspecified side (principal); D25.9 Leiomyoma of uterus, unspecified | CPT/HCPCS: 76830; 76856 ==

== ENCOUNTER 2025-08-26 13:37 | Outpatient (AMB) | payer OTHER, SELFPAY ==
[2025-08-26 13:41] VITALS: BP 114/80; PULSE 92; O2SAT 99; BMI 37.3
--- NOTE | 2025-08-26 13:41 | A.OFFPC_ITS ---
Vital Signs 08/26/25 13:41 Height 5 ft 2 in Weight 204 lb 2 oz BMI 37.3 BP 114/80 Blood Pressure Location Lt brachial Position Sitting Pulse 92 Pulse Source Pulse Oximeter Pulse Oximetry (%) 99 Oxygen Delivery Method Room Air Intake Visit Reasons: annual exam Associate Account Director Required: No Accompanied by: Self / Same As Patient Allergies doxycycline Allergy (Severe, Verified 08/30/25 19:51) Anaphylaxis Medication List - Last Reconciled 08/26/25 by Jeremy Castro MD albuterol sulfate 90 mcg/actuation 2 puffs inhalation Q6H PRN 30 days amlodipine 5 mg PO DAILY azelastine 2 sprays intranasal BID baclofen 20 mg PO TID PRN 30 days tbgyevxggw-ddnlkcqrsyfuh-xipj 50-325-40 mg 1 tab PO Q8H PRN cetirizine 10 mg PO DAILY cholecalciferol (vitamin D3) 50 mcg PO DAILY 90 days docusate sodium 100 mg PO BEDTIME dupilumab (Dupixent) 300 mg (2 mL) subcut Q2W escitalopram oxalate 5 mg PO DAILY 90 days esomeprazole magnesium 40 mg PO DAILY famotidine (Pepcid) 20 mg PO BID 90 days Fioricet 50-300-40 mg (ljnkvayuee-dcezzeyygszmn-qtga) 1 cap PO Q8H PRN NS fluticasone propion-salmeterol 250-50 mcg/dose (Advair Diskus) 1 inh inhalation BID ibuprofen 800 mg PO TID PRN 30 days ipratropium-albuterol 0.5 mg-3 mg(2.5 mg base)/3 mL 3 mL inhalation Q6H PRN montelukast 10 mg PO BEDTIME nebulizers As directed shkjdkdhal-ggshztzyo-lclgcipgb 10-250-12.5 mg (Talicia) 4 caps (4 x 10-250-12.5 mg) PO Q8H 14 days pravastatin 20 mg PO BEDTIME sennosides (Natural Senna Laxative) 17.2 mg (2 x 8.6 mg) PO BEDTIME 90 days Spiriva Respimat 2.5 mcg/actuation (tiotropium bromide) 2 puffs inhalation QAM NS sucralfate 1 g PO BEDTIME topiramate 25 mg PO DAILY 90 days tramadol 50 mg PO TID PRN 10 days Tobacco use date assessed: 08/26/25 Dental Screening Dental Screen Date: 08/26/25 Did you have a dental visit in the last 12 months?: Yes Did you have a dental problem in the last 6 months where you did not have access to dental care?: No Was dental information given to patient?: Patient has dentist HPI annual exam HPI Details Patient comes in today for her annual physical examination States that she feels okay She denies any headaches or dizziness Denies any chest pains, no SOB - states that her asthma has been well-controlled on her Dupixent injections that she gets every 2 weeks No nausea/vomiting, no abdominal pain No change in bowel habits noted She denies any acute urinary symptoms She has no follow up labs done recently She has follow-up appointments scheduled in October [address] Martinez (neurology) for migraines and Dr. Helton (pulmonary) for her asthma. She is scheduled for a uterine biopsy tomorrow with Dr. Damon. Her last Pap smear was in 2020 and was negative. Her last colonoscopy was last year (2023), with the next one due in 6 years (2029) She has not had a mammogram done this year yet [facility] Medical History RUQ abdominal pain Vitamin D deficiency Impaired fasting glucose Arthritis Perianal cyst Helicobacter pylori (H. pylori) H/O sleep study History of COVID-19 Obesity (BMI 30-39.9) Depression Anxiety Insomnia Allergic rhinitis Pure hypercholesterolemia Benign essential hypertension DJD (degenerative joint disease) Migraines Hiatal hernia GERD (gastroesophageal reflux disease) Cough variant asthma Asthma Surgical History Hx of surgical procedure (02/01/24) History of endometrial ablation Hx of colonoscopy History of esophagogastroduodenoscopy (EGD) History of tubal ligation History of breast biopsy Family History Father Hypertension CVD (cardiovascular disease) Stroke Epilepsia Mother Hypertension Diabetes mellitus CVD (cardiovascular disease) Brother Epilepsia Depressed Anxiety Sister Epilepsia Depressed Anxiety Daughter No problems noted. Son No problems noted. Social History Housing: House Alcohol intake: never Comment: counts correct Patient Tobacco Use Status: Never used Tobacco e-Cigarette/Vaping Use: Never Used Second Hand Smoke Exposure: Yes Advance Directives Date on File: 12/19/16 service: No Current occupational status: employed Cognitive needs: No Hearing needs: No Vision needs: Yes (glasses) Female Reproductive History Menstrual Age of Menarche: 11 Questionnaire PHQ-9 Over the last 2 weeks, how often have you been bothered by any of the following problems? 1. Little interest or pleasure in doing things: not at all 2. Feeling down, depressed, or hopeless: not at all 3. Trouble falling or staying asleep, or sleeping too much: several days 4. Feeling tired or having little energy: several days 5. Poor appetite or overeating: not at all 6. Feeling bad about yourself - or that you are a failure or have let yourself or your family down: not at all 7. Trouble concentrating on things, such as reading the newspaper or watching television: several days 8. Moving or speaking so slowly that other people could have noticed. Or the opposite - being so fidgety or restless that you have been moving around a lot more than usual: not at all 9. Thoughts that you would be better off or of hurting yourself in some way: not at all Total score: 3 Depression Screening Interpretation: Positive Depression Screening Follow-up: Follow-up Visit Requested Depression Screening Done: Yes 87022 - PHQ-9 Billing: Yes Source: Developed by Drs. Carlos Redd, Em Loyola, Leonardo Phoenix and colleagues, with an educational vikash from [employer]. Thrive Questionnaire Date Thrive assessed: 08/26/25 I am a: Patient What is your living situation today?: I have a steady place to live Within the past 12 months, did the food you bought not last and you didn't have the money to get more?: Never true Within the past 12 months, did you worry whether your food would run out before you got money to buy more?: Never true Do you have trouble paying for medicines?: No Do you have trouble getting transportation to medical appointments?: No Do you have trouble paying your heating and electricity bill?: No Do you have trouble taking care of your child, family member or friend?: No Do you have trouble with day-to-day activities such as bathing, preparing meals, shopping, managing finances, etc.?: No Are you currently unemployed and looking for a job?: No Are you interested in more education?: No Please select the resources that you would like help with: None Currently or been in a relationship where the following occur: No concerns reported THRIVE Score: 0 AUDIT C Alcohol Use Questionnaire (AUDIT-C) 1. How often do you have a drink containing alcohol?: Never 3. How often do you have six or more drinks on one occasion?: Never Total Score: 0 Score Reviewed/Action Taken: Yes QUOC-7 AMB Questionnaire QUOC-7 Date QUOC - 7 assessed: 08/26/25 Feeling nervous, anxious, or on edge: 0 = Not at all Not being able to stop or control worryin = Not at all Worrying too much about different things: 0 = Not at all Trouble relaxin = Not at all Being so restless that it is hard to sit still: 0 = Not at all Becoming easily annoyed or irritable: 0 = Not at all Feeling afraid as if something awful might happen: 0 = Not at all Total QUOC-7 score (0-4 normal; 5-9 mild; 10-14 moderate; 15-21 severe): 0 Source: Developed by Drs. Carlos Redd, Em Loyola, Leonardo Phoenix and colleagues, with an educational vikash from [employer]. Review of Systems Const Denies chills, Denies fatigue, Denies fever(s), Denies headache(s) and Denies malaise Eyes Denies blurry vision, Denies change in vision, Denies irritation and Denies itchy eyes ENT Denies dysphagia, Denies dizziness, Denies otalgia, Denies headache(s), Denies nasal congestion, Denies neck pain, Denies odynophagia, Denies sinus pain and Denies sore throat Card Denies chest pain, Denies rapid heart rate, Denies irregular heart rhythm, Denies palpitations and Denies dyspnea Resp Denies chest congestion, Denies cough, Denies dyspnea and Denies wheezing GI Denies abdominal pain, Denies bloating, Denies constipation, Denies dysphagia, Denies heartburn, Denies diarrhea, Denies nausea, Denies odynophagia and Denies vomiting Denies hematuria, Denies difficulty voiding, Denies dysuria, Denies urinary incontinence and Denies urinary urgency Musc Denies back pain, Denies arthralgias, Denies joint swelling, Denies muscle weakness and Denies neck pain Skin/Breast Denies breast pain, Denies breast mass, Denies change in pigmentation, Denies lesions, Denies rash and Denies unusual bruising Neuro Denies dizziness, Denies headache(s) and Denies paresthesias Psych Denies anxiety and Denies depression Endo Denies fatigue and Denies palpitations Drew/Lymph Denies easy bruising Aller/Immun Denies itchy eyes and Denies wheezing Physical exam (Primary Care) Vital Signs: Last Vital Signs Pulse 92 08/26/25 13:41 BP 114/80 08/26/25 13:41 Pulse Ox 99 08/26/25 13:41 Oxygen Delivery Method Room Air 08/26/25 13:41 BMI result Body Mass Index 37.3 Tobacco/Smoking Status: Tobacco use Status Tobacco use date assessed 08/26/25 08/26/25 13:45 Patient Tobacco Use Status Never used Tobacco 08/26/25 13:45 e-Cigarette/Vaping Use Never Used 08/26/25 13:45 PHQ-9: PHQ-9 Score PHQ-9: Total score 3 08/30/25 19:53 Depression Screening Interpretation: Positive Depression Screening Follow-up: Follow-up Visit Requested Thrive Assessment: Date of Thrive Assessment Date Thrive assessed 08/26/25 08/26/25 13:45 Currently or been in a relationship where the following occur: No concerns reported Const General: no acute distress, alert and awake Orientation/consciousness: patient oriented x3 HENMT Head: Yes normocephalic and Yes atraumatic Ears: external ears normal, TM's normal bilaterally and EAC's normal General nose exam: No nasal discharge present Face and sinus: Yes normal facial exam and Yes sinuses nontender Teeth and gingiva: dentition normal Throat: Yes posterior oropharynx normal and Yes tonsils normal (no TP congestion) Eyes Eyelids: Yes eyelids normal Conjunctivae: conjunctivae normal Pupils: Equal, round and reactive pupils present EOM: EOMs intact bilaterally Neck Other: thyroid feels and looks enlarged diffusely but is non-tender and there are no palpable nodules Neck: Yes supple and No lymphadenopathy Resp Auscultation: clear to auscultation bilaterally, no rales and no wheezes Cardio Rate: regular rate Rhythm: regular rhythm Heart sounds: no murmurs GI Palpation (GI): Soft to palpation, nontender and No hepatosplenomegaly present Auscultation: normal bowel sounds General: Yes no CVA tenderness Back/Spine/Pelvis Back: no CVA tenderness Thoracic/Lumbar Spine: thoracic and lumbar spine normal to inspection Skin Lesions: no lesions Rashes: no rashes Neuro General: patient oriented x3, moves all extremities, no focal motor deficits and CN's II-XI intact bilaterally Cranial nerves: Yes Equal, round and reactive pupils present Cognition (Neuro): normal cognition Gait exam (Neuro): Normal gait present Extrem General: Yes no clubbing, cyanosis or edema Coding Level of Care Code Est Pt Prev Care 40-64y(41863) Diagnoses Annual physical exam Z00.00 Migraine without status migrainosus, not intractable, unspecified migraine type G43.909 Migraine type: unspecified Status migrainosus presence: without status migrainosus Intractability: not intractable Pure hypercholesterolemia E78.00 Benign essential hypertension I10 Moderate persistent asthma without complication J45.40 Asthma severity: moderate Asthma persistence: persistent Asthma complication type: uncomplicated Impaired fasting glucose R73.01 Enlarged thyroid E04.9 Gastroesophageal reflux disease, unspecified whether esophagitis present K21.9 Esophagitis presence: esophagitis presence not specified Allergic rhinitis, unspecified seasonality, unspecified trigger J30.9 Allergic rhinitis trigger: unspecified Allergic rhinitis seasonality: unspecified Vitamin D deficiency E55.9 Insomnia, unspecified type G47.00 Insomnia type: unspecified Anxiety F41.9 Episode of recurrent major depressive disorder, unspecified depression episode severity F33.9 Depression Type: major depressive disorder Major depression recurrence: recurrent Active/Remission status: currently active Major depression episode severity: unspecified Obesity (BMI 30-39.9) E66.9 Breast cancer screening by mammogram Z12.31 Additional Codes PHQ-9 - 94198 - PHQ-9 Billing: Yes ([id number]) Assessment & Plan Assessment & Plan (1) Annual physical exam: Code(s): Z00.00 - Encounter for general adult medical examination without abnormal findings Category: Medical Plan: Check labs HANSA to complete her annual exam today She is scheduled for a uterine biopsy tomorrow with Dr. Damon. Her last Pap smear was in 2020 and was negative. Her last colonoscopy was last year (2023), with the next one due in 6 years (2029) She has not had a mammogram done this year yet (2) Migraines: Comment: in past Code(s): G43.909 - Migraine, unspecified, not intractable, without status migrainosus Category: Medical Qualifiers: Migraine type: unspecified Status migrainosus presence: without status migrainosus Intractability: not intractable Qualified Code(s): G43.909 - Migraine, unspecified, not intractable, without status migrainosus Plan: Better controlled on Topiramate 25 mg Q HS for migraine headache prophylaxis - she was started back on Topiramate by neurology a few months ago Continue Fioricet Q 8 hours PRN Reinforced avoidance of any potential migraine headache triggers Follow up with neurology as scheduled (3) Pure hypercholesterolemia: Code(s): E78.00 - Pure hypercholesterolemia, unspecified Category: Medical Plan: She has no follow up labs done recently and the last time she had her cholesterol levels checked was in April 2024 - will send her for follow up labs HANSA Reinforced low cholesterol diet Continue Pravastatin 20 mg QD Will recheck her labs and fasting lipids again in 3 months for follow up (4) Benign essential hypertension: Code(s): I10 - Essential (primary) hypertension Category: Medical Plan: Reinforced low-sodium diet - goal is systolic BP of 120 mm or less Continue Amlodipine 5 mg QD (5) Asthma: Code(s): J45.909 - Unspecified asthma, uncomplicated Category: Medical Qualifiers: Asthma severity: moderate Asthma persistence: persistent Asthma complication type: uncomplicated Qualified Code(s): J45.40 - Moderate persistent asthma, uncomplicated Plan: Patient states that her asthma has been well-controlled on Dupixent injection 300 mg SQ every 2 weeks for a while now She did not do well while she was on Nucala injections last year Continue Breo Ellipta 200-25 mcg 1 inhalation QD, Spiriva Respimat 2.5 mcg 2 inhalations QD, Montelukast 10 mg QPM, Albuterol HFA 2 inhalations every 6 hours PRN; she also uses Duoneb solution via her nebulizer every 6 hours as needed when she has access to her updraft device Follow up with pulmonary (Dr. Helton) as scheduled (6) Impaired fasting glucose: Code(s): R73.01 - Impaired fasting glucose Category: Medical Plan: Her FBS was previously elevated at 124 mg/dl last year - will recheck her FBS and HgbA1c HANSA for further evaluation/follow up She does have a strong family Hx of diabetes so she is concerned about her own risk Reinforced low calorie/low carb diet (7) Enlarged thyroid: Code(s): E04.9 - Nontoxic goiter, unspecified Category: Medical Plan: Her thyroid gland looks / appears enlarged on physical exam today Will send patient for a thyroid US for further evaluation (8) GERD (gastroesophageal reflux disease): Code(s): K21.9 - Gastro-esophageal reflux disease without esophagitis Category: Medical Qualifiers: Esophagitis presence: esophagitis presence not specified Qualified Code(s): K21.9 - Gastro-esophageal reflux disease without esophagitis Plan: Dietary restrictions reinforced Continue Pantoprazole 40 mg QD and Famotidine 20 mg BID PRN Follow up with GI as scheduled (9) Allergic rhinitis: Code(s): J30.9 - Allergic rhinitis, unspecified Category: Medical Qualifiers: Allergic rhinitis trigger: unspecified Allergic rhinitis seasonality: unspecified Qualified Code(s): J30.9 - Allergic rhinitis, unspecified Plan: Continue Loratadine 10 mg QD PRN, Fluticasone 50 mcg nasal spray QD PRN and Montelukast 10 mg Q PM She is also on Dupixent injections, which helps with both her allergies and asthma (10) Vitamin D deficiency: Code(s): E55.9 - Vitamin D deficiency, unspecified Category: Medical Plan: Continue Vitamin D3 2000 units QD (11) Insomnia: Code(s): G47.00 - Insomnia, unspecified Category: Medical Qualifiers: Insomnia type: unspecified Qualified Code(s): G47.00 - Insomnia, unspecified Plan: Sleep hygiene reinforced States that her main problem is staying asleep; has no problem falling asleep Have offered to provide some Rx for patient in the past but she declined; still does not wish to take anything else to help her sleep at this time (12) Anxiety: Code(s): F41.9 - Anxiety disorder, unspecified Category: Medical Plan: Continue Escitalopram 5 mg QD - she was started on this by neurology a few months ago for her anxiety (13) Depression: Comment: in past, no meds currently Code(s): F32.A - Depression, unspecified Category: Medical Qualifiers: Depression Type: major depressive disorder Major depression recurrence: recurrent Active/Remission status: currently active Major depression episode severity: unspecified Qualified Code(s): F33.9 - Major depressive disorder, recurrent, unspecified Plan: She was on Fluoxetine 20 mg Q AM in the past but stopped taking this some time ago She was started on Excitalopram 5 mg QD by neurology a few months ago for her anxiety and mood disorder (14) Obesity (BMI 30-39.9): Code(s): E66.9 - Obesity, unspecified Category: Medical Plan: Reinforced diet/exercise as tolerated/lose weight (15) Breast cancer screening by mammogram: Code(s): Z12.31 - Encounter for screening mammogram for malignant neoplasm of breast Category: Medical Plan: Will send patient for her annual mammogram HANSA Plan Follow up win 3 months Orders: Orders MM tomosynthesis screening BI 08/26/25 Z12.31 - Encounter for screening mammogram for malignant neoplasm of breast Complete Blood Count Auto Diff 08/27/25 D64.9 - Anemia, unspecified, Z00.00 - Encounter for general adult medical examination without abnormal findings Lipid Panel 08/27/25 E78.00 - Pure hypercholesterolemia, unspecified, Z00.00 - Encounter for general adult medical examination without abnormal findings Complete Blood Count Auto Diff 3 Months D64.9 - Anemia, unspecified Comprehensive [place]. Panel Fast 3 Months E78.00 - Pure hypercholesterolemia, unspecified Lipid Panel 3 Months E78.00 - Pure hypercholesterolemia, unspecified TSH reflex Free T4 3 Months E78.00 - Pure hypercholesterolemia, unspecified US thyroid 08/26/25 E04.9 - Nontoxic goiter, unspecified UA CC w/rflx Micro + Cult 08/27/25 R30.0 - Dysuria, Z00.00 - Encounter for general adult medical examination without abnormal findings Vitamin D 25-OH Total 08/27/25 E55.9 - Vitamin D deficiency, unspecified, Z00.00 - Encounter for general adult medical examination without abnormal findings Hemoglobin A1c 3 Months R73.01 - Impaired fasting glucose UA CC w/rflx Micro + Cult 3 Months R30.0 - Dysuria Vitamin D 25-OH Total 3 Months E55.9 - Vitamin D deficiency, unspecified
--- OUTSIDE RECORDS SUMMARY | 2025-08-26 16:31 | XMS_ITS | Clinical Summary ---
Author Organization [facility] Address [address] [place] [id number] Phone Care Team Providers Care Transportation Services Representative Name Role Phone Jeremy Castro MD Primary Care Provider [phone] Allergies No known active allergies Medications raNITIdine [...] topic Medical Devices Not on file Insurance [facility] GENERIC COMMERCIAL [facility] MEDIA INDEMNITY Member Subscriber Plan / Payer (Ef fective 2017-Present) Name:Makayla Arizmendi Relation to Subscriber:Spouse Name:SIDNEY ARIZMENDI Date of :1965 (Home) Address: [address] [place] [id number] Payer ID:[id number] (NAIC) Type:Indemnity Address: [place] [id number] GENERIC COMMERCIAL [facility] MEDIA INDEMNITY [facility] COMMERCIAL [place] UNITED INDEMNITY GENERIC COMMERCIAL [place]MN[place] Member Subscriber Plan / Payer (Ef fective 2017-Present) Name:Makayla Arizmendi Relation to Subscriber:Spouse Name:SIDNEY ARIZMENDI Date of :1965 (Home) Address: [address] [place] [address] Payer ID:[id number] (NAIC) Type:Indemnity Address: [address] [place] [id number] GENERIC COMMERCIAL [facility] UNITED INDEMNITY Member Subscriber Plan / Payer (Ef fective 2017-Present) Name:Makayla Arizmendi Relation to Subscriber:Spouse Name:SIDNEY ARIZMENDI Date of :1965 (Home) Address: [address] [place] [id number] Payer ID:[id number] (NAIC) Type:Indemnity Address: [address] [place] [id number] GENERIC COMMERCIAL MEDIA INDEMNITY Member Subscriber Plan / Payer ( fective 2017-Present) Name:Makayla Arizmendi Relation to Subscriber:Spouse Name:SIDNEY ARIZMENDI Date of :1963 (Home) Address: [address] [place] [id number] Payer ID:[id number] (NAIC) Type:Indemnity Address: [address] [place] [id number] GENERIC COMMERCIAL [place] MEDIA INDEMNITY Member Subscriber Plan / Payer (Ef fective 2017-Present) Name:Makayla Arizmendi Relation to Subscriber:Spouse Name:SIDNEY ARIZMENDI Date of :1965 (Home) Address: [address] [place] [id number] Payer ID:[id number] (NAIC) Type:Indemnity Address: [facility] [id number] COMMERCIAL [place] MEDIA INDEMNITY [facility] COMMERCIAL Care Teams Transportation Services Representative Relationship Specialty Start Date End Date Jeremy Castro MD [address] [place] [address] [place] [address] PCP - General Internal Medicine 06/05/18 Additional Source Comments The information contained in this document represents components of the legal health record. It is not the complete legal health record.[facility]
--- OUTSIDE RECORDS SUMMARY | 2025-08-26 16:31 | XMS_ITS | Clinical Summary ---
Author Organization [facility] Address [address] [id number] Care Team Providers Care Sales Recruiting Coordinator Name Role Phone Jeremy Castro Primary Care Provider [phone] Allergies Active Allergy Reactions Criticality Noted Date [...] Td or Tdap) 09/21/2032 09/21/2022, 02/14/2019, 10/31/2011 Insurance [facility] MEDICAID Care Teams Sales Recruiting Coordinator Relationship Specialty Start Date End Date eJremy Castro [address] [place] [address] dr James Ramirez, MICHAEL [id number] PCP - General Internal Medicine 05/14/23
--- OUTSIDE RECORDS SUMMARY | 2025-08-26 16:31 | XMS_ITS | Encounter Summary ---
Author Organization [facility] Address [address] [place] [address] [place] [id number] Phone Care Team Providers Care Metal Fabricator Helper Name Role Phone Jeremy Castro MD Primary Care Provider [phone] Encounter Details Date Type Department Care Team (Late st Contact Info) Description 07/18/2018 Procedure [facility] [address] [place] [address] Social History Tobacco Use Types Packs/Day Years [...] documented as of this encounter Care Teams Metal Fabricator Helper Relationship Specialty Start Date End Date Jeremy Castro MD [address] [place] [address] [place] [address] PCP - General Internal Medicine 06/05/18 documented as of this encounter Additional Source Comments The information contained in this document represents components of the legal health record. It is not the complete legal health record.[facility]
--- OUTSIDE RECORDS SUMMARY | 2025-08-26 16:31 | XMS_ITS | Encounter Summary ---
Author Organization [facility] Address [address] [place] [address] Phone Care Team Providers Care Home Visits Nurse Name Role Phone Jeremy Castro MD Primary Care Provider [phone] [phone] Reason for Referral * MRI/CAT Scan - Closed Specialty Diagnoses / Procedures Referred By Contac t Referred To Contact Procedures CT Chest Outside (No Interpretation) Baljinder Stubbs MD Phone: tel: fax: mailto:[email or web address] Referral ID Status Reason Start Date Expiration Date Visits Re quested Visits Authorized [id number] Closed 12/23/2018 12/23/2019 1 1 Encounter Details Date Type Department Care Team (Late st Contact Info) Description 12/23/2018 Transcribe Orders [facility] [address] [place] [address] Forrest More [address] [place] [address] [email or web address] Social History Tobacco Use Types Packs/Day Years [...] W/OUT INTERPRETATION Final Result Performing Organization Address [facility] Co de Phone Number [facility] * XR Chest Outside (No Interpretation) (12/23/2018 10:12 AM EST) Narrative [facility] - 12/23/2018 10:12 AM EST This study is for PACS storage only and not for interpretation. Baljinder Stubbs MD IMG OUTSIDE IMAGING W/OUT INTERPRETATION Final Result Performing Organization Address [facility] de Phone Number [facility] * CT Chest Outside (No Interpretation) (12/23/2018 10:12 AM EST) Narrative [facility] - 12/23/2018 10:12 AM EST This study is for PACS storage only and not for interpretation. us Baljinder Stubbs MD IMG OUTSIDE IMAGING W/OUT INTERPRETATION Final Result Performing Organization Address [facility] de Phone Number [facility] documented in this encounter Visit Diagnoses Not on filedocumented in this encounter Additional Health Concerns Assessment Noted Time PHQ-2 Depression Total Score: 0 07/18/20 18 7:57 AM EDT documented as of this encounter Care Teams Home Visits Nurse Relationship Specialty Start Date End Date Jeremy Castro MD [address] [place] [address] [place] [address] PCP - General Internal Medicine 06/05/18 documented as of this encounter Additional Source Comments The information contained in this document represents components of the legal health record. It is not the complete legal health record.[facility]
== END 2025-08-26 14:31 | disposition home or self-care (01) ==
LOC: HO.HMCH 13:38
PROVIDERS: PCP Internal Medicine; Visit Provider Internal Medicine
DX: Z00.00 Encounter for general adult medical examination without abnormal findings (principal); G43.909 Migraine, unspecified, not intractable, without status migrainosus; E78.00 Pure hypercholesterolemia, unspecified; I10 Essential (primary) hypertension; J45.40 Moderate persistent asthma, uncomplicated; R73.01 Impaired fasting glucose; E04.9 Nontoxic goiter, unspecified; K21.9 Gastro-esophageal reflux disease without esophagitis; J30.9 Allergic rhinitis, unspecified; E55.9 Vitamin D deficiency, unspecified; G47.00 Insomnia, unspecified; F41.9 Anxiety disorder, unspecified

== ENCOUNTER → 2025-08-26 13:37 | Outpatient (BNVA) | payer OTHER, SELFPAY | PROVIDERS: PCP Internal Medicine; Visit Provider Internal Medicine | DX: Z00.00 Encounter for general adult medical examination without abnormal findings (principal); J45.909 Unspecified asthma, uncomplicated; G43.909 Migraine, unspecified, not intractable, without status migrainosus; E78.00 Pure hypercholesterolemia, unspecified; I10 Essential (primary) hypertension; J45.40 Moderate persistent asthma, uncomplicated; R73.01 Impaired fasting glucose; E04.9 Nontoxic goiter, unspecified; K21.9 Gastro-esophageal reflux disease without esophagitis; E55.9 Vitamin D deficiency, unspecified; G47.00 Insomnia, unspecified; F41.9 Anxiety disorder, unspecified; F33.9 Major depressive disorder, recurrent, unspecified; E66.9 Obesity, unspecified; Z68.37 Body mass index [BMI] 37.0-37.9, adult | CPT/HCPCS: 96127; 99396 ==

== ENCOUNTER 2025-08-27 09:12 | Outpatient (REF) | payer OTHER, SELFPAY ==
[2025-08-27 09:23] LABS: MANUAL DIFF FLAG NO
[2025-08-27 09:48] LABS: Hematocrit 45.7 % (37.0-47.0); Hemoglobin 15.1 g/dl (12.0-16.0); Imm Gran Abs Auto 0.04 X10*3/uL (0.00-0.03); Imm Gran Pct Auto 0.4 % (0.0-0.4); Lymphocytes Absolute Auto 2.7 X10*3/uL (1.2-4.9); Mean Corpuscular HGB Conc 33.0 g/dl (31.0-35.0); Mean Corpuscular Hemoglobin 28.5 pg (27.0-33.0); Mean Corpuscular Volume 86.4 fL (80.0-98.0); NRBC Abs Auto 0.000 X10*3/uL (0.0-0.012); NRBC Pct Auto 0.0 /100WBC (0.0-0.2); Platelet Count 317 X10*3/uL (160-400); Red Blood Count 5.29 X10*6/uL (4.20-5.50); White Blood Count 9.0 X10*3/uL (4.8-10.8)
--- OUTSIDE RECORDS SUMMARY | 2025-08-27 10:06 | XMS_ITS | Encounter Summary ---
Author Organization [facility] Address [address] [place] [address] Phone Care Team Providers Care System Administration Advisor Name Role Phone Jeremy Castro MD Primary Care Provider [phone] Reason for Referral * MRI/CAT Scan - Closed Specialty Diagnoses / Procedures Referred By Contac t Referred To Contact Procedures CT Chest Outside (No Interpretation) Baljinder Stubbs MD Phone: tel: fax: mailto:[email or web address] Referral ID Status Reason Start Date Expiration Date Visits Re quested Visits Authorized [id number] Closed 12/23/2018 12/23/2019 1 1 Encounter Details Date Type Department Care Team (Late st Contact Info) Description 12/23/2018 Transcribe Orders [facility] [address] [place] [address] Forrest More [address] [place] [address] [email or web address] Social History Tobacco Use Types Packs/Day [...] INTERPRETATION Final Result Performing Organization Address City/[facility] Co de Phone Number [facility] * XR Chest Outside (No Interpretation) (12/23/2018 10:12 AM EST) Narrative [facility] - 12/23/2018 10:12 AM EST This study is for PACS storage only and not for interpretation. Baljinder Stubbs MD IMG OUTSIDE IMAGING W/OUT INTERPRETATION Final Result Performing Organization Address [facility] de Phone Number [facility] * CT Chest Outside (No Interpretation) (12/23/2018 10:12 AM EST) Narrative [facility] - 12/23/2018 10:12 AM EST This study is for PACS storage only and not for interpretation. us Baljinder Stubbs MD IMG OUTSIDE IMAGING W/OUT INTERPRETATION Final Result Performing Organization Address [facility] de Phone Number [facility] documented in this encounter Visit Diagnoses Not on filedocumented in this encounter Additional Health Concerns Assessment Noted Time PHQ-2 Depression Total Score: 0 07/18/20 18 7:57 AM EDT documented as of this encounter Care Teams System Administration Advisor Relationship Specialty Start Date End Date Jeremy Castro MD [address] [place] [address] [place] [address] PCP - General Internal Medicine 06/05/18 documented as of this encounter Additional Source Comments The information contained in this document represents components of the legal health record. It is not the complete legal health record.[facility]
--- OUTSIDE RECORDS SUMMARY | 2025-08-27 10:06 | XMS_ITS | Encounter Summary ---
Author Organization [facility] Address [address] [place] [address] [place] [address] Phone Care Team Providers Care Boat Garnisher Name Role Phone Jeremy Castro MD Primary Care Provider [phone] Encounter Details Date Type Department Care Team (Late st Contact Info) Description 07/18/2018 Procedure Pass [facility] [address] [place] [address] Social History Tobacco Use Types Packs/Day Years [...] documented as of this encounter Care Teams Boat Garnisher Relationship Specialty Start Date End Date Jeremy Castro MD [address] [place] [address] [place] [address] PCP - General Internal Medicine 06/05/18 documented as of this encounter Additional Source Comments The information contained in this document represents components of the legal health record. It is not the complete legal health record.[facility]
--- OUTSIDE RECORDS SUMMARY | 2025-08-27 10:06 | XMS_ITS | Clinical Summary ---
Author Organization [facility] Address [address] [id number] Care Team Providers Care Bacteriology Professor Name Role Phone Jeremy Castro Primary Care Provider [phone] Allergies Active Allergy Reactions Criticality Noted Date [...] or Tdap) 09/21/2032 09/21/2022, 02/14/2019, 10/31/2011 Insurance [facility] MEDICAID Care Teams Bacteriology Professor Relationship Specialty Start Date End Date Jeremy Castro [address] [place] [address] dr James Ramirez, [place]HAEL [address] PCP - General Internal Medicine 05/14/23
--- OUTSIDE RECORDS SUMMARY | 2025-08-27 10:06 | XMS_ITS | Clinical Summary ---
Author Organization [facility] Address [address] [place] [address] Phone Care Team Providers Care Staff Radiographer Name Role Phone Jeremy Castro MD Primary Care Provider [phone] Allergies No known active allergies Medications raNITIdine [...] topic Medical Devices Not on file Insurance [facility] GENERIC COMMERCIAL [facility] [employer] [place] IN[employer] Member Subscriber Plan / Payer (Ef fective 2017-Present) Name:Makayla Arizmendi Relation to Subscriber:Spouse Name:SIDNEY ARIZMENDI Date of :1965 (Home) Address: [address] [place] [address] Payer ID:[id number] (NAIC) Type:Indemnity Address: [place] [phone] GENERIC COMMERCIAL [facility] [place] [place] INDEMNITY [facility] COMMERCIAL [place] [employer]MN[employer] GENERIC COMMERCIAL [place] [employer] Member Subscriber Plan / Payer (Ef fective 2017-Present) Name:Makayla Arizmendi Relation to Subscriber:Spouse Name:SIDNEY ARIZMENDI Date of :1965 (Home) Address: [address] [place] [address] Payer ID:[id number] (NAIC) Type:Indemnity Address: [address] [place] [phone] GENERIC COMMERCIAL [facility] UNITED INDEMNITY Member Subscriber Plan / Payer (Ef fective 2017-Present) Name:Makayla Arizmendi Relation to Subscriber:Spouse Name:SIDNEY ARIZMENDI Date of :1965 (Home) Address: [address] [place] [address] Payer ID:[id number] (NAIC) Type:Indemnity Address: [address] [place] [phone] GENERIC COMMERCIAL [place] [employer] Member Subscriber Plan / Payer ( fective 2017-Present) Name:Makayla Arizmendi Relation to Subscriber:Spouse Name:SIDNEY ARIZMENDI Date of :1965 (Home) Address: [address] [place] [address] Payer ID:[id number] (NAIC) Type:Indemnity Address: [address] [place] [phone] GENERIC [employer]ERCIAL [place] [employer] [place] Member Subscriber Plan / Payer (Ef fective 2017-Present) Name:Makayla Arizmendi Relation to Subscriber:Spouse Name:SIDNEY ARIZMENDI Date of :1965 (Home) Address: [address] [place] [address] Payer ID:[id number] (NAIC) Type:Indemnity Address: [facility] [id number] [address] COMMERCIAL [place] [employer] [facility] COMMERCIAL Care Teams Staff Radiographer Relationship Specialty Start Date End Date Jeremy Castro MD [address] [place] [address] [place] [address] PCP - General Internal Medicine 06/05/18 Additional Source Comments The information contained in this document represents components of the legal health record. It is not the complete legal health record.[facility]
[2025-08-27 10:36] LABS: Alanine Aminotransferase 22 U/L (0-31); Albumin Level 4.7 g/dL (3.5-5.0); Alkaline Phosphatase 78 U/L (39-117); Anion Gap 11 (12-20); Aspartate Amino Transferase 25 U/L (5-31); Blood Urea Nitrogen 10 mg/dL (9-16); Calcium 9.1 mg/dL (8.4-10.2); Carbon Dioxide 25 mmol/L (22-29); Chloride 109 mmol/L (96-108); Cholesterol 166 mg/dL (<200); Estimated Glomerular Filt Rate > 60; HDL Cholesterol 43 mg/dL (>40); Potassium 4.0 mmol/L (3.3-5.1); Sodium 141 mmol/L (135-145); Total Protein 7.5 g/dL (6.5-8.0); Triglycerides 151 mg/dL (<150)
[2025-08-27 10:39] LABS: Appearance Urine Clear; Glucose Urine UA Negative (Negative); PH 6.5 (5.0-9.0); Specific Gravity - Urine 1.025 (1.005-1.025)
== END 2025-08-27 09:13 | disposition home or self-care (01) ==
LOC: HO.LAB 09:12
PROVIDERS: PCP Internal Medicine; Visit Provider Internal Medicine
DX: Z00.00 Encounter for general adult medical examination without abnormal findings (principal); N93.9 Abnormal uterine and vaginal bleeding, unspecified; D64.9 Anemia, unspecified; E78.00 Pure hypercholesterolemia, unspecified; E55.9 Vitamin D deficiency, unspecified; R30.0 Dysuria; R73.01 Impaired fasting glucose; Z32.02 Encounter for pregnancy test, result negative
CPT/HCPCS: 36415; 58100; 80053; 80061; 81003; 81025; 82306; 83036; 84443; 85025

== ENCOUNTER 2025-08-27 09:30 | Outpatient (AMB) | payer OTHER, SELFPAY ==
--- NOTE | 2025-08-27 09:46 | A.OFFVIS_ITS ---
Vital Signs 08/27/25 09:52 Height 5 ft 2 in Weight 204 lb BMI 37.3 BP 118/66 Intake Visit Reasons: EMB Assistant Farm Operations Manager Required: Yes Assistant Farm Operations Manager Language: Air Conditioning Manager Services: Assistant Farm Operations Manager Present (in person) Assistant Farm Operations Manager Name: Seema PAREDES Information Interpreted: non-clinical & clinical Rehabilitation Consultant: Rehabilitation Consultant Present (Seema PAREDES) Accompanied by: Self / Same As Patient Allergies doxycycline Allergy (Severe, Verified 08/27/25 09:59) Anaphylaxis Is last menstrual period known: Yes Last menstrual period: 07/27/25 HPI Comments Details: Presenting for EMB [facility] Medical History RUQ abdominal pain Vitamin D deficiency Impaired fasting glucose Arthritis Perianal cyst Helicobacter pylori (H. pylori) H/O sleep study History of COVID-19 Obesity (BMI 30-39.9) Depression Anxiety Insomnia Allergic rhinitis Pure hypercholesterolemia Benign essential hypertension DJD (degenerative joint disease) Migraines Hiatal hernia GERD (gastroesophageal reflux disease) Cough variant asthma Asthma Surgical History Hx of surgical procedure (02/01/24) History of endometrial ablation Hx of colonoscopy History of esophagogastroduodenoscopy (EGD) History of tubal ligation History of breast biopsy Family History Father Hypertension CVD (cardiovascular disease) Stroke Epilepsia Mother Hypertension Diabetes mellitus CVD (cardiovascular disease) Brother Epilepsia Depressed Anxiety Sister Epilepsia Depressed Anxiety Daughter No problems noted. Son No problems noted. Social History Housing: House Alcohol intake: never Comment: counts correct Patient Tobacco Use Status: Never used Tobacco e-Cigarette/Vaping Use: Never Used Second Hand Smoke Exposure: Yes Advance Directives Date on File: 12/19/16 service: No Current occupational status: employed Cognitive needs: No Hearing needs: No Vision needs: Yes (glasses) Female Reproductive History Menstrual Age of Menarche: 11 Date of last menstrual period: 07/27/25 Review of Systems Const All systems reviewed & are unremarkable except as noted in HPI and below Reports as per HPI and Reports no additional complaints GI Reports no additional complaints Reports no additional complaints Physical Exam Vital Signs: Last Vital Signs BP 118/66 11/06/25 09:52 BMI result Body Mass Index 37.3 Office Procedures Endometrial Biopsy Details: The patient was counseled regarding the indication and benefits of endometrial sampling to rule out endometrial pathology including not limited to endometrial hyperplasia or endometrial cancer and others; The alternatives (Either do nothing vs. hysteroscopy D&C) & the risks were discussed with the patient including but not limited: pain, uterine perforation, bleeding, infection, possible injury to bladder, bowel, ureter, possible need for blood transfusion with all its possible risks. The patient verbalized understanding all questions answered and signed consent. Urine test done in the office was negative The patient was placed into the dorsal lithotomy position; a speculum was inserted in the vagina. Using aseptic technique for the procedure, the cervix was cleansed with Betadine. The anterior lip of the cervix was grasped with a single tooth tenaculum. The uterus was sounded to 7 cm with a 4 mm Pipelle was used. Tissues samples were obtained and placed in formalin, in a patient labeled container and sent to the pathology department. At the end of the procedure, there was minimal bleeding noted The patient tolerated the procedure well and was discharged in good condition with the following instructions: Nothing in the vagina until the bleeding stops. No sex until the bleeding stops, to call if any of the following occurs: fever (>100.4), flu-like symptoms, abdominal pain, heavy bleeding, four smelling vaginal discharge. The patient was instructed to schedule a Follow up appointment in 2 weeks to discuss pathology results of the biopsy and treatment options. This note was generated with a voice recognition program. Some errors may have been overlooked during the review of this note. Sometimes these errors may affect the content or meaning of a given sentence. 82093-[facility]naf[facility] Biopsy Results AMB Test Urine AMB Test Urine Negative Last Edit by Seema Espinoza CMA on 10:14 Results Reviewed Results Reviewed: Laboratory Last Values [facility]st Clinic Negative 08/27/25 10:13 Assessment & Plan Assessment & Plan (1) Abnormal uterine bleeding (AUB): Comment: Status post NovaSure ablation Code(s): N93.9 - Abnormal uterine and vaginal bleeding, unspecified Category: Medical Plan: EMB done, see procedure note Orders: Orders AMB HCG Urine Test Today Z32.02 - Encounter for test, result negative AMB Endometrial Biopsy Today N93.9 - Abnormal uterine and vaginal bleeding, unspecified Coding Level of Care Code Procedure Only Diagnoses Abnormal uterine bleeding (AUB) N93.9 CPT Codes Endometrial Biopsy - CPT: 65793-Maccufajtgl Biopsy ([id number])
[2025-08-27 09:52] VITALS: BP 118/66; BMI 37.3
--- OUTSIDE RECORDS SUMMARY | 2025-08-27 10:39 | XMS_ITS | Clinical Summary ---
Author Organization [facility] Address [address] [place] [address] Care Team Providers Care Silk Crepe Machine Operator Name Role Phone Jeremy Castro MD Primary Care Provider Surgical History Surgery Date Site/Laterality Comments TUBAL LIGATION PROCEDURE: HISTORICAL TUBAL LIGATION ESOPHAGOGASTRODUODENOSCOPY 05/26/2019 PROCEDURE: LA ESOPHAGOGASTRODUODENOSCOPY TRANSORAL DIAGNOSTIC; COMMENT: Dr. Hemphill - [...] Last Done Comments Breast Cancer Screening 1977 Colorectal Cancer Screening: Colonoscopy 1977 DTaP,Tdap,and Td Vaccines (1 - Tdap) 1996 Hepatitis B Vaccines (1 of 3 - 19+ 3-dose series) 1996 Pneumococcal Vaccine: Pediat rics (0 to 5 Years) and At-Risk Patients (6 to 49 Years) (1 of 2 - PCV) 1996 Cervical Cancer Screening: P ap Smear 1998 HIV Screening 09/20/2022 Hepatitis C Screening 09/20/2022 Social Influencers of Health Screening 09/20/2022 Depression Screening 10/22/2024 COVID-19 Vaccine (1 - 2023-2 5 season) 2025 Influenza Vaccine (#1) 2025 RSV Immunization Adult Patie nts (1 - 1-dose 75+ series) 2052 HIB Vaccines Aged Out No longer eligi [...] age to complete this topic Care Teams Silk Crepe Machine Operator Relationship Specialty Start Date End Date Jeremy Castro MD [address] [place] [address] [address] [place] PCP - General Internal Medicine 10/02/17
== END 2025-08-27 10:27 | disposition home or self-care (01) ==
LOC: HO.HWS 09:31
PROVIDERS: PCP Internal Medicine; Visit Provider Obstetrics & Gynecology
DX: N93.9 Abnormal uterine and vaginal bleeding, unspecified (principal); Z32.02 Encounter for pregnancy test, result negative
CPT/HCPCS: 58100

== ENCOUNTER 2025-08-27 10:30 | Outpatient (REF) | payer OTHER, SELFPAY | END 2025-08-27 10:31 | disposition home or self-care (01) | LOC: HO.LNP 10:30 | PROVIDERS: Visit Provider Obstetrics & Gynecology | DX: N93.9 Abnormal uterine and vaginal bleeding, unspecified (principal); Z32.02 Encounter for pregnancy test, result negative | CPT/HCPCS: 88305 ==

== ENCOUNTER 2025-09-24 13:17 | Outpatient (AMB) | payer OTHER, SELFPAY ==
--- NOTE | 2025-09-24 13:18 | A.OFFVIS_ITS ---
Intake Visit Reasons: EMB Results Allergies doxycycline Allergy (Severe, Verified 08/30/25 19:51) Anaphylaxis HPI Comments Details: The patient scheduled a telehealth visit for follow-up to discuss the results of her abnormal uterine bleeding workup and options of treatment. The following workup was done.: H&H= 15.1/45.7 TSH, GC and chlamydia were negative. Endometrial biopsy pathology showed the following: Superficial fragments of benign endometrium and endocervical epithelium; mucoinflammatory and blood; no atypia or hyperplasia identified Co testing was done in 08/11 was negative. Mammogram was in 05/14 was BI-RADS 2, next screening mammogram scheduled in 11/16 Pelvic ultrasound showed the following: Uterus: The uterus is anteverted, anteflexed, and measures 10.7 x 4.2 x 5.0 cm. The cervix is normal in appearance. The double wall endometrial thickness is 3 mm. It is uniform in appearance. The uterus is smooth in contour and has normal myometrial echogenicity. There is a tiny right mid uterine segment fibroid measuring 1.0 x 0.8 x 1.2 cm. (Previously measuring 0.9 x 0.8 x 0.6 cm.) Adnexa: Both ovaries are visualized. There is normal color flow to the adnexa. There is no ovarian torsion. There is no pelvic ascites or fluid collection. There are no adnexal masses. Right ovary measures 2.7 x 1.8 x 2.5 cm. Volume = 6.4 mL. Normal sonographic appearance. Left ovary measures 3.0 x 2.6 x 2.9 cm. Volume = 11.8 mL. There is a simple follicular cyst measuring 2.0 x 2.4 x 2.2 cm PFSH Medical History RUQ abdominal pain Vitamin D deficiency Impaired fasting glucose Arthritis Perianal cyst Helicobacter pylori (H. pylori) H/O sleep study History of COVID-19 Obesity (BMI 30-39.9) Depression Anxiety Insomnia Allergic rhinitis Pure hypercholesterolemia Benign essential hypertension DJD (degenerative joint disease) Migraines Hiatal hernia GERD (gastroesophageal reflux disease) Cough variant asthma Asthma Surgical History Hx of surgical procedure (02/01/24) History of endometrial ablation Hx of colonoscopy History of esophagogastroduodenoscopy (EGD) History of tubal ligation History of breast biopsy Family History Father Hypertension CVD (cardiovascular disease) Stroke Epilepsia Mother Hypertension Diabetes mellitus CVD (cardiovascular disease) Brother Epilepsia Depressed Anxiety Sister Epilepsia Depressed Anxiety Daughter No problems noted. Son No problems noted. Social History Housing: House Alcohol intake: never Comment: counts correct Patient Tobacco Use Status: Never used Tobacco e-Cigarette/Vaping Use: Never Used Second Hand Smoke Exposure: Yes Advance Directives Date on File: 12/19/16 service: No Current occupational status: employed Cognitive needs: No Hearing needs: No Vision needs: Yes (glasses) Female Reproductive History Menstrual Age of Menarche: 11 Telehealth Telehealth Telehealth Platform: [employer] Location of provider rendering services: practice address Location of patient: address on file Patient Identification confirmed using: Name, : Yes Telehealth method: video Patient verbally consented to treatment: Yes Patient verbally consented to billing insurance company: Yes Patient informed of any privacy concerns related to visit: Yes Minutes spent on Phone/Video with Pt.: 4 Assessment & Plan Assessment & Plan (1) Abnormal uterine bleeding (AUB): Comment: Status post NovaSure ablation Code(s): N93.9 - Abnormal uterine and vaginal bleeding, unspecified Category: Medical Plan: Discussed with the patient the results of the work up done and options of treatment including but not limited to BCP's, cyclic Progesterone, Mirena IUD, endometrial ablation and hysterectomy. All pros, cons, risks and benefits of each option were discussed with the patient and the patient decided to go ahead with cyclic Provera, so a more detailed discussion re: Progesterone treatment including mechanism of action, benefits (regular menses, endometrial protection form unopposed estrogen and reduction in the risk of endometrial hyperplasia and/or cancer ...), risks (Thrombosis, mood changes, weight gain, breast soreness, ? increased breast ca, others). Instructions were given to have mammogram done once we confirmed the results is negative, we will send a prescription for cyclic Provera to be taken 1 tablet daily starting day 15-24 and to schedule a 3 months follow-up appointment; patient verbalized understanding and agreed with the plan. (2) Uterine myoma: Code(s): D25.9 - Leiomyoma of uterus, unspecified Category: Medical Plan: Discussed with the patient the findings on pelvic ultrasound & the risk of myosarcoma; in addition reviewed with the patient that malignancy and pre malignancy cannot be ruled out without hysterectomy for pathological evaluation ; furthermore, explained to the patient the limitation of pelvic ultrasound and endometrial biopsy in the setting. Discussed with the patient the options of treatment including expectant management versus hysterectomy; the pros and cons, risks benefits of each approach were discussed with the patient including the fact that in cases of myosarcoma, surgical treatment can lead to early diagnosis and positively affects the prognosis; after further discussion, the patient decided to proceed with expectant management. Will repeat pelvic ultrasound periodically. Instructions given to patient to call in case any of the following occurs: pressure symptoms, abnormal uterine bleeding, pelvic pain; and to schedule a six-months pelvic ultrasound (order placed) and a follow-up appointment . All questions answered, the patient verbalized understanding and agreed with the plan . I spent a total of 20 minutes reviewing the chart, talking to the patient via video and documenting in the medical record. Orders: Orders US pelvic and transvaginal 6 Months D25.9 - Leiomyoma of uterus, unspecified Coding Level of Care Code Tele Est Pt Level 3 (83415) Diagnoses Abnormal uterine bleeding (AUB) N93.9 Uterine myoma D25.9
== END 2025-09-24 14:28 | disposition home or self-care (01) ==
LOC: HO.HWS 13:17
PROVIDERS: PCP Internal Medicine; Visit Provider Obstetrics & Gynecology
DX: N93.9 Abnormal uterine and vaginal bleeding, unspecified (principal); D25.9 Leiomyoma of uterus, unspecified
CPT/HCPCS: 99213

== ENCOUNTER 2025-10-03 09:27 | Outpatient (REF) | payer OTHER, SELFPAY ==
--- NOTE | ~2025-10-03 | US_ITS ---
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 COMPARISON: May 01, 2017. TECHNIQUE: Linear transducer grayscale and color Doppler examination with attention to the region of the thyroid. FINDINGS: SIZE: Measurements of the thyroid lobes and nodules are given in sagittal, anteroposterior and transverse dimensions respectively. Right Thyroid Lobe: 4.5 x 1.5 x 1.4 cm, volume 4.9 mL. Previous: 3.8 x 1.5 x 1.3 cm, volume 3.9 cc. Parenchyma: The gland echotexture is normal. Thyroid vascularity is normal. Left Thyroid Lobe: 3.9 x 1.3 x 1.1 cm, volume 2.8 mL. Previous: 3.7 x 1.3 x 1.2 cm, volume: 3.1 cc. Parenchyma: The gland echotexture is normal. Thyroid vascularity is normal. Isthmus: 0.5 cm in maximum AP dimension. Previous: 0.3 cm. Estimated total number of nodules greater than or equal to 1 cm: 0. Surg Nurse nodules are described as follows: 1. Location: Lower pole right lobe. Size: 0.7 x 0.5 x 0.6 cm, volume 0.12 mL. Nodule characteristics: Composition: Solid (2). Echogenicity: Hyperechoic (1). Shape: Not taller than wide (0). Margins: Smooth (0). Echogenic Foci: None (0). ACR TI-RADS total points: 3 ACR TI-RADS category: 3 NODES: No lymphadenopathy is seen in the tissue surrounding the thyroid gland. US/US thyroid IMPRESSION: ACR TI-RADS, category 3, right lobe. ACR TI-RADS RECOMMENDATION REFERENCE: Ultrasound-guided fine-needle aspiration, followup ultrasound, no further follow up. * TR1 (0 point) and TR2 (2 points): No FNA or follow up. * TR3 (3 points): FNA if more than or equal to 2.5 cm in maximum dimension, followup ultrasound in 1, 3 and 5 years if 1.5 to 2.4 cm in maximum dimension. * TR4 (4-6 points): FNA if more than or equal to 1.5 cm in maximum dimension, followup ultrasound in 1, 2, 3 and 5 years if 1 to 1.4 cm in maximum dimension. * TR5 (more than or equal to 7 points): FNA if more than or equal to 1 cm in maximum dimension, followup ultrasound every year for 5 years if 0.5 to 0.9 cm in maximum dimension. * TR3, TR4 or TR5 nodules that are below the size threshold for followup receive no follow up. Electronically signed by: Boris Rutherford MD 10/05/2025 09:43 AM JERROD
--- OUTSIDE RECORDS SUMMARY | 2025-10-03 09:29 | XMS_ITS | Encounter Summary ---
Author Organization [facility] Address [address] [place] [address] Phone Care Team Providers Care Engineering Drawings Checker Name Role Phone Jeremy Castro MD Primary Care Provider [phone] Reason for Referral * MRI/CAT Scan - Closed Specialty Diagnoses / Procedures Referred By Contac t Referred To Contact Procedures CT Chest Outside (No Interpretation) Baljinder Stubbs MD Phone: tel: fax: mailto:[email or web address] Referral ID Status Reason Start Date Expiration Date Visits Re quested Visits Authorized [id number] Closed 12/23/2018 12/23/2019 1 1 Encounter Details Date Type Department Care Team (Late st Contact Info) Description 12/23/2018 Transcribe Orders [facility] [address] [place] [address] Forrest More [address] [place] [address] [email or web address] Social History Tobacco Use Types Packs/Day [...] W/OUT INTERPRETATION Final Result Performing Organization Address City/[facility] Co de Phone Number [facility] * XR Chest Outside (No Interpretation) (12/23/2018 10:12 AM EST) Narrative [facility] - 12/23/2018 10:12 AM EST This study is for PACS storage only and not for interpretation. Baljinder Stubbs MD IMG OUTSIDE IMAGING W/OUT INTERPRETATION Final Result Performing Organization Address [facility] de Phone Number [facility] * CT Chest Outside (No Interpretation) (12/23/2018 10:12 AM EST) Narrative [facility] - 12/23/2018 10:12 AM EST This study is for PACS storage only and not for interpretation. Baljinder Stubbs MD IMG OUTSIDE IMAGING W/OUT INTERPRETATION Final Result Performing Organization Address [facility] de Phone Number [facility] documented in this encounter Visit Diagnoses Not on filedocumented in this encounter Additional Health Concerns Assessment Noted Time PHQ-2 Depression Total Score: 0 07/18/20 18 7:57 AM EDT documented as of this encounter Care Teams Engineering Drawings Checker Relationship Specialty Start Date End Date Jeremy Castro MD [address] [place] [address] [place] [address] PCP - General Internal Medicine 06/05/18 documented as of this encounter Additional Source Comments The information contained in this document represents components of the legal health record. It is not the complete legal health record.[facility]
--- OUTSIDE RECORDS SUMMARY | 2025-10-03 09:30 | XMS_ITS | Clinical Summary ---
Author Organization [facility] Address [address] [place] [address] Care Team Providers Care Vessel Scrapper Name Role Phone Jeremy Castro Primary Care Provider [phone] Allergies Active Allergy Reactions Criticality Noted Date [...] Health Qiana ual Screening 10/22/2024 Influenza Vaccine (#1) 2025 , 07/18/2021, 06/11/2020, Additional history exists COVID-19 Vaccine (4 - 2024-2 6 season) 2025 12/02/2021, 03/30/2021, 03/09/2021 DTaP,Tdap,and Td Vaccines (4 - Td or Tdap) 09/21/2032 09/21/2022, 02/14/2019, 10/31/2011 Insurance [facility] MEDICAID Care Teams Vessel Scrapper Relationship Specialty Start Date End Date Jeremy Castro [address] [place] [address] dr James Ramirez, [place]HAEL [address] PCP - General Internal Medicine 05/14/23
--- OUTSIDE RECORDS SUMMARY | 2025-10-03 09:30 | XMS_ITS | Clinical Summary ---
Author Organization [facility] Address [address] [place] [address] Phone Care Team Providers Care Greeting Card Writer Name Role Phone Jeremy Castro MD Primary Care Provider [phone] Allergies No known active allergies Medications raNITIdine [...] topic Medical Devices Not on file Insurance [facility] GENERIC COMMERCIAL [facility] [place] INDEMNITY Member Subscriber Plan / Payer (Ef fective 2017-Present) Name:Makayla Arizmendi Relation to Subscriber:Spouse Name:SIDNEY ARIZMENDI Date of :1965 (Home) Address: [address] [place] [address] Payer ID:[id number] (NAIC) Type:Indemnity Address: [place] [id number] GENERIC COMMERCIAL [facility] [place] INDEMNITY [facility] COMMERCIAL [place] GENERIC [place] GENERIC COMMERCIAL [facility] UNITED INDEMNITY GENERIC [place]ER[place] [address] [address] [place] [address] [place] Member Subscriber Plan / Payer ( fective 2017-Present) Name:Makayla Arizmendi Relation to Subscriber:Spouse Name:SIDNEY ARIZMENDI Date of :1965 (Home) Address: [address] [place] [address] Payer ID:[id number] (NAIC) Type:Indemnity Address: [address] [place] [id number] GENERIC COMMERCIAL [place] IN[place] Member Subscriber Plan / Payer (Ef fective 2017-Present) Name:Makayla Arizmendi Relation to Subscriber:Spouse Name:SIDNEY ARIZMENDI Date of :1965 (Home) Address: [address] [place] [address] Payer ID:[id number] (NAIC) Type:Indemnity Address: [facility] [id number] COMMERCIAL [place] IN[place] [facility] COMMERCIAL Care Teams Greeting Card Writer Relationship Specialty Start Date End Date Jeremy Castro MD [address] [place] [address] [place] [address] PCP - General Internal Medicine 06/05/18 Additional Source Comments The information contained in this document represents components of the legal health record. It is not the complete legal health record.[facility]
--- OUTSIDE RECORDS SUMMARY | 2025-10-03 09:30 | XMS_ITS | Clinical Summary ---
Author Organization [facility] Address [address] [place] [address] Phone Care Team Providers Care Land Leases And Rentals Manager Name Role Phone Jeremy Castro MD Primary Care Provider Allergies Active Allergy Reactions Criticality Noted Date Comments Doxycycline Anaphylaxis High 09/02/2025 Encounters Date Type Department Care Team Description 09/02/2025 10:11 PM EST - 09/03/2025 12:38 AM EST Emergency [facility] Emergency [address] [place] [address] Other fatigue (Primary Dx) Discharge Disposition: Left Against Medical Advice from Last 3 Months Surgical History Surgery Date Site/Laterality Comments TUBAL [...] Sign Reading Time Taken Comments Blood Pressure 130/70 09/02/2025 10:17 PM EST Pulse 80 09/02/2025 10:17 PM EST Temperature 36.4 C (97.5 F) 09/02/2025 10:17 PM EST Respiratory Rate 16 09/02/2025 10:17 PM EST Oxygen Saturation 99% 09/02/2025 10:17 PM EST Inhaled Oxygen Concentration - - Weight 93 kg (205 lb) 09/02/2025 10:17 PM EST Height 157.5 cm (5' 2 ) 09/02/2025 10:17 PM EST Body Mass Index 37.49 09/02/2025 10:17 PM EST Plan of Treatment Health Maintenance Due Date Last Done Comments Breast Cancer Screening 1977 Colorectal Cancer Screening: Colonoscopy 1977 Hepatitis B Vaccines (1 of 3 - 19+ 3-dose series) 1996 Cervical Cancer Screening: Pap Smear 1998 Cholesterol Screening (Lipid Panel) 09/20/2022 HIV Screening 09/20/2022 Hepatitis C Screening 09/20/2022 Social Influencers of Health Screening 09/20/2022 Depression Screening 10/22/2024 Pneumococcal Vaccine: Pediatrics (0 to 5 Years) and At-Risk Patients (6 to 49 Years) (2 of 2 - PCV) 01/15/2025 01/16/2024, 06/18/2018 COVID-19 Vaccine ( season) 2025 12/02/2021, 03/30/2021, 03/09/2021 Hypertension/CHF/CAD Annual BMP Blood Test 09/02/2026 09/02/2025 DTaP,Tdap,and Td Vaccines (5 - Td or Tdap) 01/15/2034 01/16/2024, 09/21/2022, 02/14/2019, Additional history exists RSV Immunization Adult Patients (1 - 1-dose 75+ series) 2052 Influenza Vaccine Completed 07/09/2025, , 09/21/2022, Additional history exists HIB Vaccines Aged Out No longer eligi [...] to complete this topic RSV Immunization Patients Under 20 months Aged Out No longer eligible based on patient's age to complete this topic Varicella Vaccines Aged Out No longer eligible based on patient's age to complete this topic Procedures Procedure Name Priority Date/Time Associated Diagnosis Comments THYROID STIMULATING HORMONE STAT Add-on 09/02/2025 10:30 PM EST HEMOGLOBIN A1C Add-On 09/02/2025 10:30 PM EST HEPATIC FUNCTION PANEL STAT Add-on 09/02/2025 10:30 PM EST CBC WITH AUTO DIFFERENTIAL STAT 09/02/2025 10:30 PM EST MAGNESIUM STAT 09/02/2025 10:30 PM EST BASIC METABOLIC PANEL STAT 09/02/2025 10:30 PM EST CBC AND DIFFERENTIAL STAT 09/02/2025 10:30 PM EST from Last 3 Months Results * (ABNORMAL) CBC auto differential (09/02/2025 10:30 PM EST) WBC 12.1(H) 4.8 - 10.8 K/mcL LAB HEMETOLOGY METHOD 09/02/2025 11:09 PM EST [facility] RBC 5.20(H) 3.80 - 4.80 M/mcL LAB HEMETOLOGY METHOD 09/02/2025 11:09 PM EST [facility] Hemoglobin 14.9 11.5 - 16.0 g/dL LAB HEMETOLOGY METHOD 09/02/2025 11:[address] [facility] Hematocrit 45.2 35.0 - 47.0 % LAB HEMETOLOGY METHOD 09/02/2025 11:[address] [facility] MCV 86.3 79.0 - 98.0 FL LAB HEMETOLOGY METHOD 09/02/2025 11:[address] [facility] MCH 28.4 27.0 - 32.0 pcg LAB HEMETOLOGY METHOD 09/02/2025 11:[address] [facility] MCHC 33.0 32.0 - 37.0 g/dL LAB HEMETOLOGY METHOD 09/02/2025 11:[address] [facility] RDW 12.8 11.0 - 15.0 % LAB HEMETOLOGY METHOD 09/02/2025 11:[address] [facility] Platelets 368 130 - 400 K/mcL LAB HEMETOLOGY METHOD 09/02/2025 11:[address] [facility] MPV 10.8 7.0 - 11.0 FL LAB HEMETOLOGY METHOD 09/02/2025 11:[address] [facility] NRBC 0.0 <1.0 % LAB HEMETOLOGY METHOD 09/02/2025 11:[address] [facility] NRBC Absolute 0.00 <0.10 K/mcL LAB HEMETOLOGY METHOD 09/02/2025 11:[address] [facility] Neutrophils Relative 54.3 % LAB HEMETOLOGY METHOD 09/02/2025 11:[address] [facility] Lymphocytes Relative 31.8 % LAB HEMETOLOGY METHOD 09/02/2025 11:[address] [facility] Monocytes Relative 6.9 % LAB HEMETOLOGY METHOD 09/02/2025 11:[address] [facility] Eosinophils Relative 5.6 % LAB HEMETOLOGY METHOD 09/02/2025 11:[address] [facility] Basophils Relative 1.1 % LAB HEMETOLOGY METHOD 09/02/2025 11:[address] [facility] Immature Granulocytes Relative 0.3 % LAB HEMETOLOGY METHOD 09/02/2025 11:[address] [facility] Neutrophils Absolute 6.54 1.50 - 7.00 K/mcL LAB HEMETOLOGY METHOD 09/02/2025 11:[address] [facility] Lymphocytes Absolute 3.83 1.00 - 5.00 K/mcL LAB HEMETOLOGY METHOD 09/02/2025 11:[address] [facility] Monocytes Absolute 0.83 0.20 - 1.00 K/mcL LAB HEMETOLOGY METHOD 09/02/2025 11:[address] [facility] Eosinophils Absolute 0.68(H) 0.00 - 0.50 K/mcL LAB HEMETOLOGY METHOD 09/02/2025 11:[address] [facility] Basophils Absolute 0.13 0.00 - 0.20 K/mcL LAB HEMETOLOGY METHOD 09/02/2025 11:[address] [facility] Immature Granulocytes Absolute 0.04(H) 0.00 - 0.03 K/mcL LAB HEMETOLOGY METHOD 09/02/2025 11:[address] [facility] Blood Venous blood specimen / Unknown Venipuncture / Unknown 09/02/2025 10:30 PM EST 09/02/2025 11:01 PM EST us Chuck PHILIP LAB BLOOD ORDERABLES Final Result [facility] [address] [place] [address], * (ABNORMAL) Thyroid Stimulating Hormone (TSH) (09/02/2025 10:30 PM EST) [facility] TSH 5.26(H) 0.40 - 4.00 mcIU/mL LAB CHEMISTRY METHOD 09/03/2025 12:47 AM EST [facility] Blood Venous blood specimen / Unknown Venipuncture / Unknown 09/02/2025 10:30 PM EST 09/02/2025 11:01 PM EST Chuck PHILIP LAB BLOOD ORDERABLES Final Result [facility] [address] [place] [address], [place] [phone] * Magnesium (09/02/2025 10:30 PM EST) [facility] Magnesium 2.4 1.9 - 2.6 mg/dL LAB CHEMISTRY METHOD 09/02/2025 11:33 PM EST [facility] Blood Venous blood specimen / Unknown Venipuncture / Unknown 09/02/2025 10:30 PM EST 09/02/2025 11:01 PM EST Chuck PHILIP LAB BLOOD ORDERABLES Final Result Performing Organization Address City/[facility]/ZIP Co de Phone Number [facility] [address] [place] [address], [place] [phone] * Hemoglobin A1c (09/02/2025 10:30 PM EST) [facility] Hemoglobin A1C 6.0 <6.5 % LAB CHEMISTRY METHOD 09/03/2025 9:50 AM EST [facility] Mean Bld Glu Estim. 126 mg/dL LAB CHEMISTRY METHOD 09/03/2025 9:50 AM EST [facility] Blood Venous blood specimen / Unknown Venipuncture / Unknown 09/02/2025 10:30 PM EST 09/02/2025 11:01 PM EST us Chuck PHILIP LAB BLOOD ORDERABLES Final Result [facility] [address] [place] [address], * Hepatic function panel (09/02/2025 10:30 PM EST) Total Protein 7.2 6.0 - 8.0 g/dL LAB CHEMISTRY METHOD 09/03/2025 1:54 AM EST [facility] Albumin 4.0 3.2 - 5.0 g/dL LAB CHEMISTRY METHOD 09/03/2025 1:[address] [facility] Total Bilirubin 0.4 0.0 - 1.4 mg/dL LAB CHEMISTRY METHOD 09/03/2025 1:[address] [facility] Bilirubin, Direct 0.1 0.0 - 0.3 mg/dL LAB CHEMISTRY METHOD 09/03/2025 1:[address] [facility] Bilirubin, Indirect 0.3 0.0 - 1.1 mg/dL LAB CHEMISTRY METHOD 09/03/2025 1:[address] [facility] ALT (SGPT) 34 10 - 60 unit/L LAB CHEMISTRY METHOD 09/03/2025 1:[address] [facility] AST (SGOT) 22 10 - 42 unit/L LAB CHEMISTRY METHOD 09/03/2025 1:[address] [facility] Alkaline Phosphatase 76 42 - 121 unit/L LAB CHEMISTRY METHOD 09/03/2025 1:[address] [facility] Blood Venous blood specimen / Unknown Venipuncture / Unknown 09/02/2025 10:30 PM EST 09/02/2025 11:01 PM EST us Chuck PHILIP LAB BLOOD ORDERABLES Final Result [facility] [address] [place] [address], [place] [phone] * Basic metabolic panel (09/02/2025 10:30 PM EST) Sodium 139 133 - 145 mmol/L LAB CHEMISTRY METHOD 09/02/2025 11:[address] [facility] Potassium 4.3 3.5 - 5.5 mmol/L LAB CHEMISTRY METHOD 09/02/2025 11:[address] [facility] Chloride 107 96 - 110 mmol/L LAB CHEMISTRY METHOD 09/02/2025 11:[address] [facility] CO2 28 21 - 32 mmol/L LAB CHEMISTRY METHOD 09/02/2025 11:[address] [facility] Anion Gap 4 3 - 11 LAB CHEMISTRY METHOD 09/02/2025 11:[address] [facility] Glucose 85 70 - 100 mg/dL LAB CHEMISTRY METHOD 09/02/2025 11:[address] [facility] BUN 12 5 - 25 mg/dL LAB CHEMISTRY METHOD 09/02/2025 11:[address] [facility] Creatinine 0.95 0.50 - 1.10 mg/dL LAB CHEMISTRY METHOD 09/02/2025 11:[address] [facility] eGFR 75 >=60 mL/min/1. 73m2 LAB CHEMISTRY METHOD 09/02/2025 11:[address] [facility] Comment:Calculation based on the Chronic Kidney Disease Epidemiology Collaboration (CKD-EPI) equation refit without adjustment for race. BUN/Creatinine Ratio 12.6 LAB CHEMISTRY METHOD 09/02/2025 11:[address] [facility] Calcium 9.1 8.5 - 10.5 mg/dL LAB CHEMISTRY METHOD 09/02/2025 11:[address] [facility] Blood Venous blood specimen / Unknown Venipuncture / Unknown 09/02/2025 10:30 PM EST 09/02/2025 11:01 PM EST us Chuck PHILIP LAB BLOOD ORDERABLES Final Result [facility] [address] [place] [address], [place] [phone] from Last 3 Months Insurance [facility] [employer] Care Teams Land Leases And Rentals Manager Relationship Specialty Start Date End Date Jeremy Castro MD [address] [place] [address] [address] [place] PCP - General Internal Medicine 10/02/17
--- OUTSIDE RECORDS SUMMARY | 2025-10-03 09:30 | XMS_ITS | Encounter Summary ---
Author Organization [facility] Address [address] [place] [address] [address] [place] [address] Phone Care Team Providers Care Fitting Room Checker Name Role Phone Jeremy Castro MD Primary Care Provider [phone] [phone] Encounter Details Date Type Department Care Team (Late st Contact Info) Description 07/18/2018 Procedure [facility] [address] [place] [address] Social History Tobacco Use Types Packs/Day Years [...] documented as of this encounter Care Teams Fitting Room Checker Relationship Specialty Start Date End Date Jeremy Castro MD [address] [place] [address] [place] [address] PCP - General Internal Medicine 06/05/18 documented as of this encounter Additional Source Comments The information contained in this document represents components of the legal health record. It is not the complete legal health record.[facility]
== END 2025-10-03 09:28 | disposition home or self-care (01) ==
LOC: HO.US 09:27
PROVIDERS: PCP Internal Medicine; Visit Provider Internal Medicine
DX: E04.9 Nontoxic goiter, unspecified (principal)
CPT/HCPCS: 76536

== ENCOUNTER → 2025-10-03 09:29 | Outpatient (BNV) | payer OTHER, SELFPAY | PROVIDERS: PCP Internal Medicine; Visit Provider Radiology Diagnostic Radiology | DX: E04.9 Nontoxic goiter, unspecified (principal) | CPT/HCPCS: 76536 ==